=== PATIENT | female | born 1970 | race Caucasian/White ===

== ENCOUNTER 2022-01-12 13:14 | Outpatient (RCR) | payer OTHER, SELFPAY ==
--- NOTE | 2022-01-12 16:21 | ONC.NURNOTE ---
Breast Chief Lifestyle Officer Note Accompanied pt to appt with Hetal Herrera CNP. Pt s/p chemo x ~ 3 weeks; Radiation simulation tomorrow with a proposed start date of 01/16/22 with proposed treatment length of 5 weeks. Pt to begin Letrozole at completion of radiation therapy and f/u with Hetal 1-2 months in to evaluate side effects. 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 F/u sched for 04/21/22. Likely f/u 3 mo after that appt with labs/CT scan/provider.
== END 2022-01-22 23:59 | disposition home or self-care (01) ==
LOC: CCIC 13:14
PROVIDERS: Visit Provider Nurse Practitioner Family
DX: C50.911 Malignant neoplasm of unspecified site of right female breast (principal); Z17.0 Estrogen receptor positive status [ER+]; Z79.811 Long term (current) use of aromatase inhibitors; C77.9 Secondary and unspecified malignant neoplasm of lymph node, unspecified
CPT/HCPCS: 99212; 99214; 99215

== ENCOUNTER 2022-03-16 14:24 | Outpatient (CLI) | payer OTHER, SELFPAY ==
--- OUTSIDE RECORDS SUMMARY | 2022-03-16 14:36 | XMS_ITS | Encounter Summary ---
:1970 Author Organization [facility] Address [address] [place] [address] Care Team Providers Name Role Phone Unavailable Primary Care Provider Unavailable Encounter Details Date Type Department Care Team Description 03/16/2022 Ancillary Procedure Department of Oncology Arrived Social History Tobacco Use Types Packs/Day Years Used Date Smoking Tobacco: Never Smokeless Tobacco: Never Alcohol Habits Answer Date Recorded How often do you have a drink containing alcohol? Monthly or less 01/12/2022 How many drinks containing alcohol do you have on a 1 or 2 01/12/2022 typical day when you are drinking? How often do you have six or more drinks on one Never 01/12/2022 occasion? Comment: Not asked Social Isolation Answer Date Recorded In a typical week, how many times do you More than three ida es a week 01/12/2022 talk on the phone with family, friends, or neighbors? How often do you get together with friends Once a week 01/12/2022 or relatives? How often do you attend moravian or More than 4 times per year 01/12/2022 latter-day services? Do you belong to any clubs or Yes 01/12/2022 organizations such as moravian groups, unions, fraternal or athletic groups, or school groups? How often do you attend meetings of the More than 4 times pe r year 01/12/2022 clubs or organizations you belong to? Are you now , , , 01/12/2022 , never or living with a partner? Physical Activity Answer Date Recorded On average, how many days per week do you engage in moderate to 5 days 01/12/2022 strenuous exercise (like walking fast, running, jogging, dancing, swimming, biking, or other activities that cause a light or heavy sweat)? On average, how many minutes do you engage in exercise at th is 40 min 01/12/2022 level? Stress Answer Date Recorded Do you feel stress - tense, restless, nervous, or To some ex tent 01/12/2022 anxious, or unable to sleep at night because your mind is troubled all the time - these days? Financial Resource Strain Answer Date Recorded How hard is it for you to pay for the very basics like Not h sunita at all 01/12/2022 food, housing, medical care, and heating? Intimate Partner Violence Answer Date Recorded Within the last year, have you been afraid of your partner o r No 01/12/2022 ex-partner? Within the last year, have you been humiliated or emotionall y No 01/12/2022 abused in other ways by your partner or ex-partner? Within the last year, have you been kicked, hit, slapped, or No 01/12/2022 otherwise physically hurt by your partner or ex-partner? Within the last year, have you been raped or forced to have any No 01/12/2022 kind of sexual activity by your partner or ex-partner? Food Insecurity Answer Date Recorded Within the past 12 months, you worried that your food would Never true 01/12/2022 run out before you got money to buy more. Within the past 12 months, the food you bought just didn't N ever true 01/12/2022 last and you didn't have money to get more. Transportation Needs Answer Date Recorded In the past 12 months, has lack of transportation kept you f rom No 01/12/2022 medical appointments or from getting medications? In the past 12 months, has lack of transportation kept you f rom No 01/12/2022 meetings, work, or getting things needed for daily living? Housing Stability Answer Date Recorded In the last 12 months, was there a time when you were not ab le No 01/12/2022 to pay the mortgage or rent on time? In the last 12 months, how many places have you lived? 1 01/12/2022 In the last 12 months, was there a time when you did not hav e a No 01/12/[address] or slept in a correction (including now)? Education Answer Date Recorded What is the highest level of Professional school degree (e.g ., MD, 01/12/2022 school you have completed or the DDS, DVM, ORTIZ) highest degree you have received? Sex Assigned at Date Recorded Female 01/12/2022 4:28 PM CDT documented as of this encounter Plan of Treatment Upcoming Encounters Date Type Specialty Care Team Description 03/24/2022 Appointment Radiation Oncology Jose Allred M.D. [address] [place], [place] [phone] (Wo rk) documented as of this encounter Procedures Procedure Name Priority Date/Time Associated Diagnosis Comme nts ONCOLOGY IMAGE EXAM Routine 03/16/2022 2:00 PM Re sults for this CDT procedure are i n the results section. documented in this encounter Results Breast(s)-Oncology Image Exam (03/16/2022 2:00 PM CDT) Specimen (Source) Anatomical Collection Method Collection Time Re ceived Time Location / / Volume Laterality 03/16/2022 2:00 PM CDT Narrative [facility] - 03/16/2022 2:15 PM CDT This order has been created and auto-finalized to support the import of images acquired without order. The clini mona documentation to support these images can be found on the encounter chris t produced images. Provider Not In System IMG NON RAD IMAGING PROCEDUR ES Performing Organization Address City/State/ZIP Code Phon e Number [facility] NA documented in this encounter Visit Diagnoses Not on filedocumented in this encounter
--- OUTSIDE RECORDS SUMMARY | 2022-03-16 14:36 | XMS_ITS | Encounter Summary ---
:1970 Author Organization [facility] Address [address] [place] [address] Care Team Providers Name Role Phone Unavailable Primary Care Provider Unavailable Reason for Referral Radiation Therapy (Routine) - Authorized Specialty Diagnoses / Procedures Referred By Contact Refer red To Contact Diagnoses Malignant Neoplasm Of Breast Upper Outer Quadrant Female Right (HCC) Charles Allred M.D. [facility] Procedures Management Visit [address] [place], [place] [address] Referral ID Status Reason Start Date Expiration Date Visits V isits Requested Authorized [id number] Authorized 11/14/2021 11/14/2022 10 10 Reason for Visit Radiation Therapy (Routine) - Authorized Specialty Diagnoses / Procedures Referred By Contact Refer red To Contact Diagnoses Malignant Neoplasm Of Breast Upper Outer Quadrant Female Right (HCC) Charles Allred M.D. [facility] Procedures Management Visit [address] [place], [place] [phone] Referral ID Status Reason Start Date Expiration Date Visits V isits Requested Authorized [id number] Authorized 11/14/2021 11/14/2022 10 10 Encounter Details Date Type Department Care Team Description 02/22/2022 Hospital Encounter Department of Charles Allrde Neoplasm Radiation Oncology Rekha Lobato Of Breast Upper in [place], [address] [place], [place] Female Right (HCC) [address] [facility] [address] [place], [place] [phone] (Work) [phone] Social History Tobacco Use Types Packs/Day Years [...] or relatives? How often do you attend yarsanism or More than 4 times per year 01/12/2022 lutheran services? Do you belong to any clubs or Yes 01/12/2022 organizations such as yarsanism groups, unions, fraternal or athletic groups, or [...] place to sleep or slept in a senior living (including now)? Education Answer Date Recorded What is the highest level of Professional school degree (e.g ., , 01/12/2022 school you have completed or the DDS, DVM, ORTIZ) highest degree you have received? Sex Assigned at Date Recorded Female 01/12/2022 4:28 PM CDT documented as of this encounter Last Filed Vital Signs Vital Sign Reading Time Taken Comments Blood Pressure - - Pulse - - Temperature 36.1 ??C (97 ??F) 02/22/2022 2:02 PM CDT Respiratory Rate - - Oxygen Saturation - - Inhaled Oxygen Concentration - - Weight 75.2 kg (165 lb 12.6 oz) 02/22/2022 2:02 PM CDT Height - - Body Mass Index 24.14 04/14/2021 8:57 AM CDT documented in this encounter Medications at Time of Discharge Medication Sig Dispensed Refills Start Date End Date calcium carbonate (CALCIUM Take by mouth. 0 500 ORAL) cetirizine (ZyrTEC) 10 mg Take 10 mg by mouth 0 tablet daily. ergocalciferol, vitamin D2, 2 (two) times a day. 0 10 mcg (400 unit) tablet letrozole (FEMARA) 2.5 mg Take 2.5 mg by mouth 0 01/23/2022 tablet daily. pantoprazole (PROTONIX) 20 TAKE 1 TABLET (20 0 mg EC tablet MG) BY MOUTH DAILY vitamin B complex (B Take by mouth. 0 COMPLEX-VITAMIN B12 ORAL) documented as of this encounter Progress Notes Charles Allred M.D. - 02/22/2022 2:00 PM CDT SUBJECTIVE REASON FOR VISIT Evaluation for side effects while receiving radiation treatment for 1. Malignant Neoplasm Of Breast Upper Outer Quadrant Female Right (HCC) HISTORY OF PRESENT ILLNESS Mrs. Danielle Saini is a 52 y.o. female with stage IIA (pT2, pN1a, cM0, G3, ER+, MO+, HER2-)invasive ductal carcinoma of the right breast followed by chemotherapy. She is now undergoing radiotherapy. Treatment Course: 1xBreast Plan ID Fractions Dose / Fraction (cGy) Dose Treated (cGy) Dose Planned (cGy) First Treatment Last Treatment Elapsed Days [id number] 200 3600 3600 01/23/2022 02/15/2022 23 [id number] 5 / 7 200 1000 1400 02/16/2022 02/22/2022 6 Treatment Site Summary 4600 5000 01/23/2022 02/22/2022 30 Course Summary 01/23/2022 02/22/2022 30 Oncology History Malignant Neoplasm Of Breast Upper Outer Quadrant Female Right (HCC) 03/17/2021 Imaging Bilateral screening mammogram demonstrated clustered microcalcifications within the upper outer quadrant of the right breast with associated asymmetric density, 6 cm from the nipple, 10 o'clock position. No suspicious findings in the left breast. BI-RADS 0. 03/24/2021 Imaging Right breast mammogram with tomosynthesis demonstrated a spiculated mass within the lateral right breast, 5 cm from the nipple, with pleomorphic branching microcalcifications present. Targeted right breast ultrasound at the 9 o'clock position, 5 cm from the nipple was performed. There was an irregularly marginated solid mass with distal acoustic shadowing and punctate microcalcifications measuring 1.3 x 0.9 cm. 03/28/2021 Other Sod Cutter exam with Dr. Patty Bajwa where the patient reported spotting while on combined HRT. Pelvic examination demonstrated an endocervical polyp. Normal vagina, vulva, and cervix without lesions, polyps,or tenderness. Uterus was normal size, shape, consistency with no mass or tenderness. Adnexa was normal in size without mass or tenderness. Recommended proceeding with pelvic ultrasound for postmenopausal bleeding and endometrial biopsy of endometrium is greater than 4 mm. Continue HRT for now. 03/31/2021 Biopsy/Pathology Ultrasound-guided core biopsy of the right breast at the 9 o'clock position, 5 cm from the nipple was performed. Pathology demonstrated invasive ductal carcinoma, Bethel grade 3. Angiolymphatic invasion was absent. Associated DCIS was present, solid and cribriform subtypes (necrosis present (grade 3). Estrogen receptor positive (96%). Progesterone receptor positive (62%). HER2 by IHC negative (0). 04/06/2021 Other Surgery consultation with Dr. Malia Bailey who discussed surgical treatment options including mastectomy alone, mastectomy with reconstruction, and lumpectomy. Indications for chemotherapy and radiation were discussed as well. Referral for genetic screening. Referral to Radiation Oncology prior to det ermining any treatment plans. Recommended proceeding with an MRI of the breasts. Referral for lymphedema education and evaluation prior to surgery. Referral to Plastic surgery to discuss reconstruction. 04/12/2021 Imaging MRI of the bilateral breasts demonstrated clumped branching non-mass enhancement at the 9 o'clock position, middle posterior depth, approximately 6 cm from the nipple of the right breast. This measured 1.3 x 1.4 x 3.8 cm. There was a possible satellite mass approximately 2.1 cm medial and anterior tothe site of biopsy-proven malignancy, measuring 0.4 cm. This was located central to the nipple, middle depth, approximately 3 cm from the nipple. No suspicious areas of enhancement in the left breast. No adenopathy. BI-RADS 6. 04/13/2021 Genetic Testing and Tumor Genotyping Genetic counseling appointment where the patient chose to proceed with testing via [facility]???s Breast Cancer STAT panel (9 genes) with reflex to the complete Common Hereditary Cancers Panel (47 genes). Result was negative; BRCA 1/2 negative. 06/02/2021 Surgery and Procedures Bilateral mastectomies, right axillary sentinel lymph node biopsy, and right axillary lymph node dissection was performed by Dr. Bailey. Left immediate prepectoral tissue kaiawhina kohanga reo breast reconstructionwith AlloDerm and right direct implant prepectoral breast reconstruction with AlloDerm was performedby Dr. Cotto. PATHOLOGY: A) RIGHT BREAST, MASTECTOMY: 1. Invasive ductal carcinoma, Shayna grade III of III a. Size: 2.2 cm b. Core biopsy site is associated with tumor 2. Ductal carcinoma in situ (DCIS), nuclear grade 3, Cribriform and comedo type 3. Margins: a. Invasive carcinoma involves the anterior/superior margin b. DCIS is 0.5 cm from the anterior/superior margin 4. Breast Ancillary Testing: Performed on prior case ([id number]) a. Hormone Receptors: Estrogen receptor: Positive (96%, moderate staining) Progesterone receptor: Positive (62%, moderate staining) b. HER2 by IHC: Negative (0 by manual morphometry) 5. Ki-67 (performed on A2): 18% by image analysis 6. Surrounding breast unremarkable 7. Benign nipple B) RIGHT AXILLARY SENTINEL LYMPH NODE, 1, BIOPSY: 1. Positive for malignancy in 1 of 1 lymph nodes (1/) a. Size of largest metastatic focus: 12 mm b. Extracapsular extension: 2 mm C) LEFT BREAST, MASTECTOMY: 1. Breast and nipple with no pathologic abnormalities 2. Three (3) benign intraparenchymal lymph nodes D) RIGHT AXILLARY LYMPH NODES, REGIONAL DISSECTION: 1. Positive for malignancy in 2 of 6 lymph nodes (2/6) a. Size of largest metastatic focus: 12 mm b. Extracapsular extension: <1 mm SPECIMEN Procedure: Total mastectomy Specimen Laterality: Right TUMOR Tumor Site: Clock position : 9 o'clock Tumor Site: Distance from nipple (Centimeters): 5 cm Histologic Type: Invasive carcinoma of no special type (ductal) Glandular (Acinar) / Tubular Differentiation: Score 3 Nuclear Pleomorphism: Score 3 Mitotic Rate: Score 2 Overall Grade: Grade 3 (scores of 8 or 9) Tumor Size: Greatest dimension of largest invasive focus (Millimeters): 22 mm Ductal Carcinoma In Situ (DCIS): Present : Negative for extensive intraductal component (EIC) Architectural Patterns: Comedo Architectural Patterns: Cribriform Nuclear Grade: Grade III (high) Necrosis: Present, central (expansive comedo necrosis) Tumor Extent: Lymphovascular Invasion: Not identified Dermal Lymphovascular Invasion: Not identified Microcalcifications: Not identified Treatment Effect in the Breast: No known presurgical therapy MARGINS Invasive Carcinoma Margins: Positive for invasive carcinoma Positive Margin(s): Anterior/superior : Unifocal Distance from Other Margins: Other Margin: Anterior/inferior : 1.5 mm DCIS Margins: Uninvolved by DCIS Distance from Closest Margin (Millimeters): 5 mm Closest Margin(s): Anterior/superior LYMPH NODES Regional Lymph Nodes: Involved by tumor cells Number of Lymph Nodes with Macrometastases (> 2 mm): 3 Number of Lymph Nodes with Micrometastases (> 0.2 mm to 2 mm and / or > 200 cells): 0 Size of Largest Metastatic Deposit (Millimeters): 12 mm Extranodal Extension: Present Extent of Extranodal Extension: Less than or equal to 2 mm Total Number of Lymph Nodes Examined: 7 Number of Edmond Nodes Examined: 1 PATHOLOGIC STAGE CLASSIFICATION (pTNM, AJCC 8th Edition) Primary Tumor (pT): pT2 Regional Lymph Nodes (pN): pN1a Test(s) Performed: Ki-67 Percentage of Positive Nuclei: 18 % 07/07/2021 Surgery and Procedures Right breast anterior margin re-excision was performed by Dr. Bailey. PATHOLOGY: A) RIGHT BREAST, ANTERIOR MARGIN, RE-EXCISION: 1. Residual invasive ductal carcinoma, Shayna grade III of III a. Size: up to 1.5 mm b. Mastectomy site is associated with tumor c. Lymphovascular invasion: Present 2. Ductal carcinoma in situ (DCIS), nuclear grade 3, focal, Clinging type 3. Margins: a. Invasive carcinoma is < 0.1 cm from the new medial and lateral margins, and 0.1 cm from the new superior margin of this specimen b. DCIS is < 0.1 cm from the new medial margin of this specimen 4. Breast Ancillary Testing: Performed on prior case ([id number]) a. Hormone Receptors: Estrogen receptor: Positive (96%, moderate staining) Progesterone receptor: Positive (62%, moderate staining) b. HER2 by IHC: Negative (0 by manual morphometry) c. Ki-67 (performed on [id number]): 18% by image analysis 07/14/2021 Imaging PET-CT scan demonstrated postprocedural changes related to recent bilateral mastectomy and right axillary lymph node dissection with no suspicious uptake worrisome for residual or recurrent right breast carcinoma. No convincing evidence of tracer avid distant sites of metastatic disease. Focal mild uptake central right lobe without definitive noncontrast CT abnormality, potentially artifact or related to background noise. 07/28/2021 - 09/08/2021 Chemotherapy Dose dense Adriamycin and Cytoxan chemotherapy x 4 cycles. 09/22/2021 - 12/15/2021 Chemotherapy Weekly paclitaxel x 12 weeks. 01/23/2022 - Radiation Therapy Radiation Therapy Treatment Details (Noted on 11/14/2021) Site: Right Chest wall Technique: IMRT Goal: Curative Planned Treatment Start Date: 01/23/2022 Patient seen and evaluated today with Dr. Allred. The patient reports that she is doing well. She denies any new concerns or symptoms. She is applyinglotion to the right upper chest/neck region. There is some mild pruritus with her dermatitis. She describes intermittent pain that last only a few seconds to the mid chest region that she describes as shooting pain. She denies seroma, changes in range of motion or sore throat or shortness of breath. PATIENT REPORTED SYMPTOM SCREEN FATIGUE (Scale: 0 = no fatigue; 10 = worst fatigue you can imagine): 1 PAIN (Scale: 0 = no pain; 10 = worst pain you can imagine): 0 OVERALL QUALITY OF LIFE (Scale: 0 = as bad as can be; 10 = as good as can be): 8 OBJECTIVE There were no vitals taken for this visit. PHYSICAL EXAM General: Alert and oriented in no apparent distress. Skin: Mild erythema toned skin to the mid breast region. There is also brisk erythema in the right supraclavicular region. Slight dermatitis to the mid chest region. Dryness and mild erythema to the right posterior upper back region. Mepitel intact. No areas of desquamation. ASSESSMENT / PLAN #1 Stage IIA (pT2, pN1a, cM0, G3, ER+, MO+, HER2-) invasive ductal carcinoma of the right breast s/pbilateral mastectomies and right axillary lymph node dissection on June 02, 2021 with left kaiawhina kohanga reo and right implant reconstruction; re-excision of the positive anterior margin on July 07, 2021 #2 Dose dense Adriamycin and Cytoxan chemotherapy x4 cycles completed on September 08, 2021 #3 Weekly paclitaxel chemotherapy initiated on September 22, 2021; completed on December 15, 2021 #4 Radiotherapy to the right chest wall and regional lymph nodes initiated on January 23, 2022; anticipated completion on February 24, 2022 The patient is tolerating radiation treatment well. Benadryl or Hydrocortisone 1% ointment can be applied to areas of pruritus. Patient will leave Mepitel on for 1-2 weeks post last radiation treatment. Aquaphor is to be applied to areas of erythema outside of Mepitel filed now 3-4 times a day. Once Mepitel has come off the whole treatment field area should have Aquaphor application 4 times a day. I have reviewed Moist Skin Reaction pamphlet [id number]. I have provided patient with samples of Xeroform and Pro Net. I have provided patient information on how to order more supplies if needed. Radiationrelated skin changes should start to improve in 2-3 weeks. I have reviewed Monthly Self Breast Examination pamphlet with patient today. Hetal Herrera CNP will see patient in followup at the end of March 2022. We will not order formal follow up in Radiation Oncology. Patient has been encouraged to contact our care team for any questions, concerns or assistance with skin care. She will continue with radiation treatment as planned. Patient stated a full understanding to the plan of care discussed today. Toxicities reviewed with Dr. Allred today. Signed by: Charo Morales RN 02/22/22 1:56 PM CDT I saw and evaluated the patient and participated in the bentley portions of the service. I reviewed the documentation of Charo Morales R.N. and agree with the findings and plan. The patient appears well onexam. She has brisk erythema in her right supraclavicular region. She will begin dressing changes for this. She will contact us if her skin blisters in peels. She will finish treatment as planned on Sunday. She is tolerating treatment well with anticipated side effects including grade 2 radiation dermatitis and grade 1 non-cardiac chest pain. She will follow-up with Hetal Herrera, SURVEYING OR SPATIAL SCIENCE TECHNICIAN will see patientin followup at the end of March 2022. I will not schedule any follow-up with me, but she can contact me at any time with questions or concerns. Signed by: Charles Allred M.D. 02/22/2022 5:07 PM CDT [facility] [address] [place] [address] documented in this encounter Miscellaneous Notes Addendum Note - Jaquelin Abraham, C.N.A. - 02/22/2022 2:00 PM CDT Encounter addended by: Jaquelin Abraham C.N.A. on: 02/23/2022 7:29 AM Actions taken: Letter saved documented in this encounter Plan of Treatment Upcoming Encounters Date Type Specialty Care Team Description 03/24/2022 Appointment Radiation Oncology Jose Allred M.D. [address] [place], [place] [phone] (Wo rk) Scheduled Orders Name Type Priority Associated Diagnoses Order S chedule Management Visit Radiation Oncology Routine Malignant Neoplasm Once for 1 Of Breast Upper Occurrences starting Outer Quadrant 02/22/2022 un til Female Right (HCC) 2 documented as of this encounter Visit Diagnoses Diagnosis Malignant Neoplasm Of Breast Upper Outer Quadrant Female Right (HCC) documented in this encounter
--- OUTSIDE RECORDS SUMMARY | 2022-03-16 14:36 | XMS_ITS | Encounter Summary ---
:[address] [facility] Address [address] [place] [address] Care Team Providers Name Role Phone Unavailable Primary Care Provider Unavailable Reason for Referral Outpatient (Routine) - Authorized Specialty Diagnoses / Procedures Referred By Contact Refer red To Contact Radiation Oncology Charles Allred M .D. 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 [facility] Procedures CT Chest with IV Contrast [address] [place] [phone] Referral ID Status Reason Start Date Expiration Date Visits V isits Requested Authorized [id number] Authorized 03/16/2022 03/16/2023 1 1 Outpatient (Routine) - Closed Specialty Diagnoses / Procedures Referred By Contact Refer red To Contact Radiation Oncology Charles Allred M .D. [facility] Region [address] [place] [phone] Referral ID Status Reason Start Date Expiration Date Visits Requ ested Visits Authorized [id number] Closed 03/15/2022 03/14/2025 1 1 Reason for Visit Outpatient (Routine) - Closed Specialty Diagnoses / Procedures Referred By Contact Refer red To Contact Radiation Oncology Charles Allred M .D. 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 How often do you attend synagogue or More than 4 times per year 01/12/2022 zoroastrianism services? Do you belong to any clubs or Yes 01/12/2022 organizations such as synagogue groups, unions, fraternal or athletic groups, or [...] place to sleep or slept in a prison (including now)? Education Answer Date Recorded What is the highest level of Professional school degree (e.g ., , 01/12/2022 school you have completed or the DDS, DVM, ORTIZ) highest degree you have received? Sex Assigned at Date Recorded Female 01/12/2022 4:28 PM CDT documented as of this encounter Last Filed Vital Signs Vital Sign Reading Time Taken Comments Blood Pressure 106/72 03/16/2022 1:03 PM CDT Pulse 64 03/16/2022 1:03 PM CDT Temperature 36.2 ??C (97.1 ??F) 03/16/2022 1:03 PM CDT Respiratory Rate - - Oxygen Saturation - - Inhaled Oxygen Concentration - - Weight 75.7 kg (166 lb 14.2 oz) 03/16/2022 1:03 PM CDT Height - - Body Mass Index 24.3 04/14/2021 8:57 AM CDT documented in this encounter Plan of Treatment Upcoming Encounters Date Type Specialty Care Team Description 03/24/2022 Appointment Radiation Oncology Jose Allred M.D. 200 [place], [place] [phone] (Wo rk) Scheduled Orders Name Type Priority Associated Diagnoses Order S chedule CT Chest with IV Imaging RAD - Routine (most Malignant Neoplas m Expected: Contrast inpatients and all Of Breast Upper 2021 outpatients) Outer Quadrant (Approximate) , Female Right (HC C) Expires: Pain Chest Wall 06/15/2023 Scheduled Referrals Name Type Priority Associated Order Schedule Diagnoses Radiation Oncology Outpatient Referral Routine On ce for 1 office visit Occurrences sta rting (clinic) 03/16/2022 unti l 03/16/2022 Radiation Oncology Outpatient Referral Routine Ex pected: 03/23/2022 office visit (Approximate), (clinic) Expires: 2022 documented as of this encounter Visit Diagnoses Diagnosis 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
--- OUTSIDE RECORDS SUMMARY | 2022-03-16 14:36 | XMS_ITS | Encounter Summary ---
:[address] 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 [facility] Procedures Prior Auth Rad Tx [place] RADTN [place] DEL >=1 MEV COMPLEX [address] [place] [address] Referral ID Status Reason Start Date Expiration Date Visits Requ ested Visits Authorized [id number] Closed 01/16/2022 11/14/2022 25 25 Encounter Details Date Type Department Care Team Description 02/22/2022 Hospital Encounter Department of Radiation Lei Allred, [place]cology [place] [address] [facility] [address] [place] [phone] Social History Tobacco Use Types Packs/Day Years [...] or relatives? How often do you attend hoahaoism or More than 4 times per year 01/12/2022 voodoo services? Do you belong to any clubs or Yes 01/12/2022 organizations such as hoahaoism groups, unions, fraternal or athletic groups, or [...] place to sleep or slept in a residential (including now)? Education Answer Date Recorded What [...] Radiation Oncology Jose Allred M.D. [address] [place], [place] [phone] (Wo rk) documented as of this encounter Visit Diagnoses Not on filedocumented in this encounter
--- OUTSIDE RECORDS SUMMARY | 2022-03-16 14:36 | XMS_ITS | Encounter Summary ---
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 [facility] Procedures Prior Auth Rad Tx [place] RADTN [place] DEL >=1 MEV COMPLEX [address] [place] [address] Referral ID Status Reason Start Date Expiration Date Visits Requ ested Visits Authorized [id number] Closed 01/16/2022 11/14/2022 25 25 Encounter Details Date Type Department Care Team Description 02/21/2022 Hospital Encounter Department of Radiation Lei Allred, [place]cology [place] [address] [facility] [address] [place] [phone] Social History Tobacco Use Types Packs/Day Years [...] or relatives? How often do you attend lutheran or More than 4 times per year 01/12/2022 caodaism services? Do you belong to any clubs or Yes 01/12/2022 organizations such as lutheran groups, unions, fraternal or athletic groups, or [...] place to sleep or slept in a intermediate (including now)? Education Answer Date Recorded What [...] Radiation Oncology Jose Allred M.D. [address] [place], [place] [phone] (Wo rk) documented as of this encounter Visit Diagnoses Not on filedocumented in this encounter
--- OUTSIDE RECORDS SUMMARY | 2022-03-16 14:36 | XMS_ITS | Encounter Summary ---
:1970 Author Organization [facility] Address [address] [place] [address] Care Team Providers Name Role Phone Unavailable Primary Care Provider Unavailable Encounter Details Date Type Department Care Team Description 02/24/2022 Documentation Department of Radiation Charles Allred, Oncology in [facility] [address] [facility] [address] [place] [phone] (Wo rk) Social History Tobacco Use Types Packs/Day Years [...] or relatives? How often do you attend restorationist or More than 4 times per year 01/12/2022 hoahaoism services? Do you belong to any clubs or Yes 01/12/2022 organizations such as restorationist groups, unions, fraternal or athletic groups, or [...] minutes do you engage in exercise at is 40 min 01/12/2022 level? Stress Answer [...] place to sleep or slept in a [facility] (including now)? Education Answer Date Recorded What is the highest level of Professional school degree (e.g ., , 01/12/2022 school you have completed or the DDS, DVM, ORTIZ) highest degree you have received? Sex Assigned at Date Recorded Female 01/12/2022 4:28 PM CDT documented as of this encounter Miscellaneous Notes Radiation Completion Notes - Frances Randall R.N. 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 ([id number]) Treatment Intent: Curative Concomitant Therapy: To be determined by Hetal Herrera CNP Single Plan Treatment Course: 1xBreast Plan ID Fractions Dose / Fraction (cGy) Dose Treated (cGy) Dose Planned (cGy) First Treatment Last Treatment Elapsed Days [id number] / 200 3600 3600 01/23/2022 02/15/2022 23 [id number] 7 / 7 200 1400 1400 02/16/2022 02/24/2022 8 Treatment Site Summary 5000 5000 01/23/2022 02/24/2022 32 Course Summary 01/23/2022 02/24/2022 32 Radiation Modality: Photons CLINICAL SUMMARY Mrs. Danielle Saini completed radiation treatment as planned without interruptions. The course of treatment was tolerated well and with anticipated side effects. The patient experienced toxicities of grade 2 radiation dermatitis and grade 1 non-cardiac chest pain during radiation treatment. TREATMENT RESPONSE: Response to treatment will be determined by post-treatment imaging and/or laboratory work. RECOMMENDED FOLLOW UP: Hetal Herrera CNP . Signed by: Frances Singh R.N., 03/09/2022 11:37 AM CDT [facility] [address] [place] [address] documented in this encounter Plan of Treatment Upcoming Encounters Date Type Specialty Care Team Description 03/24/2022 Appointment Radiation Oncology Jose Allred M.D. [address] [place] [phone] (Wo rk) documented as of this encounter Visit Diagnoses Not on filedocumented in this encounter
--- OUTSIDE RECORDS SUMMARY | 2022-03-16 14:36 | XMS_ITS | Encounter Summary ---
:1970 Author Organization [facility] Address [address] [place] [address] Care Team Providers Name Role Phone Unavailable Primary Care Provider Unavailable Reason for Referral Outpatient (Routine) - Closed Specialty Diagnoses / Procedures Referred By Contact Refer red To Contact Radiation Oncology Charles Allred M .D. [facility] Region [address] [place] [phone] Referral ID Status Reason Start Date Expiration Date Visits Requ ested Visits Authorized [id number] Closed 03/15/2022 03/14/2025 1 1 Reason for Visit Reason Comments Follow-up Encounter Details Date Type Department Care Team Description 03/15/2022 Clinical Communication Department of Charles Allred Radiation Oncology yoli Lobato M.D. [facility] [address] [place] [address] [place] [phone] Social History Tobacco Use Types Packs/Day Years [...] or relatives? How often do you attend sikhism or More than 4 times per year 01/12/2022 islam services? Do you belong to any clubs or Yes 01/12/2022 organizations such as sikhism groups, unions, fraSprout Route or athletic groups, or school groups? How [...] documented as of this encounter Miscellaneous Notes Telephone Encounter - Greg Thompson - 03/15/2022 2:37 PM CDT Caller: Patient Is there a valid authorization to speak with caller? Yes Primary Radiation Oncologist: Dr. Allred Reason for call: Patient called today in regards to pain management hoping to receive a call back from a nurse to discuss further. Phone number: [phone] Is it okay to leave a voicemail on answering machine with test results? Yes Pharmacy (if medication related): N/A documented in this encounter Plan of Treatment Upcoming Encounters Date Type Specialty Care Team Description 03/24/2022 Appointment Radiation Oncology Jose Allred M.D. [address] [place] [phone] (Wo rk) Scheduled Referrals Name Type Priority Associated Diagnoses Order S alvin Radiation Oncology Outpatient Referral Routine Ex pected: office visit 03/16/2022 (clinic) (Approximate), Expires: 03/15/2023 documented as of this encounter Visit Diagnoses Not on filedocumented in this encounter
--- OUTSIDE RECORDS SUMMARY | 2022-03-16 14:36 | XMS_ITS | Encounter Summary ---
:1970 Author Organization [facility] Address [address] [place] [address] Care Team Providers Name Role Phone Unavailable Primary Care Provider Unavailable Reason for Visit Radiation Therapy (Routine) - Closed Specialty Diagnoses / Procedures Referred By Contact Refer red To Contact Diagnoses Malignant Neoplasm Of Breast Upper Outer Quadrant Female Right (HCC) Charles Allred M.D. [facility] Procedures Prior Auth Rad Tx [place] RADTN [place] DEL >=1 MEV COMPLEX [address] [place] [address] Referral ID Status Reason Start Date Expiration Date Visits Requ ested Visits Authorized [id number] Closed 01/16/2022 11/14/2022 25 25 Encounter Details Date Type Department Care Team Description 02/24/2022 Hospital Encounter Department of Radiation Lei Allred, [place]cology [place] [address] [facility] [address] [place] [phone] Social History Tobacco Use Types Packs/Day Years [...] or relatives? How often do you attend mormonism or More than 4 times per year 01/12/2022 scientology services? Do you belong to any clubs or Yes 01/12/2022 organizations such as mormonism groups, unions, fraternal or athletic groups, or [...] to sleep or slept in a senior care (including now)? Education Answer Date Recorded What [...] Radiation Oncology Jose Allred M.D. [address] [place], [place] [phone] (Wo rk) documented as of this encounter Visit Diagnoses Not on filedocumented in this encounter
--- OUTSIDE RECORDS SUMMARY | 2022-03-16 14:36 | XMS_ITS | Encounter Summary ---
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 [facility] Procedures Prior Auth Rad Tx [place] RADTN [place] DEL >=1 MEV COMPLEX [address] [place] [address] Referral ID Status Reason Start Date Expiration Date Visits Requ ested Visits Authorized [id number] Closed 01/16/2022 11/14/2022 25 25 Encounter Details Date Type Department Care Team Description 02/23/2022 Hospital Encounter Department of Radiation Lei Allred, [place]cology [place] [address] [facility] [address] [place] [phone] Social History Tobacco Use Types Packs/Day Years [...] or relatives? How often do you attend methodist or More than 4 times per year 01/12/2022 hoahaoism services? Do you belong to any clubs or Yes 01/12/2022 organizations such as methodist groups, unions, fraternal or athletic groups, or [...] place to sleep or slept in a fci (including now)? Education Answer Date Recorded What [...] Radiation Oncology Jose Allred M.D. [address] [place], [place] [phone] (Wo rk) documented as of this encounter Visit Diagnoses Not on filedocumented in this encounter
--- OUTSIDE RECORDS SUMMARY | 2022-03-16 14:36 | XMS_ITS | Clinical Summary ---
:1970 Author Organization [facility] Address [address] [place] [address] Care Team Providers Name Role Phone Unavailable Primary Care Provider Unavailable Source Comments Patient records contain information from all sites at [facility]. For routine questions regarding patient records, call [phone] during business hours, M-F 8:00 AM - 5:00 PM Central Time. Record requests for emergency care only can be directed to [phone] at any time.[facility] Allergies Active Allergy Reactions Severity Noted Date Comments Codeine Hives Medium 03/20/2007 Cephalexin Itching, Rash Medium 02/01/2022 Mold Other (see comments) Medium 04/09/2017 dust Scopolamine Other (see comments) High 02/01/2022 insomni a Medications Medication Sig Dispensed Refills Start Date End Date Status ergocalciferol, 2 (two) times a day. 0 Active vitamin D2, 10 mcg (400 unit) tablet cetirizine (ZyrTEC) Take 10 mg by mouth 0 Active 10 mg tablet daily. pantoprazole TAKE 1 TABLET (20 0 10/20/2021 Active (PROTONIX) 20 mg EC MG) BY MOUTH DAILY tablet letrozole (FEMARA) Take 2.5 mg by mouth 0 01/23/2022 Active 2.5 mg tablet daily. vitamin B complex (B Take by mouth. 0 Active COMPLEX-VITAMIN B12 ORAL) calcium carbonate Take by mouth. 0 Active (CALCIUM 500 ORAL) sulfamethoxazole-tri Take 160 mg of 0 03/12/2022 Active methoprim (BACTRIM trimethoprim by DS) 800-160 mg per mouth daily. 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 04/13/2021 Cancer Staging: Clinical stage from 03/31: Stage IIA (cT2, cN0, cM0, G3, ER+, ID+, HER2-) - Unsigned Pathologic stage from 06/02/2021: Stage I IA (pT2, pN1a, cM0, G3, ER+, ID+, HER2-) - Unsigned Encounters Date Type Specialty Care Team Description 03/16/2022 Ancillary Procedure Arrived 03/16/2022 Hospital Encounter Radiation Oncology Charles Allred Malignant Neoplasm Of Breast Upper Outer Quadrant Female Right (HCC) (Primary Dx); Rekha Lobato Pain Chest Wall 03/15/2022 Clinical Communication Radiation Oncology Terry Allred Follow-up Rekha Lobato 03/13/2022 Clinical Communication Radiation Oncology Maribell Valles M.D. 02/24/2022 Hospital Encounter Radiation Oncology Charles Allred M.D. 02/24/2022 Documentation Radiation Oncology Charles Allred M.D. 02/23/2022 Hospital Encounter Radiation Oncology Charles Allred M.D. 02/22/2022 Hospital Encounter Radiation Oncology Charles Allred Malignant Neoplasm Rekha Lobato Of Breast Upper Outer Quadrant Female Right (H CC) 02/22/2022 Hospital Encounter Radiation Charles Maciel M.D. 02/21/2022 Hospital Encounter Radiation Charles Maciel M.D. 02/20/2022 Hospital Encounter Radiation Charles Maciel M.D. 02/17/2022 Hospital Encounter Radiation Charles Maciel M.D. 02/16/2022 Hospital Encounter Radiation Charles Maciel M.D. 02/15/2022 Hospital Encounter Radiation Charles Maciel Malignant Neoplasm Rekha Lobato Of Breast Upper Outer Quadrant Female Right (H CC) 02/15/2022 Hospital Encounter Radiation Charles Maciel M.D. 02/14/2022 Hospital Encounter Radiation Charles Maciel M.D. 02/13/2022 Hospital Encounter Radiation Charles Maciel M.D. 02/10/2022 Hospital Encounter Radiation Oncology Charles Allred M.D. 02/09/2022 Hospital Encounter Radiation Oncology Charles Allred M.D. 02/08/2022 Hospital Encounter Radiation Oncology Charles Allred M.D. 02/08/2022 Hospital Encounter Radiation Oncology Charles Allred M.D. 02/07/2022 Hospital Encounter Radiation Oncology Tricia Valles Malignant Neoplasm Rekha Adam Of Breast Upper Outer Quadrant Female Right (H CC) 02/07/2022 Hospital Encounter Radiation Oncology Charles Allred M.D. 02/06/2022 Hospital Encounter Radiation Oncology Charles Allred M.D. 02/03/2022 Hospital Encounter Radiation Oncology Charles Allred M.D. 02/02/2022 Hospital Encounter Radiation Oncology Charles Allred M.D. 02/01/2022 Hospital Encounter Radiation Oncology Charles Allred Malignant Magdi Lobato M.D. Of Breast Upper [place]eman, Charo Outer Quadrant A, R.N. Female Right (H CC) (Primary Dx) 02/01/2022 Hospital Encounter Radiation Oncology Charles Allred M.D. 01/31/2022 Hospital Encounter Radiation Oncology Reena Tricia Malignant Magdi Adam M.D. Of Breast Upper Outer Quadrant Female Right (H CC) 01/31/2022 Hospital Encounter Radiation Oncology Charles Allred M.D. 01/30/2022 Hospital Encounter Radiation Charles Maciel M.D. 01/27/2022 Hospital Encounter Radiation Oncology Charles Allred M.D. 01/26/2022 Hospital Encounter Radiation Oncology Charles Allred Malignant Magdi Lobato M.D. Of Breast Upper Outer Quadrant Female Right (H CC) 01/26/2022 Hospital Encounter Radiation Charles Maciel M.D. 01/25/2022 Hospital Encounter Radiation Oncology Charles Allred M.D. Of Breast Upper Outer Quadrant Female Right (H CC) 01/25/2022 Hospital Encounter Radiation Charles Maciel M.D. 01/24/2022 Hospital Encounter Radiation Oncology Charles Allred M.D. 01/23/2022 Hospital Encounter Radiation Oncology Charles Allred M.D. 01/13/2022 Hospital Encounter Radiation Oncology Charles Allred Malignant Neoplasm Rekha Lobato Of Breast Upper Outer Quadrant Female Right (H CC) 01/13/2022 Hospital Encounter Radiation Oncology Charles Allred Malignant Neoplasm Rekha Lobato Of Breast Upper Outer Quadrant Female Right (H CC) (Primary Dx) from Last 3 Months Family History Medical History Relation Name Comments Skin cancer Father Skin cancer Mother Relation Name Status Comments Father Mother Social History Tobacco Use Types Packs/Day Years [...] or relatives? How often do you attend episcopal or More than 4 times per year 01/12/2022 hinduism services? Do you belong to any clubs or Yes 01/12/2022 organizations such as episcopal groups, unions, fraternal or athletic groups, or [...] place to sleep or slept in a half-way (including now)? Education Answer Date Recorded What is the highest level of Professional school degree (e.g ., , 01/12/2022 school you have completed or the DDS, DVM, ORTIZ) highest degree you have received? Sex Assigned at Date Recorded Female 01/12/2022 4:28 PM CDT Last Filed Vital Signs Vital Sign Reading Time Taken Comments Blood Pressure 106/72 03/16/2022 1:03 PM CDT Pulse 64 03/16/2022 1:03 PM CDT Temperature 36.2 ??C (97.1 ??F) 03/16/2022 1:03 PM CDT Respiratory Rate - - Oxygen Saturation - - Inhaled Oxygen Concentration - - Weight 75.7 kg (166 lb 14.2 oz) 03/16/2022 1:03 PM CDT Height 176.5 cm (5' 9.49) 04/14/2021 8:57 AM CDT Body Mass Index 24.3 04/14/2021 8:57 AM CDT Plan of Treatment Upcoming Encounters Date Type Specialty Care Team Description 03/24/2022 Appointment Radiation Oncology Jose Allred M.D. [address] [place], [place] [phone] (Wo rk) Health Maintenance Due Date Last Done Comments CT Colonography 1970 Cervical Cancer Screening 1970 Cologuard 1970 Colonoscopy 1970 Colorectal Cancer Screening 1970 FIT 1970 HIV Screening 1970 Hepatitis B Vaccines (1 of 3 - 1970 3-dose series) Hepatitis C Screening 1970 Pneumococcal vaccine (0-64 years) 01/17/1974 (1 - PCV) Depression Screening (Annual 06/25/2021 PHQ-2) COVID-19 Vaccine (4 - Booster for 09/14/2021 07/20/2021, , Pfizer series) 10/12/2020 Influenza Vaccine (#1) 2022 03/28/2021, 03/26/2020, 04/05/2017, Additional history exists Mammogram 03/31/2022 03/31/2021, 03/24/2021, 03/16/2021, Additional history exists Fasting Glucose for Diabetes 02/16/2023 02/17/2020, 020, Screening 01/16/2019 Lipid (Cholesterol) Screening 02/16/2025 02/17/2020, 2018, 01/16/2019 DTaP,Tdap,and Td Vaccines (3 - Td 02/16/2030 02/17/2020, or Tdap) Zoster Vaccines Completed 06/19/2019, 04/25/2019, 02/11/2019 Procedures Procedure Name Priority Date/Time Associated Comments Diagnosis ONCOLOGY IMAGE EXAM Routine 03/16/2022 2:00 PM Re sults for this CDT procedure are i n the results section. CRITICAL ACCESS HOSPITAL COURSE COMPLETE Routine 02/24/2022 1:30 PM R esults for this TREATMENT INFORMATION CDT proced ure are in the results section. ARIA DAILY TREATMENT Routine 02/24/2022 1:30 PM R esults for this INFORMATION CDT procedure are i n the results section. ARIA DAILY TREATMENT Routine 02/23/2022 1:32 PM R esults for this INFORMATION CDT procedure are i n the results section. ARIA DAILY TREATMENT Routine 02/22/2022 1:48 PM R esults for this INFORMATION CDT procedure are i n the results section. ARIA DAILY TREATMENT Routine 02/21/2022 1:46 PM R esults for this INFORMATION CDT procedure are i n the results section. ARIA DAILY TREATMENT Routine 02/20/2022 1:51 PM R esults for this INFORMATION CDT procedure are i n the results section. ARIA DAILY TREATMENT Routine 02/17/2022 1:46 PM R esults for this INFORMATION CDT procedure are i n the results section. ARIA DAILY TREATMENT Routine 02/16/2022 1:34 PM R esults for this INFORMATION CDT procedure are i n the results section. ARIA DAILY TREATMENT Routine 02/15/2022 1:54 PM R esults for this INFORMATION CDT procedure are i n the results section. ARIA DAILY TREATMENT Routine 02/14/2022 1:40 PM R esults for this INFORMATION CDT procedure are i n the results section. ARIA DAILY TREATMENT Routine 02/13/2022 1:43 PM R esults for this INFORMATION CDT procedure are i n the results section. ARIA DAILY TREATMENT Routine 02/10/2022 1:50 PM R esults for this INFORMATION CDT procedure are i n the results section. ARIA DAILY TREATMENT Routine 02/09/2022 1:30 PM R esults for this INFORMATION CDT procedure are i n the results section. ARIA DAILY TREATMENT Routine 02/08/2022 1:36 PM R esults for this INFORMATION CDT procedure are i n the results section. ARIA DAILY TREATMENT Routine 02/07/2022 1:53 PM R esults for this INFORMATION CDT procedure are i n the results section. ARIA DAILY TREATMENT Routine 02/06/2022 1:34 PM R esults for this INFORMATION CDT procedure are i n the results section. ARIA DAILY TREATMENT Routine 02/03/2022 1:42 PM R esults for this INFORMATION CDT procedure are i n the results section. ARIA DAILY TREATMENT Routine 02/02/2022 1:27 PM R esults for this INFORMATION CDT procedure are i n the results section. ARIA DAILY TREATMENT Routine 02/01/2022 1:26 PM R esults for this INFORMATION CDT procedure are i n the results section. ARIA DAILY TREATMENT Routine 01/31/2022 1:29 PM R esults for this INFORMATION CDT procedure are i n the results section. ARIA DAILY TREATMENT Routine 01/30/2022 12:43 Res ults for this INFORMATION PM CDT procedure are i n the results section. ARIA DAILY TREATMENT Routine 01/27/2022 2:48 PM R esults for this INFORMATION CDT procedure are i n the results section. ARIA DAILY TREATMENT Routine 01/26/2022 12:40 Res ults for this INFORMATION PM CDT procedure are i n the results section. ARIA DAILY TREATMENT Routine 01/25/2022 11:40 Res ults for this INFORMATION AM CDT procedure are i n the results section. ARIA DAILY TREATMENT Routine 01/24/2022 11:32 Res ults for this INFORMATION AM CDT procedure are i n the results section. ARIA DAILY TREATMENT Routine 01/23/2022 8:50 AM R esults for this INFORMATION CDT procedure are i n the results section. ARIA COURSE COMPLETE Routine 01/20/2022 1:47 PM R esults for this TREATMENT INFORMATION CDT proced ure are in the results section. ARIA COURSE COMPLETE Routine 01/20/2022 1:47 PM R esults for this TREATMENT INFORMATION CDT proced ure are in the results section. ARIA COURSE COMPLETE Routine 01/20/2022 7:56 AM R esults for this TREATMENT INFORMATION CDT proced ure are in the results section. ARIA COURSE COMPLETE Routine 01/20/2022 7:51 AM R esults for this TREATMENT INFORMATION CDT proced ure are in the results section. INITIAL RAD ONC Routine 01/13/2022 11:19 Malignant Neoplasm Re sults for this TREATMENT PLANNING CT AM CDT Of Breast Upper pro cedure are in SIMULATION Outer Quadrant the results Female Right (HCC) section. from Last 3 Months Results Breast(s)-Oncology Image Exam (03/16/2022 2:00 PM [...] Organization Address City/State/ZIP Code Phon e Number [facility] NA Aria Course Complete Treatment Information (02/24/2022 1:30 PM CDT)Only the most recent of5 resultswithin the time period is included. [facility] gist Method Time Signature Course ID [id number] WEEKS ARIA Course Start Date WEEKS ARIA 2 10:04 CDT Course End Date WEEKS ARIA 2 12:40 CDT First Treatment WEEKS ARIA Date 2 08:47 CDT Last Treatment WEEKS ARIA Date 2 13:30 CDT Treatment Elapsed 32 WEEKS ARIA Days Reference Point [id number] WEEKS ARIA Dosage Given to 5000 WEEKS ARIA Date cGy Plan ID [id number] WEEKS ARIA R Fractions Treated 7 WEEKS ARIA to Date Planned Total 7 WEEKS ARIA Fractions Prescribed Dose 200 WEEKS ARIA Per Fraction Prescription Dose 1400 WEEKS ARIA in cGy Plan Primary [id number] WEEKS ARIA Reference Point Plan ID [id number] WEEKS ARIA Fractions Treated 18 WEEKS ARIA to Date Planned Total 18 WEEKS ARIA Fractions Prescribed Dose 200 WEEKS ARIA Per Fraction Prescription Dose 3600 WEEKS ARIA in cGy Plan Primary [id number] WEEKS ARIA Reference Point Specimen (Source) Anatomical Collection Method Collection Time Re ceived Time Location / / Volume Laterality 02/24/2022 1:30 PM CDT Provider Not In System RADIATION ONCOLOGY ORDERABLE S Performing Organization Address City/State/ZIP Code Phon e Number [facility] Daily Treatment Information (02/24/2022 1:30 PM CDT)Only the most recent of 25 resultswithin the time period is included. [facility] gist Method Time Signature Course ID [id number] WEEKS ARIA Course Start Date WEEKS ARIA 2 10:04 CDT First Treatment WEEKS ARIA Date 2 08:47 CDT Last Treatment WEEKS ARIA Date 2 13:30 CDT Treatment Elapsed 32 WEEKS ARIA Days Reference Point [id number] WEEKS ARIA Dosage Given to 5000 WEEKS ARIA Date cGy Session Dosage 200 WEEKS ARIA Given Plan ID [id number] WEEKS ARIA R Fractions Treated 7 WEEKS ARIA to Date Planned Total 7 WEEKS ARIA Fractions Prescribed Dose 200 WEEKS ARIA Per Fraction Prescription Dose 1400 WEEKS ARIA in cGy Plan Primary [id number] WEEKS ARIA Reference Point Specimen (Source) Anatomical Collection Method Collection Time Re ceived Time Location / / Volume Laterality 02/24/2022 1:30 PM CDT Provider Not In System RADIATION ONCOLOGY ORDERABLE S Performing Organization Address City/State/ZIP Code Phon e Number [facility] Initial Rad Onc Treatment Planning CT Simulation (01/13/2022 11:19 AM CDT) Specimen (Source) Anatomical Location Collection Method / Collectio n Time Received Time / Laterality Volume Narrative [facility] - 01/13/2022 11:19 AM CDT Laureen Cobb, RTT ? 01/13/2022 11:20 AM Initial Rad Onc Treatment Planning CT Si mulation Date/Time: 01/13/2022 11:19 AM Performed by: Charles Allred M.D. Authorized by: Charles Allred M.D. Charles Allred M.D. RADIATION ONCOLOGY ORDERABLE S Performing Organization Address City/State/ZIP Code Phon e Number [facility] from Last 3 Months Insurance Payer Benefit Plan / Subscriber ID Effective Dates Phone Addre ss Type Group CIGNA CIGNA OPEN [id number] 2014-Present [phone] PO [address] X [id number] PPO ACCESS PLUS [place] [phone] (Work) [phone]
--- OUTSIDE RECORDS SUMMARY | 2022-03-16 14:36 | XMS_ITS | Clinical Summary ---
:1970 Author Organization [facility] [place] [address] Care Team Providers Name Role Phone Bobby Tripathi MD Primary Care Provider [phone] Allergies Active Allergy Reactions Severity Noted Date Comments Codeine Hives 03/20/2007 Mold Runny Nose 04/09/2017 dust Medications Medication Sig Dispensed Refills Start Date End Date Status cetirizine (ZYRTEC) 10 Take 10 mg by 0 Active mg tablet mouth once daily. ibuprofen (ADVIL; Take 1-3 tablets 100 tablet 0 04/10/2017 Active MOTRIN) 200 mg by mouth every 6 tabletIndications: hours if needed Endometrial polyp for Pain. estradiol 0.05 mg/24 Apply 1 Patch on 12 Patch 4 03/28/2021 Active hr (Climara) 0.05 dry, clean, mg/24 hr hairless skin patchIndications: once weekly. Vasomotor flushing, Perimenopause progesterone Take 1 Capsule 90 capsule. 4 03/28/2021 Active micronized (200 mg) by (Prometrium) 200 mg mouth at capsuleIndications: bedtime. This Vasomotor flushing product contains peanut oil. Please verify patient allergies. Active Problems Problem Noted Date Endometrial polyp 03/22/2017 Overview: Added automatically from request for cherelle guerrero [id number] GSI (genuine stress incontinence), female 11/30/2011 Routine gynecological examination 11/30/2011 Immunizations Name Administration Dates Next Due COVID-19 vaccine ([employer] 11/09/2020, 10/12/2020 30mcg/0.3mL) PF, MDV Influenza Virus, Unspecified 03/26/2020 Influenza, IIV4 03/28/2021, 04/05/2016, 04/24/2014 Influenza, IIV4 (Age 6-35 Mos) 04/05/2017 Tdap 02/17/2020, 06/30/2009 Tuberculin (PPD) 04/24/2014 Zoster (Shingrix-RZV, recombinant) 06/19/2019, 04/25/2019, 0 02/11/2019 Family History Medical History Relation Name Comments Diabetes Brother 2 Emphysema Father Hyperlipidemia Father Hypertension Father Diabetes Mother Heart Disease Mother Hyperlipidemia Mother Hypertension Mother Osteoporosis Mother Psychiatric illness Mother Thyroid Disease Sister 2 Other Sister 3 Ovarian cysts Cancer-breast No Family History Cancer-ovarian No Family History Relation Name Status Comments Brother 1 Alive x2 Brother 2 Father Alive Maternal Grandfather (Age 50's) heart d isease Maternal Grandmother (Age 50's) ? Mother Alive Paternal Grandfather (Age 60's) heart a ttack Paternal Grandmother (Age 93 yrs) old a ge Sister 1 Alive x2 Sister 2 Sister 3 Son 1 Alive Son 2 Alive Son 3 Alive Social History Tobacco Use Types Packs/Day Years Used Date Former Smoker Cigarettes Quit: 11/23/18 99 Smokeless Tobacco: Never Used Tobacco Cessation: Counseling Given: Yes Alcohol Use Standard Drinks/Week Comments Yes 0 (1 standard drink = 0.6 oz pure alcoho l) on occasion-usually wine. Alcohol Habits Answer Date Recorded How often do you have a drink containing alcohol? Monthly or less 02/17/2020 How many drinks containing alcohol do you have on a 1 or 2 02/17/2020 typical day when you are drinking? How often do you have six or more drinks on one Never 02/17/2020 occasion? Comment: Not asked Sex Assigned at Date Recorded Not on file Obstetrics History Para Term AB IAB SAB Ectopic Multiple Living Live Births 6 3 3 0 3 0 3 0 0 3 3 Date Outcome GA Total Labor/2nd/3rd Weight Sex Delivery Anes PTL Tamanna A 1 A5 Name Clin Labor SAB SAB SAB 12/07 Term 38w 7h 00m/ 3.46 kg M VAGINAL Amrita Eduardo /1997 0d (7 lb KYLEIGH ng on 10 oz) 09/11 Term 40w 3h 00m/ 4.34 kg M VAGINAL Amrita Matth /2000 0d (9 lb 9 KYLEIGH ng ew oz) 02/17 Term 39w 4h 00m/ 3.86 kg M VAGINAL Amrita Luke /2003 0d (8 lb 8 KYLEIGH ng oz) Last Filed Vital Signs Vital Sign Reading Time Taken Comments Blood Pressure 121/76 04/06/2021 9:36 AM CDT Pulse 53 04/06/2021 9:36 AM CDT Temperature 36.3 ??C (97.4 ??F) 05/14/2017 1:21 PM ROTOR PLATE WASHER Respiratory Rate 16 04/10/2017 2:37 PM CDT Oxygen Saturation 100% 04/06/2021 9:36 AM CDT Inhaled Oxygen Concentration - - Weight 72.1 kg (159 lb) 04/06/2021 9:36 AM CDT Height 176.5 cm (5' 9.5) 04/06/2021 9:36 AM CDT Body Mass Index 23.14 04/06/2021 9:36 AM CDT Plan of Treatment Upcoming Encounters Date Type Specialty Care Team Description 03/27/2022 Office Visit Patty Bajwa son, DO [address] [place], [place] [id number] (Wo rk) Health Maintenance Due Date Last Done Comments Hepatitis C screening for age [birth year]01[birth year]17[birth year]1986 18-79 COVID-19 vaccine series (4 - 11/17/2021 07/20/2021, 021, Booster for Pfizer series) 10/12/2020 Influenza for age 50-64 02/23/2022 03/28/2021, 03/26/2020, 04/05/2016, Additional history exists Mammogram for age 45-75 03/31/2022 03/31/2021, 03/31/2021, 03/24/2021, Additional history exists Depression screening for age 12+ 04/01/2022 04/01/2021, 09/2020, 02/17/2020, Additional history exists BMI (ht and wt on same day) for 04/06/2022 04/06/2021, 09/2020, age 18+ 02/17/2020, Additional history exists Lipids for age 45-75 02/16/2025 02/17/2020, 05/19/2019, 01/16/2019, Additional history exists Pap test for age 21-65 03/28/2026 03/28/2021, 03/28/2021, 01/16/2019, Additional history exists Colonoscopy through age 75 03/21/2029 03/21/2019 Tetanus booster 02/16/2030 02/17/2020, 06/30/2009 Zoster (shingles) series for age Completed 06/19/2019, 06/2018, 50+ 02/11/2019 Tdap Completed 02/17/2020, 06/30/2009 Results Not on filefrom Last 3 Months Insurance Payer Benefit Plan / Subscriber ID Effective Dates Phone Addre ss Type Group [employer] C[employer]NA [id number] 2016-Present [address] [place] [id number] (Work) [phone] Care Teams Gamma Operator Relationship Specialty Start Date End Date Bobyb Tripathi MD PCP - General Family Practice 07/18/21 [facility] [place] [address]
--- OUTSIDE RECORDS SUMMARY | 2022-03-16 14:36 | XMS_ITS | Encounter Summary ---
:1970 Author Organization [facility] Address [address] [place] [address] Care Team Providers Name Role Phone Unavailable Primary Care Provider Unavailable Encounter Details Date Type Department Care Team Description 03/13/2022 Clinical Communication Department of Tricia Valles Radiation Oncology in [facility] [address] [facility] [address] [place] [phone] Social History Tobacco Use Types Packs/Day Years [...] or relatives? How often do you attend gnosticism or More than 4 times per year 01/12/2022 congregation services? Do you belong to any clubs or Yes 01/12/2022 organizations such as gnosticism groups, unions, fraternal or athletic groups, or [...] place to sleep or slept in a alf (including now)? Education Answer Date Recorded What is the highest level of Professional school degree (e.g ., MD, 01/12/2022 school you have completed or the DDS, DVM, ORTIZ) highest degree you have received? Sex Assigned at Date Recorded Female 01/12/2022 4:28 PM CDT documented as of this encounter Miscellaneous Notes Telephone Encounter - Tricia Valles M.D. - 03/13/2022 7:33 AM CDT I received an on-call phone call from Mrs. Saini. She completed radiation therapy to her right chest wall (implant) and lymph nodes about two weeks ago. She has developed pain around her right implant. She describes it as pleuritic. She has no cough, fever, chills. She thinks it musculoskeletal, but isn't sure. She was planning on going to Urgent Care. I told her I thought this would be the safest idea to make sure she doesn't have an infection. I suggest that she then call her plastic surgeon and/orDrSheree Allred on Sunday. She knows to call me back if I could help. documented in this encounter Plan of Treatment Upcoming Encounters Date Type Specialty Care Team Description 03/24/2022 Appointment Radiation Oncology Jose Allred M.D. [address] [place] [phone] (Wo rk) documented as of this encounter Visit Diagnoses Not on filedocumented in this encounter
--- OUTSIDE RECORDS SUMMARY | 2022-03-16 14:36 | XMS_ITS ---
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 Past Plans No past plan information found. Radiation Treatments Plan Last Treated Elapsed Days Fractions Prescribed Prescribed Total On Treated Fraction Dose Dose [id number] 02/24/2022 32 7 of 7 200 cGy 1,400 cGy [id number] 02/15/2022 23 18 of 18 200 cGy 3,600 cGy Reference Point Last Treated On Elapsed Days Session Dose Total Dos e [id number] 02/24/2022 32 200 cGy 5,000 cGy ICRU 02/15/2022 23 205 cGy 3,681 cGy
--- OUTSIDE RECORDS SUMMARY | 2022-03-16 14:37 | XMS_ITS | Encounter Summary ---
:1970 Author Organization [facility] Address [address] [place] [address] Care Team Providers Name Role Phone Unavailable Primary Care Provider Unavailable Reason for Referral Specialty Diagnoses / Procedures Referred By Contact Refer red To Contact Zhanna Carlisle P.A.-C ., M.S. [facility] Region [address] [place] [phone] Referral ID Status Reason Start Date Expiration Date Visits Requ ested Visits Authorized Encounter Details Date Type Department Care Team Description 01/26/2022 Hospital Encounter Department of Charles Allred Neoplasm Radiation Oncology Rekha Lobato Of Breast Upper in [address] Female Right (HCC) [address] [facility] [address] [place], [place] [phone] (Work) [phone] Social History Tobacco Use Types Packs/Day Years [...] or relatives? How often do you attend episcopalian or More than 4 times per year 01/12/2022 hoahaoism services? Do you belong to any clubs or Yes 01/12/2022 organizations such as episcopalian groups, unions, fraternal or athletic groups, or [...] place to sleep or slept in a penitentiary (including now)? Education Answer Date Recorded What is the highest level of Professional school degree (e.g ., , 01/12/2022 school you have completed or the DDS, DVM, ORTIZ) highest degree you have received? Sex Assigned at Date Recorded Female 01/12/2022 4:28 PM CDT documented as of this encounter Medications at Time of Discharge Medication Sig Dispensed Refills Start Date End Date cetirizine (ZyrTEC) 10 mg Take 10 mg by mouth 0 tablet daily. ergocalciferol, vitamin 2 (two) times a day. 0 D2, 10 mcg (400 unit) tablet letrozole (FEMARA) 2.5 mg Take 2.5 mg by mouth 0 01/23/2022 tablet daily. pantoprazole (PROTONIX) TAKE 1 TABLET (20 0 10/20 20 mg EC tablet MG) BY MOUTH DAILY multivitamin capsule Take 1 capsule by 0 02/01/2022 mouth daily. documented as of this encounter Plan of Treatment Upcoming Encounters Date Type Specialty Care Team Description 03/24/2022 Appointment Radiation Oncology Jose Allred M.D. [address] [place], [place] [phone] (Wo rk) Scheduled Referrals Name Type Priority Associated Order Schedule Diagnoses Radiation Oncology Outpatient Referral Routine Malignant Neopl asm Once for 1 - Nurse education Of Breast Upper Occurre nces starting visit (clinic) Outer Quadrant 01/26/2022 until Female Right (HCC) 2 documented as of this encounter Visit Diagnoses Diagnosis Malignant Neoplasm Of Breast Upper Outer Quadrant Female Right (HCC) documented in this encounter
--- OUTSIDE RECORDS SUMMARY | 2022-03-16 14:37 | XMS_ITS | Encounter Summary ---
:1970 Author Organization [facility] Address [address] [place] [address] Care Team Providers Name Role Phone Unavailable Primary Care Provider Unavailable Reason for Visit Radiation Therapy (Routine) - Closed Specialty Diagnoses / Procedures Referred By Contact Refer red To Contact Diagnoses Malignant Neoplasm Of Breast Upper Outer Quadrant Female Right (HCC) Charles Allred M.D. [facility] Procedures Prior Auth Rad Tx [place] RADTN [place] DEL >=1 MEV COMPLEX [address] [place] [address] Referral ID Status Reason Start Date Expiration Date Visits Requ ested Visits Authorized [id number] Closed 01/16/2022 11/14/2022 25 25 Encounter Details Date Type Department Care Team Description 02/07/2022 Hospital Encounter Department of Radiation Lei Allred, Oncology in [place] [address] [facility] [address] [place] [phone] Social History Tobacco Use Types Packs/Day Years [...] or relatives? How often do you attend zoroastrianism or More than 4 times per year 01/12/2022 pentecostalism services? Do you belong to any clubs or Yes 01/12/2022 organizations such as zoroastrianism groups, unions, fraternal or athletic groups, or [...] place to sleep or slept in a long-term (including now)? Education Answer Date Recorded What [...] B12 ORAL) documented as of this encounter Plan of Treatment Upcoming Encounters Date Type Specialty Care Team Description 03/24/2022 Appointment Radiation Oncology Jose Allred M.D. [address] [place] [phone] (Wo rk) documented as of this encounter Visit Diagnoses Not on filedocumented in this encounter
--- OUTSIDE RECORDS SUMMARY | 2022-03-16 14:37 | XMS_ITS | Encounter Summary ---
:1970 Author Organization [facility] Address [address] [place] [address] Care Team Providers Name Role Phone Unavailable Primary Care Provider Unavailable Reason for Visit Radiation Therapy (Routine) - Closed Specialty Diagnoses / Procedures Referred By Contact Refer red To Contact Diagnoses Malignant Neoplasm Of Breast Upper Outer Quadrant Female Right (HCC) Charles Allred M.D. [facility] Procedures Prior Auth Rad Tx [place] RADTN [place] DEL >=1 MEV COMPLEX [address] [place] [address] Referral ID Status Reason Start Date Expiration Date Visits Requ ested Visits Authorized [id number] Closed 01/16/2022 11/14/2022 25 25 Encounter Details Date Type Department Care Team Description 02/02/2022 Hospital Encounter Department of Radiation Lei Allred, Oncology in [place] [address] [facility] [address] [place] [phone] Social History Tobacco Use Types Packs/Day Years [...] or relatives? How often do you attend evangelical or More than 4 times per year 01/12/2022 christianity services? Do you belong to any clubs or Yes 01/12/2022 organizations such as evangelical groups, unions, fraternal or athletic groups, or [...] Radiation Oncology Jose Allred M.D. [address] [place] [phone] (Wo rk) documented as of this encounter Visit Diagnoses Not on filedocumented in this encounter
--- OUTSIDE RECORDS SUMMARY | 2022-03-16 14:37 | XMS_ITS | Encounter Summary ---
:1970 Author Organization [facility] Address [address] [place] [address] Care Team Providers Name Role Phone Unavailable Primary Care Provider Unavailable Reason for Referral Outpatient (Routine) - Authorized Specialty Diagnoses / Procedures Referred By Contact Refer red To Contact Radiation Oncology Charles Allred M .D. [facility] [address] [place] [phone] Referral ID Status Reason Start Date Expiration Date Visits V isits Requested Authorized [id number] Authorized 11/14/2021 11/14/2022 10 10 Scheduling Instructions MEPITEL Reason for Visit Outpatient (Routine) - Authorized Specialty Diagnoses / Procedures Referred By Contact Refer red To Contact Radiation Oncology Charles Allred M .D. [facility] Region [address] [place] [phone] Referral ID Status Reason Start Date Expiration Date Visits V isits Requested Authorized [id number] Authorized 11/14/2021 11/14/2022 10 10 Encounter Details Date Type Department Care Team Description 02/08/2022 Hospital Encounter Department of Radiation Lei Allred, [place] [address] [place] [phone] Social History Tobacco Use Types Packs/Day Years [...] or relatives? How often do you attend baptist or More than 4 times per year 01/12/2022 yarsani services? Do you belong to any clubs or Yes 01/12/2022 organizations such as baptist groups, unions, fraternal or athletic groups, or [...] place to sleep or slept in a skilled nursing (including now)? Education Answer Date Recorded What [...] Radiation Oncology Jose Allred M.D. [address] [place], [place] [phone] (Wo rk) Scheduled Referrals Name Type Priority Associated Order Schedule Diagnoses Radiation Oncology Outpatient Referral Routine On ce for 1 nurse visit Occurrences sta rting (clinic) 02/08/2022 unti l 02/08/2022 documented as of this encounter Visit Diagnoses Not on filedocumented in this encounter
--- OUTSIDE RECORDS SUMMARY | 2022-03-16 14:37 | XMS_ITS | Encounter Summary ---
:1970 Author Organization [facility] Address [address] [place] [address] Care Team Providers Name Role Phone Unavailable Primary Care Provider Unavailable Reason for Referral Radiation Therapy (Routine) - Authorized Specialty Diagnoses / Procedures Referred By Contact Refer red To Contact Diagnoses Malignant Neoplasm Of Breast Upper Outer Quadrant Female Right (HCC) Charles Allred M.D. [facility] Procedures Management Visit [address] [place] [phone] Referral ID Status Reason Start Date Expiration Date Visits V isits Requested Authorized [id number] Authorized 11/14/2021 11/14/2022 10 10 Reason for Visit Radiation Therapy (Routine) - Authorized Specialty Diagnoses / Procedures Referred By Contact Refer red To Contact Diagnoses Malignant Neoplasm Of Breast Upper Outer Quadrant Female Right (HCC) Charles Allred M.D. [facility] Procedures Management Visit [address] [place], [place] [address] Referral ID Status Reason Start Date Expiration Date Visits V isits Requested Authorized [id number] Authorized 11/14/2021 11/14/2022 10 10 Encounter Details Date Type Department Care Team Description 02/07/2022 Hospital Encounter Department of Tricia Valles Neoplasm Radiation Oncology Rekha Adam Of Breast [facility] in [place], [address] [place], [place] Female Right (HCC) [address] [facility] [address] [place], [place] [phone] (Work) [phone] Social History Tobacco Use Types Packs/Day Years [...] or relatives? How often do you attend pentecostal or More than 4 times per year 01/12/2022 temple services? Do you belong to any clubs or Yes 01/12/2022 organizations such as pentecostal groups, unions, fraternal or athletic groups, or [...] place to sleep or slept in a chcf (including now)? Education Answer Date Recorded What [...] documented as of this encounter Progress Notes Tricia Valles M.D. - 02/07/2022 2:00 PM CDT ATTESTATION FOR MANAGEMENT VISIT I saw and evaluated the patient and participated in the bentley portions of the service as noted below. I reviewed the documentation of Ms. Charo Morales RN and agree with the findings and plan. The patient appears well on exam. We will continue with radiation as planned and monitor weekly. Tricia Valles M.D., 02/07/2022 SUBJECTIVE REASON FOR VISIT Evaluation for side effects while receiving radiation treatment for 1. Malignant Neoplasm Of Breast Upper Outer Quadrant Female Right (HCC) SUPERVISED BY: Dr. Valles HISTORY OF PRESENT ILLNESS Mrs. Danielle Saini is a 52 y.o. 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 She is now undergoing radiotherapy. Treatment Course: 1xBreast Plan ID Fractions Dose / Fraction (cGy) Dose Treated (cGy) Dose Planned (cGy) First Treatment Last Treatment Elapsed Days [id number] 200 [id number] 01/23/2022 02/07/2022 15 Course Summary 01/23/2022 02/07/2022 15 The patient was seen and examined today with Dr. Valles. The patient reports that she is doing well. She denies any new concerns or symptoms. She is applyinglotion to the right upper chest/neck region. PATIENT REPORTED SYMPTOM SCREEN FATIGUE (Scale: 0 = no fatigue; 10 = worst fatigue you can imagine): 1 PAIN (Scale: 0 = no pain; 10 = worst pain you can imagine): 0 OVERALL QUALITY OF LIFE (Scale: 0 = as bad as can be; 10 = as good as can be): OBJECTIVE There were no vitals taken for this visit. PHYSICAL EXAM General: Alert and oriented in no apparent distress. Skin: Clifford toned skin to the mid breast region. Mepitel intact. No areas of dryness of desquamation. ASSESSMENT / PLAN #1 Stage IIA (pT2, pN1a, cM0, G3, ER+, AK+, HER2-) invasive ductal carcinoma of the right breast s/pbilateral mastectomies and right axillary lymph node dissection on June 02, 2021 with left post doctoral researcher and right implant reconstruction; re-excision of the positive anterior margin on July 07, 2021 #2 Dose dense Adriamycin and Cytoxan chemotherapy x4 cycles completed on September 08, 2021 #3 Weekly paclitaxel chemotherapy initiated on September 22, 2021; completed on December 15, 2021 #4 Radiotherapy to the right chest wall and regional lymph nodes initiated on January 23, 2022; anticipated completion on February 24 The patient is tolerating radiation treatment well overall. Patient will have her Mepitel checked and reapplied as needed. She will contact us with any questions or concerns. We will continue with radiation treatment as planned. Signed by: Charo Morales R.N. 02/07/2022 2:14 PM CDT documented in this encounter Plan of Treatment Upcoming Encounters Date Type Specialty Care Team Description 03/24/2022 Appointment Radiation Oncology Jose Allred M.D. [address] [place], [place] [phone] (Wo rk) Scheduled Orders Name Type Priority Associated Diagnoses Order S chedule Management Visit Radiation Oncology Routine Malignant Neoplasm Once for 1 Of Breast Upper Occurrences starting Outer Quadrant 02/07/2022 un til Female Right (HCC) 2 documented as of this encounter Visit Diagnoses Diagnosis Malignant Neoplasm Of Breast Upper Outer Quadrant Female Right (HCC) documented in this encounter
--- OUTSIDE RECORDS SUMMARY | 2022-03-16 14:37 | XMS_ITS | Encounter Summary ---
:1970 Author Organization [facility] Address [address] [place] [address] Care Team Providers Name Role Phone Unavailable Primary Care Provider Unavailable Reason for Visit Radiation Therapy (Routine) - Closed Specialty Diagnoses / Procedures Referred By Contact Refer red To Contact Diagnoses Malignant Neoplasm Of Breast Upper Outer Quadrant Female Right (HCC) Charles Allred M.D. [facility] Procedures Prior Auth Rad Tx [place] RADTN [place] DEL >=1 MEV COMPLEX [address] [place] [address] Referral ID Status Reason Start Date Expiration Date Visits Requ ested Visits Authorized [id number] Closed 01/16/2022 11/14/2022 25 25 Encounter Details Date Type Department Care Team Description 02/08/2022 Hospital Encounter Department of Radiation Lei Allred, Oncology in [place] [address] [facility] [address] [place] [phone] Social History Tobacco Use Types Packs/Day Years [...] or relatives? How often do you attend anabaptism or More than 4 times per year 01/12/2022 evangelical services? Do you belong to any clubs or Yes 01/12/2022 organizations such as anabaptism groups, unions, fraternal or athletic groups, or [...] Radiation Oncology Jose Allred M.D. [address] [place] [phone] (Wo rk) documented as of this encounter Visit Diagnoses Not on filedocumented in this encounter
--- OUTSIDE RECORDS SUMMARY | 2022-03-16 14:37 | XMS_ITS | Encounter Summary ---
:1970 Author Organization [facility] Address [address] [place] [address] Care Team Providers Name Role Phone Unavailable Primary Care Provider Unavailable Reason for Visit Radiation Therapy (Routine) - Closed Specialty Diagnoses / Procedures Referred By Contact Refer red To Contact Diagnoses Malignant Neoplasm Of Breast Upper Outer Quadrant Female Right (HCC) Charles Allred M.D. [facility] Procedures Prior Auth Rad Tx [place] RADTN [place] DEL >=1 MEV COMPLEX [address] [place] [address] Referral ID Status Reason Start Date Expiration Date Visits Requ ested Visits Authorized [id number] Closed 01/16/2022 11/14/2022 25 25 Encounter Details Date Type Department Care Team Description 02/10/2022 Hospital Encounter Department of Radiation Lei Allred, [place]cology [place] [address] [facility] [address] [place] [phone] Social History Tobacco Use Types Packs/Day Years [...] or relatives? How often do you attend zoroastrian or More than 4 times per year 01/12/2022 church services? Do you belong to any clubs or Yes 01/12/2022 organizations such as zoroastrian groups, unions, fraternal or athletic groups, or [...] you have completed or the DDS, DVM, OTRIZ) highest degree you have received? Sex Assigned [...] Radiation Oncology Jose Allred M.D. [address] [place] [phone] (Wo rk) documented as of this encounter Visit Diagnoses Not on filedocumented in this encounter
--- OUTSIDE RECORDS SUMMARY | 2022-03-16 14:37 | XMS_ITS | Encounter Summary ---
:1970 Author Organization [facility] Address [address] [place] [address] Care Team Providers Name Role Phone Unavailable Primary Care Provider Unavailable Reason for Visit Radiation Therapy (Routine) - Closed Specialty Diagnoses / Procedures Referred By Contact Refer red To Contact Diagnoses Malignant Neoplasm Of Breast Upper Outer Quadrant Female Right (HCC) Charles Allred M.D. [facility] Procedures Prior Auth Rad Tx [place] RADTN TX DEL >=1 MEV COMPLEX [address] [place], [place] [address] Referral ID Status Reason Start Date Expiration Date Visits Requ ested Visits Authorized [id number] Closed 01/16/2022 11/14/2022 25 25 Encounter Details Date Type Department Care Team Description 02/15/2022 Hospital Encounter Department of Radiation Lei Allred, Oncology [place] [address] [facility] 18[address] [place] [phone] Social History Tobacco Use Types Packs/Day Years [...] or relatives? How often do you attend yazidi or More than 4 times per year 01/12/2022 scientologist services? Do you belong to any clubs or Yes 01/12/2022 organizations such as yazidi groups, unions, fraternal or athletic groups, or [...] place to sleep or slept in a nursing home (including now)? Education Answer Date Recorded What [...] Radiation Oncology Jose Allred M.D. [address] [place], [place] [phone] (Wo rk) documented as of this encounter Visit Diagnoses Not on filedocumented in this encounter
--- OUTSIDE RECORDS SUMMARY | 2022-03-16 14:37 | XMS_ITS | Encounter Summary ---
:1970 Author Organization [facility] Address [address] [place] [address] Care Team Providers Name Role Phone Unavailable Primary Care Provider Unavailable Reason for Visit Radiation Therapy (Routine) - Closed Specialty Diagnoses / Procedures Referred By Contact Refer red To Contact Diagnoses Malignant Neoplasm Of Breast Upper Outer Quadrant Female Right (HCC) Charles Allred M.D. [facility] Procedures Prior Auth Rad Tx [place] RADTN [place] DEL >=1 MEV COMPLEX [address] [place] [address] Referral ID Status Reason Start Date Expiration Date Visits Requ ested Visits Authorized [id number] Closed 01/16/2022 11/14/2022 25 25 Encounter Details Date Type Department Care Team Description 01/30/2022 Hospital Encounter Department of Radiation Lei Allred, Oncology in [place] [address] [facility] [address] [place] [phone] Social History Tobacco Use Types Packs/Day Years [...] or relatives? How often do you attend baptism or More than 4 times per year 01/12/2022 confucianism services? Do you belong to any clubs or Yes 01/12/2022 organizations such as baptism groups, unions, fraternal or athletic groups, or [...] Radiation Oncology Jose Allred M.D. [address] [place], [place] [phone] (Wo rk) documented as of this encounter Visit Diagnoses Not on filedocumented in this encounter
--- OUTSIDE RECORDS SUMMARY | 2022-03-16 14:37 | XMS_ITS | Encounter Summary ---
:1970 Author Organization [facility] Address [address] [place] [address] Care Team Providers Name Role Phone Unavailable Primary Care Provider Unavailable Reason for Visit Radiation Therapy (Routine) - Closed Specialty Diagnoses / Procedures Referred By Contact Refer red To Contact Diagnoses Malignant Neoplasm Of Breast Upper Outer Quadrant Female Right (HCC) Charles Allred M.D. [facility] Procedures Prior Auth Rad Tx [place] RADTN [place] DEL >=1 MEV COMPLEX [address] [place], [place] [address] Referral ID Status Reason Start Date Expiration Date Visits Requ ested Visits Authorized [id number] Closed 01/16/2022 11/14/2022 25 Encounter Details Date Type Department Care Team Description 02/16/2022 Hospital Encounter Department of Radiation Lei Allred, Oncology in [place] [address] [facility] [address] [place] [phone] Social History Tobacco Use Types Packs/Day Years [...] or relatives? How often do you attend yarsani or More than 4 times per year 01/12/2022 spiritism services? Do you belong to any clubs or Yes 01/12/2022 organizations such as yarsani groups, unions, fraternal or athletic groups, or [...] Radiation Oncology Jose Allred M.D. [address] [place], [place] [phone] (Wo rk) documented as of this encounter Visit Diagnoses Not on filedocumented in this encounter
--- OUTSIDE RECORDS SUMMARY | 2022-03-16 14:37 | XMS_ITS | Encounter Summary ---
:1970 Author Organization [facility] Address [address] [place] [address] Care Team Providers Name Role Phone Unavailable Primary Care Provider Unavailable Reason for Visit Radiation Therapy (Routine) - Closed Specialty Diagnoses / Procedures Referred By Contact Refer red To Contact Diagnoses Malignant Neoplasm Of Breast Upper Outer Quadrant Female Right (HCC) Charles Allred M.D. [facility] Procedures Prior Auth Rad Tx [place] RADTN [place] DEL >=1 MEV COMPLEX [address] [place] [address] Referral ID Status Reason Start Date Expiration Date Visits Requ ested Visits Authorized [id number] Closed 01/16/2022 11/14/2022 25 25 Encounter Details Date Type Department Care Team Description 02/13/2022 Hospital Encounter Department of Radiation Lei Allred, Oncology in [place] [address] [facility] [address] [place] [phone] Social History Tobacco Use Types Packs/Day Years [...] or relatives? How often do you attend congregational or More than 4 times per year 01/12/2022 congregational services? Do you belong to any clubs or Yes 01/12/2022 organizations such as congregational groups, unions, fraternal or athletic groups, or [...] place to sleep or slept in a assisted (including now)? Education Answer Date Recorded What [...] Radiation Oncology Jose Allred M.D. [address] [place] [phone] (Wo rk) documented as of this encounter Visit Diagnoses Not on filedocumented in this encounter
--- OUTSIDE RECORDS SUMMARY | 2022-03-16 14:37 | XMS_ITS | Encounter Summary ---
:1970 Author Organization [facility] Address [address] [place] [address] Care Team Providers Name Role Phone Unavailable Primary Care Provider Unavailable Reason for Visit Radiation Therapy (Routine) - Closed Specialty Diagnoses / Procedures Referred By Contact Refer red To Contact Diagnoses Malignant Neoplasm Of Breast Upper Outer Quadrant Female Right (HCC) Charles Allred M.D. [facility] Procedures Prior Auth Rad Tx [place] RADTN [place] DEL >=1 MEV COMPLEX [address] [place] [address] Referral ID Status Reason Start Date Expiration Date Visits Requ ested Visits Authorized [id number] Closed 01/16/2022 11/14/2022 25 25 Encounter Details Date Type Department Care Team Description 02/03/2022 Hospital Encounter Department of Radiation Lei Allred, Oncology [place] [address] [facility] [address] [place] [phone] Social History Tobacco Use Types Packs/Day Years [...] More than 4 times per year 01/12/2022 cheondoism services? Do you belong to any clubs [...] Radiation Oncology Jose Allred M.D. [address] [place] [phone] (Wo rk) documented as of this encounter Visit Diagnoses Not on filedocumented in this encounter
--- OUTSIDE RECORDS SUMMARY | 2022-03-16 14:37 | XMS_ITS | Encounter Summary ---
:1970 Author Organization [facility] Address [address] [place] [address] Care Team Providers Name Role Phone Unavailable Primary Care Provider Unavailable Encounter Details Date Type Department Care Team Description 02/01/2022 Hospital Encounter Department of Jose Allred M.D. [address] [place] [phone] Malignant Neoplasm Radiation Oncology Charo Morales R.N. [address] [place] [phone] Of Breast Upper in [facility] Female Right (HCC) [address] (Primary Dx) [place] [address] Social History Tobacco Use Types Packs/Day Years [...] or relatives? How often do you attend anabaptist or More than 4 times per year 01/12/2022 islam services? Do you belong to any clubs or Yes 01/12/2022 organizations such as anabaptist groups, unions, fraternal or athletic groups, or [...] place to sleep or slept in a jail (including now)? Education Answer Date Recorded What [...] Pressure - - Pulse - - Temperature - - Respiratory Rate - - Oxygen Saturation - - Inhaled Oxygen Concentration - - Weight 77.4 kg (170 lb 10.2 oz) 02/01/2022 1:00 PM CDT Height - - Body Mass Index 24.85 04/14/2021 8:57 AM CDT documented in this encounter Medications at Time of Discharge Medication Sig Dispensed Refills Start Date End Date calcium carbonate (CALCIUM Take by mouth. 0 500 ORAL) cetirizine (ZyrTEC) 10 mg Take 10 mg by mouth 0 tablet daily. ergocalciferol, vitamin D2, 2 (two) times a day. 0 10 mcg (400 unit) tablet pantoprazole (PROTONIX) 20 TAKE 1 TABLET (20 0 mg EC tablet MG) BY MOUTH DAILY vitamin B complex (B Take by mouth. 0 COMPLEX-VITAMIN B12 ORAL) letrozole (FEMARA) 2.5 mg Take 2.5 mg by mouth 0 01/23/2022 tablet daily. documented as of this encounter Plan of Treatment Upcoming Encounters Date Type Specialty Care Team Description 03/24/2022 Appointment Radiation Oncology Jose Allred M.D. [address] [place] [address] [phone] (Wo rk) documented as of this encounter Visit Diagnoses Diagnosis Malignant Neoplasm Of Breast Upper Outer Quadrant Female Right (HCC) - Primary documented in this encounter
--- OUTSIDE RECORDS SUMMARY | 2022-03-16 14:37 | XMS_ITS | Encounter Summary ---
:1970 Author Organization [facility] Address [address] [place] [address] Care Team Providers Name Role Phone Unavailable Primary Care Provider Unavailable Reason for Visit Radiation Therapy (Routine) - Closed Specialty Diagnoses / Procedures Referred By Contact Refer red To Contact Diagnoses Malignant Neoplasm Of Breast Upper Outer Quadrant Female Right (HCC) Charles Allred M.D. [facility] Procedures Prior Auth Rad Tx HI RADTN TX DEL >=1 MEV COMPLEX [address] [place], [place] [phone] Referral ID Status Reason Start Date Expiration Date Visits Requ ested Visits Authorized [id number] Closed 01/16/2022 11/14/2022 25 25 Encounter Details Date Type Department Care Team Description 02/17/2022 Hospital Encounter Department of Radiation Lei Allred, [place] [address] [facility] [address] [place] [phone] Social History Tobacco Use Types Packs/Day Years [...] or relatives? How often do you attend taoism or More than 4 times per year 01/12/2022 catholic services? Do you belong to any clubs or Yes 01/12/2022 organizations such as taoism groups, unions, fraternal or athletic groups, or [...] Radiation Oncology Jose Allred M.D. [address] [place], [place] [phone] (Wo rk) documented as of this encounter Visit Diagnoses Not on filedocumented in this encounter
--- OUTSIDE RECORDS SUMMARY | 2022-03-16 14:37 | XMS_ITS | Encounter Summary ---
:1970 Author Organization [facility] Address [address] [place] [address] Care Team Providers Name Role Phone Unavailable Primary Care Provider Unavailable Reason for Visit Radiation Therapy (Routine) - Closed Specialty Diagnoses / Procedures Referred By Contact Refer red To Contact Diagnoses Malignant Neoplasm Of Breast Upper Outer Quadrant Female Right (HCC) Charles Allred M.D. [facility] Procedures Prior Auth Rad Tx [place] RADTN TX DEL >=1 MEV COMPLEX [address] [place] [address] Referral ID Status Reason Start Date Expiration Date Visits Requ ested Visits Authorized [id number] Closed 01/16/2022 11/14/2022 25 25 Encounter Details Date Type Department Care Team Description 02/20/2022 Hospital Encounter Department of Radiation Lei Allred, [place]cology [place] [address] [facility] [address] [place] [phone] Social History Tobacco Use Types Packs/Day Years [...] or relatives? How often do you attend hindu or More than 4 times per year 01/12/2022 mosque services? Do you belong to any clubs or Yes 01/12/2022 organizations such as hindu groups, unions, fraternal or athletic groups, or [...] place to sleep or slept in a group home (including now)? Education Answer Date Recorded [...] Radiation Oncology Jose Allred M.D. [address] [place], [place] [phone] (Wo rk) documented as of this encounter Visit Diagnoses Not on filedocumented in this encounter
--- OUTSIDE RECORDS SUMMARY | 2022-03-16 14:37 | XMS_ITS | Encounter Summary ---
:1970 Author Organization [facility] Address [address] [place] [address] Care Team Providers Name Role Phone Unavailable Primary Care Provider Unavailable Reason for Visit Radiation Therapy (Routine) - Closed Specialty Diagnoses / Procedures Referred By Contact Refer red To Contact Diagnoses Malignant Neoplasm Of Breast Upper Outer Quadrant Female Right (HCC) Charles Allred M.D. [facility] Procedures Prior Auth Rad Tx [place] RADTN TX DEL >=1 MEV COMPLEX [address] [place] [address] Referral ID Status Reason Start Date Expiration Date Visits Requ ested Visits Authorized [id number] Closed 01/16/2022 11/14/2022 25 25 Encounter Details Date Type Department Care Team Description 02/01/2022 Hospital Encounter Department of Radiation Lei Allred, [place] [address] [facility] [address] [place] [phone] Social History Tobacco Use Types Packs/Day Years [...] or relatives? How often do you attend temple or More than 4 times per year 01/12/2022 christianity services? Do you belong to any clubs or Yes 01/12/2022 organizations such as temple groups, unions, fraternal or athletic groups, or [...] mg EC tablet MG) BY MOUTH DAILY documented as of this encounter Plan of Treatment Upcoming Encounters Date Type Specialty Care Team Description 03/24/2022 Appointment Radiation Oncology Jose Allred M.D. [address] [place], [place] [phone] (Wo rk) documented as of this encounter Visit Diagnoses Not on filedocumented in this encounter
--- OUTSIDE RECORDS SUMMARY | 2022-03-16 14:37 | XMS_ITS | Encounter Summary ---
:1970 Author Organization [facility] Address [address] [place] [address] Care Team Providers Name Role Phone Unavailable Primary Care Provider Unavailable Reason for Visit Radiation Therapy (Routine) - Closed Specialty Diagnoses / Procedures Referred By Contact Refer red To Contact Diagnoses Malignant Neoplasm Of Breast Upper Outer Quadrant Female Right (HCC) Charles Allred M.D. [facility] Procedures Prior Auth Rad Tx ID RADTN TX DEL >=1 MEV COMPLEX [address] [place] [address] Referral ID Status Reason Start Date Expiration Date Visits Requ ested Visits Authorized [id number] Closed 01/16/2022 11/14/2022 25 25 Encounter Details Date Type Department Care Team Description 02/09/2022 Hospital Encounter Department of Radiation Lei Allred, [place] [address] [facility] [address] [place] [address] [phone] Social History Tobacco Use Types Packs/Day Years [...] More than 4 times per year 01/12/2022 mandaen services? Do you belong to any clubs [...] Radiation Oncology Jose Allred M.D. [address] [place] [address] [phone] (Wo rk) documented as of this encounter Visit Diagnoses Not on filedocumented in this encounter
--- OUTSIDE RECORDS SUMMARY | 2022-03-16 14:37 | XMS_ITS | Encounter Summary ---
:1970 Author Organization [facility] Address [address] [place] [address] Care Team Providers Name Role Phone Unavailable Primary Care Provider Unavailable Reason for Visit Radiation Therapy (Routine) - Closed Specialty Diagnoses / Procedures Referred By Contact Refer red To Contact Diagnoses Malignant Neoplasm Of Breast Upper Outer Quadrant Female Right (HCC) Charles Allred M.D. [facility] Procedures Prior Auth Rad Tx [place] RADTN TX DEL >=1 MEV COMPLEX [address] [place] [address] Referral ID Status Reason Start Date Expiration Date Visits Requ ested Visits Authorized [id number] Closed 01/16/2022 11/14/2022 25 25 Encounter Details Date Type Department Care Team Description 01/27/2022 Hospital Encounter Department of Radiation Lei Allred, [place]cology [place] [address] [facility] [address] [place] [phone] Social History Tobacco Use Types Packs/Day Years [...] or relatives? How often do you attend gnosticist or More than 4 times per year 01/12/2022 adventist services? Do you belong to any clubs or Yes 01/12/2022 organizations such as gnosticist groups, unions, fraternal or athletic groups, or [...] for the very basics like Not h usnita at all 01/12/2022 food, housing, medical care, [...] place to sleep or slept in a custodial (including now)? Education Answer Date Recorded What [...] Radiation Oncology Jose Allred M.D. [address] [place], [place] [phone] (Wo rk) documented as of this encounter Visit Diagnoses Not on filedocumented in this encounter
--- OUTSIDE RECORDS SUMMARY | 2022-03-16 14:37 | XMS_ITS | Encounter Summary ---
:1970 Author Organization [facility] Address [address] [place] [address] Care Team Providers Name Role Phone Unavailable Primary Care Provider Unavailable Reason for Referral Radiation Therapy (Routine) - Authorized Specialty Diagnoses / Procedures Referred By Contact Refer red To Contact Diagnoses Malignant Neoplasm Of Breast Upper Outer Quadrant Female Right (HCC) Charles Allred M.D. [facility] Procedures Management Visit [address] [place], [place] [address] Referral ID Status Reason Start Date Expiration Date Visits V isits Requested Authorized [id number] Authorized 11/14/2021 11/14/2022 10 10 Reason for Visit Radiation Therapy (Routine) - Authorized Specialty Diagnoses / Procedures Referred By Contact Refer red To Contact Diagnoses Malignant Neoplasm Of Breast Upper Outer Quadrant Female Right (HCC) Charles [facility].D. [facility] Procedures Management Visit [address] [place], [place] [address] Referral ID Status Reason Start Date Expiration Date Visits V isits Requested Authorized [id number] Authorized 11/14/2021 11/14/2022 10 10 Encounter Details Date Type Department Care Team Description 01/31/2022 Hospital Encounter Department of Tricia Valles Neoplasm Radiation Oncology [place] Of Breast [facility] in [place], [address] [place], [place] Female Right (HCC) [address] [facility] [address] [place], [place] [phone] (Work) [phone] Social History Tobacco Use Types Packs/Day Years [...] or relatives? How often do you attend druze or More than 4 times per year 01/12/2022 temple services? Do you belong to any clubs or Yes 01/12/2022 organizations such as druze groups, unions, fraternal or athletic groups, or [...] Sign Reading Time Taken Comments Blood Pressure 109/66 01/31/2022 1:45 PM CDT Pulse 63 01/31/2022 1:45 PM CDT Temperature 36.3 ??C (97.4 ??F) 01/31/2022 1:45 PM CDT Respiratory Rate - - Oxygen Saturation - - Inhaled Oxygen Concentration - - Weight 77.4 kg (170 lb 10.2 oz) 01/31/2022 1:45 PM CDT Height - - Body Mass Index 24.85 04/14/2021 8:57 AM CDT documented in this encounter Medications at Time of Discharge Medication Sig Dispensed Refills Start Date End Date cetirizine (ZyrTEC) 10 mg Take 10 mg by mouth 0 tablet daily. ergocalciferol, vitamin 2 (two) times a day. 0 D2, 10 mcg (400 unit) tablet pantoprazole (PROTONIX) TAKE 1 TABLET (20 0 10/20 20 mg EC tablet MG) BY MOUTH DAILY letrozole (FEMARA) 2.5 mg Take 2.5 mg by mouth 0 01/23/2022 tablet daily. multivitamin capsule Take 1 capsule by 0 02/01/2022 mouth daily. documented as of this encounter Progress Notes Tricia Valles M.D. - 01/31/2022 2:00 PM CDT ATTESTATION FOR MANAGEMENT VISIT I saw and evaluated the patient and participated in the bentley portions of the service as noted below. I reviewed the documentation of Ms. Charo Morales RN and agree with the findings and plan. The patient appears well on exam. We will continue with radiation as planned and monitor weekly. Tricia Valles M.D., 01/31/2022 SUBJECTIVE REASON FOR VISIT Evaluation for side effects while receiving radiation treatment for 1. Malignant Neoplasm Of Breast Upper Outer Quadrant Female Right (HCC) SUPERVISED BY: Dr. Valles HISTORY OF PRESENT ILLNESS Mrs. Danielle Saini is a 52 y.o. 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 She is now undergoing radiotherapy. Treatment Course: 1xBreast Plan ID Fractions Dose / Fraction (cGy) Dose Treated (cGy) Dose Planned (cGy) First Treatment Last Treatment Elapsed Days [id number] 200 1400 3600 01/23/2022 01/31/2022 8 Course Summary 01/23/2022 01/31/2022 8 The patient was seen and examined today [...] as good as can be): 8 OBJECTIVE BP 109/66 (BP Location: Left arm, Patient Position: Sitting, Cuff Size: Small) Pulse 63 Temp 36.3 ??C (Temporal) Wt 77.4 kg BMI 24.85 kg/m?? PHYSICAL EXAM General: Alert and oriented in no apparent distress. Skin: Minimal pink toned skin to the mid breast region. Mepitel intact. ASSESSMENT / PLAN #1 Stage IIA (pT2, pN1a, cM0, G3, ER+, MI+, HER2-) invasive ductal carcinoma of the right breast s/pbilateral mastectomies and right axillary lymph node dissection on June 02, 2021 with left monologist and right implant reconstruction; re-excision of the [...] have her Mepitel checked and reapplied as needed this week. She will contact us with any questions or concerns. We will continuewith radiation treatment as planned. Signed by: Charo Morales R.N. 01/31/2022 2:11 PM CDT I saw and evaluated the patient and participated in the bentley portions of the service. I reviewed the documentation of Charo Morales R.N. and agree with the findings and plan. The patient appears well onexam. She is tolerating treatment well. She will begin applying moisturizer to her right neck and supraclavicular region twice daily. She will continue with treatment as planned. Signed by: Charo Morales R.N. 01/31/2022 2:11 PM CDT [facility] [address] [place] [address] documented in this encounter Plan of Treatment Upcoming Encounters Date Type Specialty Care Team Description 03/24/2022 Appointment Radiation Oncology Jose Allred M.D. [address] [place] [phone] (Wo rk) Scheduled Orders Name Type Priority Associated Diagnoses Order S chedule Management Visit Radiation Oncology Routine Malignant Neoplasm Once for 1 Of Breast Upper Occurrences starting Outer Quadrant 01/31/2022 un til Female Right (HCC) 2 documented as of this encounter Visit Diagnoses Diagnosis Malignant Neoplasm Of Breast Upper Outer Quadrant Female Right (HCC) documented in this encounter
--- OUTSIDE RECORDS SUMMARY | 2022-03-16 14:37 | XMS_ITS | Encounter Summary ---
:1970 Author Organization [facility] Address [address] [place] [address] Care Team Providers Name Role Phone Unavailable Primary Care Provider Unavailable Reason for Visit Radiation Therapy (Routine) - Closed Specialty Diagnoses / Procedures Referred By Contact Refer red To Contact Diagnoses Malignant Neoplasm Of Breast Upper Outer Quadrant Female Right (HCC) Charles Allred M.D. [facility] Procedures Prior Auth Rad Tx [place] RADTN [place] DEL >=1 MEV COMPLEX [address] [place] [address] Referral ID Status Reason Start Date Expiration Date Visits Requ ested Visits Authorized [id number] Closed 01/16/2022 11/14/2022 25 25 Encounter Details Date Type Department Care Team Description 01/31/2022 Hospital Encounter Department of Radiation Lei Allred, [place]cology [place] [address] [facility] [address] [place] [phone] Social History Tobacco Use Types Packs/Day Years [...] or relatives? How often do you attend jewish or More than 4 times per year 01/12/2022 sabianist services? Do you belong to any clubs or Yes 01/12/2022 organizations such as jewish groups, unions, fraternal or athletic groups, or [...] Radiation Oncology Jose Allred M.D. [address] [place], [place] [phone] (Wo rk) documented as of this encounter Visit Diagnoses Not on filedocumented in this encounter
--- OUTSIDE RECORDS SUMMARY | 2022-03-16 14:37 | XMS_ITS | Encounter Summary ---
:1970 Author Organization [facility] Address [address] [place] [address] Care Team Providers Name Role Phone Unavailable Primary Care Provider Unavailable Reason for Visit Radiation Therapy (Routine) - Closed Specialty Diagnoses / Procedures Referred By Contact Refer red To Contact Diagnoses Malignant Neoplasm Of Breast Upper Outer Quadrant Female Right (HCC) Charles Allred M.D. [facility] Procedures Prior Auth Rad Tx [place] RADTN TX DEL >=1 MEV COMPLEX [address] [place], [place] [address] Referral ID Status Reason Start Date Expiration Date Visits Requ ested Visits Authorized [id number] Closed 01/16/2022 11/14/2022 25 25 Encounter Details Date Type Department Care Team Description 02/14/2022 Hospital Encounter Department of Radiation Lei Allred, [place] [address] [facility] [address] [place] [phone] Social History Tobacco Use Types Packs/Day Years [...] or relatives? How often do you attend yazdanism or More than 4 times per year 01/12/2022 methodist services? Do you belong to any clubs or Yes 01/12/2022 organizations such as yazdanism groups, unions, fraternal or athletic groups, or [...] place to sleep or slept in a detention (including now)? Education Answer Date Recorded What [...] Radiation Oncology Jose Allred M.D. [address] [place], [place] [phone] (Wo rk) documented as of this encounter Visit Diagnoses Not on filedocumented in this encounter
--- OUTSIDE RECORDS SUMMARY | 2022-03-16 14:37 | XMS_ITS | Encounter Summary ---
:1970 Author Organization [facility] Address [address] [place] [address] Care Team Providers Name Role Phone Unavailable Primary Care Provider Unavailable Reason for Referral Radiation Therapy (Routine) - Authorized Specialty Diagnoses / Procedures Referred By Contact Refer red To Contact Diagnoses Malignant Neoplasm Of Breast Upper Outer Quadrant Female Right (HCC) Charles Allred M.D. [facility] Procedures Management Visit [address] [place], [place] [address] Referral ID Status Reason Start Date Expiration Date Visits V isits Requested Authorized [id number] Authorized 11/14/2021 11/14/2022 10 10 Reason for Visit Radiation Therapy (Routine) - Authorized Specialty Diagnoses / Procedures Referred By Contact Refer red To Contact Diagnoses Malignant Neoplasm Of Breast Upper Outer Quadrant Female Right (HCC) Charles Allred M.D. [facility] Procedures Management Visit [address] [place], [place] [address] Referral ID Status Reason Start Date Expiration Date Visits V isits Requested Authorized [id number] Authorized 11/14/2021 11/14/2022 10 10 Encounter Details Date Type Department Care Team Description 02/15/2022 Hospital Encounter Department of Charles Allred Neoplasm Radiation Oncology [place] Of Breast Upper in [place], [address] [place], [place] Female Right (HCC) [address] [facility] [address] [place], [place] [phone] (Work) [phone] Social History Tobacco Use Types Packs/Day Years [...] - - Temperature 36.1 ??C (97 ??F) 02/15/2022 2:16 PM CDT Respiratory Rate - - Oxygen Saturation - - Inhaled Oxygen Concentration - - Weight 76 kg (167 lb 8.8 oz) 02/15/2022 2:16 PM CDT Height - - Body Mass Index 24.4 04/14/2021 8:57 AM CDT documented in this [...] encounter Progress Notes Charles Allred M.D. - 02/15/2022 2:00 PM CDT SUBJECTIVE REASON FOR VISIT Evaluation for side effects while receiving radiation treatment for 1. Malignant Neoplasm Of Breast Upper Outer Quadrant Female Right (HCC) HISTORY OF PRESENT ILLNESS Mrs. Danielle Saini is a 52 y.o. female with stage IIA (pT2, pN1a, cM0, G3, ER+, HI+, HER2-)invasive ductal carcinoma of the right breast followed by chemotherapy. She is now undergoing radiotherapy. Treatment Course: 1xBreast Plan ID Fractions Dose / Fraction (cGy) Dose Treated (cGy) Dose Planned (cGy) First Treatment Last Treatment Elapsed Days [id number] 200 3400 3600 01/23/2022 02/14/2022 22 Course Summary 01/23/2022 02/14/2022 22 The patient reports that she is doing well. She denies any new concerns or symptoms. She is applyinglotion to the right upper chest/neck region. There is some mild pruritus with her dermatitis. PATIENT REPORTED SYMPTOM SCREEN FATIGUE (Scale: 0 = no fatigue; 10 = worst fatigue you can imagine): 1 PAIN (Scale: 0 = no pain; 10 = worst pain you can imagine): 0 OVERALL QUALITY OF LIFE (Scale: 0 = as bad as can be; 10 = as good as can be): OBJECTIVE Temp 36.1 ??C (Temporal) Wt 76 kg BMI 24.40 kg/m?? PHYSICAL EXAM General: Alert and oriented in no apparent distress. Skin: [place] toned skin to the mid breast region. There is also increasing erythema in the right supraclavicular region. Mepitel intact. No areas of dryness or desquamation. ASSESSMENT / PLAN #1 Stage IIA (pT2, pN1a, cM0, G3, ER+, HI+, HER2-) invasive ductal carcinoma of the right breast s/pbilateral mastectomies and right axillary lymph node dissection on June 02, 2021 with left examiner of currency and right implant reconstruction; re-excision of the [...] The patient is tolerating radiation treatment well. Patient will have her Mepitel checked and reapplied as needed. She will begin applying Aquaphor to the area in the supraclavicular region. This area is also mildly pruritic. She can apply topical Benadryl cream and/or hydrocortisone cream to the areaas well. She will continue with radiation treatment as planned. Signed by: Charles Allred M.D. 02/15/22 2:34 PM CDT [facility] [address] [place] [address] documented in this encounter Plan of Treatment Upcoming Encounters Date Type Specialty Care Team Description 03/24/2022 Appointment Radiation Oncology Jose Allred M.D. [address] [place] [phone] (Wo rk) Scheduled Orders Name Type Priority Associated Diagnoses Order S chedule Management Visit Radiation Oncology Routine Malignant Neoplasm Once for 1 Of Breast Upper Occurrences starting Outer Quadrant 02/15/2022 un til Female Right (HCC) 2 documented as of this encounter Visit Diagnoses Diagnosis Malignant Neoplasm Of Breast Upper Outer Quadrant Female Right (HCC) documented in this encounter
--- OUTSIDE RECORDS SUMMARY | 2022-03-16 14:37 | XMS_ITS | Encounter Summary ---
:1970 Author Organization [facility] Address [address] [place] [address] Care Team Providers Name Role Phone Unavailable Primary Care Provider Unavailable Reason for Visit Radiation Therapy (Routine) - Closed Specialty Diagnoses / Procedures Referred By Contact Refer red To Contact Diagnoses Malignant Neoplasm Of Breast Upper Outer Quadrant Female Right (HCC) Charles Allred M.D. [facility] Procedures Prior Auth Rad Tx [place] RADTN [place] DEL >=1 MEV COMPLEX [address] [place] [address] Referral ID Status Reason Start Date Expiration Date Visits Requ ested Visits Authorized [id number] Closed 01/16/2022 11/14/2022 25 25 Encounter Details Date Type Department Care Team Description 02/06/2022 Hospital Encounter Department of Radiation Lei Allred, [place] [address] [facility] [address] [place] [phone] Social History Tobacco Use Types Packs/Day Years [...] Radiation Oncology Jose Allred M.D. [address] [place] [phone] (Wo rk) documented as of this encounter Visit Diagnoses Not on filedocumented in this encounter
--- OUTSIDE RECORDS SUMMARY | 2022-03-16 14:38 | XMS_ITS | Encounter Summary ---
:1970 Author Organization [facility] Address [address] [place], [place] [phone] Phone [email or web address] Care Team Providers Name Role Phone Unavailable Primary Care Provider Unavailable Encounter Details Date Type Department Care Team Description 03/22/2016 Legacy Encounter [facility] Family Medicine Provider, Historical, [address] [place] [address] [place] [address] [place], [place] [address] Social History Tobacco Use Types Packs/Day Years Used Date Never Assessed Sex Assigned at Date Recorded Not on file documented as of this encounter Last Filed Vital Signs Vital Sign Reading Time Taken Comments Blood Pressure 114/68 03/22/2016 8:29 AM CDT Pulse - - Temperature - - Respiratory Rate - - Oxygen Saturation - - Inhaled Oxygen Concentration - - Weight 72.1 kg (159 lb) 03/22/2016 8:29 AM CDT Height 176.5 cm (5' 9.5) 03/22/2016 8:29 AM CDT Body Mass Index 23.14 03/22/2016 8:29 AM CDT documented in this encounter Plan of Treatment Not on filedocumented as of this encounter Procedures Procedure Name Priority Date/Time Associated Diagnosis Comme nts HEMOGLOBIN A1C Routine 03/22/2016 6:37 AM Results for this CDT procedure are i n the results section . LIPID PANEL Routine 03/22/2016 6:37 AM Results f or this CDT procedure are i n the results section . documented in this encounter Results Lipid panel (98170) (03/22/2016 6:37 AM CDT) P athologist Signature Triglycerides, 81 <150 mg/dL Fluid Cholesterol 182 125 - 200 mg/dL HDL 63 > OR = 46 mg/dL LDL Calculated 103 <130 mg/dL (calc) Chol/HDL Ratio 2.9 < OR = 5.0 (calc) Non HDL Chol. 119 mg/dL (LDL+VLDL) (calc) Specimen (Source) Anatomical Collection Method Collection Time Re ceived Time Location / / Volume Laterality 03/22/2016 6:37 AM CDT Sejal Corbett MARKETING AND PUBLIC RELATIONS MANAGER LAB BLOOD ORDERABLES Hgb A1C Hemoglobin Glycosylated (50484) (03/22/2016 6:37 AM CDT) P athologist Signature Hemoglobin A1C 5.3 <5.7 % of total Hgb Specimen (Source) Anatomical Collection Method Collection Time Re ceived Time Location / / Volume Laterality 03/22/2016 6:37 AM CDT Sejal Corbett NP LAB BLOOD ORDERABLES documented in this encounter Visit Diagnoses Not on filedocumented in this encounter
--- OUTSIDE RECORDS SUMMARY | 2022-03-16 14:38 | XMS_ITS | Encounter Summary ---
:1970 Author Organization [facility] Address [address] [place], [place] [address] Phone [email or web address] Care Team Providers Name Role Phone Unavailable Primary Care Provider Unavailable Encounter Details Date Type Department Care Team Description 03/26/2020 Immunization [facility] Sindy Arroyo [place], [place] immunization [address] [place] [address] [place] [address] Social History Tobacco Use Types Packs/Day Years Used Date Never Smoker Sex Assigned at Date Recorded Not on file documented as of this encounter Plan of Treatment Not on filedocumented as of this encounter Visit Diagnoses Diagnosis Encounter for immunization documented in this encounter
--- OUTSIDE RECORDS SUMMARY | 2022-03-16 14:38 | XMS_ITS | Encounter Summary ---
:1970 Author Organization [facility] Address [address] [place], [place] [address] Phone [email or web address] Care Team Providers Name Role Phone Unavailable Primary Care Provider Unavailable Reason for Visit Reason Onset Date Comments Incentive - Biometric Screening 06/04/2018 Encounter Details Date Type Department Care Team Description 06/04/2018 Biometric [facility] Terra Conway, Encounter for screening (Primary Dx); [facility] Screening for diabetes mellitus; [address] Encounter for screening for cardiovascul ar disorders; [address], [address] [place] [address] Encounter for screening for lipid disord er; [place] [address] Encounter for screening for other disord er [phone] Social History Tobacco Use Types Packs/Day Years Used Date Never Smoker Sex Assigned at Date Recorded Not on file documented as of this encounter Last Filed Vital Signs Vital Sign Reading Time Taken Comments Blood Pressure 110/70 06/04/2018 8:32 AM ASSISTANT GOLF COACH Pulse - - Temperature - - Respiratory Rate - - Oxygen Saturation - - Inhaled Oxygen Concentration - - Weight 76 kg (167 lb 9.6 oz) 06/04/2018 8:32 AM ASSISTANT GOLF COACH Height 175.9 cm (5' 9.25) 06/04/2018 8:32 AM ASSISTANT GOLF COACH Body Mass Index 24.57 06/04/2018 8:32 AM ASSISTANT GOLF COACH documented in this encounter Progress Notes Terra Conway MA - 06/04/2018 8:30 AM CST Danielle Saini is a 48 y.o. female presents 06/04/2018 for Biometrics Screening. Visit Vitals BP 110/70 Ht 5' 9.25 Wt 167 lb 9.6 oz BMI 24.57 kg/m?? Smoking Status Never Smoker BSA 1.93 m?? Waist Cir[address] 39 in. Diagnoses and all orders for this visit: Encounter for screening - Lipid panel - Hgb A1C Hemoglobin Glycosylated Screening for diabetes mellitus - Hgb A1C Hemoglobin Glycosylated Encounter for screening for cardiovascular disorders Encounter for screening for lipid disorder - Lipid panel Encounter for screening for other disorder STANT GOLF COACH documented in this encounter Plan of Treatment Not on filedocumented as of this encounter Procedures Procedure Name Priority Date/Time Associated Diagnosis Comme nts HEMOGLOBIN A1C Routine 06/04/2018 8:40 AM Encounter for Result s for this ASSISTANT GOLF COACH screening procedure are in the Screening for results sectio n. diabetes mellitus LIPID PANEL Routine 06/04/2018 8:40 AM Encounter for Results for this ASSISTANT GOLF COACH screening procedure are in the Encounter for results sectio n. screening for lipid disorder documented in this encounter Results Hgb A1C Hemoglobin Glycosylated (06/04/2018 8:40 AM ASSISTANT GOLF COACH) P athologist Signature Hemoglobin A1C 5.3 <5.7 % of [facility] total Hgb LEONARDO VAZQUEZ Comment: For the purpose of screening for the pre sence of diabetes: <5.7% ? Consistent with the absen ce of diabetes 5.7-6.4% ?Consistent with increased risk for diabetes ?(prediabetes) > or =6.5% ??Consistent with diabetes This assay result is consistent with a d ecreased risk of diabetes. Currently, no consensus exists regarding use of hemoglobin A1c for diagnosis of diabetes in children. According to [place] Diabetes Associati on (ADA) guidelines, hemoglobin A1c <7.0% represe nts optimal control in non- diabetic patient s. Different metrics may apply to specific patient po pulations. Standards of Medical Care in Diabetes(AD A). Specimen Anatomical Collection Method Collection Time Receive d Time (Source) Location / / Volume Laterality Blood (Blood, 06/04/2018 8:40 AM 06/05/20 18 2:14 Venous) ASSISTANT GOLF COACH AM ASSISTANT GOLF COACH Resulting Agency Comment Performing Organization Information: ?Site ID: [id number] ?Name: [facility] ?Address: [address] [place] [address] [place] [address] ?Director: Ruibn Singh M.D. Sejal Guillen Chelle USER EXPERIENCE TEAM LEAD LAB BLOOD ORDERABLES Performing Organization Address City/State/ZIP Code Phon e Number MERRILL PATTERSON MD (ABNORMAL) Lipid panel (06/04/2018 8:40 AM ASSISTANT GOLF COACH) [facility] Method Time Signature Cholesterol 225 (H) <200 MERRILL JONES mg/dL LEONARDO VAZQUEZ Total HDL-C 67 >50 mg/dL MERRILL JONES Direct LEONARDO VAZQUEZ Triglycerides, 87 <150 MERRILL JONES Fluid mg/dL LEONARDO VAZQUEZ LDL Calculated 139 (H) mg/dL MERRILL JONES (calc) LEONARDO VAZQUEZ Comment: Reference range: <100 Desirable range <100 mg/dL for primary p revention; ?? <70 mg/dL for patients with CHD or diabe tic patients with > or = 2 CHD risk factors. LDL-C is now calculated using the David -Murphy calculation, which is a validated novel method providing better accuracy than the Friedewald equa tion in the estimation of LDL-C. David SS et al. MARTINA. 2013;310(19): 206 1-2068 (http://education.dotloop.Kiyon/f aq/CTI882) Chol/HDL Ratio 3.4 <5.0 (calc) MERRILL PATTERSON MD Non HDL Chol. (LDL+VLDL) 158 (H) <130 mg/dL (calc) MERRILL PATTERSON MD Comment: For patients with diabetes plus 1 major ASCVD risk factor, treating to a non-HDL-C goal of <100 mg/dL (LDL-C of <70 mg/dL) is considered a the rapeutic option. Specimen Anatomical Collection Method Collection Time Receive d Time (Source) Location / / Volume Laterality Blood (Blood, 06/04/2018 8:40 AM 06/05/20 18 2:14 Venous) ASSISTANT GOLF COACH AM ASSISTANT GOLF COACH Resulting Agency Comment Performing Organization Information: ?Site ID: [id number] ?Name: [facility] ?Address: [address] [place] [address] [place] [address] ?Director: Rubin Singh M.D. Sejal Corbett NP LAB BLOOD ORDERABLES Performing Organization Address City/State/ZIP Code Phon e Number MERRILL MOMIN - KAREN PATTERSON MD documented in this encounter Visit Diagnoses Diagnosis Encounter for screening - Primary Screening for diabetes mellitus Encounter for screening for cardiovascul ar disorders Encounter for screening for lipid disord er Encounter for screening for other disord er documented in this encounter
--- OUTSIDE RECORDS SUMMARY | 2022-03-16 14:38 | XMS_ITS | Encounter Summary ---
:1970 Author Organization [facility] Address [address] [place] [address] Care Team Providers Name Role Phone Unavailable Primary Care Provider Unavailable Reason for Referral Radiation Therapy (Routine) - Authorized Specialty Diagnoses / Procedures Referred By Contact Refer red To Contact Diagnoses Malignant Neoplasm Of Breast Upper Outer Quadrant Female Right (HCC) Charles Allred M.D. [facility] Procedures Management Visit [address] [place] [address] Referral ID Status Reason Start Date Expiration Date Visits V isits Requested Authorized [id number] Authorized 11/14/2021 11/14/2022 10 10 Reason for Visit Radiation Therapy (Routine) - Authorized Specialty Diagnoses / Procedures Referred By Contact Refer red To Contact Diagnoses Malignant Neoplasm Of Breast Upper Outer Quadrant Female Right (HCC) Charles Allred M.D. [facility] Procedures Management Visit [address] [place], [place] [address] Referral ID Status Reason Start Date Expiration Date Visits V isits Requested Authorized [id number] Authorized 11/14/2021 11/14/2022 10 10 Encounter Details Date Type Department Care Team Description 01/25/2022 Hospital Encounter Department of Charles Allred Neoplasm Radiation Oncology [place] Of Breast Upper in [place], [address] [place], [place] Female Right (HCC) [address] [facility] [address] [place], [place] [phone] [address] (Work) [phone] Social History Tobacco Use Types Packs/Day Years [...] or relatives? How often do you attend nondenominational or More than 4 times per year 01/12/2022 adventism services? Do you belong to any clubs or Yes 01/12/2022 organizations such as nondenominational groups, unions, fraternal or athletic groups, or [...] place to sleep or slept in a snf (including now)? Education Answer Date Recorded What is the highest level of Professional school degree (e.g ., , 01/12/2022 school you have completed or the DDS, DVM, ORTIZ) highest degree you have received? Sex Assigned at Date Recorded Female 01/12/2022 4:28 PM CDT documented as of this encounter Last Filed Vital Signs Vital Sign Reading Time Taken Comments Blood Pressure 105/60 01/25/2022 11:52 AM CDT Pulse 60 01/25/2022 11:52 AM CDT Temperature 36.2 ??C (97.1 ??F) 01/25/2022 11:52 AM CDT Respiratory Rate - - Oxygen Saturation - - Inhaled Oxygen Concentration - - Weight 76.6 kg (168 lb 14 oz) 01/25/2022 11:52 AM CDT Height - - Body Mass Index 24.59 04/14/2021 8:57 AM CDT documented in this [...] encounter Progress Notes Charles Allred M.D. - 01/25/2022 11:45 AM CDT SUBJECTIVE REASON FOR VISIT Evaluation for side effects while receiving radiation treatment for 1. Malignant Neoplasm Of Breast Upper Outer Quadrant Female Right (HCC) SUPERVISED BY: Charles Allred M.D. ([id number]) HISTORY OF PRESENT ILLNESS Mrs. Danielle Saini is a 52 y.o. 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 She is now undergoing radiotherapy. Treatment Course: 1xBreast Plan ID Fractions Dose / Fraction (cGy) Dose Treated (cGy) Dose Planned (cGy) First Treatment Last Treatment Elapsed Days [id number] 01/23/2022 01/25/2022 2 Course Summary 01/23/2022 01/25/2022 2 The patient was seen and examined today with Dr. Allred. The patient reports that she is doing well. She denies any new concerns or symptoms. PATIENT REPORTED SYMPTOM SCREEN FATIGUE (Scale: 0 = no fatigue; 10 = worst fatigue you can imagine): PAIN (Scale: 0 = no pain; 10 = worst pain you can imagine): 0 OVERALL QUALITY OF LIFE (Scale: 0 = as bad as can be; 10 = as good as can be): OBJECTIVE BP 105/60 (BP Location: Right arm, Patient Position: Sitting, Cuff Size: Small) Pulse 60 Temp 36.2 ??C (Temporal) Wt 76.6 kg BMI 24.59 kg/m?? PHYSICAL EXAM General: Alert and oriented in no apparent distress. Skin: Minimal pink toned skin to the mid breast region. Mepitel intact. ASSESSMENT / PLAN #1 Stage IIA (pT2, pN1a, cM0, G3, ER+, AL+, HER2-) invasive ductal carcinoma of the right breast s/pbilateral mastectomies and right axillary lymph node dissection on June 02, 2021 with left network support manager and right implant reconstruction; re-excision of the [...] tolerating radiation treatment well overall. Patient will apply lotion to upper rightchest to neck and right upper back region. She will contact us with any questions or concerns. We will continue with radiation treatment as planned. Signed by: Charo Morales R.N. 01/25/2022 2:05 PM CDT I saw and evaluated the [...] continue with treatment as planned. Signed by: Charles Allred M.D. 01/25/2022 6:20 PM CDT [facility] [address] [place] [phone] documented in this encounter Plan of Treatment Upcoming Encounters Date Type Specialty Care Team Description 03/24/2022 Appointment Radiation Oncology Jose Allred M.D. [address] [place], [place] [phone] (Wo rk) Scheduled Orders Name Type Priority Associated Diagnoses Order S chedule Management Visit Radiation Oncology Routine Malignant Neoplasm Once for 1 Of Breast Upper Occurrences starting Outer Quadrant 01/25/2022 un til Female Right (HCC) 2 documented as of this encounter Visit Diagnoses Diagnosis Malignant Neoplasm Of Breast Upper Outer Quadrant Female Right (HCC) documented in this encounter
--- OUTSIDE RECORDS SUMMARY | 2022-03-16 14:38 | XMS_ITS | Encounter Summary ---
:1970 Author Organization [facility] Address [address] [place] [address] Care Team Providers Name Role Phone Unavailable Primary Care Provider Unavailable Reason for Visit Radiation Therapy (Routine) - Closed Specialty Diagnoses / Procedures Referred By Contact Refer red To Contact Diagnoses Malignant Neoplasm Of Breast Upper Outer Quadrant Female Right (HCC) Charles Allred M.D. [facility] Procedures Prior Auth Rad Tx [place] RADTN [place] DEL >=1 MEV COMPLEX [address] [place] [address] Referral ID Status Reason Start Date Expiration Date Visits Requ ested Visits Authorized [id number] Closed 01/16/2022 11/14/2022 25 25 Encounter Details Date Type Department Care Team Description 01/24/2022 Hospital Encounter Department of Radiation Lei Allred, [place]cology [place] [address] [facility] [address] [place] [phone] Social History Tobacco Use Types Packs/Day Years [...] or relatives? How often do you attend scientologist or More than 4 times per year 01/12/2022 rastafari services? Do you belong to any clubs or Yes 01/12/2022 organizations such as scientologist groups, unions, fraternal or athletic groups, or [...] Radiation Oncology Jose Allred M.D. [address] [place], [place] [phone] (Wo rk) documented as of this encounter Visit Diagnoses Not on filedocumented in this encounter
--- OUTSIDE RECORDS SUMMARY | 2022-03-16 14:38 | XMS_ITS | Encounter Summary ---
:1970 Author Organization [facility] Address [address] [place], [place] [address] Phone [email or web address] Care Team Providers Name Role Phone Unavailable Primary Care Provider Unavailable Reason for Visit Reason Onset Date Comments Incentive - Biometric Screening 03/16/2021 Encounter Details Date Type Department Care Team Description 03/16/2021 Biometric [facility] Zeina Shen MA Screening for diabetes mellitus; Center [address] Encounter for screening for cardiovascul ar disorders; [address] [place] [address] Encounter for screening for lipid disord er; D4, [address] Encounter for screening for other disord er [place] [address] [phone] Social History Tobacco Use Types Packs/Day Years Used Date Never Smoker Sex Assigned at Date Recorded Not on file documented as of this encounter Last Filed Vital Signs Vital Sign Reading Time Taken Comments Blood Pressure 110/66 03/16/2021 9:12 AM CDT Pulse - - Temperature - - Respiratory Rate - - Oxygen Saturation - - Inhaled Oxygen Concentration - - Weight 72.6 kg (160 lb) 03/16/2021 9:12 AM CDT Height 177.8 cm (5' 10) 03/16/2021 9:12 AM CDT Body Mass Index 22.96 03/16/2021 9:12 AM CDT documented in this encounter Progress Notes Madeleine Shen MA - 03/16/2021 9:00 AM CDT Danielle Saini is a 51 y.o. female presents 03/16/2021 for Biometrics Screening. Height: 5' 10 Weight: 160 lb BMI (Calculated): 23 BP: 110/66 Waist Circumference: 34 in. Hip Circumference: 38.5 in. Labs drawn via right antecubital on the first attempt without difficulty. . Manual pressure applied to site upon completion of venipuncture. no active bleeding noted Patient tolerated lab procedure well: Yes There are no diagnoses linked to this encounter. documented in this encounter Plan of Treatment Not on filedocumented as of this encounter Procedures Procedure Name Priority Date/Time Associated Diagnosis Comme nts HEMOGLOBIN A1C Routine 03/16/2021 9:10 AM Screening for Result s for this CDT diabetes mellitus procedure are in the results section . LIPID PANEL Routine 03/16/2021 9:10 AM Encounter for Results for this CDT screening for lipid procedur e are in the disorder results section . documented in this encounter Results Hgb A1C Hemoglobin Glycosylated (03/16/2021 9:10 AM CDT) athologist Signature Hemoglobin A1C 5.4 <5.7 % of [facility] total Hgb [facility] Comment: For the purpose of screening for [...] diagnosis of diabetes in children. According to [place] Diabetes Associati on (ADA) guidelines, hemoglobin A1c <7.0% represe nts optimal control in non- diabetic patient s. Different metrics may apply to specific patient po pulations. Standards of Medical Care in Diabetes(AD A). Specimen Anatomical Collection Method Collection Time Receive d Time (Source) Location / / Volume Laterality Blood (Blood, 03/16/2021 9:10 AM 03/17/20 21 8:13 Venous) CDT AM CDT Sejal Corbett NP LAB BLOOD ORDERABLES Performing Organization Address City/State/ZIP Code Phon e Number [facility]-[place] [facility] [address] [place], [place] [phone] (ABNORMAL) Lipid panel (03/16/2021 9:10 AM CDT) [facility] Method Time Signature Cholesterol 198 <200 [facility] mg/dL [facility] [facility] Total HDL-C Direct 64 > OR = 50 [facility] mg/dL [facility] Triglycerides 89 <150 [facility] mg/dL [facility] LDL Calculated 115 (H) mg/dL [facility] (calc) [facility] Smith Comment: Reference range: <100 Desirable range <100 mg/dL for primary p revention; ?? <70 mg/dL for patients with CHD or diabe tic patients with > or = 2 CHD risk factors. LDL-C is now calculated using the David Rader calculation, which is a validated novel method providing better accuracy than the Friedewald equa tion in the estimation of LDL-C. David SS et al. MARTINA. 2013;310(19): 206 1-2068 (http://education.Bar & Club Stats.User Replay/f aq/QHN170) Chol/HDL Ratio 3.1 <5.0 (calc) [facility] Non HDL Chol. (LDL+VLDL) 134 (H) <130 mg/dL (calc) [facility] Comment: For patients with diabetes plus 1 major ASCVD risk factor, treating to a non-HDL-C goal of <100 mg/dL (LDL-C of <70 mg/dL) is considered a the rapeutic option. Specimen Anatomical Collection Method Collection Time Receive d Time (Source) Location / / Volume Laterality Blood (Blood, 03/16/2021 9:10 AM 03/17/20 21 8:13 Venous) CDT AM CDT Sejal Corbett NP LAB BLOOD ORDERABLES Performing Organization Address City/State/ZIP Code Phon e Number BRYCE Smith [address] [place], [place] [phone] documented in this encounter Visit Diagnoses Diagnosis Screening for diabetes mellitus Encounter for screening for cardiovascul ar disorders Encounter for screening for lipid disord er Encounter for screening for other disord er documented in this encounter
--- OUTSIDE RECORDS SUMMARY | 2022-03-16 14:38 | XMS_ITS | Encounter Summary ---
:1970 Author Organization [facility] Address [address] [place] [address] Care Team Providers Name Role Phone Unavailable Primary Care Provider Unavailable Reason for Visit Radiation Therapy (Routine) - Closed Specialty Diagnoses / Procedures Referred By Contact Refer red To Contact Diagnoses Malignant Neoplasm Of Breast Upper Outer Quadrant Female Right (HCC) Charles Allred M.D. [facility] Procedures Prior Auth Rad Tx [place] RADTN TX DEL >=1 MEV COMPLEX [address] [place] [address] Referral ID Status Reason Start Date Expiration Date Visits Requ ested Visits Authorized [id number] Closed 01/16/2022 11/14/2022 25 25 Encounter Details Date Type Department Care Team Description 01/26/2022 Hospital Encounter Department of Radiation Lei Allred, Oncology [place] [address] [facility] [address] [place] [phone] Social History Tobacco Use Types Packs/Day Years [...] or relatives? How often do you attend latter day or More than 4 times per year 01/12/2022 temple services? Do you belong to any clubs or Yes 01/12/2022 organizations such as latter day groups, unions, fraternal or athletic groups, or [...] place to sleep or slept in a long term (including now)? Education Answer Date Recorded What [...] Radiation Oncology Jose Allred M.D. [address] [place], [place] [phone] (Wo rk) documented as of this encounter Visit Diagnoses Not on filedocumented in this encounter
--- OUTSIDE RECORDS SUMMARY | 2022-03-16 14:38 | XMS_ITS | Encounter Summary ---
:1970 Author Organization [facility] Address [address] [place] [address] Care Team Providers Name Role Phone Unavailable Primary Care Provider Unavailable Encounter Details Date Type Department Care Team Description 06/03/2018 Ancillary Procedure Department of Dermatology Social History Tobacco Use Types Packs/Day Years [...] More than 4 times per year 01/12/2022 hindu services? Do you belong to any clubs [...] or slept in a alf (including now)? Sex Assigned at Date Recorded Female 01/12/2022 4:28 PM CDT documented as of this encounter Plan of Treatment Upcoming Encounters Date Type Specialty Care Team Description 03/24/2022 Appointment Radiation Oncology Jose Allred M.D. [address] [place], [place] [phone] (Wo rk) documented as of this encounter Procedures Procedure Name Priority Date/Time Associated Comments Diagnosis DERMATOLOGY IMAGE Routine 06/03/2018 9:49 AM Resu lts for this EXAM PROFESSOR OF THEATRE procedure are i n the results section. documented in this encounter Results DERMATOLOGY IMAGE EXAM (06/03/2018 9:49 AM PROFESSOR OF THEATRE) Specimen (Source) Anatomical Collection Method Collection Time Re ceived Time Location / / Volume Laterality 06/03/2018 9:47 AM PROFESSOR OF THEATRE Narrative [facility] - 06/03/2018 9:49 AM PROFESSOR OF THEATRE This order has been created and auto-finalized [...]
--- OUTSIDE RECORDS SUMMARY | 2022-03-16 14:38 | XMS_ITS | Encounter Summary ---
:1970 Author Organization [facility] Address [address] [place] [address] Care Team Providers Name Role Phone Unavailable Primary Care Provider Unavailable Reason for Referral Outpatient (Routine) - Closed Specialty Diagnoses / Procedures Referred By Contact Refer red To Contact Radiation Oncology Charles Allred M .D. [facility] [address] [phone] Referral ID Status Reason Start Date Expiration Date Visits Requ ested Visits Authorized [id number] Closed 11/14/2021 11/14/2022 1 1 Scheduling Instructions with [facility]; week January 09 Reason for Visit Outpatient (Routine) - Closed Specialty Diagnoses / Procedures Referred By Contact Refer red To Contact Radiation Oncology Charles Allred M .D. [facility] Region [address] [place] [phone] Referral ID Status Reason Start Date Expiration Date Visits Requ ested Visits Authorized [id number] Closed 11/14/2021 11/14/2022 1 1 Encounter Details Date Type Department Care Team Description 01/13/2022 Hospital Encounter Department of Charles Allred Neoplasm Radiation Oncology Rekha Lobato Of Breast Upper in [address] Female Right (HCC) [address] [address] (Primary Dx) [place], [place] [phone] (Work) [phone] Social History Tobacco Use Types Packs/Day Years [...] or relatives? How often do you attend confucianism or More than 4 times per year 01/12/2022 sabianism services? Do you belong to any clubs or Yes 01/12/2022 organizations such as confucianism groups, unions, fraternal or athletic groups, or [...] Sign Reading Time Taken Comments Blood Pressure 112/68 01/13/2022 9:28 AM CDT Pulse - - Temperature - - Respiratory Rate - - Oxygen Saturation - - Inhaled Oxygen Concentration - - Weight 73.8 kg (162 lb 11.2 oz) 01/13/2022 9:28 AM CDT Height - - Body Mass Index 23.69 04/14/2021 8:57 AM CDT documented in this [...] encounter Progress Notes Charles Allred M.D. - 01/13/2022 9:30 AM CDT SUBJECTIVE DIAGNOSIS 1. Malignant Neoplasm Of Breast Upper Outer Quadrant Female Right (HCC) HISTORY OF PRESENT ILLNESS Mrs. Danielle Saini is a 51-year-old female with stage IIA (pT2, pN1a, cM0, G3, ER+, KS+, HER2-) invasive ductal carcinoma of the right breast followed by chemotherapy. She returns today for a CT simulation. Her oncologic history is as follows: Oncology History Malignant Neoplasm Of Breast Upper [...] measuring 1.3 x 0.9 cm. 03/28/2021 Other Heel Lift Gouger exam with Dr. Patty Bajwa where the [...] was performed. Pathology demonstrated invasive ductal carcinoma, Rosewood grade 3. Angiolymphatic invasion was absent. Associated [...] by Dr. Bailey. Left immediate prepectoral tissue cloth layer breast reconstructionwith AlloDerm and right direct implant prepectoral breast reconstruction with AlloDerm was performedby Dr. Cotto. PATHOLOGY: A) RIGHT BREAST, MASTECTOMY: 1. Invasive ductal carcinoma, Rosewood grade III of III a. Size: 2.2 cm b. Core biopsy site is associated with tumor 2. Ductal carcinoma in situ (DCIS), nuclear grade 3, Cribriform and comedo type 3. Margins: a. Invasive carcinoma involves the anterior/superior margin b. DCIS is 0.5 cm from the anterior/superior margin 4. Breast Ancillary Testing: Performed on prior case ([id number]) a. Hormone Receptors: Estrogen receptor: Positive (96%, [...] of Lymph Nodes Examined: 7 Number of [place] Nodes Examined: 1 PATHOLOGIC STAGE CLASSIFICATION (pTNM, AJCC 8th Edition) Primary Tumor (pT): pT2 Regional Lymph Nodes (pN): pN1a Test(s) Performed: Ki-67 Percentage of Positive Nuclei: 18 % 07/07/2021 Surgery and Procedures Right breast anterior margin re-excision was performed by Dr. Bailey. PATHOLOGY: A) RIGHT BREAST, ANTERIOR MARGIN, RE-EXCISION: 1. Residual invasive ductal carcinoma, Rosewood grade III of III a. Size: up [...] Breast Ancillary Testing: Performed on prior case ([id number]) a. Hormone Receptors: Estrogen receptor: Positive (96%, moderate staining) Progesterone receptor: Positive (62%, moderate staining) b. HER2 by IHC: Negative (0 by manual morphometry) c. Ki-67 (performed on [id number]): 18% by image analysis 07/14/2021 Imaging PET-CT [...] 12/15/2021 Chemotherapy Weekly paclitaxel x 12 weeks. 01/16/2022 - Radiation Therapy Radiation Therapy Treatment Details (Noted on 11/14/2021) Site: Right Chest wall Technique: No technique specified Goal: Curative Planned Treatment Start Date: 01/16/2022 INTERVAL HISTORY Completed by Charo Morales RN The patient was seen and examined today with Dr. Allred. The patient reports doing well overall. She rates her fatigue as 0/10 in severity. She denies lymphedema and has already had baseline measurements. She denies persistent pain, seroma, changes in range of motion, fevers, chills or cough. She is otherwise tolerating chemotherapy well overall. She notes that her insurance company has not received prior authorization yet for radiation treatments. Left cloth layer was deflated yesterday. Patient trialed Mepitel application on her skin; no reaction or concern noted with Mepitel. Patient has already placed her order for Mepitel dressings. REVIEW OF SYSTEMS Review of systems was negative except as documented above. PATIENT REPORTED SYMPTOM SCREEN FATIGUE (Scale: 0 = no fatigue; 10 = worst fatigue you can imagine): 0 PAIN (Scale: 0 = no pain; 10 = worst pain you can imagine): 0 OVERALL QUALITY OF LIFE (Scale: 0 = as bad as can be; 10 = as good as can be): 9 OBJECTIVE BP 112/68 Wt 73.8 kg BMI 23.69 kg/m?? PHYSICAL EXAM General: Patient is awake, alert, and oriented to person, place, and time. No apparent distress. ENT: Pupils equal, round, and reactive to light. Sclerae anicteric. TMs normal bilaterally. Oral cavity inspection reveals moist mucous membranes and no visible lesions. Neck: Supple. Lymph: No palpable cervical, supraclavicular, infraclavicular, or axillary adenopathy. Spine: No tenderness to palpation or fist percussion. Lungs: Clear to auscultation bilaterally. Heart: Regular rate and rhythm. Normal S1 and S2. No murmurs. Abdomen: Soft, nontender, nondistended. Normal active bowel sounds are present. Extremities: No clubbing, cyanosis, or edema. Neurologic: CN II-XII tested and intact. Strength is normal and symmetric in both upper and lower extremities. Deep tendon reflexes are normal and symmetric bilaterally. Sensation is intact to light touch. Gait is normal. Breasts: Examined in the supine position at the CT simulation with the deicer repairer pneumatic of the therapists, JENSEN Pryor. The breasts are surgically absent bilaterally. The left cloth layer has been deflated. The right chest wall has no palpable lumps or nodularity. I did not palpate the left chest wall. ASSESSMENT / PLAN #1 Stage IIA (pT2, pN1a, cM0, G3, ER+, KS+, HER2-) invasive ductal carcinoma of the right breast s/pbilateral mastectomies and right axillary lymph node dissection on June 02, 2021 with left cloth layer and right implant reconstruction; re-excision of the positive anterior margin on July 07, 2021 #2 Dose dense Adriamycin and Cytoxan chemotherapy x4 cycles completed on September 08, 2021 #3 Weekly paclitaxel chemotherapy initiated on September 22, 2021; completed on December 15, 2021 Signed by: Charo Morales R.N. 01/13/2022 9:39 AM CDT I saw and evaluated the patient and participated in the bentley portions of the service. I reviewed the documentation of Charo Morales R.N. and agree with the findings and plan. The patient is recovering well from her chemotherapy. She had extracapsular extension in at least 2 of the 3 lymph nodes that were positive out of 7 total resected. Given that and her close margin on re-excision, I do recommend adjuvant right chest wall and regional lymph node radiotherapy to a dose of 50 Gy in 25 fractions. We discussed our breath hold technique in the small possibility of a benefitto proton therapy in [place]. We would start with photon planning here in [place] and only refer her to [place] if we thought that proton treatment was of likely benefit compared to photons. We discussed the use of Mepitel film to minimize severity of radiation dermatitis. She does have an adhesive allergy. She had a trial of Mepitel without difficulty. We reviewed the acute and chronic side effects of treatment as well as the logistics. For a completelisting of these, please see our previous notes. After this discussion, the patient stated that she would like to proceed with treatment, and she signed the consent form. She will undergo CT simulation today. We will endeavor to begin treatment on January 23, 2022. Our nurse, Charo will connect with our clinical customer support assistant in regards to prior authorization being sent to patient's insurance company. EDUCATION Ready to learn, no apparent learning barriers were identified; learning preferences include listening. Explained diagnosis and treatment plan; patient expressed understanding of the content. I personally spent 20 minutes in care of the patient today. Time includes both non face to face and face to face patient care. Signed by: Charles Allred M.D. 01/13/2022 1:03 PM CDT [facility] [address] [place], [place] [phone] documented in this encounter Miscellaneous Notes Addendum Note - Jaquelin Abraham, C.N.A. - 01/13/2022 9:30 AM CDT Encounter addended by: Jaquelin Abraham C.N.A. on: 01/13/2022 1:20 PM Actions taken: Letter saved documented in this encounter Plan of Treatment Upcoming Encounters Date Type Specialty Care Team Description 03/24/2022 Appointment Radiation Oncology Jose Allred M.D. [address] [place], [place] [phone] (Wo rk) Scheduled Referrals Name Type Priority Associated Order Schedule Diagnoses Radiation Oncology Outpatient Referral Routine On ce for 1 office visit Occurrences sta rting (clinic) 01/13/2022 unti l 01/13/2022 documented as of this encounter Visit Diagnoses Diagnosis Malignant Neoplasm Of Breast Upper Outer Quadrant Female Right (HCC) - Primary documented in this encounter
--- OUTSIDE RECORDS SUMMARY | 2022-03-16 14:38 | XMS_ITS | Encounter Summary ---
:1970 Author Organization [facility] Address [address] [place], [place] [phone] Phone [email or web address] Care Team Providers Name Role Phone Unavailable Primary Care Provider Unavailable Encounter Details Date Type Department Care Team Description 03/19/2015 Legacy Encounter Your [facility] Sejal Corbett NP [address] [place] [address] [place] [address] [phone] Social History Tobacco Use Types Packs/Day Years Used Date Never Assessed Sex Assigned at Date Recorded Not on file documented as of this encounter Plan of Treatment Not on filedocumented as of this encounter Procedures Procedure Name Priority Date/Time Associated Diagnosis Comme nts HEMOGLOBIN A1C Routine 03/19/2015 6:10 AM Results for this CDT procedure are i n the results section . LIPID PANEL Routine 03/19/2015 6:10 AM Results f or this CDT procedure are i n the results section . documented in this encounter Results (ABNORMAL) Lipid panel (05329) (03/19/2015 6:10 AM CDT) Analysis Performed At Patho logist Time Signature Triglycerides, 127 <150 mg/dL Fluid Cholesterol 209 (H) 125 - 200 mg/dL HDL 73 > OR = 46 mg/dL LDL Calculated 111 <130 mg/dL (calc) Chol/HDL Ratio 2.9 < OR = 5.0 (calc) Non HDL Chol. 136 mg/dL (LDL+VLDL) (calc) Specimen (Source) Anatomical Collection Method Collection Time Re ceived Time Location / / Volume Laterality 03/19/2015 6:10 AM CDT Sejal Mindy [facility] BLOOD ORDERABLES (ABNORMAL) Hgb A1C Hemoglobin Glycosylated (68547) (03/19/2015 6:10 AM CDT) P athologist Signature Hemoglobin A1C 5.9 (H) <5.7 % of total Hgb Specimen (Source) Anatomical Collection Method Collection Time Re ceived Time Location / / Volume Laterality 03/19/2015 6:10 AM CDT Sejal Corbett NP LAB BLOOD ORDERABLES documented in this encounter Visit Diagnoses Not on filedocumented in this encounter
--- OUTSIDE RECORDS SUMMARY | 2022-03-16 14:38 | XMS_ITS | Encounter Summary ---
:1970 Author Organization [facility] Address [address] [place] [address] Care Team Providers Name Role Phone Unavailable Primary Care Provider Unavailable Reason for Visit Radiation Therapy (Routine) - Closed Specialty Diagnoses / Procedures Referred By Contact Refer red To Contact Diagnoses Malignant Neoplasm Of Breast Upper Outer Quadrant Female Right (HCC) Charles Allred M.D. [facility] Procedures Prior Auth Rad Tx GA RADTN TX DEL >=1 MEV COMPLEX [address] [place] [address] Referral ID Status Reason Start Date Expiration Date Visits Requ ested Visits Authorized [id number] Closed 01/16/2022 11/14/2022 25 25 Encounter Details Date Type Department Care Team Description 01/25/2022 Hospital Encounter Department of Radiation [place]i Allred, [place] [address] [facility] [address] [place] [phone] Social History Tobacco Use Types Packs/Day Years [...] or relatives? How often do you attend sabianist or More than 4 times per year 01/12/2022 episcopalian services? Do you belong to any clubs or Yes 01/12/2022 organizations such as sabianist groups, unions, fraternal or athletic groups, or [...] Radiation Oncology Jose Allred M.D. [address] [place], [place] [phone] (Wo rk) documented as of this encounter Visit Diagnoses Not on filedocumented in this encounter
--- OUTSIDE RECORDS SUMMARY | 2022-03-16 14:38 | XMS_ITS | Encounter Summary ---
:1970 Author Organization [facility] Address [address] [place] [address] Phone [email or web address] Care Team Providers Name Role Phone Unavailable Primary Care Provider Unavailable Encounter Details Date Type Department Care Team Description 11/03/2016 Legacy Encounter [facility] Family Medicine Provider, Historical, [address] [place] [address] [place] [address] [place] [address] Social History Tobacco Use Types Packs/Day Years Used Date Never Assessed Sex Assigned at Date Recorded Not on file documented as of this encounter Last Filed Vital Signs Vital Sign Reading Time Taken Comments Blood Pressure 124/80 11/03/2016 10:02 AM CDT Pulse 54 11/03/2016 10:02 AM CDT Temperature - - Respiratory Rate - - Oxygen Saturation - - Inhaled Oxygen Concentration - - Weight 76.3 kg (168 lb 3.2 oz) 11/03/2016 10:02 AM CDT Height 176.5 cm (5' 9.5) 11/03/2016 10:02 AM CDT Body Mass Index 24.48 11/03/2016 10:02 AM CDT documented in this encounter Plan of Treatment Not on filedocumented as of this encounter Visit Diagnoses Not on filedocumented in this encounter
--- OUTSIDE RECORDS SUMMARY | 2022-03-16 14:38 | XMS_ITS | Clinical Summary ---
:1970 Author Organization [facility] Address [address] [place], [place] [phone] Phone [email or web address] Care Team Providers Name Role Phone Unavailable Primary Care Provider Unavailable Immunizations Name Administration Dates Next Due Covid-19 (Pfizer 12 yrs+ Purple - Primary) mRNA, 11/09/2020, 10/12/2020 LNP-S, PF, 30 mcg/0.3 mL IM (CVX-208) Influenza (IM) Preservative Free (CVX - 140) 04/05/2016 Influenza, Inj, Quadrivalent, PF, 6-35 mo (CVX-161) 04/05/20 17 Influenza, inj, Quadrivalent PF, 3 yrs or older 03/26/2020 (CVX-150) Social History Tobacco Use Types Packs/Day Years Used Date Never Smoker Sex Assigned at Date Recorded Not on file Last Filed Vital Signs Vital Sign Reading Time Taken Comments Blood Pressure 110/66 03/16/2021 9:12 AM CDT Pulse 54 11/16/2016 10:04 AM CDT Temperature - - Respiratory Rate - - Oxygen Saturation - - Inhaled Oxygen Concentration - - Weight 72.6 kg (160 lb) 03/16/2021 9:12 AM CDT Height 177.8 cm (5' 10) 03/16/2021 9:12 AM CDT Body Mass Index 22.96 03/16/2021 9:12 AM CDT Plan of Treatment Health Maintenance Due Date Last Done Comments Dental Cleaning/Exam 1970 Hepatitis C Screening 1970 Cervical Cancer Screening 1984 Annual Preventive Exam 01/17/1986 Colorectal Cancer Screening 01/17/1998 Zoster Immunization (1 of 2) 01/17/2018 Covid-19 Immunization (3 - 04/11/2021 11/09/2020, Booster for Pfizer series) 10/12/2020 Influenza Immunization (#1) 2022 03/26/2020, 04/05/2017 Breast Cancer Screening 02/24/2022 02/25/2020, 03/25/2018 Tetanus (Tdap or Td) 02/16/2030 02/17/2020, Immunization 06/30/2009 HIB Immunization Aged Out No longer eligi ble based on patient's age to complete this to pic HPV Immunization Aged Out No longer eligi ble based on patient's age to complete this to [facility] Hepatitis A Immunization Aged Out No long er eligible based on patient's age to complete this to pic Hepatitis B Immunization Aged Out No long er eligible based on patient's age to complete this to pic Pneumococcal: Ped (0 to 5 Aged Out No connor sergio eligible based Yrs) and At-Risk Member (6 to on patient's age to 64 Yrs) complete this to pic Polio Immunization Aged Out No longer kwadwo gible based on patient's age to complete this to pic
--- OUTSIDE RECORDS SUMMARY | 2022-03-16 14:38 | XMS_ITS | Encounter Summary ---
:1970 Author Organization [facility] Address [address] [place] [address] Care Team Providers Name Role Phone Unavailable Primary Care Provider Unavailable Reason for Visit Reason Comments Skin Check Appointment Request (Routine) - Closed Specialty Diagnoses / Procedures Referred By Contact Refer red To Contact Dermatology Referral ID Status Reason Start Date Expiration Date Visits Requ ested Visits Authorized [id number] Closed 03/11/2018 03/11/2019 1 Encounter Details Date Type Department Care Team Description 06/03/2018 Office Visit Department of Carlyn Strong, Tumor Skin Uncertain Behavior (Primary Dx); Dermatology in [place]; [place], [place] [address] [facility] Keratosis Seborrheic [address] [place] [id number] [phone] Social History Tobacco Use Types Packs/Day Years [...] More than 4 times per year 01/12/2022 hol[employer] services? Do you belong to any clubs [...] or slept in a ch[facility] (including now)? Sex Assigned at Date Recorded Female 01/12/2022 4:28 PM CDT documented as of this encounter Progress Notes Carlyn Strong M.D. - 06/03/2018 9:45 AM CST CHIEF COMPLAINT/REASON FOR VISIT Skin cancer screening exam HISTORY OF PRESENT ILLNESS Ms. Danielle Saini is a 48 y.o. female who presents today for a full skin cancer screening examination. During my last visit with the patient at the [facility] on 01/22/17, we biopsied a nonspecific lesion involving her mid central back to rule out recurrent nevus versus post-inflammatory hyperpigmentation. Dermatopathology returned as dermatofibroma. The patient denies a history of skincancer or family history for melanoma. She uses sunscreen SPF 15. The patient denies any lesions of concern today. Allergies not on file PAST MEDICAL HISTORY No history of skin cancer FAMILY HISTORY No family history for melanoma PHYSICAL EXAM General: Awake, alert, in no acute distress, and with appropriate affect. Eyes: No scleral injection or icterus. No eyelid abnormalities. Lymph: No lower extremity edema. Skin: I have examined the scalp, face, neck, chest, abdomen, back, bilateral upper extremities, and bilateral lower extremities. Examination of the extremities reveals multiple benign nevi and a few seborrheic keratoses. Examination of the right mid paraspinal back reveals a 2 mm x 2 mm brown nevus with asymmetry. Examination of her ft reveal few small corns and I have asked her to use rdex-cho-sxkdunb corn removal products as directed. IMPRESSION/REPORT/PLAN #1 Right mid paraspinal back: Rule out atypical nevus We recommend a 5-mm punch biopsy of the right mid paraspinal back. Photograph taken today with patient's verbal consent. We will correspond as to the results and if any further treatment is needed. I advised the patient to avoid any stretching, bending, twisting or heavy lifting for the next two weeksand the patient understands. PROCEDURAL PAUSE Procedural pause conducted to verify: correct patient identity, procedure to be performed, and as applicable, correct side and site, correct patient position, and availability of implants, special equipment, or special requirements. PROCEDURE DETAILS Punch biopsy. We explained the potential diagnosis and recommended that we obtain a biopsy. The risks and benefitsof the procedure were discussed, and the patient consented to these procedures. The patient denies any allergies to local anesthetics. Using 1% lidocaine with epinephrine for local anesthesia, a 5-mm punch biopsy was obtained from the right mid paraspinal back. Biopsy submitted to Dermatopathology. Biopsy site closed with a top layer of two 4-0 nylon skin sutures. The skin sutures need to be removed in 10-14 days. Dressing was applied, and wound care instructions were explained. Biopsy results and any further recommendations will be communicated to the patient by letter. Patient given pamphlet [id number]. Discussed the risks, benefits, alternatives, and the necessity of other members of the healthcare team participating in the procedure. All questions answered and consent given. #2 Multiple nevi and lentigenes The ABCDE criteria for melanoma was reviewed with the patient. None of the patient's nevi reach the clinical threshold for biopsy. I recommend continued sun protection, self-skin examinations, and observation. Should any of the patient's nevi change in size, color, texture, or shape or develop symptoms such as itching or bleeding, I recommend an immediate return visit for reassessment. #3 Extremities: Seborrheic Keratosis The benign nature of the skin lesion(s) was discussed with the patient. No treatment is required. I recommend continued observation. Should symptoms or changes develop related to this condition, I would recommend a return visit for reassessment. PATIENT EDUCATION Ready to learn. No apparent learning barriers were identified. Learning preferences include listening. Explained diagnosis and treatment plan; patient/guardian of patient expressed understanding of thecontent. By signing my name below, I, Alethea Hayward, attest that this documentation has been prepared under the direction and in the presence of Carlyn Strong M.D.. Electronically Signed: leticia Gould. 06/03/2018. 9:43 AM . I, Carlyn Strong M.D., personally performed the services described in this documentation. All medical record entries made by the scribe were at my direction and in my presence. I have reviewed the chart and discharge instructions (if applicable) and agree that the record reflects my personal performance and is accurate and complete. Carlyn Strong M.D. . 06/03/2018. 9:46 AM. NESS OPERATIONS MANAGER Carlyn Strong M.D. - 06/03/2018 9:45 AM CST b9 letter. [place] pt. NESS OPERATIONS MANAGER documented in this encounter Plan of Treatment Upcoming Encounters Date Type Specialty Care Team Description 03/24/2022 Appointment Radiation Oncology Jose Allred M.D. [address] [place] [address] [phone] (Wo rk) documented as of this encounter Procedures Procedure Name Priority Date/Time Associated Comments Diagnosis DERMATOPATHOLOGY CONSULT Routine 06/03/2018 9:50 Tumor Skin Results for this BUSINESS OPERATIONS MANAGER Uncertain Behavior procedure are in the results section. documented in this encounter Results Dermatopathology Consult (06/03/2018 9:50 AM BUSINESS OPERATIONS MANAGER) Component Value Ref Test Analysis Performed At [facility] Range Method Time Signature Gross Received in formalin labeled with the patient's name, 06/06/2018 [facility] Description: medical record number, and right mid paraspinal back is a 5:11 PM BUSINESS OPERATIONS MANAGER LABORATORIES - 0.5 cm in average diameter pale tovar skin punch biopsy [facility]DA [facility] excised to a depth of 0.3 cm. ??Centrally located on the CAMPUS skin surface is a 0.2 x 0.2 cm brown pigmented lesion. ??The specimen is bisected and submitted entirely in cassette A1. Grossed by MALINI. Report Livia I. 06/06/2018 [facility] electronically Rekha Amaya 5:11 PM BUSINESS OPERATIONS MANAGER LABORATOR IES - signed by [facility] 06/06/2018 [facility] 5:11 PM BUSINESS OPERATIONS MANAGER LABORATORIES - [facility] Interpetation FINAL DIAGNOSIS 06/06/2018 [facility]. ??DermPath Consult Wet Tissue; Right mid paraspinal donvoan k, 5:11 PM BUSINESS OPERATIONS MANAGER LABORATORIES - Skin punch biopsy: ??Lentiginous compound nevus [facility] Specimen Anatomical Collection Method Collection Time Receive d Time (Source) Location / / Volume Laterality Tissue 06/03/2018 9:50 AM 8 7:59 BUSINESS OPERATIONS MANAGER AM BUSINESS OPERATIONS MANAGER Narrative This result has an attachment that is no t available. Carlyn Srtong M.D. LAB PATH DERM ORDERABLES Performing Organization Address City/State/ZIP Code Phon e Number [facility] - [address] [place] [id number] [facility] documented in this encounter Visit Diagnoses Diagnosis Tumor Skin Uncertain Behavior - Primary Nevi Multiple Keratosis Seborrheic documented in this encounter Administered Medications Inactive Administered Medications - up to 3 most recent administrations Medication Order MAR Action Action Date Dose Rate Site lidocaine-EPINEPHrine 1 %-1:100,000 Given 06/03/2018 10:00 AM CS T 1 mL injection 1 mL (XYLOCAINE W/EPI) 1 mL, infiltration, Once, On 06/03/18 at 1000, For 1 dose documented in this encounter
--- OUTSIDE RECORDS SUMMARY | 2022-03-16 14:38 | XMS_ITS | Encounter Summary ---
:1970 Author Organization [facility] Address [address] [place] [id number] Care Team Providers Name Role Phone Unavailable Primary Care Provider Unavailable Reason for Referral Outpatient (Routine) - Authorized Specialty Diagnoses / Procedures Referred By Contact Refer red To Contact Radiation Oncology Charles Allred M .D. [facility] Region [address] [place] [phone] Referral ID Status Reason Start Date Expiration Date Visits V isits Requested Authorized [id number] Authorized 11/14/2021 11/14/2022 10 10 Scheduling Instructions MEPITEL Radiation Therapy (Routine) - Closed Specialty Diagnoses / Procedures Referred By Contact Refer red To Contact Diagnoses Malignant Neoplasm Of Breast Upper Outer Quadrant Female Right (HCC) Charles Allred M.D. [facility] Procedures Prior Auth Rad Tx OR RADTN TX DEL >=1 MEV COMPLEX [address] [place] [phone] Referral ID Status Reason Start Date Expiration Date Visits Requ ested Visits Authorized [id number] Closed 01/16/2022 11/14/2022 25 25 Outpatient (Routine) - Authorized Specialty Diagnoses / Procedures Referred By Contact Refer red To Contact Radiation Oncology Charles Allred M .D. [facility] Region [address] [place] [phone] Referral ID Status Reason Start Date Expiration Date Visits V isits Requested Authorized [id number] Authorized 11/14/2021 11/14/2022 10 10 Radiation Therapy (Routine) - Authorized Specialty Diagnoses / Procedures Referred By Contact Refer red To Contact Diagnoses Malignant Neoplasm Of Breast Upper Outer Quadrant Female Right (HCC) Charles Allred M.D. [facility] Region Procedures Management Visit [address] [place], [place] [phone] Referral ID Status Reason Start Date Expiration Date Visits V isits Requested Authorized [id number] Authorized 11/14/2021 11/14/2022 10 10 Specialty Diagnoses / Procedures Referred By Contact Refer red To Contact Zhanna Carlisle P.A.-C ., M.S. [facility] Region [address] [place], [place] [phone] Referral ID Status Reason Start Date Expiration Date Visits Requ ested Visits Authorized Radiation Therapy (Routine) - Closed Specialty Diagnoses / Procedures Referred By Contact Refer red To Contact Diagnoses Malignant Neoplasm Of Breast Upper Outer Quadrant Female Right (HCC) Charles Allred M.D. [facility] Procedures Initial Rad Onc Treatment Planning CT Simulation [address] [place], [place] [phone] Referral ID Status Reason Start Date Expiration Date Visits Requ ested Visits Authorized [id number] Closed 11/14/2021 11/14/2022 1 1 Outpatient (Routine) - Closed Specialty Diagnoses / Procedures Referred By Contact Refer red To Contact Radiation Oncology Charles Allred M .D. [facility] Region [address] [place] [phone] Referral ID Status Reason Start Date Expiration Date Visits Requ ested Visits Authorized [id number] Closed 11/14/2021 11/14/2022 1 1 Scheduling Instructions with sim; week of January 09 Reason for Visit Appointment Request (Routine) - Closed Specialty Diagnoses / Procedures Referred By Contact Refer red To Contact Radiation Oncology Diagnoses Malignant Neoplasm Of Breast Female Right (HCC) [place]Jerilyn Renae, МАРИНА, M.S.N., R.N. [address] [place] [address] Referral ID Status Reason Start Date Expiration Date Visits Requ ested Visits Authorized [id number] Closed 11/03/2021 11/03/2022 1 1 Encounter Details Date Type Department Care Team Description 11/14/2021 Hospital Encounter Department of Cameron Valles M.D. [address] [place] [phone] Malignant Neoplasm Radiation Oncology Charles Allred M.D. [address] [place] [phone] Of Breast Upper in [facility] Female Right (HCC) [address] [facility] (Primary Dx) [place] [phone] Social History Tobacco Use Types Packs/Day Years [...] or relatives? How often do you attend mandaen or More than 4 times per year 01/12/2022 sikh services? Do you belong to any clubs or Yes 01/12/2022 organizations such as mandaen groups, unions, fraternal or athletic groups, or [...] place to sleep or slept in a usp (including now)? Sex Assigned at Date Recorded Female 01/12/2022 4:28 PM CDT documented as of this encounter Last Filed Vital Signs Vital Sign Reading Time Taken Comments Blood Pressure 126/67 11/14/2021 8:46 AM CDT Pulse 81 11/14/2021 8:46 AM CDT Temperature 36.7 ??C (98.1 ??F) 11/14/2021 8:46 AM CDT Respiratory Rate - - Oxygen Saturation - - Inhaled Oxygen Concentration - - Weight 76.8 kg (169 lb 5 oz) 11/14/2021 8:46 AM CDT Height - - Body Mass Index 24.65 04/14/2021 8:57 AM CDT documented in this [...] documented as of this encounter Progress Notes Zhanna Carlisle P.A.-C., M.S. - 11/14/2021 9:00 AM CDT SUBJECTIVE DIAGNOSIS 1. Malignant Neoplasm Of Breast Upper Outer Quadrant Female Right (HCC) SUPERVISED BY: Charles Allred M.D. ([id number]) HISTORY OF PRESENT ILLNESS Mrs. Danielle Saini is a 51-year-old female with stage IIA (pT2, pN1a, cM0, G3, ER+, OR+, HER2-) invasive ductal carcinoma of the right breast, currently receiving weekly paclitaxel chemotherapy. Her oncologic history is as follows: Oncology [...] measuring 1.3 x 0.9 cm. 03/28/2021 [employer] exam with Dr. Patty Bajwa where the [...] was performed. Pathology demonstrated invasive ductal carcinoma, Lima grade 3. Angiolymphatic invasion was absent. Associated [...] by Dr. Bailey. Left immediate prepectoral tissue celery cutter breast reconstructionwith AlloDerm and right direct implant [...] Breast Ancillary Testing: Performed on prior case ([id number]) a. Hormone Receptors: Estrogen receptor: Positive (96%, moderate staining) Progesterone receptor: Positive (62%, moderate staining) b. HER2 by IHC: Negative (0 by manual morphometry) 5. Ki-67 (performed on A2): 18% by image analysis 6. Surrounding breast unremarkable 7. Benign nipple B) RIGHT AXILLARY SENTINEL LYMPH NODE, 1, BIOPSY: 1. Positive for malignancy in 1 of 1 lymph nodes (1/1) a. Size of largest metastatic focus: 12 [...] of Lymph Nodes Examined: 7 Number of [place] Nodes Examined: 1 PATHOLOGIC STAGE CLASSIFICATION (pTNM, AJCC 8th Edition) Primary Tumor (pT): pT2 Regional Lymph Nodes (pN): pN1a Test(s) Performed: Ki-67 Percentage of Positive Nuclei: 18 % 07/07/2021 Surgery and Procedures Right breast anterior margin re-excision was performed by Dr. Bailey. PATHOLOGY: A) RIGHT BREAST, ANTERIOR MARGIN, RE-EXCISION: 1. Residual invasive ductal carcinoma, Lima grade III of III a. Size: up [...] Breast Ancillary Testing: Performed on prior case ([id number]) a. Hormone Receptors: Estrogen receptor: Positive (96%, moderate staining) Progesterone receptor: Positive (62%, moderate staining) b. HER2 by IHC: Negative (0 by manual morphometry) c. Ki-67 (performed on [id number]): 18% by image analysis 07/14/2021 Imaging PET-CT [...] Cytoxan chemotherapy x 4 cycles. 09/22/2021 - Chemotherapy Weekly paclitaxel x 12 weeks. INTERVAL HISTORY The patient was seen and examined today with Dr. Allred. The patient reports doing well overall. She rates her fatigue as 7/10 in severity. She reports healing well overall following her recent surgeries. She attended physical therapy and reports overall good arm range of motion. She denies lymphedema and has already had baseline measurements. She denies per sistent pain, but will experience occasional zingers. She reports overall joint pain related to chemotherapy. She reports that she has 5 weeks of paclitaxel remaining, as 1 week was postponed. She is otherwise tolerating chemotherapy well overall. REVIEW OF SYSTEMS Review of systems was negative except as documented above. PATIENT REPORTED SYMPTOM SCREEN FATIGUE (Scale: 0 = no fatigue; 10 = worst fatigue you can imagine): 7 PAIN (Scale: 0 = no pain; 10 = worst pain you can imagine): 0 OVERALL QUALITY OF LIFE (Scale: 0 = as bad as can be; 10 = as good as can be): 8 OBJECTIVE BP 126/67 (BP Location: Left arm, Patient Position: Sitting, Cuff Size: Regular) Pulse 81 Temp 36.7 ??C (Temporal) Wt 76.8 kg BMI 24.65 kg/m?? PHYSICAL EXAM GENERAL: Alert and oriented in no apparent distress. ASSESSMENT / PLAN #1 Stage IIA (pT2, pN1a, cM0, G3, ER+, OR+, HER2-) invasive ductal carcinoma of the right breast s/pbilateral mastectomies and right axillary lymph node dissection on June 02, 2021 with left celery cutter and right implant reconstruction; re-excision of the positive anterior margin on July 07, 2021 #2 Dose dense Adriamycin and Cytoxan chemotherapy x4 cycles completed on September 08, 2021 #3 Weekly paclitaxel chemotherapy initiated on September 22, 2021; anticipated completion on December 15, 2021 The patient is doing well overall following her recent surgical procedures as well as chemotherapy. We reviewed her oncologic history since her initial consultation here. She underwent bilateral mastectomies and right axillary lymph node dissection with left celery cutter and right implant reconstruction followed by re-excision of the positive anterior margin. She then proceeded to chemotherapy with dose dense Adriamycin and Cytoxan x4 cycles and is currently receiving weekly paclitaxel. We had a detailed discussion regarding the risks, benefits, and alternatives of radiotherapy in thissetting. I discussed the logistics as well as the acute and chronic side effects of radiotherapy. Following chemotherapy, we discussed the recommendation for radiation therapy to the right chest wall and regional lymph nodes in 25 fractions. We also discussed a possible boost to the mastectomy scar inan additional 5 fractions. The acute side effects are common and include fatigue, radiation dermatitis, chest wall erythema, swelling, and discomfort, and possible sore throat.?? Long- term side effects include skin changes and texture changes of the chest wall, pulmonary scarring (typically of no clinical significance), radiation pneumonitis, increased risk of rib fracture with significant trauma, lymphedema, very small risk of nerve injury to the brachial plexus, hypothyroidism, and a very small risk of secondary malignancy.The patient was provided with a written summary of recommendations. Her questions were answered to her verbalized satisfaction. ?? We again discussed the use of Mepitel during radiation therapy to the chest wall following mastectomy. The patient has previously reported sensitivity to medical/surgical adhesive, so we may need to have her test it on her skin prior to treatment, which can be done at the time of her CT simulation. The patient is anticipated to complete weekly paclitaxel chemotherapy on December 15, 2021. We will planto see her back approximately 3-4 weeks following chemotherapy with planned CT simulation at that time in preparation of proceeding with radiation therapy. She will need to have the left celery cutter deflated prior to CT simulation, which will be done through Dr. Cotto's office. She reports that this iscurrently scheduled, but might be re-scheduled based on the timing of CT simulation, with deflation occurring a couple of days prior. She was asked to contact us sooner with questions or concerns. She v erbally expressed her understanding of the plan. EDUCATION Ready to learn, no apparent learning barriers were identified; learning preferences include listening. Explained diagnosis and treatment plan; patient expressed understanding of the content. I personally spent 45 minutes in care of the patient today. Time includes both non face to face and face to face patient care. Signed by: Zhanna Carlisle P.A.-C., M.S. 11/14/2021 9:54 AM CDT [facility] [address] [place] [address] Associated attestation - Charles Allred M.D. - 11/14/2021 3:21 PM CDT I saw and evaluated the patient and participated in the bentley portions of the service. I reviewed the documentation of Zhanna Carlisle P.A.-C. and agree with the findings and plan. The patient appears well onexam. She is here today with her . We saw her preoperatively. She has now undergone bilateralmastectomies with right axillary lymph node dissection, left celery cutter placement, and right implant reconstruction on June 02, 2021 followed by re-excision of a positive anterior margin on July 07, 2021. She is currently receiving chemotherapy which is scheduled to be finished on December 15, 2021. I reviewed her pathology report which revealed that she had extracapsular extension in at least 2 ofthe 3 lymph nodes that were positive out of 7 total resected. Given that and her close margin on re-excision, I do recommend adjuvant right chest wall and regional lymph node radiotherapy to a dose of 50 Gy in 25 fractions. We discussed our breath hold technique in the small possibility of a benefit to proton therapy in [place]. We would start with photon planning here in [place] and only refer her to [place] if we thought that proton treatment was of likely benefit compared to photons. We discussed the use of Mepitel film to minimize severity of radiation dermatitis. She does have an adhesive allergy. I provided her with a small sample of Mepitel to test on her abdominal skin to see if she develops reaction. She will remove the films soon as the reaction is apparent and if she has a reaction, we will treat her without Mepitel She will return the week of January 09, [address] simulation and a follow-up visit. We would request that her left celery cutter be completely deflated prior to that date to allow for maximum freedom with beam angles. We again provided her with a written summary of our recommendations. Her questions and those of her spouse were answered to their verbalized satisfaction. She again stated that she would like to proceed with treatment. I spent a total of 10 minutes with the patient and her spouse all of which was spent in counseling and coordinating care. Signed by: Charles Allred M.D. 11/14/21 3:21 PM CDT [facility] [place] documented in this encounter Miscellaneous Notes Addendum Note - Jaquelin Abraham C.NShereeASheree - 11/14/2021 9:00 AM CDT Encounter addended by: Jaquelin Abrhaam C.N.ASheree on: 11/15/2021 7:12 AM Actions taken: Letter saved documented in this encounter Plan of Treatment Upcoming Encounters Date Type Specialty Care Team Description 03/24/2022 Appointment Radiation Oncology Jose Allred M.D. [address] [place], [place] [phone] (Wo rk) Scheduled Orders Name Type Priority Associated Order Schedule Diagnoses Management Visit Radiation Oncology Routine Malignant Neoplasm 10 Occurrences Of Breast Upper starting Outer Quadrant until 023 Female Right (HCC) Prior Auth Rad Tx Radiation Oncology Routine Malignant Neoplas m Ordered: 11/14/2021 Of Breast Upper Outer Quadrant Female Right (HCC) Scheduled Referrals Name Type Priority Associated Order Schedule Diagnoses Radiation Oncology Outpatient Referral Routine Ex pected: 01/09/2022 office visit (Approximate), (clinic) Expires: 2022 Radiation Oncology Outpatient Referral Routine Malignant Neopl asm Expected: 11/14/2021 - Nurse education Of Breast Upper (Approx imate), visit (clinic) Outer Quadrant Expires: Female Right (HCC) Radiation Oncology Outpatient Referral Routine 10 Occurrences nurse visit starting 2021 (clinic) until 3 Radiation Oncology Outpatient Referral Routine 10 Occurrences nurse visit starting 2021 (clinic) until 3 documented as of this encounter Results Initial Rad Onc Treatment Planning CT Simulation [...] Organization Address City/State/ZIP Code Phon e Number [facility] na documented in this encounter Visit Diagnoses Diagnosis Malignant Neoplasm Of Breast Upper Outer Quadrant Female Right (HCC) - Primary Malignant Neoplasm Of Breast Upper Outer Quadrant Female Right (HCC) documented in this encounter
--- OUTSIDE RECORDS SUMMARY | 2022-03-16 14:38 | XMS_ITS | Encounter Summary ---
:1970 Author Organization [facility] Address [address] [place] [address] Phone [email or web address] Care Team Providers Name Role Phone Unavailable Primary Care Provider Unavailable Encounter Details Date Type Department Care Team Description 11/16/2016 [place] [facility] [place], Historical, [address] [place] [phone] [place] [address] [place], [place] [address] Social History Tobacco Use Types Packs/Day Years Used Date Never Assessed Sex Assigned at Date Recorded Not on file documented as of this encounter Last Filed Vital Signs Vital Sign Reading Time Taken Comments Blood Pressure 116/76 11/16/2016 10:04 AM CDT Pulse 54 11/16/2016 10:04 AM CDT Temperature - - Respiratory Rate - - Oxygen Saturation - - Inhaled Oxygen Concentration - - Weight 77.9 kg (171 lb 12.8 oz) 11/16/2016 10:04 AM CDT Height 176.5 cm (5' 9.5) 11/16/2016 10:04 AM CDT Body Mass Index 25.01 11/16/2016 10:04 AM CDT documented in this encounter Plan of Treatment Not on filedocumented as of this encounter Visit Diagnoses Not on filedocumented in this encounter
--- OUTSIDE RECORDS SUMMARY | 2022-03-16 14:38 | XMS_ITS | Encounter Summary ---
:1970 Author Organization [facility] Address [address] [place] [address] Care Team Providers Name Role Phone Unavailable Primary Care Provider Unavailable Reason for Visit Appointment Request (Routine) - Closed Specialty Diagnoses / Procedures Referred By Contact Refer red To Contact Radiation Oncology Diagnoses Malignant Neoplasm Of Breast Female Right (HCC) Malia Bailey M.D. [address] [place] [address] Referral ID Status Reason Start Date Expiration Date Visits Requ ested Visits Authorized [id number] Closed 04/07/2021 04/07/2022 1 1 Encounter Details Date Type Department Care Team Description 04/14/2021 Hospital Encounter Department of Charles Allred Neoplasm Radiation Oncology Rekha Lobato Of Breast Upper in [place], [facility] [address] [place], [place] Female Right (HCC) [address] [facility] [id number] (Primary Dx) [place], [place] [phone] (Work) [phone] Social History Tobacco Use Types Packs/Day Years [...] More than 4 times per year 01/12/2022 anabaptism services? Do you belong to any clubs [...] slept in a skilled nursing (including now)? Sex Assigned at Date Recorded Female 01/12/2022 4:28 PM CDT documented as of this encounter Last Filed Vital Signs Vital Sign Reading Time Taken Comments Blood Pressure 125/66 04/14/2021 8:57 AM CDT Pulse 51 04/14/2021 8:57 AM CDT Temperature 36.2 ??C (97.2 ??F) 04/14/2021 8:57 AM CDT Respiratory Rate - - Oxygen Saturation - - Inhaled Oxygen Concentration - - Weight 75 kg (165 lb 5.5 oz) 04/14/2021 8:57 AM CDT Height 176.5 cm (5' 9.49) 04/14/2021 8:57 AM CDT Body Mass Index 24.08 04/14/2021 8:57 AM CDT documented in this encounter Medications at Time of Discharge Medication Sig Dispensed Refills Start Date End Date cetirizine (ZyrTEC) 10 mg Take 10 mg by mouth 0 tablet daily. ergocalciferol, vitamin 2 (two) times a day. 0 D2, 10 mcg (400 unit) tablet multivitamin capsule Take 1 capsule by 0 02/01/2022 mouth daily. documented as of this encounter Consult Notes Zhanna Carlisle P.A.-C., M.S. - 04/14/2021 9:00 AM CDT SUBJECTIVE REQUESTING PROVIDER Malia Bailey M.D. REASON FOR CONSULT 1. Malignant Neoplasm Of Breast Upper Outer Quadrant Female Right (HCC) SUPERVISED BY: Charles Allred M.D. [phone]) HISTORY OF PRESENT ILLNESS Mrs. Danielle Saini is a 51-year-old female with stage IIA (cT2, cN0, cM0, G3, ER+, KS+, HER2-) invasive ductal carcinoma of the right breast, who presents today for an opinion regarding the role of radiation therapy in the management of the patient's disease. Her oncologic history is as follows: 1. March 17, 2021: Bilateral screening mammogram demonstrated clustered microcalcifications within the upper outer quadrant of the right breast with associated asymmetric density, 6 cm from the nipple, 10 o'clock position. No suspicious findings in the left breast. BI-RADS 0. 2. March 24, 2021: Right breast mammogram with tomosynthesis demonstrated a spiculated mass within the lateral right breast, 5 cm from the nipple, with pleomorphic branching microcalcifications present. Targeted right breast ultrasound at the 9 o'clock position, 5 cm from the nipple was performed.There was an irregularly marginated solid mass with distal acoustic shadowing and punctate microcalcifications measuring 1.3 x 0.9 cm. 3. March 28, 2021: Clamp Truck Driver exam with Dr. Patty Bajwa where the patient reported spotting while on combined HRT. Pelvic examination demonstrated an endocervical polyp. Normal vagina, vulva, and cervix without lesions, polyps, or tenderness. Uterus was normal size, shape, consistency with no mass or tenderness. Adnexa was normal in size without mass or tenderness. Recommended proceeding with pelvic ultrasound for postmenopausal bleeding and endometrial biopsy of endometrium is greater than 4 mm. Continue HRT for now. 4. March 31, 2021: Ultrasound-guided core biopsy of the right breast at the 9 o'clock position, 5 cm from the nipple was performed. Pathology demonstrated invasive ductal carcinoma, Shayna grade 3. Angiolymphatic invasion was absent. Associated DCIS was present, solid and cribriform subtypes (necrosis present (grade 3). Estrogen receptor positive (96%). Progesterone receptor positive (62%). HER2by IHC negative (0). 5. April 06, 2021: Surgery consultation with Dr. Malia Bailey who discussed surgical treatment options including mastectomy alone, mastectomy with reconstruction, and lumpectomy. Indications for chemotherapy and radiation were discussed as well. Referral for genetic screening. Referral to Radiation O ncology prior to determining any treatment plans. Recommended proceeding with an MRI of the breasts.Referral for lymphedema education and evaluation prior to surgery. Referral to Plastic surgery to discuss reconstruction. 6. April 12, 2021: MRI of the bilateral breasts demonstrated clumped branching non-mass enhancement at the 9 o'clock position, middle posterior depth, approximately 6 cm from the nipple of the right breast. This measured 1.3 x 1.4 x 3.8 cm. There was a possible satellite mass approximately 2.1 cm medial and anterior to the site of biopsy-proven malignancy, measuring 0.4 cm. This was located centralto the nipple, middle depth, approximately 3 cm from the nipple. No suspicious areas of enhancement in the left breast. No adenopathy. BI-RADS 6. 7. April 13, 2021: Genetic counseling appointment where the patient chose to proceed with testing via [facility]???s Breast Cancer STAT panel (9 genes) with reflex to the complete Common Hereditary Cancers Panel (47 genes). INTERVAL HISTORY The patient was seen and examined today with Dr. Allred. The patient reports doing well overall. She denies fatigue. She reports bruising following her rightbreast biopsy. She also reports having skin sensitivity to medical/surgical tape. She otherwise denies any issues with the biopsy. She was not able to feel a lump or mass prior to her screening mammogram. She denies shortness of breath or cough. She has good range of motion of her right arm, despite having a history of a right frozen shoulder. She reports that her vaginal spotting has stopped since she discontinued the estrogen and progesterone that she was taking for menopause symptoms. The patientdenies a history of prior radiation therapy, connective tissue disorders, or inflammatory bowel disease. Her ECOG performance status is 0. REVIEW OF SYSTEMS Review of systems was [...] = as good as can be): 9 PAST MEDICAL HISTORY 1. Gastroesophageal reflux 2. Endometrial polyp 3. Frozen shoulder, right 4. Stress urinary incontinence 5. Plantar fasciitis 6. Prediabetes, previously treated with Metformin, but not currently 7. Vitamin-D deficiency 8. Invasive ductal carcinoma of the right breast 9. Post-menopausal bleeding PAST SURGICAL HISTORY 1. Dilation and curettage, 1998 2. Hysteroscopy dilation and curettage with truclear morcellation, 2016 3. Pharr teeth extraction, 1991 FAMILY HISTORY Maternal aunt had breast cancer in her 70s. Maternal grandmother had uterine cancer. Maternal aunt had lung cancer, she was a smoker. Two siblings have had melanoma. SOCIAL HISTORY She lives in [place], [place]. She is to her , Ancelmo. She has 3 children. She is a former smoker, off and on, quit completely in 1998. She drinks wine on occasion. OBJECTIVE BP 125/66 (BP Location: Right arm, Patient Position: Sitting, Cuff Size: Regular) Pulse (!) 51 Temp 36.2 ??C (Temporal) Ht 176.5 cm Wt 75 kg BMI 24.08 kg/m?? PHYSICAL EXAM GENERAL: Alert and oriented in no apparent distress. ASSESSMENT / PLAN #1 Stage IIA (cT2, cN0, cM0, G3, ER+, KS+, HER2-) invasive ductal carcinoma of the right breast I had a discussion with the patient and her regarding her breast cancer diagnosis including information regarding her staging, grade, and hormone receptors. We reviewed her recent MRI results, as detailed above. On MRI, the right breast mass measured 3.8 cm and there was a possible 0.4 cm satellite lesion. We discussed possible treatment options for the patient including lumpectomy with radiotherapy, mastectomy with radiotherapy, and mastectomy without radiotherapy. We reviewed that mastectomy could be done with or without reconstruction. We discussed the timing of radiation therapy following surgery. We also discussed situations in which chemotherapy may be recommended either before or after surgery. We discussed that if chemotherapy is recommended post- surgery that it is typically given prior to radiation therapy. We discussed that radiation treatment following lumpectomy is typically 16 treatmentsto the whole right breast with a possible 4 treatment boost to the lumpectomy cavity. We discussed that radiation treatment following mastectomy is typically 25 treatments to the right chest wall +/- regional lymph nodes with a possible 5 treatment boost to the surgical incision. We also had a detailed discussion regarding the risks, benefits, and alternatives of radiotherapy inthis setting. I discussed the logistics as well as the acute and chronic side effects of radiotherapy. In discussing radiation therapy, we discussed both radiation treatment to an intact right breast as well as to the right chest wall and regional lymph nodes, depending on her surgical choice. The acute side effects are common and include fatigue, radiation dermatitis, breast erythema, swelling, and discomfort, and possible sore throat (if neck is irradiated). Long-term side effects include skin changes and texture changes of the breast, possible breast asymmetry, pulmonary scarring (typically of no clinical significance), radiation pneumonitis, increased risk of rib fracture with significant trauma, lymphedema, small increased risk of coronary artery disease (if left breast/chest wall is irradiated), very small risk of nerve injury to the brachial plexus (if neck is irradiated), hypothyroidism (if neck is irradiated), and a very small risk of secondary malignancy. The patient was provided witha written summary of recommendations. Her questions were answered to her verbalized satisfaction. We discussed the use of Mepitel if radiation therapy is delivered to the chest wall following mastectomy. The patient does report sensitivity to medical/surgical adhesive, so if Mepitel is recommended in the future, we may need to have her test it on her skin prior to treatment. With regards to the possible satellite lesion noted on MRI, the Radiologist recommended MRI guided biopsy if it would alter clinical management. We will defer the decision to proceed with biopsy or notto Dr. Bailey. The patient reports that she is scheduled to meet with a plastic surgeon soon and she is also scheduled for a pelvic ultrasound on April 25, 2021. She is not currently scheduled for an appointment with Medical Oncology. Dr. Allred then met with the patient for further discussion today, please see his attestation for details. At this time, we will leave management of next steps regarding the patient's work up and treatment to Dr. Bailey. We will not schedule a return visit here now, but we can see the patient back ifindicated for consideration of radiation therapy following surgery +/- chemotherapy. The patient was provided with our contact information. She was asked to contact us with questions orconcerns. She verbally expressed her understanding of the plan. EDUCATION Ready to learn, no apparent learning barriers were identified; learning preferences include listening. Explained diagnosis and treatment plan; patient expressed understanding of the content. CONSENT Discussed the risks, benefits, alternatives, and the necessity of other members of the healthcare team participating in the procedure. All questions answered and consent given. I personally spent 70 minutes in care of the patient today. Time includes both non face to face and face to face patient care. Signed by: Zhanna Carilsle P.A.-C., M.S. 04/14/2021 4:15 PM CDT [facility] [address] [place] [address] Associated attestation - Charlse Allred M.D. - 04/14/2021 6:18 PM CDT I saw and evaluated the patient and participated in the bentley portions of the service. I reviewed the documentation of Zhanna Carlisle P.A.-C. and agree with the findings and plan. Mrs. Danielle Saini is a 51-year-old female with stage IIA (cT2, cN0, cM0, G3, ER+, KS+, HER2-) invasive ductal carcinoma of the right breast. Her oncologic history is well detailed in Ms. Carlisle's note. We are asked by Dr. Bailey to evaluate the patient preoperatively for radiotherapy. In brief, the patient had a mammographically detected lesion in the upper outer quadrant of her right breast on March 17, 2021 the persisted on diagnostic mammography from March 24, 2021. Ultrasound-guided biopsy on March 31, 2021 confirmed invasive ductal carcinoma, grade 3, with associated DCIS, Estrogen receptor positive (96%). Progesterone receptor positive (62%). HER2 by IHC negative (0). MRI of the breasts on April 12, 2021 showed an area of enhancement in the right breast at the 9 o'clock position measuring 3.8 x 1.3 x 1.4 cm with a possible satellite mass measuring 0.4 cm that was 2.1 cm medial and anterior to the site of the biopsy-proven malignancy. Left breast was negative. There was no adenopathy. Genetic testing is pending. The patient feels well. She has no breast symptoms. ECOG performance status is 0. OBJECTIVE PHYSICAL EXAM General: Patient is awake, alert, and oriented to person, place, and time. No apparent distress. Sheis here today with her , Ancelmo. Her exam was chaperoned by TRAM Obrien. ENT: Pupils equal, round, and reactive to light. Sclerae anicteric. Oral cavity inspection reveals moist mucous membranes and no visible lesions. Neck: Supple. Lymph: No palpable cervical, supraclavicular, infraclavicular, or axillary adenopathy. Spine: No tenderness to palpation or fist percussion. Lungs: Clear to auscultation bilaterally. Heart: Regular rate and rhythm. Normal S1 and S2. No murmurs. Abdomen: Soft, nontender, nondistended. Normal active bowel sounds are present. Extremities: No edema. Neurologic: Gait is normal. Breasts: Examined in the sitting and supine positions. The right breast has an everted nipple with no palpable masses, no overlying skin changes, and no expressible nipple discharge. There is ecchymosis present from the recent biopsy at the 9 o'clock position of the right breast. The left breast has an everted nipple with no palpable masses, no overlying skin changes, and no expressible nipple discharge. DIAGNOSTICS I reviewed the patient's pathology report and imaging. I specifically went over the MRI scans with her and her . ASSESSMENT / PLAN #1 Stage IIA (cT2, cN0, cM0, G3, ER+, KS+, HER2-) invasive ductal carcinoma of the right breast I had a detailed discussion with the patient and her spouse regarding the risks, benefits, and alternatives of radiotherapy in this setting. I reviewed the NCCN guidelines in formulating my recommendations. I went over these with the patient. We discussed standard hypofractionated adjuvant whole breast radiotherapy to a dose of 4005 cGy in 15 fractions with a boost of 1000 cGy in 4 fractions to the lumpectomy cavity if the patient proceeds with lumpectomy. We also discussed the fact that radiotherapy may not be necessary if she proceeds with a mastectomy. She may also require radiotherapy followingmastectomy if her tumor is larger than 5 cm or if she has positive lymph nodes. This would likely fermin a dose of 50 Gy in 25 fractions encompassing the right chest wall and regional lymph nodes the possible boost to the mastectomy scar if she does not undergo immediate reconstruction. Given the size and high-grade nature of her tumor, neoadjuvant chemotherapy may be considered for down staging and to make lumpectomy with negative margins and smaller volume or feasible. I recommend that she meet with Medical Oncology prior to surgery in this regard. If she does proceed with neoadjuvant chemotherapy, the satellite lesion seen on MRI will likely need to be biopsied and clipped. I discussed this withDr. Bailey, and she is placing a referral for preoperative consultation. I discussed the logistics as well as the acute and chronic side effects of treatment in detail. For a complete listing of these, please see Ms. Nuñezf's note. After this discussion, I provided the patient with a written summary of my recommendations. Her questions were answered to her verbalized satisfaction. The patient is contemplating her options. I will certainly be happy to see her in follow-up after surgery. She verbalized satisfaction with this plan. My thanks to Drs. Bailey and Garett for the opportunity to participate in this patient's care. I spent a total of 40 minutes with the patient, 35 minutes of which was spent in counseling and coordinating care. Signed by: Charles Allred M.D. 04/14/2021 6:18 PM CDT [facility] [place] documented in this encounter Miscellaneous Notes Addendum Note - Sindy Ladnry - 04/14/2021 9:00 AM CDT Encounter addended by: Sindy Landry on: 04/19/2021 8:23 AM Actions taken: Letter saved documented in this encounter Plan of Treatment Upcoming Encounters Date Type Specialty Care Team Description 03/24/2022 Appointment Radiation Oncology Jose Allred M.D. [address] [place] [address] [phone] (Wo rk) documented as of this encounter Visit Diagnoses Diagnosis Malignant Neoplasm Of Breast Upper Outer Quadrant Female Right (HCC) - Primary documented in this encounter
--- OUTSIDE RECORDS SUMMARY | 2022-03-16 14:38 | XMS_ITS | Encounter Summary ---
:1970 Author Organization [facility] Address [address] [place] [address] Phone [email or web address] Care Team Providers Name Role Phone Unavailable Primary Care Provider Unavailable Encounter Details Date Type Department Care Team Description 01/11/2015 [place] [facility] [place], [place], [address] [place] [address] [place] [address] [place], [place] [address] Social History Tobacco Use Types Packs/Day Years Used Date Never Assessed Sex Assigned at Date Recorded Not on file documented as of this encounter Last Filed Vital Signs Vital Sign Reading Time Taken Comments Blood Pressure 120/72 01/11/2015 10:35 AM CDT Pulse 52 01/11/2015 10:35 AM CDT Temperature - - Respiratory Rate - - Oxygen Saturation - - Inhaled Oxygen Concentration - - Weight 73 kg (161 lb) 01/11/2015 10:35 AM CDT Height 175.9 cm (5' 9.25) 01/11/2015 10:35 AM CDT Body Mass Index 23.6 01/11/2015 10:35 AM CDT documented in this encounter Plan of Treatment Not on filedocumented as of this encounter Visit Diagnoses Not on filedocumented in this encounter
--- OUTSIDE RECORDS SUMMARY | 2022-03-16 14:38 | XMS_ITS | Encounter Summary ---
:1970 Author Organization [facility] Address [address] [place] [address] Care Team Providers Name Role Phone Unavailable Primary Care Provider Unavailable Reason for Visit Radiation Therapy (Routine) - Closed Specialty Diagnoses / Procedures Referred By Contact Refer red To Contact Diagnoses Malignant Neoplasm Of Breast Upper Outer Quadrant Female Right (HCC) Charles Allred M.D. [facility] Procedures Prior Auth Rad Tx MS RADTN TX DEL >=1 MEV COMPLEX [address] [place], [place] [phone] Referral ID Status Reason Start Date Expiration Date Visits Requ ested Visits Authorized [id number] Closed 01/16/2022 11/14/2022 25 25 Encounter Details Date Type Department Care Team Description 01/23/2022 Hospital Encounter Department of Radiation Lei Allred, [place] [address] [facility] [address] [place] [id number] [phone] Social History Tobacco Use Types Packs/Day Years [...] or relatives? How often do you attend quaker or More than 4 times per year 01/12/2022 lutheran services? Do you belong to any clubs or Yes 01/12/2022 organizations such as quaker groups, unions, fraternal or athletic groups, or [...] Radiation Oncology Jose Allred M.D. [address] [place], [place] [phone] (Wo rk) documented as of this encounter Visit Diagnoses Not on filedocumented in this encounter
--- OUTSIDE RECORDS SUMMARY | 2022-03-16 14:38 | XMS_ITS | Encounter Summary ---
:1970 Author Organization [facility] Address [address] [place] [address] Care Team Providers Name Role Phone Unavailable Primary Care Provider Unavailable Reason for Referral Radiation Therapy (Routine) - Closed Specialty Diagnoses / Procedures Referred By Contact Refer red To Contact Diagnoses Malignant Neoplasm Of Breast Upper Outer Quadrant Female Right (HCC) Charles Allred M.D. [facility] [place] Region Procedures Initial Rad Onc Treatment Planning CT Simulation [address] [place] [address] Referral ID Status Reason Start Date Expiration Date Visits Requ ested Visits Authorized [id number] Closed 11/14/2021 11/14/2022 1 1 Reason for Visit Radiation Therapy (Routine) - Closed Specialty Diagnoses / Procedures Referred By Contact Refer red To Contact Diagnoses Malignant Neoplasm Of Breast Upper Outer Quadrant Female Right (HCC) Charles Allred M.D. [facility] Region Procedures Initial Rad Onc Treatment Planning CT Simulation [address] [place], [place] [address] Referral ID Status Reason Start Date Expiration Date Visits Requ ested Visits Authorized [id number] Closed 11/14/2021 11/14/2022 1 1 Encounter Details Date Type Department Care Team Description 01/13/2022 Hospital Encounter Department of Charles Allred Neoplasm Radiation Oncology Rekha Lobato [facility] in [place], [address] [place], [place] Female Right (HCC) [address] [facility] [address] [place], [place] [phone] [address] (Work) [phone] Social History Tobacco Use Types Packs/Day Years [...] More than 4 times per year 01/12/2022 orthodoxy services? Do you belong to any clubs [...] place to sleep or slept in a care home (including now)? Education Answer Date Recorded [...] mouth daily. documented as of this encounter Procedure Notes Laureen Cobb Luis Alfredo, RTT - 01/13/2022 10:00 AM CDTAssociated Order(s): Initial Rad Onc Treatment Planning CT Simulation Pre-Procedure Diagnose(s): Malignant Neoplasm Of Breast Upper Outer Quadrant Female Right (HCC) Post-Procedure Diagnose(s): Malignant Neoplasm Of Breast Upper Outer Quadrant Female Right (HCC) Initial Rad Onc Treatment Planning CT Simulation Date/Time: 01/13/2022 11:19 AM Performed by: Charles Allred M.D. Authorized by: Charles Allred M.D. Simulation was performed under physician supervision based on physician order in preparation for radiation therapy. Physician was immediately available to provide assistance and direction throughout the procedure. Written consent for treatment was completed or confirmed. The patient was appropriately identified and placed in the treatment position using the necessary immobilization to ensure a reproducible treatment position. Reference roper were placed to facilitate marking of isocenter. Area scanned:Chest Contrast used for the simulation procedure: None Patient position:head first supine and arms up Custom immobilization: Vac-herbie Motion management: Breath hold scan Bolus: Yes CT guidance: Following positioning of the patient, a series of slices was obtained to be utilized intreatment planning. CT images were transferred to the Eclipse treatment planning system, after a reference isocenter was determined and marked. Segmentation and treatment planning will take place priorto treatment delivery. Patient set up and imaging was appropriate and completed without incident. Groover Runner use:No documented in this encounter Plan of Treatment Upcoming Encounters Date Type Specialty Care Team Description 03/24/2022 Appointment Radiation Oncology Jose Allred M.D. [address] [place], [place] [phone] (Wo rk) documented as of this encounter Procedures Procedure Name Priority Date/Time Associated Comments Diagnosis INITIAL RAD ONC Routine 01/13/2022 11:19 AM Malignant Neoplasm Results for this TREATMENT PLANNING CDT Of Breast Upper proced ure are in CT SIMULATION Outer Quadrant the results Female Right (HCC) section. documented in this encounter Results Initial Rad Onc Treatment Planning CT Simulation (01/13/2022 11:19 AM CDT) Specimen (Source) Anatomical Location Collection Method / Collectio n Time Received Time / Laterality Volume Narrative [facility] - 01/13/2022 11:19 AM CDT Laureen Cobb, RTT ? 01/13/2022 11:20 AM Initial Rad Onc Treatment Planning CT Si mulation Date/Time: 01/13/2022 11:19 AM Performed by: Charles Allred M.D. Authorized by: Charles Allred M.D. Charles Allred M.D. RADIATION ONCOLOGY ORDERABLE S Performing Organization Address City/State/ZIP Code Phon e Number [facility] na documented in this encounter Visit Diagnoses Diagnosis Malignant Neoplasm Of Breast Upper Outer Quadrant Female Right (HCC) documented in this encounter
--- OUTSIDE RECORDS SUMMARY | 2022-03-16 14:38 | XMS_ITS | Encounter Summary ---
:1970 Author Organization [facility] Address [address] [place], [place] [id number] Phone [email or web address] Care Team Providers Name Role Phone Unavailable Primary Care Provider Unavailable Encounter Details Date Type Department Care Team Description 04/24/2017 Legacy Encounter [facility] Family Medicine Provider, Historical, [address] [place] [address] [place] [address] [place], [place] [address] Social History Tobacco Use Types Packs/Day Years Used Date Never Assessed Sex Assigned at Date Recorded Not on file documented as of this encounter Last Filed Vital Signs Vital Sign Reading Time Taken Comments Blood Pressure 118/70 04/24/2017 9:08 AM CDT Pulse - - Temperature - - Respiratory Rate - - Oxygen Saturation - - Inhaled Oxygen Concentration - - Weight 76.8 kg (169 lb 6.4 oz) 04/24/2017 9:08 AM CDT Height 175.9 cm (5' 9.25) 04/24/2017 9:08 AM CDT Body Mass Index 24.84 04/24/2017 9:08 AM CDT documented in this encounter Plan of Treatment Not on filedocumented as of this encounter Procedures Procedure Name Priority Date/Time Associated Diagnosis Comme nts HEMOGLOBIN A1C Routine 04/24/2017 7:15 AM Results for this CDT procedure are i n the results section . LIPID PANEL Routine 04/24/2017 7:15 AM Results f or this CDT procedure are i n the results section . documented in this encounter Results (ABNORMAL) Lipid panel (45750) (04/24/2017 7:15 AM CDT) Analysis Performed At Patho logist Time Signature Triglycerides, 100 <150 mg/dL Fluid Cholesterol 221 (H) <200 mg/dL HDL 71 >50 mg/dL LDL Calculated 129 (H) mg/dL (calc) Chol/HDL Ratio 3.1 <5.0 (calc) Non HDL Chol. 150 (H) <130 mg/dL (LDL+VLDL) (calc) Specimen (Source) Anatomical Collection Method Collection Time Re ceived Time Location / / Volume Laterality 04/24/2017 7:15 AM CDT Sejal Corbett TECHNICAL STENOGRAPHER LAB BLOOD ORDERABLES Hgb A1C Hemoglobin Glycosylated (30524) (04/24/2017 7:15 AM CDT) P athologist Signature Hemoglobin A1C 5.2 <5.7 % of total Hgb Specimen (Source) Anatomical Collection Method Collection Time Re ceived Time Location / / Volume Laterality 04/24/2017 7:15 AM CDT Sejal Corbett NP LAB BLOOD ORDERABLES documented in this encounter Visit Diagnoses Not on filedocumented in this encounter
--- OUTSIDE RECORDS SUMMARY | 2022-03-16 14:38 | XMS_ITS | Encounter Summary ---
:1970 Author Organization [facility] Address [address] [place], [place] [id number] Phone [email or web address] Care Team Providers Name Role Phone Unavailable Primary Care Provider Unavailable Reason for Visit Reason Onset Date Comments Incentive - Biometric Screening 05/08/2019 Encounter Details Date Type Department Care Team Description 05/08/2019 Biometric [facility] Qing Ch, Screening for diabetes mellitus; [facility] Encounter for screening for cardiovascul ar disorders; [address] Encounter for screening for lipid disord er; D4, N1000 [place] [address] Encounter for screening for other disord er [place] [address] [phone] Social History Tobacco Use Types Packs/Day Years Used Date Never Smoker Sex Assigned at Date Recorded Not on file documented as of this encounter Last Filed Vital Signs Vital Sign Reading Time Taken Comments Blood Pressure 124/68 05/08/2019 8:41 AM DIRECTOR DIGITAL COMMUNICATIONS Pulse - - Temperature - - Respiratory Rate - - Oxygen Saturation - - Inhaled Oxygen Concentration - - Weight 79.4 kg (175 lb) 05/08/2019 8:41 AM DIRECTOR DIGITAL COMMUNICATIONS Height 176.5 cm (5' 9.5) 05/08/2019 8:41 AM DIRECTOR DIGITAL COMMUNICATIONS Body Mass Index 25.47 05/08/2019 8:41 AM DIRECTOR DIGITAL COMMUNICATIONS documented in this encounter Nursing Notes Qing Ch MA - 05/08/2019 8:30 AM CST Campaign Mass Entry Documentation Event Performed by: Qing Ch. [facility] Monitor Worker Completed by: Qing Ch MA Danielle Saini is a 49 y.o. female who participated in a Incentive-Biometric Screening held on 05/08/2019. Height: 5' 9.5 Weight: 175 lb BP: 124/68 Waist Circumference: 36 in. Hip Circumference: 44 in. CTOR DIGITAL COMMUNICATIONS documented in this encounter Plan of Treatment Not on filedocumented as of this encounter Procedures Procedure Name Priority Date/Time Associated Diagnosis Comme nts HEMOGLOBIN A1C Routine 05/08/2019 8:35 AM Screening for Result s for this DIRECTOR DIGITAL COMMUNICATIONS diabetes mellitus procedure are in the results section . LIPID PANEL Routine 05/08/2019 8:35 AM Encounter for Results for this DIRECTOR DIGITAL COMMUNICATIONS screening for lipid procedur e are in the disorder results section . documented in this encounter Results Hgb A1C Hemoglobin Glycosylated (05/08/2019 8:35 AM DIRECTOR DIGITAL COMMUNICATIONS) athologist Signature Hemoglobin A1C 5.3 <5.7 % of [facility] total Hgb Comment: For the purpose of screening for [...] diagnosis of diabetes in children. According to [place] Diabetes Associ[employer] on (ADA) guidelines, hemoglobin A1c <7.0% represe nts optimal control in non- diabetic patient s. Different metrics may apply to specific patient po pulations. Standards of Medical Care in Diabetes(AD A). Specimen Anatomical Collection Method Collection Time Receive d Time (Source) Location / / Volume Laterality Blood (Blood, 05/08/2019 8:35 AM 05/09/20 19 Venous) DIRECTOR DIGITAL COMMUNICATIONS 12:41 AM DIRECTOR DIGITAL COMMUNICATIONS Resulting Agency Comment Performing Organization Information: ?Site ID: [id number] ?Name: [facility] ?Address: [address] [place] [address] [place] [address] ?Director: Rubin Singh M.D. Sejal Corbett HEARING AID DISPENSER LAB BLOOD ORDERABLES Performing Organization Address City/State/ZIP Code Phon e Number [facility] (ABNORMAL) Lipid panel (05/08/2019 8:35 AM DIRECTOR DIGITAL COMMUNICATIONS) [facility] Method Time Signature Cholesterol 223 (H) <200 [facility] mg/dL Total HDL-C Direct 65 >50 mg/dL [facility] Triglycerides 102 <150 [facility] mg/dL LDL Calculated 138 (H) mg/dL [facility] (calc) Comment: Reference range: <100 Desirable range <100 [...] SS et al. MARTINA. 2013;310(19): 206 1-2068 (http://education.[employer].SwipeToSpin/f [email or web address]/DZN727) Chol/HDL Ratio 3.4 <5.0 (calc) [facility] Non HDL Chol. (LDL+VLDL) 158 (H) <130 mg/dL (calc) [facility] Comment: For patients with diabetes plus 1 major ASCVD risk factor, treating to a non-HDL-C goal of <100 mg/dL (LDL-C of <70 mg/dL) is considered a the rapeutic option. Specimen Anatomical Collection Method Collection Time Receive d Time (Source) Location / / Volume Laterality Blood (Blood, 05/08/2019 8:35 AM 05/09/20 19 Venous) DIRECTOR DIGITAL COMMUNICATIONS 12:41 AM DIRECTOR DIGITAL COMMUNICATIONS Resulting Agency Comment Performing Organization Information: ?Site ID: [id number] ?Name: [facility] ?Address: [address] [place] [address] [place] [address] ?Director: Rubin Singh M.D. Sejal Corbett HEARING AID DISPENSER LAB BLOOD ORDERABLES Performing Organization Address City/State/ZIP Code Phon e Number [facility] documented in this encounter Visit Diagnoses Diagnosis Screening for diabetes mellitus Encounter for screening for cardiovascul ar disorders Encounter for screening for lipid disord er Encounter for screening for other disord er documented in this encounter
--- NOTE | 2022-03-16 15:00 | CRLHL7_ITS ---
For Patients: As a result of the Century Cures Act, medical imaging exams and procedure reports are released immediately into your electronic medical record. You may view this report before your referring provider. If you have questions, please contact your health care provider. Indication: MALIGNANT NEOPLASM OF BREAST UPPER OUTER QUADRANT. RIGHT UPPER PAIN Technique: Post contrast CT chest. 75 cc Isovue 370 intravenous contrast. Please note that all CT scans at this facility use dose modulation, iterative reconstruction, and/or weight-based dosing when appropriate to reduce radiation dose to as low as reasonably achievable. Comparison: CT PET 07/14/2021 Findings: Postoperative changes bilateral mastectomy with implant reconstruction noted along with right axillary lymph node dissection, as before. No enlarged lymph nodes within the thorax. No pleural effusion. Lungs clear. No edema or infiltrate. No pulmonary nodule. Thyroid normal. No destructive osseous lesion. Chronic wedging of T6. Upper abdomen normal. Impression: No evidence of metastatic disease. Please note that all CT scans at this facility use dose modulation, iterative reconstruction, and/or weight-based dosing when appropriate to reduce radiation dose to as low as reasonably achievable. Dictated by Saurav Marcano MD @ 03/17/2022 9:16:24 AM (Electronically Signed)
== END 2022-03-16 14:25 | disposition home or self-care (01) ==
PROVIDERS: Visit Provider Internal Medicine
DX: C50.411 Malignant neoplasm of upper-outer quadrant of right female breast (principal); R07.89 Other chest pain
CPT/HCPCS: 71260; Q9967

== ENCOUNTER 2022-07-13 16:30 | Outpatient (RCR) | payer OTHER, SELFPAY ==
--- NOTE | 2022-02-09 10:43 | ONC.NURNOTE ---
Breast Rodent Control Worker Note Received Pantoprazole refill request from pt's pharmacy. Call pt to review ongoing need as s/p chemo. Pt reviews that she has had heartburn on and off over the years; she is still taking Pantoprazole but plans not to refill it at the end of this month(request was from an automatic refill protocol). Reviewed with pt possibility of rebound reflux when going off PPI suddenly; recommended Pepcid and Tums as needed to bridge this transition and recommended pt see PCP to workup ongoing heartburn issues, as she does note she is having breakthrough heartburn occasionally. Pt notes that her former PCP left the clinic and she is intending to establish care with a new PCP.
== END 2022-07-21 14:59 | disposition home or self-care (01) ==
PROVIDERS: Visit Provider Surgery
DX: I89.0 Lymphedema, not elsewhere classified (principal); Z51.89 Encounter for other specified aftercare
CPT/HCPCS: 97110; 97140; 97162; 97530; 97535; X5282

== ENCOUNTER 2022-07-24 08:47 | Outpatient (CLI) | payer OTHER, SELFPAY ==
[2022-07-24 14:11] LABS: Cholesterol* 231 mg/dL (90-199); Triglycerides* 151 mg/dL (40-149)
[2022-07-24 14:12] LABS: HDL Cholesterol* 63 mg/dL (>=50); LDL Cholesterol Calculated 138 mg/dL (<100)
[2022-07-24 14:57] LABS: Vitamin D 25 Hydroxy* 73 ng/mL (30-80)
[2022-07-24 15:28] LABS: Hepatitis C Virus Antibody* Negative (Negative)
== END 2022-07-24 08:48 | disposition home or self-care (01) ==
PROVIDERS: Visit Provider Family Medicine
DX: E55.9 Vitamin D deficiency, unspecified (principal); Z11.59 Encounter for screening for other viral diseases; Z13.6 Encounter for screening for cardiovascular disorders; Z01.818 Encounter for other preprocedural examination; Z83.3 Family history of diabetes mellitus
CPT/HCPCS: 80061; 82306; 86803; 87086

== ENCOUNTER 2022-07-27 11:00 | Outpatient (RCR) | payer OTHER, SELFPAY ==
--- NOTE | 2022-06-27 09:07 | ONC.NURNOTE ---
Patient called to report that she tested positive for COVID on the . She was scheduled to see Hetal Perquimans on the and was wondering if she needed to reschedule. Christina informed that we recommend 10 days from the onset of symptoms and at least 24 hours fever free. Appointment rescheduled to 07/27. Patient verbalizes understanding.
[2022-07-24 15:04] LABS: Basophils Percent Auto 1.3 % (0.0-3.0); Eosinophils Percent Auto 2.1 % (0.0-7.0); Hematocrit 39.6 % (33.0-51.0); Hemoglobin* 13.4 gm/dL (12.0-16.0); Lymphocytes Percent Auto 22.5 % (20-44); Mean Corpuscular HGB Conc 34 gm/dL (32-36); Mean Corpuscular Hemoglobin 30 pg (26-34); Mean Corpuscular Volume 90 fL (80-100); Monocytes Percent Auto 6.6 % (0.0-11.0); Neutrophils Percent Auto 67.5 % (42.0-72.0); Platelet Count* 235 K/uL (140-440); RDW Coefficient of Variation % 12.7 % (11.5-15.5); Red Blood Count 4.42 m/uL (4.00-5.20); White Blood Count* 3.77 K/uL (4.50-11.00)
[2022-07-24 15:06] LABS: Slide Review Reflex No
[2022-07-24 15:08] LABS: Albumin* 4.4 g/dL (3.3-5.0); Chloride* 105 mmol/L (96-114); Potassium* 4.4 mmol/L (3.6-5.1); Sodium* 141 mmol/L (135-149)
[2022-07-24 15:11] LABS: Alanine Aminotransferase* 26 U/L (4-35); Alkaline Phosphatase* 75 U/L (40-150); Aspartate Amino Transferase* 28 U/L (12-35); Bilirubin Total* 0.4 mg/dL (0.1-1.5); Blood Urea Nitrogen* 16 mg/dL (7-30); Calcium* 10.2 mg/dL (8.4-10.6); Carbon Dioxide* 32 mmol/L (20-32); Creatinine* 0.7 mg/dL (0.5-1.5); Estimated Glomerular Filt Rate 103 ml/min; Glucose* 94 mg/dL (60-115)
== END 2022-10-18 23:59 | disposition home or self-care (01) ==
LOC: CCIC 11:00
PROVIDERS: Nurse Practitioner Family; Visit Provider Physician Assistant
DX: C50.911 Malignant neoplasm of unspecified site of right female breast (principal); Z17.0 Estrogen receptor positive status [ER+]; C77.9 Secondary and unspecified malignant neoplasm of lymph node, unspecified; Z79.811 Long term (current) use of aromatase inhibitors; R07.89 Other chest pain; Z90.13 Acquired absence of bilateral breasts and nipples
CPT/HCPCS: 36415; 80053; 85025; 99212; 99213; 99214

== ENCOUNTER 2022-08-08 09:01 | Outpatient (CLI) | payer OTHER, SELFPAY ==
--- NOTE | 2022-08-08 09:15 | CRLHL7_ITS ---
For Patients: As a result of the Cures Act, medical imaging exams and procedure reports are released immediately into your electronic medical record. You may view this report before your referring provider. If you have questions, please contact your health care provider. RIGHT BREAST ULTRASOUND CLINICAL HISTORY: BILATERAL mastectomy with reconstruction. Pain RIGHT lateral chest wall. COMPARISON: CT chest 03/16/2022. TECHNIQUE: Real-time ultrasound imaging of RIGHT chest wall with imaging documentation. FINDINGS: Intact implant reconstruction noted. No adenopathy or fluid collection. No solid mass. IMPRESSION: No suspicious findings. RECOMMENDATIONS: Clinical follow-up. BI-RADS Category 2: Benign A lay language report of this examination will be provided to the patient. Dictated by Saurav Marcano MD @ 08/08/2022 9:53:31 AM /Dictated by: Saurav Marcano MD @ 08/08/2022 9:53:00 AM (Electronically Signed)
== END 2022-08-08 09:02 | disposition home or self-care (01) ==
PROVIDERS: PCP Family Medicine; Visit Provider Nurse Practitioner Family
DX: R07.89 Other chest pain (principal); Z85.3 Personal history of malignant neoplasm of breast
CPT/HCPCS: 76642

== ENCOUNTER 2022-08-15 14:13 | Outpatient (REF) | payer OTHER, SELFPAY ==
[2022-08-15 16:04] LABS: C.Difficile Negative (Negative); CDIFFEPI 027 PRESUMPTIVE NEGATIVE (Negative)
== END 2022-08-15 14:14 | disposition home or self-care (01) ==
LOC: NPINS 14:13
PROVIDERS: PCP Family Medicine; Visit Provider Physician Assistant
DX: R19.7 Diarrhea, unspecified (principal)
CPT/HCPCS: 87493

== ENCOUNTER 2022-12-28 11:00 | Outpatient (RCR) | payer OTHER, SELFPAY | END 2023-02-07 11:01 | disposition home or self-care (01) | PROVIDERS: PCP Family Medicine; Visit Provider Family Medicine | DX: F52.0 Hypoactive sexual desire disorder (principal); Z79.811 Long term (current) use of aromatase inhibitors; R32 Unspecified urinary incontinence; M75.00 Adhesive capsulitis of unspecified shoulder; Z51.89 Encounter for other specified aftercare | CPT/HCPCS: 97110; 97140; 97162; 97535 ==

== ENCOUNTER 2023-04-26 14:50 | Outpatient (RCR) | payer OTHER, SELFPAY | END 2023-05-01 23:59 | disposition home or self-care (01) | LOC: CCIC 14:50 | PROVIDERS: PCP Family Medicine; Visit Provider Physician Assistant | DX: C50.911 Malignant neoplasm of unspecified site of right female breast (principal); Z17.0 Estrogen receptor positive status [ER+]; Z79.811 Long term (current) use of aromatase inhibitors; Z90.13 Acquired absence of bilateral breasts and nipples; R21 Rash and other nonspecific skin eruption; R23.2 Flushing; R07.89 Other chest pain; K21.9 Gastro-esophageal reflux disease without esophagitis; R53.83 Other fatigue; M79.89 Other specified soft tissue disorders; Z87.891 Personal history of nicotine dependence | CPT/HCPCS: 99212; 99213; 99214; 99215 ==

== ENCOUNTER 2023-05-04 10:02 | Outpatient (CLI) | payer OTHER, SELFPAY ==
--- NOTE | 2023-05-04 10:15 | CRLHL7_ITS ---
For Patients: As a result of the Cures Act, medical imaging exams and procedure reports are released immediately into your electronic medical record. You may view this report before your referring provider. If you have questions, please contact your health care provider. RIGHT BREAST ULTRASOUND CLINICAL HISTORY: RIGHT breast pain. COMPARISON: 08/08/2022. TECHNIQUE: Real-time ultrasound imaging of RIGHT breast with imaging documentation. FINDINGS: Targeted ultrasound performed in the area of clinical concern lateral RIGHT breast. Implant intact. No fluid collection or mass. No adenopathy. IMPRESSION: No suspicious findings. RECOMMENDATIONS: Clinical follow-up. Results and recommendations were discussed with the patient at the time of the exam. BI-RADS Category 2: Benign A lay language report of this examination will be provided to the patient. Dictated by Saurav Marcano MD @ 05/04/2023 12:40:43 PM/ramos DOYLE/Dictated by: Saurav Marcano MD @ 05/04/2023 12:40:00 PM (Electronically Signed)
== END 2023-05-04 10:03 | disposition home or self-care (01) ==
LOC: US 10:03
PROVIDERS: PCP Family Medicine; Visit Provider Physician Assistant
DX: N64.4 Mastodynia (principal)
CPT/HCPCS: 76642

== ENCOUNTER 2023-05-18 08:28 | Outpatient (CLI) | payer OTHER, SELFPAY ==
--- NOTE | 2023-05-18 09:00 | CRLHL7_ITS ---
For Patients: As a result of the Century Cures Act, medical imaging exams and procedure reports are released immediately into your electronic medical record. You may view this report before your referring provider. If you have questions, please contact your health care provider. Indication: RT SIDED CHEST WALL TENDERNESS, HX BREAST CANCER Technique: CT Chest W ISOVUE 370 Please note that all CT scans at this facility use dose modulation, iterative reconstruction, and/or weight-based dosing when appropriate to reduce radiation dose to as low as reasonably achievable. Comparison: 03/16/2022 CT, 05/04/2023 ultrasound Findings: Chronic wedging of 1 of the mid thoracic vertebral bodies, unchanged. No acute fracture or suspicious osseous lesion. The visualized liver appears normal. No adrenal nodule. No mediastinal, hilar or axillary adenopathy. Visualized thyroid is normal. Incidental retroesophageal course of the right subclavian artery. Postop changes of right axillary lymph node dissection. No enlarged lymph nodes. Postoperative changes of bilateral mastectomy with implant reconstruction. The ribcage appears intact. There is no fluid about the right-sided implant. No suspicious soft tissue mass. Subtle reticular densities in the anterior right upper lobe. Impression: Status post bilateral mastectomy and right axillary lymph node dissection. No evidence of adenopathy or implant pathology. Mild XRT changes to the anterior right lung. Please note that all CT scans at this facility use dose modulation, iterative reconstruction, and/or weight-based dosing when appropriate to reduce radiation dose to as low as reasonably achievable. Dictated by Saurav Marcano MD @ 05/18/2023 2:47:42 PM (Electronically Signed)
== END 2023-05-18 08:29 | disposition home or self-care (01) ==
LOC: CT 08:29
PROVIDERS: PCP Family Medicine; Visit Provider Physician Assistant
DX: R07.89 Other chest pain (principal); M79.89 Other specified soft tissue disorders; Z17.0 Estrogen receptor positive status [ER+]; Z85.3 Personal history of malignant neoplasm of breast
CPT/HCPCS: 71260; Q9967

== ENCOUNTER 2023-05-21 08:16 | Outpatient (CLI) | payer OTHER, SELFPAY | END 2023-05-21 08:17 | disposition home or self-care (01) | PROVIDERS: PCP Family Medicine; Visit Provider Family Medicine | DX: Z00.00 Encounter for general adult medical examination without abnormal findings (principal); E55.9 Vitamin D deficiency, unspecified; R25.2 Cramp and spasm; Z13.6 Encounter for screening for cardiovascular disorders; Z13.1 Encounter for screening for diabetes mellitus; H04.123 Dry eye syndrome of bilateral lacrimal glands; Z82.69 Family history of other diseases of the musculoskeletal system and connective tissue | CPT/HCPCS: 80053; 80061; 82306; 83735; 84439; 84443; 86039; 86235 ==

== ENCOUNTER 2023-06-29 13:00 | Outpatient (CLI) | payer OTHER, SELFPAY ==
--- OUTSIDE RECORDS SUMMARY | 2023-07-05 09:54 | XMS_ITS | Encounter Summary ---
Author Name Unknown Organization [facility] Address [address] [place] [address]. [place] [address] Care Team Providers Care Lead Radiologic Technologist Name Role Phone [facility] Primary Care Provider Encounter Details Date Type Department Care Team (Latest Contact Info) Description 08/10/2022 Travel Social History Tobacco Use Types Packs/Day Years Used Date Smoking Tobacco: Former Cigarettes Smokeless Tobacco: Never Alcohol Use Standard Drinks/Week Comments Yes 0 (1 standard drink = 0.6 oz pur e alcohol) rare Sex and Gender Information Value Date Recorded Sex Assigned at Not on file Gender Identity Not on file Sexual Orientation Not on file COVID-19 Exposure Response Date Recorded In the last 10 days, have yo u been in contact with someone who was confirmed or suspected to have Coronavirus/COVID-19? No / Unsure 08/10/2022 5:25 AM BUSINESS MANAGEMENT MANAGER documented as of this encounter Plan of Treatment Not on file documented as of this encounter Visit Diagnoses Not on filedocumented in this encounter Care Teams Lead Radiologic Technologist Relationship Specialty Start Date End Date [address] [address] PCP - General 07/21/22 documented as of this encounter
--- OUTSIDE RECORDS SUMMARY | 2023-07-05 09:54 | XMS_ITS | Clinical Summary ---
Author Name Unknown Organization [facility] Address [address] [place] [address]. [place] [address] Care Team Providers Care Mononitrotoluene Operator Name Role Phone Clinic, [facility] Primary Care Provider Allergies Active Allergy Reactions Criticality Noted Date Comments Adhesive Tape Rash Low 08/10/2022 Cephalexin Rash Low 07/19/2022 Codeine Nausea,Hives 07/19/2022 Mold 07/19/2022 Scopolamine 08/10/2022 insomnia Medications Medication Sig Dispensed Refills Start Date End Date Status B Complex-C (VITAMIN B COMPLEX W/VITAMIN C) TABS tablet Take 1 tablet by mouth daily 0 Active Calcium Carbonate-Vitamin D 600-5 MG-MCG CAPS Take 1 tablet by mouth daily 0 Active cetirizine (ZYRTEC) 10 MG tablet Take 10 mg by mouth daily 0 Active gabapentin (NEURONTIN) 300 MG capsule Take 300 mg by mouth 3 times daily 0 Active letrozole (FEMARA) 2.5 MG tablet Take 2.5 mg by mouth daily 0 Active senna-docusate (SENOKOT-S/PERICOLACE) 8.6-50 MG tabletIndications:Statu s post breast reconstruction Take 1-2 tablets by mouth 2 times daily 20 tablet 0 08/10/2022 Active Active Problems Problem Noted Date Diagnosed Date Cervicalgia 03/23/2009 Lumbago 03/23/2009 Nonallopathic lesion of cervical region 03/23/20 09 Overview: Problem list name updated by automated process. Provider to review Social History Tobacco Use Types Packs/Day Years Used Date Smoking Tobacco: Former Cigarettes Smokeless Tobacco: Never Tobacco Cessation:Counseling Given: Not Answered Alcohol Use Standard Drinks/Week Comments Yes 0 (1 standard drink = 0.6 oz pur e alcohol) rare Adolescent Education Answer Date Record ed Getting School Help Needed Not on file 04/11 Sex and Gender Information Value Date Recorded Sex Assigned at Not on file Gender Identity Not on file Sexual Orientation Not on file Last Filed Vital Signs Vital Sign Reading Time Taken Comments Blood Pressure 115/83 08/10/2022 1:42 PM MINING MACHINERY ASSEMBLER Pulse 44 08/10/2022 11:45 AM MINING MACHINERY ASSEMBLER Temperature 35.8 ??C (96.5 ??F) 08/10/2022 1:42 PM CS T Respiratory Rate 14 08/10/2022 1:42 PM MINING MACHINERY ASSEMBLER Oxygen Saturation 99% 08/10/2022 1:42 PM MINING MACHINERY ASSEMBLER Inhaled Oxygen Concentration - - Weight 72.2 kg (159 lb 3.2 oz) 08/10/2022 5:48 A M MINING MACHINERY ASSEMBLER Height 175.3 cm (5' 9) 08/10/2022 5:48 AM MINING MACHINERY ASSEMBLER Body Mass Index 23.51 08/10/2022 5:48 AM MINING MACHINERY ASSEMBLER Plan of Treatment Health Maintenance Due Date Last Done Comments ADVANCE CARE PLANNING 1970 ANNUAL REVIEW OF HM ORDERS 1968 CT COLONOGRAPHY 1970 FIT 1970 FLEX SIG 1970 HEPATITIS B IMMUNIZATION (1 of 3 - 3-dose series) 1970 sDNA (Cologuard) 1970 Pneumococcal Vaccine: Pediatrics (0 to 5 Years) and At-Risk Patients (6 to 64 Years) (1 of 2 - PCV) 01/17/1974 COLONOSCOPY 01/17/1978 COLORECTAL CANCER SCREENING 01/17/1978 HIV SCREENING 01/17/1983 HEPATITIS C SCREENING 01/17/1986 PAP 01/17/1989 LIPID 01/17/2013 LUNG CANCER SCREENING 01/17/2018 YEARLY PREVENTIVE VISIT 03/28/2022 03/28/2021, 02/16 PHQ-2 (once per calendar year) 2022 COVID-19 Vaccine ( season) 2023 05/16/2022, 07/20/2021, 11/09/2020, Additional history exists INFLUENZA VACCINE (#1) 2023 2, 03/28/2021, 03/26/2020, Additional history exists DTAP/TDAP/TD IMMUNIZATION (3 - Td or Tdap) 02/16/2030 02/17/2020, 06/30/2009 ZOSTER IMMUNIZATION Completed 06/19/2019, 04/25/2019, 02/11/2019 HPV IMMUNIZATION Aged Out No longer e ligible based on patient's age to complete this topic IPV IMMUNIZATION Aged Out No longer e ligible based on patient's age to complete this topic MENINGITIS IMMUNIZATION Aged Out No l onger eligible based on patient's age to complete this topic RSV MONOCLONAL ANTIBODY Aged Out No l onger eligible based on patient's age to complete this topic Medical Devices Implanted Type Area Swahili Teacher Device Identifier Shelf Expiration Date Model / Serial / Lot Natrelle Inspira Cohesive Breast Implant Smooth Round Full Profile Implanted:Qty : 1 on 08/10/2022 by Nai Cotto MD at [facility] Breast Implant/Tiss ue Roller Painter Left: Breast 06/27/2025 [id number] / [id number] / Explanted Type Area Swahili Teacher Device Identifier Shelf Expiration Date Model / Serial / Lot Breast Tissue Roller Painter Explanted:Qty: 1 on 08/10/2022 by Nai Cotto MD at [facility] Left: Breast Care Teams Mononitrotoluene Operator Relationship Specialty Start Date End Date Clinic, [address] [address] [facility] - General 07/21/22
--- OUTSIDE RECORDS SUMMARY | 2023-07-05 09:54 | XMS_ITS | Encounter Summary ---
Author Name Unknown Organization [facility] Address [address] [place] [id number] Care Team Providers Care Clinical Biochemist Name Role Phone Clinic, [facility] Primary Care Provider Reason for Visit * Auth/Cert (Routine) Specialty Diagnoses / Procedures Referred By Contac t Referred To Contact Surgery Diagnoses Personal history of irradiation, presenting hazards to health Other specified aftercare following surgery Encounter for change or removal of drains Status post bilateral mastectomy Status post bilateral breast implants Encounter for breast reconstruction following mastectomy Personal history of irradiation, presenting hazards to health [Z92.3] Other specified aftercare following surgery [Z48.89] Encounter for change or removal of drains [Z48.03] Status post bilateral mastectomy [Z90.13] Status post bilateral breast implants [Z98.82] Encounter for breast reconstruction following mastectomy [Z42.1] Procedures [place] REMOVE TISSUE AUTOMOTIVE INTERNET SALES MANAGER(S) [place] ENLARGE BREAST WITH IMPLANT [place] REM[place]AL OF BREAST IMPLANT [place] REMOVAL OF IMPL[place] MATERIAL [place] DELAY BREAST PROS AFTER BREAST SURG [place] GRAFTING OF AUTOLOGOUS SOFT TISS BY DIRECT EXC [place] GRAFTING OF AUTOLOGOUS FAT BY LIPO 50 CC OR LESS [place] GRAFTING OF AUTOLOGOUS FAT BY LIPO EA ADDL 50 CC LEFT REMOVAL OF TISSUE AUTOMOTIVE INTERNET SALES MANAGER AND EXCHANGE FOR SILICONE BREAST IMPLANT BILATERAL BREAST FAT GRAFTING DONOR SITE ABDOMEN Sh [facility] [address] [place] [address] Referral ID Status Reason Start Date Expiration Date Visits Re quested Visits Authorized [id number] 1 1 Encounter Details Date Type Department Care Team (Late st Contact Info) Description 08/10/2022 7:30 AM MILLING PLANER OPERATOR - 08/10/2022 9:40 AM MILLING PLANER OPERATOR Surgery [facility] [address] [place] [address] Nai Cotto MD [facility] [address] [facility] [address] [id number] LEFT REMOVAL OF TISSUE AUTOMOTIVE INTERNET SALES MANAGER Surgery Details Date/Time Status Location OR Service Patient Class Case Class Case Type Trauma Case? 08/10/22 7:30 AM Posted OR OR M 20 Plastics & Reconstruction Same Day Surgery Panel 1 Procedure LRB Anes Op Region Wound Class Comments LEFT REMOVAL OF TISSUE AUTOMOTIVE INTERNET SALES MANAGER Left General Breast I-Clean AND EXCHANGE FOR SILICONE BR EAST IMPLANT Left General Breast I-Clean BILATERAL BREAST FAT GRAFTIN G DONOR SITE ABDOMEN Bilateral General Update I-Clean Surgeon Surgeon Role Service Panel Nai Cotto MD Primary Plastics & Reconstru ction 1 Milena Junior PA-C Assisting 1 Special Needs RIGHT IMPLANT SCF 605 ORDER A FEW DIFFERENT SIZES FDA CHECKLISTLEFT AUTOMOTIVE INTERNET SALES MANAGER FV 14 425CC documented in this encounter Social History Tobacco Use Types Packs/Day Years [...] Coronavirus/COVID-19? No / Unsure 08/10/2022 5:25 AM MILLING PLANER OPERATOR documented as of this encounter Last Filed Vital Signs Vital Sign Reading Time Taken Comments Blood Pressure 130/83 08/10/2022 5:48 AM MILLING PLANER OPERATOR Pulse - - Temperature 35.6 ??C (96 ??F) 08/10/2022 5:48 AM MILLING PLANER OPERATOR Respiratory Rate 16 08/10/2022 5:48 AM MILLING PLANER OPERATOR Oxygen Saturation 98% 08/10/2022 5:48 AM MILLING PLANER OPERATOR Inhaled Oxygen Concentration - - Weight 72.2 kg (159 lb 3.2 oz) 08/10/2022 5:48 A M MILLING PLANER OPERATOR Height 175.3 cm (5' 9) 08/10/2022 5:48 AM MILLING PLANER OPERATOR Body Mass Index 23.51 08/10/2022 5:48 AM MILLING PLANER OPERATOR documented in this encounter Discharge Instructions * Discharge Instructions* Jaziel Pond RN - 08/10/2022 6:36 AM MILLING PLANER OPERATOR Today you were given 1000 mg of Tylenol at 630 am. The recommended daily maximum dose is 4000 mg. Today you received Toradol, an antiinflammatory medication similar to Ibuprofen. You should not take other antiinflammatory medication, such as Ibuprofen, Motrin, Advil, Aleve, Naprosyn, etc until 4:00 PM. Same Day Surgery Discharge Instructions for Sedation and General Anesthesia It's not unusual to feel dizzy, light-headed or faint for up to 24 hours after surgery or while taking pain medication. If you have these symptoms: sit for a few minutes before standing and have someone assist you when you get up to walk or use the bathroom. You should rest and relax for the next 24 hours. We recommend you make arrangements to have an adult stay with you for at least 24 hours after your discharge. Avoid hazardous and strenuous activity. DO NOT DRIVE any vehicle or operate mechanical equipment for 24 hours following the end of your surgery. Even though you may feel normal, your reactions may be affected by the medication you have received. Do not drink alcoholic beverages for 24 hours following surgery. Slowly progress to your regular diet as you feel able. It's not unusual to feel nauseated and/or vomit after receiving anesthesia. If you develop these symptoms, drink clear liquids (apple juice, param pretty, broth, 7-up, etc. ) until you feel better. If your nausea and vomiting persists for 24 hours, please notify your surgeon. All narcotic pain medications, along with inactivity and anesthesia, can cause constipation. Drinking plenty of liquids and increasing fiber intake will help. For any questions of a medical nature, call your surgeon. Do not make important decisions for 24 hours. If you had general anesthesia, you may have a sore throat for a couple of days related to the breathing tube used during surgery. You may use Cepacol lozenges to help with this discomfort. If it worsens or if you develop a fever, contact your surgeon. If you feel your pain is not well managed with the pain medications prescribed by your surgeon, please contact your surgeon's office to let them know so they can address your concerns. Because you had anesthesia today and your history of sleep apnea, it is extremely important that you use your CPAP machine for the next 24 hours while napping or sleeping. Reasons to contact your surgeon: Signs of possible infection: Check your incision daily for redness, swelling, warmth, red streaks or foul drainage. Elevated temperature. Pain not controlled with pain medication and/or rest. Uncontrolled nausea or vomiting. Any questions or concerns. If you have questions or concerns about your procedure, call Dr. Cotto at [phone]. ING PLANER OPERATOR documented in this encounter Medications at Time of Discharge Medication Sig Dispensed Refills Start Date End Date B Complex-C (VITAMIN B COMPLEX W/VITAMIN C) TABS tablet Take 1 tablet by mouth daily 0 Calcium Carbonate-Vitamin D 600-5 MG-MCG CAPS Take 1 tablet by mouth daily 0 cetirizine (ZYRTEC) 10 MG tablet Take 10 mg by mouth daily 0 gabapentin (NEURONTIN) 300 MG capsule Take 300 mg by mouth 3 times daily 0 letrozole (FEMARA) 2.5 MG tablet Take 2.5 mg by mouth daily 0 senna-docusate (SENOKOT-S/PERICOLACE) 8.6-50 MG tabletIndications:Status post breast reconstruction Take 1-2 tablets by mouth 2 times daily 20 tablet 0 08/10/2022 sulfamethoxazole-trimetho prim (BACTRIM DS) 800-160 MG tabletIndications:Status post breast reconstruction Take 1 tablet by mouth 2 times daily for 7 days 14 tablet 0 08/10/2022 08/17/2022 traMADol (ULTRAM) 50 MG tabletIndications:Status post breast reconstruction Take 1 tablet (50 mg) by mouth every 6 hours as needed for severe pain (7-10) 10 tablet 0 08/10/2022 08/13/2022 documented as of this encounter H&P Notes * Jaziel Schumacher MD - 08/10/2022 7:04 AM CST I have reviewed the surgical (or preoperative) H&P that is linked to this encounter, and examined the patient. There are no significant changes ING PLANER OPERATOR Source Note - Outside, Provider - 08/07/2022 10:33 AM MILLING PLANER OPERATOR documented in this encounter Nursing Notes * Jaziel Pond RN - 08/10/2022 11:59 AM CST Nausea resolved- OK to transport to phase [address]umacher ING PLANER OPERATOR * Jaziel Pond RN - 08/10/2022 11:37 AM CST After getting to recliner- nausea returned- compazine 5 mg IV X1 per Dr Schumacher- pt to be returned to phase 1 for monitoring for approx 20 minutes- ING PLANER OPERATOR * Jaziel Pond RN - 08/10/2022 11:15 AM CST zofran for nausea- effective- Pt dressed, up in recliner and transported to Phase 2. ING PLANER OPERATOR * Raya Shafer RN - 08/10/2022 9:29 AM CST Fat grafting 50ml in Right breast and 40ml in Left breast ING PLANER OPERATOR documented in this encounter Miscellaneous Notes * Op Note - Nai Cotto MD - 08/10/2022 9:34 AM CST PREOPERATIVE DIAGNOSIS: 1. Personal history of right breast cancer [Z85.3] 2. Status post bilateral mastectomies and prepectoral tissue gravure press set up operator breast reconstruction with AlloDerm [Z90.13] 3. Breast implant status [Z98.82] 4. Personal history of irradiation [Z92.3] POSTOPERATIVE DIAGNOSIS: 1. Personal history of right breast cancer [Z85.3] 2. Status post bilateral mastectomies and prepectoral tissue gravure press set up operator breast reconstruction with AlloDerm [Z90.13] 3. Breast implant status [Z98.82] 4. Personal history of irradiation [Z92.3] PROCEDURE: 1. Removal of left tissue gravure press set up operator and exchange for silicone breast implant 2. Bilateral breast fat grafting, donor site abdomen (total harvested 90 ml, total grafted right breast 50 ml, left breast 40 ml) DRAINAGE TYPE: None CHILDCARE TEACHER: ANGELICA Melendrez PA-C, was present and scrubbed for the entire procedure, and this is to include dissection, retraction and closure. There were no other qualified trainees or other assistants available and the presence of Melissa Junior PA-C, was necessary due to inability to retract and dissect without an anatomic pathology assistant. INDICATIONS FOR PROCEDURE: The patient is a 52 year old female with a personal history of right breast cancer. She underwent bilateral mastectomies, [id number] breast reconstruction on the right side, and left immediate prepectoral tissue gravure press set up operator breast reconstruction with AlloDerm. She then completed right breast irradiation. She is coming today for the second stage of her reconstruction. A written witnessed informed consent was obtained preoperatively. DESCRIPTION OF PROCEDURE: The patient was identified and marked in the preoperative holding area. She was taken to the operating room and placed supine on the operating table. Sequential compression devices were applied to the lower extremities. After successful general anesthesia and endotracheal i ntubation, the patient was prepared and draped in the usual sterile fashion. An intentional pause was then performed, confirming the patient's identity, the procedure to be performed, the laterality,the patient's allergies, and the administration of the necessary antibiotics by Anesthesia. I initially turned my attention to the abdomen where to stab incisions were made with an 11 blade at 12:00 and 6:00. Tumescent solution was then infiltrated subcutaneously in preparation for fat harvesting. I then turned my attention to the left breast where the mastectomy scar was incised through the dermis with a 10 blade. The subcutaneous tissue were dissected with the electrocautery until theAlloDerm was exposed. The AlloDerm was incised with the electrocautery and the tissue gravure press set up operator was removed. It was found to be intact with all tabs present. This was a Natrelle FV-14 smooth tissue gravure press set up operator filled to 425 ml. The AlloDerm was well incorporated. I performed a superior and medial capsulotomy with the electrocautery. On the right radiated side, the implant is a Natrelle SCF-605. Following this I selected a Natrelle silicone gel sizer full profile, 605 ml, for the left side. The skinwas temporarily closed with darrion. The patient was sat up. This appeared to wide and too projected, due to thinning and contraction of the right breast post radiation. The patient was returned to the supine position and the sizer was removed. We then tried a few different sizers, including moderate profile devices, but eventually settled on a full profile 560 mL device to achieve the best symmetry. With the left breast sizer in place, some excess skin was tailor tacked along the inframammary fold, converting her vertical scar into an inverted T. This significantly improved overall symmetry. I then turned my attention to the abdomen. I used a Renetta tip, 4 mm liposuction cannula to harvest fat. The fat was processed using the [employer] system. A total of 90 ml was harvested after processing. The fat was transferred into 10 ml syringes and using the Andree cannula, the fat was grafted. Most of the fat grafts were placed on the upper pole of the right breast, and medial right breast, for a total of 50 ml. On the left side, I grafted 40 ml of fat on the upper pole and on the medial aspect of the breast. The access incisions were closed with 4-0 Monocryl. The umbilical incisions wereclosed with 4-0 Monocryl as well. Following this, the left breast sizer was removed. The prepectoral pocket was irrigated with half strength Betadine, which was soaked for 3 minutes. Hemostasis was confirmed. The skin was prepared with Betadine and protected with blue towels. I then changed my gloves and inserted on the left side aNatrelle Inspira Cohesive silicone breast implant SCF-560 with a serial number of [id number]. The AlloDerm was closed onto itself with a running 2-0 Vicryl and we then proceeded to skin closure on bothsides with deep dermal 3-0 Monocryl followed subcuticular 4-0 Monocryl. All breast incisions were covered with Exofin fusion, ABD pads. The abdomen was covered with an island dressing over the umbilicus, Topifoam and an abdominal binder. The patient was placed in a surgical bra. At the end of the procedure, all sponge, needle and instrument counts were correct. The patient was awakened and sent to the recovery room in satisfactory condition. I was present for the entire case. 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 Complications: None. Implants: Implant Name Type Inv. Item Serial No. Lead Carpenter Lot No. LRB No. Used Action BREAST TISSUE AUTOMOTIVE INTERNET SALES MANAGER Left 1 Explanted NATCLAYE INSPIRA COHESIVE BREAST IMPLANT SMOOTH ROUND FULL PROFILE Breast Implant/Tissue Machinist 2Nd Shift [id number] Left 1 Implanted ING PLANER OPERATOR documented in this encounter Plan of Treatment Not on file documented as of this encounter Procedures Procedure Name Priority Date/Time Associated Diagnosis Comments FAT GRAFT, BREAST 08/10/2022 7:3 4 AM MILLING PLANER OPERATOR Personal history of irradiation, presenting hazards to health Other specified aftercare following surgery Encounter for change or removal of drains Status post bilateral mastectomy Status post bilateral breast implants Encounter for breast reconstruction following mastectomy Special Needs RIGHT IMPLANT SCF 605 ORDER A FEW DIFFERENT SIZES FDA CHECKLISTLEFT AUTOMOTIVE INTERNET SALES MANAGER FV 14 425CC REPLACEMENT, IMPLANT, BREAST 08/10/2022 7:34 AM MILLING PLANER OPERATOR Personal history of irradiation, presenting hazards to health Other specified aftercare following surgery Encounter for change or removal of drains Status post bilateral mastectomy Status post bilateral breast implants Encounter for breast reconstruction following mastectomy Special Needs RIGHT IMPLANT SCF 605 ORDER A FEW DIFFERENT SIZES [facility] CHECKLISTLEFT AUTOMOTIVE INTERNET SALES MANAGER FV 14 425CC REMOVAL, TISSUE AUTOMOTIVE INTERNET SALES MANAGER, BREAST 08/10/2022 7:34 AM MILLING PLANER OPERATOR Personal history of irradiation, presenting hazards to health Other specified aftercare following surgery Encounter for change or removal of drains Status post bilateral mastectomy Status post bilateral breast implants Encounter for breast reconstruction following mastectomy Special Needs RIGHT IMPLANT SCF 605 ORDER A FEW DIFFERENT SIZES [facility] CHECKLISTLEFT AUTOMOTIVE INTERNET SALES MANAGER FV 14 425CC LAB RESULT - HIM SCAN 07/24/2022 12:00 AM MILLING PLANER OPERATOR documented in this encounter Results * LAB RESULT - HIM SCAN (07/24/2022 12:00 AM MILLING PLANER OPERATOR) 07/24/2022 Provider Outside NON-BEAKER LAB TE STING documented in this encounter Visit Diagnoses Diagnosis Status post breast reconstruction- Primary Breast replaced by other means Personal history of irradiation, presenting hazards to health Other specified aftercare following surgery Encounter for change or removal of drains Other specified aftercare following surgery Status post bilateral mastectomy Acquired absence of breast and nipple Status post bilateral breast implants Breast replaced by other means Encounter for breast reconstruction following mastectomy documented in this encounter Administered Medications Inactive Administered Medications - up to 3 most recent administrations Medication Order MAR Action Action Date Dose Rate Site acetaminophen (TYLENOL) tablet 1,000 mg 1,000 mg, Oral, ONCE, On Ktaelyn 08/10/22 at 0600, For 1 dose, Maximum acetaminophen dose from all sources = 75 mg/kg/day not to exceed 4 gram, Pre-procedure $Given 08/10/2022 6:10 AM MILLING PLANER OPERATOR 1,000 mg acetaminophen (TYLENOL) tablet 650 mg 650 mg, Oral, ONCE PRN, mild pain, to moderate pain, Starting on Katelyn 08/10/22 at 1259, One time prior to discharge. Maximum acetaminophen dose from all sources = 75 mg/kg/day not to exceed 4 grams/day. clindamycin (CLEOCIN) infusion 900 mg Routine, 900 mg, Intravenous, PRE-OP/PRE-PROCEDURE, Starting on Katelyn 08/10/22 at 0541, For 1 dose, Give first dose within 1 hour PRIOR to incision., Indications: Perioperative Pharmacoprophylaxis, Pre-procedure $New Bag 08/10/2022 6:24 AM MILLING PLANER OPERATOR 900 mg 100 mL/hr EPINEPHrine 1:1000 1 ml (1 mg) + NaCl 0.9% 1000 ml PRN, Starting on Katelyn 08/10/22 at 0930, Intra-procedure $Given 08/10/2022 9:30 AM MILLING PLANER OPERATOR 610 mLs Operative Site/Surgical Site gabapentin (NEURONTIN) tablet 600 mg 600 mg, Oral, ONCE, On Katelyn 08/10/22 at 0600, For 1 dose, Pre-procedure $Given 08/10/2022 6:10 AM MILLING PLANER OPERATOR 600 mg lactated ringers (bag) irrigation SOLN PRN, Starting on Katelyn 08/10/22 at 0905, Intra-procedure $Given 08/10/2022 9:05 AM MILLING PLANER OPERATOR 1,000 mLs Operative Site/Surgical Site lactated ringers infusion at 10 mL/hr, Intravenous, CONTINUOUS, IF patient NOT on dialysis., Pre-procedure, Starting on Katelyn 08/10/22 at 0600, Until Katelyn 08/10/22 at 0955 $New Bag 08/10/2022 8:57 AM MILLING PLANER OPERATOR $New Bag 08/10/2022 6:23 AM MILLING PLANER OPERATOR 10 mL/hr ondansetron (ZOFRAN ODT) ODT tab 4 mg 4 mg, Oral, ONCE PRN, nausea, vomiting, post-operative, Starting on Katelyn 08/10/22 at 1259, For 1 dose, One time prior to discharge. With dry hands, peel back foil backing and gently remove tablet. Do not push oral disintegrating tablet through foil backing. Administer immediately on tongue and oral disintegrating tablet dissolves in seconds, then swallow with saliva. Liquid not required. ondansetron (ZOFRAN) injection 4 mg 4 mg, Intravenous, EVERY 30 MIN PRN, nausea, Administer over 2-5 Minutes, Starting on Katelyn 08/10/22 at 1002, For 2 doses, MAX total dose = 8 mg, including OR dosing. If not resolved in 15 minutes, then go to step 2 [prochlorperazine (COMPAZINE), if ordered]. Irritant., PACU $Given 08/10/2022 10:43 AM MILLING PLANER OPERATOR 4 mg povidone-iodine (BETADINE) 10 % topical solution PRN, Starting on Katelyn 08/10/22 at 0839, Intra-procedure $Given 08/10/2022 8:39 AM MILLING PLANER OPERATOR 250 mLs Other (see comments) prochlorperazine (COMPAZINE) injection 5 mg 5 mg, Intravenous, ONCE, Administer over 1-2 Minutes, On Katelyn 08/10/22 at 1130, For 1 dose, PACU $Given 08/10/2022 11:28 AM MILLING PLANER OPERATOR 5 mg sodium chloride 0.9% (bottle) irrigation PRN, Starting on Katelyn 08/10/22 at 0800, Intra-procedure $Given 08/10/2022 8:00 AM MILLING PLANER OPERATOR 1,000 mLs Operative Site/Surgical Site traMADol (ULTRAM) tablet 50 mg 50 mg, Oral, EVERY 6 HOURS PRN, moderate pain, Starting on Katelyn 08/10/22 at 0955 traMADol (ULTRAM) tablet 50 mg 50 mg, Oral, ONCE, On Katelyn 08/10/22 at 1030, For 1 dose, PACU $Given 08/10/2022 10:28 AM MILLING PLANER OPERATOR 50 mg documented in this encounter Active and Recently Administered Medications Times are shown in MILLING PLANER OPERATOR. Scheduled Medication Order 08/08/2022 08/09/2022 08/10/2022 acetaminophen (TYLENOL) tablet 1,000 mg (COMPLETED) 1,000 mg, Oral, ONCE, On Katelyn 08/10/22 at 0600, For 1 dose, Maximum acetaminophen dose from all sources = 75 mg/kg/day not to exceed 4 gram, Pre-procedure 0610 ($Given - Provi joseph: Keren Andrade RN) clindamycin (CLEOCIN) infusion 900 mg (COMPLETED) Routine, 900 mg, Intravenous, PRE-OP/PRE-PROCEDURE, Starting on Katelyn 08/10/22 at 0541, For 1 dose, Give first dose within 1 hour PRIOR to incision., Indications: Perioperative Pharmacoprophylaxis, Pre-procedure 0624 ($New Bag - Pro vider: Keern Andrade RN) gabapentin (NEURONTIN) tablet 600 mg (COMPLETED) 600 mg, Oral, ONCE, On Katelyn 08/10/22 at 0600, For 1 dose, Pre-procedure 0610 ($Given - Provi joseph: Keren Andrade RN) prochlorperazine (COMPAZINE) injection 5 mg (COMPLETED)(Linked Group 1) 5 mg, Intravenous, ONCE, Administer over 1-2 Minutes, On Katelyn 08/10/22 at 1130, For 1 dose, PACU 1128 ($Given - Provi joseph: Jaziel Pond, MICHELLE) traMADol (ULTRAM) tablet 50 mg (COMPLETED) 50 mg, Oral, ONCE, On Katelyn 08/10/22 at 1030, For 1 dose, PACU 1028 ($Given - Provi joseph: Jaziel Pond, MICHELLE) Continuous Medication Order 08/08/2022 08/09/2022 08/10/2022 lactated ringers infusion (CANCELED) at 10 mL/hr, Intravenous, CONTINUOUS, IF patient NOT on dialysis., Pre-procedure, Starting on Katelyn 08/10/22 at 0600, Until Katelyn 08/10/22 at 0955 0623 ($New Bag - Pro vider: Keren Andrade RN)0856 (Paused - Provider: Nahomy Gomez APRN HAND BUTTON SPLITTER - Comment: Switch to gravity)0857 ($New Bag - Provider: Nahomy Gomez APRN HAND BUTTON SPLITTER)0956 (Anesthesia Volume Adjustment - Provider: Nahomy Gomez APRN CRNA) PRN Medication Order 08/08/2022 08/09/2022 08/10/2022 acetaminophen (TYLENOL) tablet 650 mg 650 mg, Oral, ONCE PRN, mild pain, to moderate pain, Starting on Katelyn 08/10/22 at 1259, One time prior to discharge. Maximum acetaminophen dose from all sources = 75 mg/kg/day not to exceed 4 grams/day. EPINEPHrine 1:1000 1 ml (1 mg) + NaCl 0.9% 1000 ml (CANCELED) PRN, Starting on Katelyn 08/10/22 at 0930, Intra-procedure 0930 ($Given - Provi joseph: Nai Cotto MD) lactated ringers (bag) irrigation SOLN (CANCELED) PRN, Starting on Katelyn 08/10/22 at 0905, Intra-procedure 0905 ($Given - Provi joseph: Nai Cotto MD) ondansetron (ZOFRAN ODT) ODT tab 4 mg 4 mg, Oral, ONCE PRN, nausea, vomiting, post-operative, Starting on Katelyn 08/10/22 at 1259, For 1 dose, One time prior to discharge. With dry hands, peel back foil backing and gently remove tablet. Do not push oral disintegrating tablet through foil backing. Administer immediately on tongue and oral disintegrating tablet dissolves in seconds, then swallow with saliva. Liquid not required. ondansetron (ZOFRAN) injection 4 mg (CANCELED)(Linked Group 2) 4 mg, Intravenous, EVERY 30 MIN PRN, nausea, Administer over 2-5 Minutes, Starting on Katelyn 08/10/22 at 1002, For 2 doses, MAX total dose = 8 mg, including OR dosing. If not resolved in 15 minutes, then go to step 2 [prochlorperazine (COMPAZINE), if ordered]. Irritant., PACU 1043 ($Given - Provi joseph: Jaziel Pond RN) povidone-iodine (BETADINE) 10 % topical solution (CANCELED) PRN, Starting on Katelyn 08/10/22 at 0839, Intra-procedure 0839 ($Given - Provi joseph: Nai Cotto MD - Comment: TO SOAK IMPLANT) sodium chloride 0.9% (bottle) irrigation (CANCELED) PRN, Starting on Katelyn 08/10/22 at 0800, Intra-procedure 0800 ($Given - Provi joseph: Nai Cotto MD) traMADol (ULTRAM) tablet 50 mg 50 mg, Oral, EVERY 6 HOURS PRN, moderate pain (4-6), Starting on Katelyn 08/10/22 at 0955 Linked Groups Order Group 1: prochlorperazine (COMPAZINE) injection 5 mg (COMPLETED)Jump to med 5 mg, Intravenous, ONCE, Administer over 1-2 Minutes, On Katelyn 08/10/22 at 1130, For 1 dose, PACU Or prochlorperazine (COMPAZINE) tablet 5 mg (COMPLETED) 5 mg, Oral, ONCE, On Katelyn 08/10/22 at 1130, For 1 dose, PACU Or prochlorperazine (COMPAZINE) suppository 25 mg (COMPLETED) 25 mg, Rectal, ONCE, On Katelyn 08/10/22 at 1130, For 1 dose, PACU Group 2: ondansetron (ZOFRAN ODT) ODT tab 4 mg (CANCELED) 4 mg, Oral, EVERY 30 MIN PRN, nausea, Starting on Katelyn 08/10/22 at 1002, For 2 doses, MAX total dose = 8 mg, including OR dosing. If not resolved in 15 minutes, then go to step 2 [prochlorperazine (COMPAZINE), if ordered]. With dry hands, peel back foil backing and gently remove tablet. Do not push oral disintegrating tablet through foil backing. Administer immediately on tongue and oral disintegrating tablet dissolves in seconds, then swallow with saliva. Liquid not required., PACU Or ondansetron (ZOFRAN) injection 4 mg (CANCELED)Jump to med 4 mg, Intravenous, EVERY 30 MIN PRN, nausea, Administer over 2-5 Minutes, Starting on Katelyn 08/10/22 at 1002, For 2 doses, MAX total dose = 8 mg, including OR dosing. If not resolved in 15 minutes, then go to step 2 [prochlorperazine (COMPAZINE), if ordered]. Irritant., PACU documented in this encounter Care Teams Clinical Biochemist Relationship Specialty Start Date End Date [facility], [place] [id number] PCP - General 07/21/22 documented as of this encounter
--- OUTSIDE RECORDS SUMMARY | 2023-07-05 09:54 | XMS_ITS | Referral Summary ---
Author Name Unknown Organization [facility] Address [address] [place] [address]. [place] [address] Care Team Providers Care Professor Of Engineering Name Role Phone Clinic, [facility] Primary Care Provider Allergies Active Allergy Reactions [...] Comments Blood Pressure 115/83 08/10/2022 1:42 PM NATIONAL SALES DIRECTOR Pulse 44 08/10/2022 11:45 AM NATIONAL SALES DIRECTOR Temperature 35.8 ??C (96.5 ??F) 08/10/2022 1:42 PM CS T Respiratory Rate 14 08/10/2022 1:42 PM NATIONAL SALES DIRECTOR Oxygen Saturation 99% 08/10/2022 1:42 PM NATIONAL SALES DIRECTOR Inhaled Oxygen Concentration - - Weight 72.2 kg (159 lb 3.2 oz) 08/10/2022 5:48 A M NATIONAL SALES DIRECTOR Height 175.3 cm (5' 9) 08/10/2022 5:48 AM NATIONAL SALES DIRECTOR Body Mass Index 23.51 08/10/2022 5:48 AM NATIONAL SALES DIRECTOR Plan of Treatment Not on file Medical Devices Implanted Type Area Oyster Washer Device Identifier Shelf Expiration Date Model / Serial / Lot Natrelle Inspira Cohesive Breast Implant Smooth Round Full Profile Implanted:Qty : 1 on 08/10/2022 by Nai Cotto MD at [facility] Breast Implant/Tiss ue Database Analyst Left: Breast 06/27/2025 SCF-560 / [id number] / Explanted Type Area Oyster Washer Device Identifier Shelf Expiration Date Model / Serial / Lot Breast Tissue Database Analyst Explanted:Qty: 1 on 08/10/2022 by Nai Cotto MD at [facility] Left: Breast Care Teams Professor Of Engineering Relationship Specialty Start Date End Date Clinic, [address] [address] PCP - General 07/21/22
--- OUTSIDE RECORDS SUMMARY | 2023-07-05 09:54 | XMS_ITS | Continuity of Care Document ---
Author Name Unknown Organization [facility] Address [address] [place] [address] Insurance Providers Payer Plan Claims Address Claims Phone Policy Number Group Number Relation Employer Guarantor Name Guarantor Guarantor Address Guarantor Phone Cigna [id number] Danielle Saini 1970 [place] [address] [facility] [address] [address], [place] [address] tel:[phone] Self Danielle Saini [id number] [place] [id number] [employer] [address], [place] [address] tel:[phone] [id number] Self Danielle Saini 1970 [place] [address] Problems Unknown Problems Results No Results Allergies, adverse reactions, alerts No known allergies and adverse reactions Medications No administered medications reported Vital Signs Date Vital Result Comment 01/16/2023 Body Height 1.8220994817018 m Body Weight 71.4314982648 kg Body Mass Index 22.67 kg/m2 Social History No smoking Hx information available
--- OUTSIDE RECORDS SUMMARY | 2023-07-05 09:55 | XMS_ITS | Clinical Summary ---
Author Name Unknown Organization [facility] Address [address] [place] [id number] Phone [email or web address] Care Team Providers Care Soap Press Feeder Name Role Phone Unavailable Primary Care Provider Unavailabl e Immunizations Name Administration Dates Next Due COVID-19 (Pfizer Thayer 12 yrs+) (CVX-208) 021,10/12/2020 Influenza PF Tri (CVX - 140) 04/05/2016 Influenza, (Afluria Fluarix Flulaval Fluzone) quad, PF (CVX-150) 03/26/2020 Influenza, (Afluria Fluzone) quad, PF, 6-35 mo (CVX-161) 04/05/2017 Social History Tobacco Use Types Packs/Day Years Used Date Smoking Tobacco: Never Intimate Partner Violence Answer Date R ecorded Insults You Not on file 10/05/2020 Threatens You Not on file 10/05/2020 Screams at You Not on file 10/05/2020 Physically Hurt Not on file 10/05/2020 Intimate Partner Violence Score Not on file 10/05/2020 Stress Answer Date Recorded Stress in your Life 0 08/05/2020 Dealing with Stress Not on file 08/05/2020 Sex and Gender Information Value Date Recorded Sex Assigned at Not on file Gender Identity Female 03/08/2021 9:15 AM CDT Sexual Orientation Not on file Last Filed [...] Last Done Comments Dental Cleaning/Exam 1970 Hepatitis B Immunization (1 of 3 - 3-dose series) 1970 Cervical Cancer Screening 1984 Colorectal Cancer Screening 01/17/1998 Zoster Immunization (1 of 2) 01/17/2018 Breast Cancer Screening 02/24/2022 02/25/20, 03/25/2018 Covid-19 Immunization ( season) 2023 11/09/2020, 10/12/2020 Influenza Immunization (#1) 02/23/202307/2019, 04/05/2017, 04/05/2016 Tetanus (Tdap or Td) Immunization 02/16/2030 02/17/2020, 06/30/2009 HIB Immunization Aged Out No longer e ligible based on patient's age to complete this topic HPV Immunization Aged Out No longer e ligible based on patient's age to complete this topic Hepatitis A Immunization Aged Out No longer eligible based on patient's age to complete this topic Pneumococcal: Ped (0 to 5 Yrs) and At-Risk Member (6 to 64 Yrs) Aged Out No longer eligible b ased on patient's age to complete this topic Polio Immunization Aged Out No longer eligible based on patient's age to complete this topic
--- OUTSIDE RECORDS SUMMARY | 2023-07-05 09:55 | XMS_ITS | Clinical Summary ---
Author Name Unknown Organization [facility] Address [place], [place] [address] Care Team Providers Care Metal Bonding Worker Name Role Phone Pcp, No Primary Care Provider Unavailabl e Allergies Active Allergy Reactions Criticality Noted Date Comments Cephalexin Itching,Rash Medium 02/01/2022 Codeine Hives 03/20/2007 Mold Runny Nose 04/09/2017 dust Scopolamine Other - Describe In Comment Field High 0 02/01/2022 insomnia Medications Medication Sig Dispensed Refills Start Date End Date Status cetirizine (ZYRTEC) 10 mg tablet Take 10 mg by mouth once daily. 0 Active letrozole (FEMARA) 2.5 mg tablet Take 2.5 mg by mouth once daily. 0 01/23/2022 Active medication order composer Member's Mario Calcium (600 mg) with Vitamin D (20mcg) twice a day, morning and evening Member's Mario Biotin (10,000 mcg) with Keratin (100 mg), Vitamin C (60 mg) and Zinc (9mg) once daily morning Member's Mario B-Complex once a day morning spring D3 (125 mcg) once a day morning spring Vitamin E (180 mg) once a day morning Best Naturals Acetyl L-Carnitine Alpha Lipoic Acid (750 mg) once a day morning 0 03/29/2022 Active CPAPIndications:SHAQ (obstructive sleep apnea) CPAP machine for home use at pressure 4-15cmw, full face mask x1/3month with a full face cushion x1/mo 1 Each 11 04/24/2022 Active hydroquinone 4 % creamIndications:Le ntigo Apply topically to affected area(s) two times daily. 28 g 1 05/17/2022 Active gabapentin (NEURONTIN) 300 mg capsuleIndications: Restless legs syndrome (RLS) Take 1-2 Capsules (300-600 mg) by mouth at bedtime. 180 Capsule 3 07/10/2022 Active Active Problems Problem Noted Date Diagnosed Date Malignant neoplasm of upper-outer quadrant of fe male breast 04/13/2021 Endometrial polyp 03/22/2017 Overview: Added automatically from request for surgery [id number] GSI (genuine stress incontinence), female 2011 Routine gynecological examination 11/30/2011 Immunizations Name Administration Dates Next Due AMB INFLUENZA, IIV4 (AGE=>6M OS) MDV (Flu Clinic Only) 03/26/2020 COVID-19 vaccine ([email or web address] 30mcg/0.3mL) PF, MDV 11/09/2020,10/12/2020 Influenza Virus, Unspecified 03/26/2020 Influenza, IIV4 03/28/2021,04/05/2016,04/24/2014 Influenza, IIV4 (Age 6-35 Mos) 04/05/2017 Tdap 02/17/2020,06/30/2009 Tuberculin (PPD) 04/24/2014 Zoster (Shingrix-RZV, recombinant) 06/19/2019,,02/11/2019 Family History Medical History Relation Name Comments Alcoholism Brother 2 Ankit Diabetes Brother 2 Ankit Drug Abuse Brother 2 Ankit Emphysema Father Nikos Hyperlipidemia Father Nikos Hypertension Father Nikos Cancer-breast Maternal Aunt Becca Rheum arthritis Maternal Uncle Shakir Diabetes Mother Karlee Heart Disease Mother Karlee Hyperlipidemia Mother Karlee Hypertension Mother Karlee Osteoporosis Mother Karlee Psychiatric illness Mother Karlee Stroke Mother Karlee Thyroid Disease Sister 2 Vannessa Other Sister 3 Ovarian cysts Alcoholism Son 4 Julio Anxiety disorder Son 5 Luke Cancer-ovarian No Family History Relation Name Status Comments Brother 1 Alive x2 Brother 2 Ankit Father Nikos Alive Maternal Aunt Becca Maternal Grandfather (Age 50's) heart disease Maternal Grandmother (Age 50's) ? Maternal Uncle Shakir Mother Karlee Alive Paternal Grandfather (Age 60's) heart attack Paternal Grandmother (Age 93 yrs ) old age Sister 1 Alive x2 Sister 2 Vannessa Sister 3 Son 1 Alive Son 2 Alive Son 3 Alive Son 4 Julio Son 5 Shannankarine Social History Tobacco Use Types Packs/Day Years Used Date Smoking Tobacco: Former Cigarettes Q uit: 11/23/1998 Smokeless Tobacco: Never Tobacco Cessation:Counseling Given: Yes Alcohol Use Standard Drinks/Week Comments Not Currently 0 (1 standard drink = 0.6 oz pur e alcohol) on occasion-usually wine. PHQ-2 Answer Date Recorded PHQ-2 TOTAL SCORE 0 03/27/2022 Social Connections Answer Date Recorded Frequency of Communication with Friends and Fami ly Not on file 06/16/2021 Financial Resource Strain Answer Date R ecorded Difficulty of Paying Living Expenses Not on file 06/16/2021 Difficulty of Paying Living Expenses Not on file 06/16/2021 Sex and Gender Information Value Date Recorded Sex Assigned at Not on file Gender Identity Not on file Sexual Orientation Not on file Obstetrics History Para Term AB IAB SAB Ectopic Multiple Livin g Live Births 6 3 3 0 3 0 3 0 0 3 3 Date Outcome GA Total Labor Labor/2nd/3rd Weight Sex Delivery Anes PTL Tamanna A1 A5 Name Cl in SAB SAB SAB 12/07 Term 38w 0d 7h 00m/ 3.46 kg (7 lb 10 oz) M VAGINAL KYLEIGH Amrita natividad Julioadina on 09/11 Term 40w 0d 3h 00m/ 4.34 kg (9 lb 9 oz) M VAGINAL KYLEIGH Amrita ng Shania ew 02/17 Term 39w 0d 4h 00m/ 3.86 kg (8 lb 8 oz) M VAGINAL KYLEIGH Amrita natividad Gomez Last Filed Vital Signs Vital Sign Reading Time Taken Comments Blood Pressure 105/61 07/10/2022 9:02 AM AIR EXPORT LOGISTICS MANAGER Pulse 67 07/10/2022 9:02 AM AIR EXPORT LOGISTICS MANAGER Temperature 36.3 ??C (97.4 ??F) 05/14/2017 1:21 PM CS T Respiratory Rate 16 04/10/2017 2:37 PM CDT Oxygen Saturation 98% 07/10/2022 9:02 AM AIR EXPORT LOGISTICS MANAGER Inhaled Oxygen Concentration - - Weight 74.9 kg (165 lb 3.2 oz) 07/10/2022 9:02 A M AIR EXPORT LOGISTICS MANAGER Height 176.8 cm (5' 9.59) 04/24/2022 10:28 AM C DT Body Mass Index 23.99 04/24/2022 10:28 AM CDT Plan of Treatment Health Maintenance Due Date Last Done Comments HIV for age 15-65 01/17/1983 Hepatitis C screening for age 18-79 01/17/1986 Mammogram for age 45-75 03/31/2022 03/31/20, 03/31/2021, 03/24/2021, Additional history exists COVID-19 vaccine series (2022- season) 2023 05/16/2022, 07/20/2021, 11/09/2020, Additional history exists Influenza for age 50-64 02/23/2023 03/28/20, 03/26/2020, 03/26/2020, Additional history exists Depression screening for age 12+ 04/03/2023 04/03/2022, 03/27/2022, 04/01/2021, Additional history exists BMI (ht and wt on same day) for age 18+ 04/24/2023 04/24/2022, 03/27/2022, 04/06/2021, Additional history exists Lipids for age 45-75 02/16/2025 02/17/2020, 05/19/2019, 01/16/2019, Additional history exists Pap test for age 21-65 03/28/2026 , 03/28/2021, 01/16/2019, Additional history exists Colonoscopy through age 75 03/21/2029 03/21/2019 Tetanus booster 02/16/2030 02/17/2020, 06/30/2009 Zoster (shingles) series for age 50+ Completed 06/19/2019, 04/25/2019, 02/11/2019 Tdap Completed 02/17/2020, 06/30/2009 Pneumococcal series for age 6-64 Aged Out No longer eligible based on patient's age to complete this topic Care Teams Metal Bonding Worker Relationship Specialty Start Date End Date Pcp, No . PCP - General 04/26/22
--- OUTSIDE RECORDS SUMMARY | 2023-07-05 09:55 | XMS_ITS | Encounter Summary ---
Author Name Unknown Organization [facility] Address [address] [place] [id number] Care Team Providers Care Third Helper Name Role Phone Clinic, [facility] Primary Care Provider Reason for Visit * [...] for breast reconstruction following mastectomy [Z42.1] Procedures TX REMOVE TISSUE MACHINE SHOP SUPERVISOR(S) TX ENLARGE BREAST WITH IMPLANT TX REMOVAL OF BREAST IMPLANT TX REMOVAL OF IMPLANT MATERIAL TX DELAY BREAST PROS AFTER BREAST SURG TX GRAFTING OF AUTOLOGOUS SOFT TISS BY DIRECT EXC TX GRAFTING OF AUTOLOGOUS FAT BY LIPO 50 CC OR LESS TX GRAFTING OF AUTOLOGOUS FAT BY LIPO EA ADDL 50 CC LEFT REMOVAL OF TISSUE MACHINE SHOP SUPERVISOR AND EXCHANGE FOR SILICONE BREAST IMPLANT BILATERAL BREAST FAT GRAFTING DONOR SITE ABDOMEN [facility] [address] [place] [address] Referral ID Status Reason Start Date Expiration Date Visits Re quested Visits Authorized [id number] 1 1 Encounter Details Date Type Department Care Team (Late st Contact Info) Description 08/10/2022 5:27 AM BENCH PRESS OPERATOR - 08/10/2022 1:45 PM BENCH PRESS OPERATOR Hospital Encounter [facility] PreOP/Phase II [id number] [place] [id number] Nai Cotto MD [facility] [address] [facility] [address] [place] [address] Status post breast reconstruction (Primary Dx) Discharge Disposition: Home or Self Care Social History Tobacco Use Types Packs/Day Years [...] Coronavirus/COVID-19? No / Unsure 08/10/2022 5:25 AM BENCH PRESS OPERATOR documented as of this encounter Last Filed Vital Signs Vital Sign Reading Time Taken Comments Blood Pressure 115/83 08/10/2022 1:42 PM BENCH PRESS OPERATOR Pulse 44 08/10/2022 11:45 AM BENCH PRESS OPERATOR Temperature 35.8 ??C (96.5 ??F) 08/10/2022 1:42 PM CS T Respiratory Rate 14 08/10/2022 1:42 PM BENCH PRESS OPERATOR Oxygen Saturation 99% 08/10/2022 1:42 PM BENCH PRESS OPERATOR Inhaled Oxygen Concentration - - Weight 72.2 kg (159 lb 3.2 oz) 08/10/2022 5:48 A M BENCH PRESS OPERATOR Height 175.3 cm (5' 9) 08/10/2022 5:48 AM BENCH PRESS OPERATOR Body Mass Index 23.51 08/10/2022 5:48 AM BENCH PRESS OPERATOR documented in this encounter Discharge Instructions * Discharge Instructions* Jaziel Pond RN - 08/10/2022 6:36 AM BENCH PRESS OPERATOR Today you were given 1000 mg [...] about your procedure, call Dr. Cotto at [phone]. H PRESS OPERATOR documented in this encounter Medications at [...] the patient. There are no significant changes H PRESS OPERATOR Source Note - Outside, Provider - 08/07/2022 10:33 AM BENCH PRESS OPERATOR documented in this encounter Nursing Notes * Jaziel Pond RN - 08/10/2022 11:59 AM CST Nausea resolved- OK to transport to phase [address] Schumacher H PRESS OPERATOR * Jaziel Pond RN - 08/10/2022 11:37 AM CST After getting to recliner- nausea returned- compazine 5 mg IV X1 per Dr Schumacher- pt to be returned to phase 1 for monitoring for approx 20 minutes- H PRESS OPERATOR * Jaziel Pond RN - 08/10/2022 11:15 AM CST zofran for nausea- effective- Pt dressed, up in recliner and transported to Phase 2. H PRESS OPERATOR * Raya Shafer RN - 08/10/2022 9:29 AM CST Fat grafting 50ml in Right breast and 40ml in Left breast H PRESS OPERATOR documented in this encounter Miscellaneous Notes * Op Note - Nai Cotto MD - 08/10/2022 9:34 AM CST PREOPERATIVE DIAGNOSIS: 1. Personal history of right breast cancer [Z85.3] 2. Status post bilateral mastectomies and prepectoral tissue sounding device operator breast reconstruction with AlloDerm [Z90.13] 3. Breast implant status [Z98.82] 4. Personal history of irradiation [Z92.3] POSTOPERATIVE DIAGNOSIS: 1. Personal history of right breast cancer [Z85.3] 2. Status post bilateral mastectomies and prepectoral tissue sounding device operator breast reconstruction with AlloDerm [Z90.13] 3. Breast implant status [Z98.82] 4. Personal history of irradiation [Z92.3] PROCEDURE: 1. Removal of left tissue sounding device operator and exchange for silicone breast implant 2. Bilateral breast fat grafting, donor site abdomen (total harvested 90 ml, total grafted right breast 50 ml, left breast 40 ml) DRAINAGE TYPE: None COOK STATION: ANGELICA Melendrez PA-C, was present and scrubbed for the entire procedure, and this is to include dissection, retraction and closure. There were no other qualified trainees or other assistants available and the presence of Melissa Junior PA-C, was necessary due to inability to retract and dissect without an executive administrative assistant. INDICATIONS FOR PROCEDURE: The patient is a 52 year old female with a personal history of right breast cancer. She underwent bilateral mastectomies, [id number] breast reconstruction on the right side, and left immediate prepectoral tissue sounding device operator breast reconstruction with AlloDerm. She then [...] incised with the electrocautery and the tissue sounding device operator was removed. It was found to be intact with all tabs present. This was a Natrelle FV-14 smooth tissue sounding device operator filled to 425 ml. The AlloDerm [...] fat. The fat was processed using the Bvents system. A total of 90 ml was [...] implant [id number] with a serial number of [id number]. The AlloDerm was closed onto itself with [...] for the entire case. 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 Complications: None. Implants: Implant Name Type Inv. Item Serial No. Segregator Lot No. LRB No. Used Action BREAST TISSUE MACHINE SHOP SUPERVISOR Left 1 Explanted NATRELLE INSPIRA COHESIVE BREAST IMPLANT SMOOTH ROUND FULL PROFILE Breast Implant/Tissue Steamer [employer] [id number] Left 1 Implanted H PRESS OPERATOR documented in this encounter Plan of Treatment Not on file documented as of this encounter Procedures Procedure Name Priority Date/Time Associated Diagnosis Comments FAT GRAFT, BREAST 08/10/2022 7:3 4 AM BENCH PRESS OPERATOR Personal history of irradiation, presenting hazards to health Other specified aftercare following surgery Encounter for change or removal of drains Status post bilateral mastectomy Status post bilateral breast implants Encounter for breast reconstruction following mastectomy Special Needs RIGHT IMPLANT SCF 605 ORDER A FEW DIFFERENT SIZES [facility] CHECKLISTLEFT MACHINE SHOP SUPERVISOR FV 14 425CC REPLACEMENT, IMPLANT, BREAST 08/10/2022 7:34 AM BENCH PRESS OPERATOR Personal history of irradiation, presenting hazards to health Other specified aftercare following surgery Encounter for change or removal of drains Status post bilateral mastectomy Status post bilateral breast implants Encounter for breast reconstruction following mastectomy Special Needs RIGHT IMPLANT SCF 605 ORDER A FEW DIFFERENT SIZES FDA CHECKLISTLEFT MACHINE SHOP SUPERVISOR FV 14 425CC REMOVAL, TISSUE MACHINE SHOP SUPERVISOR, BREAST 08/10/2022 7:34 AM BENCH PRESS OPERATOR Personal history of irradiation, presenting hazards to health Other specified aftercare following surgery Encounter for change or removal of drains Status post bilateral mastectomy Status post bilateral breast implants Encounter for breast reconstruction following mastectomy Special Needs RIGHT IMPLANT SCF 605 ORDER A FEW DIFFERENT SIZES [facility] CHECKLISTLEFT MACHINE SHOP SUPERVISOR FV 14 425CC LAB RESULT - HIM SCAN 07/24/2022 12:00 AM BENCH PRESS OPERATOR documented in this encounter Results * LAB RESULT - HIM SCAN (07/24/2022 12:00 AM BENCH PRESS OPERATOR) 07/24/2022 Provider Outside NON-BEAKER LAB TE STING documented in this encounter Visit Diagnoses Diagnosis Status post breast reconstruction- Primary Breast replaced by other means documented in this encounter Administered Medications Inactive Administered Medications - up to 3 most recent administrations Medication Order MAR Action Action Date Dose Rate Site acetaminophen (TYLENOL) tablet 1,000 mg 1,000 mg, Oral, ONCE, On Katelyn 08/10/22 at 0600, For 1 dose, Maximum acetaminophen dose from all sources = 75 mg/kg/day not to exceed 4 gram, Pre-procedure $Given 08/10/2022 6:10 AM BENCH PRESS OPERATOR 1,000 mg acetaminophen (TYLENOL) tablet 650 [...] Pharmacoprophylaxis, Pre-procedure $New Bag 08/10/2022 6:24 AM BENCH PRESS OPERATOR 900 mg 100 mL/hr gabapentin (NEURONTIN) tablet 600 mg 600 mg, Oral, ONCE, On Katelyn 08/10/22 at 0600, For 1 dose, Pre-procedure $Given 08/10/2022 6:10 AM BENCH PRESS OPERATOR 600 mg lactated ringers infusion at 10 mL/hr, Intravenous, CONTINUOUS, IF patient NOT on dialysis., Pre-procedure, Starting on Katelyn 08/10/22 at 0600, Until Katelyn 08/10/22 at 0955 $New Bag 08/10/2022 8:57 AM BENCH PRESS OPERATOR $New Bag 08/10/2022 6:23 AM BENCH PRESS OPERATOR 10 mL/hr ondansetron (ZOFRAN ODT) ODT [...] ordered]. Irritant., PACU $Given 08/10/2022 10:43 AM BENCH PRESS OPERATOR 4 mg prochlorperazine (COMPAZINE) injection 5 mg 5 mg, Intravenous, ONCE, Administer over 1-2 Minutes, On Katelyn 08/10/22 at 1130, For 1 dose, PACU $Given 08/10/2022 11:28 AM BENCH PRESS OPERATOR 5 mg traMADol (ULTRAM) tablet 50 mg 50 mg, Oral, EVERY 6 HOURS PRN, moderate pain, Starting on Katelyn 08/10/22 at 0955 traMADol (ULTRAM) tablet 50 mg 50 mg, Oral, ONCE, On Katelyn 08/10/22 at 1030, For 1 dose, PACU $Given 08/10/2022 10:28 AM BENCH PRESS OPERATOR 50 mg documented in this encounter Active and Recently Administered Medications Times are shown in BENCH PRESS OPERATOR. Scheduled Medication Order 08/08/2022 08/09/2022 08/10/2022 [...] Pre-procedure 0624 ($New Bag - Pro vider: Keren Andrade RN) gabapentin (NEURONTIN) tablet 600 mg (COMPLETED) 600 mg, Oral, ONCE, On Katelyn 08/10/22 at 0600, For 1 dose, Pre-procedure 0610 ($Given - Provi joseph: Keren Andrade RN) prochlorperazine (COMPAZINE) injection 5 mg (COMPLETED)(Linked Group 1) 5 mg, Intravenous, ONCE, Administer over 1-2 Minutes, On Katelyn 08/10/22 at 1130, For 1 dose, PACU 1128 ($Given - Provi joseph: Jaziel Pond RN) traMADol (ULTRAM) tablet 50 mg (COMPLETED) 50 mg, Oral, ONCE, On Katelyn 08/10/22 at 1030, For 1 dose, PACU 1028 ($Given - Provi joseph: Jaziel Pond RN) Continuous Medication Order 08/08/2022 08/09/2022 08/10/2022 lactated ringers infusion (CANCELED) at 10 mL/hr, Intravenous, CONTINUOUS, IF patient NOT on dialysis., Pre-procedure, Starting on Katelyn 08/10/22 at 0600, Until Katelyn 08/10/22 at 0955 0623 ($New Bag - Pro vider: Keren Andrade RN)0856 (Paused - Provider: Nahomy Gomez APRN CRNA - Comment: Switch to gravity)0857 ($New Bag - Provider: Nahomy Gomez APRN MODEL MAKER APPRENTICE)0956 (Anesthesia Volume Adjustment - Provider: Nahomy Gomez [...] PACU documented in this encounter Care Teams Third Helper Relationship Specialty Start Date End Date [facility], [address] [address] PCP - General 07/21/22 documented as of this encounter
--- OUTSIDE RECORDS SUMMARY | 2023-07-05 09:55 | XMS_ITS ---
Author Name Unknown Organization [facility] Address [address] [place] [address] Care Team Providers Care Customer Care Manager Name Role Phone Unavailable Primary Care Provider Unavailabl e Active Problems Problem Noted Date Diagnosed Date Other Chest Pain 03/17/2022 Malignant Neoplasm Of Breast Upper Outer Quadrant Female Right 04/13/2021 Cancer Staging:Clinical stage from 03/31/2021:Stage IIA(cT2, cN0, cM0, G3, ER+, IA+, HER2-) - Unsigned Pathologic stage from 06/02/2021:Stage IIA(pT2, pN1a, cM0, G3, ER+, IA+, HER2-) - Unsigned Current Oncology Plans No current plan information found. Past Plans No past plan information found. Radiation Treatments * Plan Last Treated On Elapsed Days Fractions Treated Prescribed Fraction Dose Prescribed Total Dose [id number] 02/24/2022 32 7 of 7 200 cGy 1,400 cGy [id number] 02/15/2022 23 18 of 18 200 cGy 3,600 cGy Reference Point Last Treated On Elapsed Days Session Dose Total Dose [id number] 02/24/2022 32 200 cGy 5,000 cGy ICRU 02/15/2022 23 205 cGy 3,681 cGy
--- OUTSIDE RECORDS SUMMARY | 2023-07-05 09:55 | XMS_ITS | Encounter Summary ---
Author Name Unknown Organization [facility] Address [address] [place] [id number] Care Team Providers Care Senior Controls Engineer Name Role Phone Clinic, [facility] Primary Care Provider Reason for [...] for breast reconstruction following mastectomy [Z42.1] Procedures MD REMOVE TISSUE LEGAL ADMINISTRATIVE ASSISTANT(S) MD ENLARGE BREAST WITH IMPLANT MD REMOVAL OF BREAST IMPLANT MD REMOVAL OF IMPLANT MATERIAL MD DELAY BREAST PROS AFTER BREAST SURG MD GRAFTING OF AUTOLOGOUS SOFT TISS BY DIRECT EXC MD GRAFTING OF AUTOLOGOUS FAT BY LIPO 50 CC OR LESS MD GRAFTING OF AUTOLOGOUS FAT BY LIPO EA ADDL 50 CC LEFT REMOVAL OF TISSUE LEGAL ADMINISTRATIVE ASSISTANT AND EXCHANGE FOR SILICONE BREAST IMPLANT BILATERAL BREAST FAT GRAFTING DONOR SITE ABDOMEN [facility] [address], [address] [place] [address] Referral ID Status Reason Start Date Expiration Date Visits Re quested Visits Authorized [id number] 1 1 Encounter Details Date Type Department Care Team (Late st Contact Info) Description 08/10/2022 7:34 AM INSTRUMENT REPAIRER Anesthesia Event [facility] [address] [place] [phone] Jaziel Schumacher MD [facility] [id number] [place] [id number] Anesthesia Record Procedure Summary Procedure Name Responsible Anesthesiologist Anesthesia Start Time Anesthesia Stop Time LEFT REMOVAL OF TISSUE LEGAL ADMINISTRATIVE ASSISTANT (Left: Breast) Jaziel Schumacher MD 08/10/22 0734 08/10/22 0957 Events Date Time Event Comment 08/10/2022 0734 An Start 0738 An Start Data 0738 AN REASSESS I attest that I have identified and re-evaluated the patient immediately before the induction of anesthesia and I am satisfied that the anesthetic plan is suitable for the patient's condition and procedure. The first vital signs recorded are pre- induction. Nahomy Gomez APRN INSURANCE ADVISER 0740 An Induction 0744 An Intubation 0745 MD Present 0800 AN INCISION 0835 MD Present 0947 AN Extubation All extubation criteria met prior to removal. 0948 MD Present 0954 an stop data 0957 An Stop Electronically signed by Nahomy Gomez APRN INSURANCE ADVISER on August 10, 2022 9:57 AM Meds Name Total dexamethasone 4mg/mL 4 mg fentaNYL (SUBLIMAZE) injection 100 mcg glycopyrrolate 0.2mg/mL 0.8 mg ketorolac 30mg/mL 15 mg lidocaine 2% 100 mg midazolam 1mg/mL 2 mg neostigmine 1mg/mL 3.5 mg ondansetron 2mg/mL 4 mg phenylephrine (NEVILLE-SYNEPHRINE) injection 1,200 mcg propofol (DIPRIVAN) injection 10 mg/mL v ial 200 mg propofol infusion (mcg/kg/min) 184.83 mg rocuronium 10mg/mL 30 mg lactated ringers infusion 1,400 mL * Agents Name NO HELIOX O2 N2O Air Exp Sevoflurane Exp Isoflurane Exp Desflurane Exp N2O O2 Delivery Device Ins Sevoflurane Ins Isoflurane Ins Desflurane O2 Auxiliary * Blood No blood administrations on file. Lines, Drains, and Airways Type Details Placement Removal Incision/Surgical Site 08/10/22; 821; Abdomen; 2 STAB INCISIONS UMBILICUS 08/10/22 0822 by Raya Shafer RN Incision/Surgical Site 08/10/22; 0822; R ight; Breast; 4 STAB INCISIONS FROM FAT GRAFTING 08/10/22 08 by Raya Shafer RN Incision/Surgical Site 08/10/22; 0933; L eft; Breast; LEFT BREAST SILICONE IMPLANT WITH FAT GRAFTING 08/10/22 0933 by Raya Shafer RN RETIRE: Peripheral IV 08/10/22; 0623; 22 G; Anterior, Left; Hand; Alcohol 08/10/22 0623 by Keren Andrade RN 08/10/22 1341 by Rich Perdomo RN ETT Placement Date: 08/10/22; Placement Time: 743 (created via procedure documentation); Mask Ventilation: 1; Induction Type: Intravenous; Ease of Intubation: Easy; Technique: Video laryngoscopy; ETT Type: Single; Tube Size: 7 mm; VL Blade Size: [place] scope 3; Grade View: 1; Adjucts: Stylet; Placement Person: INSURANCE ADVISER Student; Attempts: 1; Depth: 21 cm 08/10/22 0744 by Nahomy Gomez APRN INSURANCE ADVISER 08/10/22 0947 by Katy Javier documented in this encounter Social History Tobacco [...] Coronavirus/COVID-19? No / Unsure 08/10/2022 5:25 AM INSTRUMENT REPAIRER documented as of this encounter OR Notes * Anesthesia Postprocedure Evaluation - Jaziel Schumacher MD - 08/10/2022 10:45 AM CST Patient: Danielle Saini Procedure: Procedure(s): LEFT REMOVAL OF TISSUE LEGAL ADMINISTRATIVE ASSISTANT AND EXCHANGE FOR SILICONE BREAST IMPLANT BILATERAL BREAST FAT GRAFTING DONOR SITE ABDOMEN Anesthesia Type: General Note: Disposition: Outpatient Postop Pain Control: Uneventful Sign Out: Well controlled pain PONV: Yes Symptoms: Nausea only Sign Out: PONV/POV resolved with treatment Neuro/Psych: Uneventful Sign Out: Acceptable/Baseline neuro status Airway/Respiratory: Uneventful Sign Out: Acceptable/Baseline resp. status CV/Hemodynamics: Uneventful Sign Out: Acceptable CV status; No obvious hypovolemia; No obvious fluid overload Other NRE: NONE DID A NON-ROUTINE EVENT OCCUR? No Event details/Postop Comments: Patient agrees to wear CPAP for all sleep today/tonight. Last vitals: Vitals Value Taken Time BP 139/79 08/10/22 1037 Temp 36.1 ??C (96.9 ??F) 08/10/22 1015 Pulse 46 08/10/22 1040 Resp 12 08/10/22 1040 SpO2 100 % 08/10/22 1044 Vitals shown include unvalidated device data. Electronically Signed By: Jaziel Schumacher MD August 10, 2022 10:45 AM RUMENT REPAIRER * Anesthesia Procedure Notes - Nahomy Gomez APRN CRNA - 08/10/2022 7:57 AM CSTAssociated Order(s): Airway Airway Patient location during procedure: OR Procedure Start/Stop Times: 08/10/2022 7:44 AM Staff - Anesthesiologist: Jaziel Schumacher MD INSURANCE ADVISER: Nahomy Gomez APRN CRNA Other Anesthesia Staff: Katy Javier Performed By: YARELIS and with CRNAs Procedure performed by resident/fellow/INSURANCE ADVISER in presence of a teaching physician. Consent for Airway Urgency: elective Indications and Patient Condition Indications for airway management: tiny-procedural Induction type:intravenous Mask difficulty assessment: 1 - vent by mask Final Airway Details Final airway type: endotracheal airway Successful airway: ETT - single Endotracheal Airway Details ETT size (mm): 7.0 Cuffed: yes Cuff volume (mL): 6 Successful intubation technique: video laryngoscopy VL Blade Size: Glidescope 3 Grade View of Cords: 1 Adjucts: stylet Position: Right Measured from: gums/teeth Secured at (cm): 21 Bite block used: None Post intubation assessment Placement verified by: capnometry, equal breath sounds and chest rise Number of attempts at approach: 1 Number of other approaches attempted: 0 Secured with: pink tape Ease of procedure: easy Dentition: Intact and Unchanged Medication(s) Administered Medication Administration Time: 08/10/2022 7:44 AM RUMENT REPAIRER * Anesthesia Preprocedure Evaluation - Jaziel Schumacher MD - 08/09/2022 2:35 PM CST Anesthesia Pre-Procedure Evaluation Patient: Danielle Saini : 1970 Procedure : Procedure(s): LEFT REMOVAL OF TISSUE LEGAL ADMINISTRATIVE ASSISTANT AND EXCHANGE FOR SILICONE BREAST IMPLANT BILATERAL BREAST FAT GRAFTING DONOR SITE ABDOMEN Past Medical History: Diagnosis Date ??? Acute insomnia ??? Aromatase inhibitor use ??? Carcinoma of female breast (H) ??? Estrogen receptor positive ??? Frozen shoulder ??? Gastroesophageal reflux disease ??? Plantar fasciitis ??? Sleep apnea ??? Stress incontinence ??? Vitamin D deficiency Past Surgical History: Procedure Laterality Date ??? BREAST SURGERY Bilateral masectomy ??? LEAD HOUSEKEEPER SURGERY Dilation & Curettage ??? Lymph node dissection Right Axilla ??? TOOTH EXTRACTION Allergies Allergen Reactions ??? Cephalexin ??? Codeine ??? Mold Social History Tobacco Use ??? Smoking status: Not on file ??? Smokeless tobacco: Not on file Substance Use Topics ??? Alcohol use: Not on file Wt Readings from Last 1 Encounters: No data found for Wt Anesthesia Evaluation Pt has had prior anesthetic. History of anesthetic complications - PONV. ROS/MED HX ENT/Pulmonary: (+) sleep apnea, uses CPAP, Neurologic: Comment: Insomnia Cardiovascular: Comment: 10/14 echo Final Impressions: ??1. Normal LV size, normal wall thickness, normal global systolic function with an estimated EF of70 - 75%. ??2. Right ventricular cavity size is normal, global systolic RV function is normal. ??3. No significant valve disease detected. Comparison Compared to prior exam report of 07/18/2021, there has been no significant change. Chamber Sizes and Function Normal left ventricular size, normal wall thickness, normal global systolic function with an estimated EF of 70 - 75%. Left atrial size is normal. Right ventricular cavity size is normal, global systolic RV function is normal. The right atrium is normal. Right atrial volume index is 10 ml/m?. Right atrial area is 10 cm?. The pulmonary artery is of normal size and origin. The sinus of Valsalva is normal sized. The ascending aorta is normal sized. Valves, RV Pressures and Diastolic Function The aortic valve is not well visualized , no stenosis and no regurgitation. The mitral valve is normal in structure, trace mitral regurgitation. Normal diastolic function for age. The tricuspid valveis normal in structure. Tricuspid regurgitation is mild regurgitation. The tricuspid regurgitant velocity is 2.6 m/s, the estimated right ventricular systolic pressure is 26 mmHg plus right atrial pressure. The pulmonic valve is normal. No pulmonary regurgitation. Masses, Effusion, Shunts There is no pericardial effusion. The inferior vena cava is normal sized, respiratory size variation greater than 50%. No left to right shunting was detected by limited color flow Doppler interrogation of the interatrial septum. METS/Exercise Tolerance: Hematologic: - neg hematologic ROS Musculoskeletal: Comment: H/o frozen shoulder GI/Hepatic: (+) GERD, Symptomatic, Renal/Genitourinary: - neg Renal ROS Endo: Comment: Vit D deficiency Psychiatric/Substance Use: - neg psychiatric ROS Infectious Disease: - neg infectious disease ROS Malignancy: (+) Malignancy, History of Breast. Other: Physical Exam Airway airway exam normal Mallampati: II TM distance: > 3 FB Neck ROM: full Mouth opening: > 3 cm Respiratory Devices and Support Dental (+) Minor Abnormalities - some fillings, tiny chips Cardiovascular Rhythm and rate: regular and normal Pulmonary breath sounds clear to auscultation OUTSIDE LABS: CBC: No results found for: WBC, HGB, HCT, PLT BMP: No results found for: NA, POTASSIUM, CHLORIDE, CO2, BUN, CR, GLC COAGS: No results found for: PTT, INR, FIBR POC: No results found for: BGM, HCG, HCGS HEPATIC: No results found for: ALBUMIN, PROTTOTAL, ALT, AST, GGT, ALKPHOS, BILITOTAL, BILIDIRECT, PHILIPPE OTHER: No results found for: PH, LACT, A1C, VICKY, PHOS, MAG, LIPASE, AMYLASE, TSH, T4, T3, CRP, SED Anesthesia Plan ASA Status: 2 Anesthesia Type: General. - Airway: ETT Induction: Intravenous. Maintenance: Balanced. Techniques and Equipment: - Airway: Video-Laryngoscope Consents Anesthesia Plan(s) and associated risks, benefits, and realistic alternatives discussed. Questions answered and patient/medical representative(s) expressed understanding. - Discussed: - Discussed with: Patient Postoperative Care PONV prophylaxis: Ondansetron (or other 5HT-3), Dexamethasone or Solumedrol, Background Propofol Infusion Comments: Jaziel Schumacher MD RUMENT REPAIRER documented in this encounter Miscellaneous Notes * Anesthesia Care Transfer Note - Nahomy Gomez APRN CRNA - 08/10/2022 9:57 AM CST Patient: Danielle Saini Procedure: Procedure(s): LEFT REMOVAL OF TISSUE LEGAL ADMINISTRATIVE ASSISTANT AND EXCHANGE FOR SILICONE BREAST IMPLANT BILATERAL BREAST FAT GRAFTING DONOR SITE ABDOMEN Diagnosis: Personal history of irradiation, presenting hazards to health [Z92.3] Other specified aftercare following surgery [Z48.89] Encounter for change or removal of drains [Z48.03] Status post bilateral mastectomy [Z90.13] Status post bilateral breast implants [Z98.82] Encounter for breast reconstruction following mastectomy [Z42.1] Diagnosis Additional Information: No value filed. Anesthesia Type: General Note: Oropharynx: oropharynx clear of all foreign objects and spontaneously breathing Level of Consciousness: drowsy Oxygen Supplementation: face mask Level of Supplemental Oxygen (L/min / FiO2): 6 Independent Airway: airway patency satisfactory and stable Dentition: dentition unchanged Vital Signs Stable: post-procedure vital signs reviewed and stable Report to RN Given: handoff report given Patient transferred to: PACU Handoff Report: Identifed the Patient, Identified the Reponsible Provider, Reviewed the pertinent medical history, Discussed the surgical course, Reviewed Intra-OP anesthesia mangement and issues during anesthesia, Set expectations for post-procedure period and Allowed opportunity for questions andacknowledgement of understanding Vitals: Vitals Value Taken Time BP 119/71 Temp Pulse 56 Resp 10 SpO2 99 Electronically Signed By: Nahomy Gomez APRN CRNA August 10, 2022 9:57 AM RUMENT REPAIRER documented in this encounter Plan of Treatment Not on file documented as of this encounter Procedures Procedure Name Priority Date/Time Associated Diagnosis Comments ANE AIRWAY ETT PERFORMABLE Routine 08/10/2022 7:44 AM INSTRUMENT REPAIRER documented in this encounter Results * ANE AIRWAY ETT PERFORMABLE (08/10/2022 7:44 AM INSTRUMENT REPAIRER) Narrative Nahomy Gomez APRN INSURANCE ADVISER - 08/10/2022 7:44 AM INSTRUMENT REPAIRER Nahomy Gomez APRN INSURANCE ADVISER ? 08/10/2022 ??8:00 AM Airway ? Patient location during procedure: OR ? Procedure Start/Stop Times: 08/10/2022 7:44 AM Staff - ? Anesthesiologist: ??Jaziel Schumacher MD ? INSURANCE ADVISER: Nahomy Gomez APRN CRNA ? Other Anesthesia Staff: Katy Javeir ? Performed By: SRNA and with CRNAs ? Procedure performed by resident/fellow/INSURANCE ADVISER in presence of a teaching physician. Consent for Airway ? Urgency: elective Indications and Patient Condition ? Indications for airway management: tiny-procedural ? Induction type:intravenous ? Mask difficulty assessment: 1 - vent by mask Final Airway Details ? Final airway type: endotracheal airway ? Successful airway: ETT - single Endotracheal Airway Details ? ETT size (mm): 7.0 ? Cuffed: yes ? Cuff volume (mL): 6 ? Successful intubation technique: video laryngoscopy ? VL Blade Size: Glidescope 3 ? Grade View of Cords: 1 ? Adjucts: stylet ? Position: Right ? Measured from: gums/teeth ? Secured at (cm): 21 ? Bite block used: None Post intubation assessment ? Placement verified by: capnometry, equal breath sounds and chest rise ? Number of attempts at approach: 1 ? Number of other approaches attempted: 0 ? Secured with: pink tape ? Ease of procedure: easy ? Dentition: Intact and Unchanged Medication(s) Administered Medication Administration Time: 08/10/2022 7:44 AM Jaziel Schumacher MD MD ANESTHESIA documented in this encounter Visit Diagnoses Not on filedocumented in this encounter Administered Medications Inactive Administered Medications - up to 3 most recent administrations Medication Order MAR Action Action Date Dose Rate Site dexamethasone (DECADRON) injection Intravenous, PRN, Administer over 1 Minutes, Starting on Katelyn 08/10/22 at 0753, Anesthesia Intra-op $Given 08/10/2022 7:53 AM INSTRUMENT REPAIRER 4 mg fentaNYL (PF) (SUBLIMAZE) injection Intravenous, PRN, Administer over 3-5 Minutes, Starting on Katelyn 08/10/22 at 0740, Anesthesia Intra-op $Given 08/10/2022 8:00 AM INSTRUMENT REPAIRER 50 mcg $Given 08/10/2022 7:40 AM INSTRUMENT REPAIRER 50 mcg glycopyrrolate (ROBINUL) injection Intravenous, PRN, Administer over 1-2 Minutes, Starting on Katelyn 08/10/22 at 0740, Anesthesia Intra-op $Given 08/10/2022 9:29 AM INSTRUMENT REPAIRER 0.4 mg $Given 08/10/2022 8:45 AM INSTRUMENT REPAIRER 0.1 mg $Given 08/10/2022 8:37 AM INSTRUMENT REPAIRER 0.1 mg ketorolac (TORADOL) injection Intravenous, PRN, Administer over 2 Minutes, Starting on Katelyn 08/10/22 at 0949, Anesthesia Intra-op $Given 08/10/2022 9:49 AM INSTRUMENT REPAIRER 15 mg lactated ringers infusion at 10 mL/hr, Intravenous, CONTINUOUS, IF patient NOT on dialysis., Pre-procedure, Starting on Katelyn 08/10/22 at 0600, Until Katelyn 08/10/22 at 0955 $New Bag 08/10/2022 8:57 AM INSTRUMENT REPAIRER $New Bag 08/10/2022 6:23 AM INSTRUMENT REPAIRER 10 mL/hr lidocaine 2% injection (V) Other, PRN, Starting on Katelyn 08/10/22 at 0740, Anesthesia Intra-op $Given 08/10/2022 7:40 AM INSTRUMENT REPAIRER 100 mg midazolam (VERSED) injection Intravenous, Administer over 2 Minutes, PRN, Starting on Katelyn 08/10/22 at 0740, Anesthesia Intra-op $Given 08/10/2022 7:53 AM INSTRUMENT REPAIRER 1 mg $Given 08/10/2022 7:40 AM INSTRUMENT REPAIRER 1 mg neostigmine (PROSTIGMINE) injection Intravenous, PRN, Starting on Katelyn 08/10/22 at 0930, Anesthesia Intra-op $Given 08/10/2022 9:30 AM INSTRUMENT REPAIRER 3.5 mg ondansetron (ZOFRAN) injection Intravenous, PRN, Administer over 2-5 Minutes, Starting on Katelyn 08/10/22 at 0932, Anesthesia Intra-op $Given 08/10/2022 9:32 AM INSTRUMENT REPAIRER 4 mg phenylephrine (NEVILLE-SYNEPHRINE) injection Intravenous, CONTINUOUS PRN, Starting on Katelyn 08/10/22 at 0812, Anesthesia Intra-op $Bolus 08/10/2022 9:36 AM INSTRUMENT REPAIRER 100 mcg $Bolus 08/10/2022 9:28 AM INSTRUMENT REPAIRER 100 mcg $Bolus 08/10/2022 9:11 AM INSTRUMENT REPAIRER 100 mcg propofol (DIPRIVAN) injection 10 mg/mL vial Intravenous, PRN, Starting on Aktelyn 08/10/22 at 0740, Anesthesia Intra-op $Given 08/10/2022 7:40 AM INSTRUMENT REPAIRER 200 mg propofol (DIPRIVAN) injection 10 mg/mL vial Intravenous, CONTINUOUS PRN, Starting on Katelyn 08/10/22 at 0746, Anesthesia Intra-op Rate/Dose Change 08/10/2022 8:54 AM INSTRUMENT REPAIRER 20 mcg/kg/min 8.664 mL/hr $New Bag 08/10/2022 7:46 AM INSTRUMENT REPAIRER 30 mcg/kg/min 12.996 mL/ hr rocuronium injection Intravenous, PRN, Starting on Katelyn 08/10/22 at 0740, Anesthesia Intra-op $Given 08/10/2022 7:40 AM INSTRUMENT REPAIRER 30 mg documented in this encounter Care Teams Senior Controls Engineer Relationship Specialty Start Date End Date [facility], [place] [address] PCP - General 07/21/22 documented as of this encounter
--- OUTSIDE RECORDS SUMMARY | 2023-07-05 09:55 | XMS_ITS | Referral Summary ---
Author Name Unknown Organization [facility] Address [address] [place] [address] Care Team Providers Care Traffic Control Supervisor Name Role Phone Unavailable Primary Care Provider Unavailabl e Source Comments Patient records contain information from all sites at [facility]. For routine questions regarding patient records, call [phone] during business hours, M-F 8:00 AM - 5:00 PM Central Time. Record requests for emergency care only can be directed to [phone] at any time.[facility] Encounters Date Type Department Care Team Description 04/25/2023 10:40 AM CDT Comprehensive Visit Department of Dermatology in [address] [address] Naomi Shipman M.D. Dermatoheliosis (Primary Dx); Keratosis Seborrheic Discharge Disposition: Home or Self Care from Last 3 Months Allergies Active Allergy Reactions Criticality Noted Date Comments Codeine Hives (Reselect Reaction) Medium 03/20/2007 Cephalexin Itching,Rash Medium 02/01/2022 Mold Other (see comments) Medium 04/09/2017 dust Scopolamine Other (see comments) High 02/01/2022 insomnia Medications Medication Sig Dispensed Refills Start Date End Date Status ergocalciferol, vitamin D2, 10 mcg (400 unit) tablet 2 (two) times a day. 0 Active cetirizine (ZyrTEC) 10 mg tablet Take 10 mg by mouth daily. 0 Active pantoprazole (PROTONIX) 20 mg EC tablet TAKE 1 TABLET (20 MG) BY MOUTH DAILY 0 10/20/2021 Active letrozole (FEMARA) 2.5 mg tablet Take 2.5 mg by mouth daily. 0 01/23/2022 Active vitamin B complex (B COMPLEX-VITAMIN B12 ORAL) Take by mouth. 0 Active calcium carbonate (CALCIUM 500 ORAL) Take by mouth. 0 Ac tive sulfamethoxazole-tr imethoprim (BACTRIM DS) 800-160 mg per tablet Take 160 mg of trimethoprim by mouth daily. 0 03/12/2022 Active Active Problems Problem Noted Date Diagnosed Date Other Chest Pain 03/17/2022 Malignant Neoplasm Of Breast Upper Outer Quadrant Female Right 04/13/2021 Cancer Staging:Clinical stage from 03/31/2021:Stage IIA(cT2, cN0, cM0, G3, ER+, ND+, HER2-) - Unsigned Pathologic stage from 06/02/2021:Stage IIA(pT2, pN1a, cM0, G3, ER+, ND+, HER2-) - Unsigned Social History Tobacco Use Types Packs/Day Years Used Date Smoking Tobacco: Never Smokeless Tobacco: Never Humiliation, Afraid, Rape, and Kick questionnair e Answer Date Recorded Within the last year, have y ou been afraid of your partner or ex-partner? No 01/12/2022 Within the last year, have y ou been humiliated or emotionally abused in other ways by your partner or ex-partner? No Within the last year, have y ou been kicked, hit, slapped, or otherwise physically hurt by your partner or ex-partner? No 01/12/2022 Within the last year, have y ou been raped or forced to have any kind of sexual activity by your partner or ex-partner? No 01/12/2022 Social Connection and Isolat ion Panel [NHANES] Answer Date Recorded In a typical week, how many times do you talk on the phone with family, friends, or neighbors? More than three times a week 01/12/2022 How often do you get togethe r with friends or relatives? Once a week 01/12/2022 How often do you attend [facility] or islam services? More than 4 times per year 01/12/2022 Do you belong to any clubs o r organizations such as synagogue groups, unions, fraternal or athletic groups, or school groups? Yes 01/12/2022 How often do you attend meet ings of the clubs or organizations you belong to? More than 4 times per year 01/12/2022 Are you , , di vorced, , never , or living with a partner? 01/12/2022 AUDIT-C Answer Date Recorded Q1: How often do you have a drink containing alc ohol? Monthly or less 01/12/2022 Q2: How many drinks containi ng alcohol do you have on a typical day when you are drinking? 1 or 2 01/12/2022 Q3: How often do you have si x or more drinks on one occasion? Never 01/12/2022 Overall Financial Resource Strain (CARDIA) Answe r Date Recorded How hard is it for you to pa y for the very basics like food, housing, medical care, and heating? Not hard at all 01/12/2022 [facility] of Occupat ional Health - Occupational Stress Questionnaire Answer Date Recorded Do you feel stress - tense, restless, nervous, or anxious, or unable to sleep at night because your mind is troubled all the time - these days? To some extent 01/12/2022 Exercise Vital Sign Answer Date Recorde d On average, how many days pe r week do you engage in moderate to strenuous exercise (like a brisk walk)? 5 days 01/12/2022 On average, how many minutes do you engage in exercise at this level? 40 min 01/12/2022 Hunger Vital Sign Answer Date Recorded Within the past 12 months, y ou worried that your food would run out before you got the money to buy more. Never true 01/13/20 22 Within the past 12 months, t he food you bought just didn't last and you didn't have money to get more. Never true 01/12/2022 PRAPARE - Transportation Answer Date Re corded In the past 12 months, has l ack of transportation kept you from medical appointments or from getting medications? No 12/24 In the past 12 months, has l ack of transportation kept you from meetings, work, or from getting things needed for daily living? No 01/12/2022 Housing Stability Vital Sign Answer Shane e Recorded In the last 12 months, was t here a time when you were not able to pay the mortgage or rent on time? No 01/12/2022 In the last 12 months, how many places have you lived? 1 01/12/2022 In the last 12 months, was t here a time when you did not have a steady place to sleep or slept in a retirement (including now)? No 01/12/2022 Nutrition Answer Date Recorded Nutrition: EVOO Fat Source No 01/12 On average, how many serving s of fruits and vegetables do you eat per day (serving size is equal to 1 cup or approximately the size of a tennis ball)? 8 or more 01/12/2022 Dental Answer Date Recorded Dental: Regular Dentist Yes 01/13/20 Employment Answer Date Recorded Employment status Employed and actively working without restrictions 01/12/2022 Education Answer Date Recorded What is the highest level of school you have completed or the highest degree you have received? Professional school degree (e.g., MD, DDS, DVM, ORTIZ) 01/12/2022 Sex and Gender Information Value Date Recorded Sex Assigned at Female 01/12/2022 4:28 PM CDT Gender Identity Female 01/12/2022 4:28 PM CDT Sexual Orientation Straight 01/12/2022 4: 28 PM CDT Last Filed Vital Signs Vital Sign Reading Time Taken Comments Blood Pressure 114/57 03/24/2022 11:23 AM CDT Pulse 59 03/24/2022 11:23 AM CDT Temperature 36.2 ??C (97.2 ??F) 03/24/2022 1 1:23 AM CDT Respiratory Rate - - Oxygen Saturation - - Inhaled Oxygen Concentration - - Weight 76.1 kg (167 lb 12.3 oz) 022 11:23 AM CDT Height 176.5 cm (5' 9.49) 04/14/2021 8:57 AM CD T Body Mass Index 24.43 04/14/2021 8:57 AM CDT Plan of Treatment Upcoming Encounters Date Type Department Care Team (Latest Contact Info) Description 08/01/2023 9:30 AM CROZE CUTTER Clinical Communication Virtual Review in [place], [place] [address] [place] [address] 08/02/2023 9:00 AM CROZE CUTTER Comprehensive Visit Division of Plastic Surgery in [place], [place] [address] [place] [address] Malik Posadas M.D. [address] [place] [address] Procedures Procedure Name Priority Date/Time Associated Diagnosis Comments OUTSIDE US BREAST Routine 05/04/2023 10: 20 AM CROZE CUTTER from Last 3 Months Results * US breast RT limited-Outside US Breast (05/04/2023 10:20 AM CROZE CUTTER) 05/04/2023 10:1 8 AM CROZE CUTTER Narrative IIMS - 05/04/2023 11:19 AM CROZE CUTTER This order has been created and auto-finalized to support the import of outside images. If available, original interpretation can be found on the Media Tab in Chart Review, in Document Viewer, or as an image in QREADS. If a re-interpretation or overread is required please follow defined workflow. ?? Provider Not In System IMG BI PROCEDURES IIMS NA from Last 3 Months
--- OUTSIDE RECORDS SUMMARY | 2023-07-05 09:55 | XMS_ITS | Encounter Summary ---
Author Name Unknown Organization [facility] Address [address] [place] [address] Care Team Providers Care Window Covering Sales Consultant Name Role Phone Unavailable Primary Care Provider Unavailabl e Reason for Visit * Appointment Request (Routine) - Closed Specialty Diagnoses / Procedures Referred By Contac t Referred To Contact Dermatology Diagnoses Screening Examination Skin Cancer Referral ID Status Reason Start Date Expiration Date Visits Re quested Visits Authorized [id number] Closed 04/24/2023 04/23/2024 1 1 Encounter Details Date Type Department Care Team (Latest Contact Info) Description 04/25/2023 10:40 AM CDT Comprehensive Visit Department of Dermatology in [place], [place] [address] [place] [phone] Naomi Shipman M.D. [address] [place] [phone] Dermatoheliosis (Primary Dx); Keratosis Seborrheic Discharge Disposition: Home or Self Care Social [...] week 01/12/2022 How often do you attend chur or episcopalian services? More than 4 times per year 01/12/2022 Do you belong to any clubs o r organizations such as evangelical groups, unions, fraternal [...] Not hard at all 01/12/2022 [facility]at ional Health - Occupational Stress [...] money to buy more. Never true 01/13/20 Within the past 12 months, t he [...] place to sleep or slept in a fdc (including now)? No 01/12/2022 Nutrition Answer Date [...] Orientation Straight 01/12/2022 4: 28 PM CDT documented as of this encounter Consult Notes * Naomi Shipman M.D. - 04/25/2023 10:40 AM CDT Correspondence to: me Supervision: Dr. Mckeon supervised the visit. REFERRAL No referring provider defined for this encounter. CHIEF COMPLAINT / REASON FOR VISIT Skin cancer screening exam HISTORY OF PRESENT ILLNESS Ms. Danielle Saini is a 53 y.o. female who presents today for the above. No prior history of skin cancer. Family history of melanoma in 2 siblings. No family history of pancreatic or ovarian cancer. She has a history of right breast invasive ductal carcinoma, status post bilateral mastectomies and right axillary lymph node dissection. She also had radiation to the right chest wall from January 23, 2022 to February 24, 2022. She has implants in the bilateral breasts as well. Tries to use sun protection. PHYSICAL EXAMINATION Skin: Examination of the scalp, face, neck, chest, abdomen, back, bilateral upper extremities, bilateral lower extremities and buttocks, sparing the genitalia, performed and revealed: - Patel type 2 - Dermatoheliosis. - Over the trunk and extremities, there are scattered waxy stuck brown-chavez papules and plaques consistent with seborrheic keratoses. - Primarily over the trunk and also on the extremities, there are scattered small brown round macules and papules consistent with benign-appearing nevi - Over the bilateral breasts, surgical scars and implants present. Over the right breast, there is firmness, but no atrophic changes rashes on the right breast concerning for morphea at this time ASSESSMENT / PLAN #1 Skin cancer screening examination, family history of melanoma #2 Dermatoheliosis Sun protection and sun avoidance were reviewed with the patient. Sunscreen with SPF>30 was recommended. #3 Benign-appearing nevi I recommend continued sun protection, self-skin examinations, and observation. Should any of the patient's nevi change in size, color, texture, or shape or develop symptoms such as itching or bleeding, I recommend an immediate return visit for reassessment. #4 Seborrheic keratoses The benign nature of the skin lesion(s) was discussed with the patient. #5 Right invasive ductal carcinoma, status post implants after mastectomy (bilaterally) and right chest wall radiation She asked about increased risk of skin cancer from radiation, which we discussed is in a long-term risk and will continue to monitor these in skin checks. The other consideration is if she has rash, progressive scarring, or other skin changes over her breast, we would want to evaluate further. Differentials would include radiation induced morphea but this is no a concern on exam today. Based on her family history, I recommend an annual full body skin examination in dermatology, but sooner for any concerning changes. Naomi Shipman MD PGY4 Dermatology OVERWRAP MACHINE TENDER Associated attestation - Margarita Mckeon M.D. - 05/08/2023 3:35 PM PLUG OVERWRAP MACHINE TENDER I saw and evaluated the patient, participating in the bentley portions of the service. I reviewed the resident's note, and I agree with the findings and plan. documented in this encounter Plan of Treatment Upcoming Encounters Date Type Department Care Team (Latest Contact Info) Description 08/01/2023 9:30 AM PLUG OVERWRAP MACHINE TENDER Clinical Communication Virtual Review in [place], [place] [address] [place] [address] 08/02/2023 9:00 AM PLUG OVERWRAP MACHINE TENDER Comprehensive Visit Division of Plastic Surgery in [place], [place] [address] [place] [phone] Malik Posadas M.D. [address] [place] [phone] documented as of this encounter Visit Diagnoses Diagnosis Dermatoheliosis- Primary Keratosis Seborrheic documented in this encounter
--- OUTSIDE RECORDS SUMMARY | 2023-07-05 09:55 | XMS_ITS | Clinical Summary ---
Author Name Unknown Organization [facility] Address [address] [place] [address] Care Team Providers Care Civil Division Deputy Sheriff Name Role Phone Unavailable Primary Care Provider Unavailabl e Source Comments Patient records contain information from all sites at [facility]. For routine questions regarding patient records, call [phone] during business hours, M-F 8:00 AM - 5:00 PM Central Time. Record requests for emergency care only can be directed to [phone] at any time.[facility] Allergies Active Allergy Reactions Criticality Noted Date [...] from 03/31/2021:Stage IIA(cT2, cN0, cM0, G3, ER+, KS+, HER2-) - Unsigned Pathologic stage from 06/02/2021:Stage IIA(pT2, pN1a, cM0, G3, ER+, KS+, HER2-) - Unsigned Encounters Date Type Department Care Team Description 04/25/2023 10:40 AM CDT Comprehensive Visit Department of Dermatology in [place], [place] [address] [place] [address] Naomi Shipman M.D. Dermatoheliosis (Primary Dx); Keratosis Seborrheic Discharge Disposition: Home or Self Care from Last 3 Months Family History Medical [...] week 01/12/2022 How often do you attend [facility] or quaker services? More than 4 times per year 01/12/2022 Do you belong to any clubs o r organizations such as congregational groups, unions, fraternal [...] and heating? Not hard at all 01/12/2022 [facility] of Occupat ional Health - Occupational [...] slept in a senior living (including now)? No 01/12/2022 Nutrition Answer Date [...] (Latest Contact Info) Description 08/01/2023 9:30 AM RETAIL SALES CONSULTANT Clinical Communication Virtual Review in [place] [address] [place] [address] 08/02/2023 9:00 AM RETAIL SALES CONSULTANT Comprehensive Visit Division of Plastic Surgery in [place], [place] [address] [place] [address] Malik Posadas M.D. [address] [place] [address] Health Maintenance Due Date Last Done Comments CT Colonography 1968 Cervical Cancer Screening 1968 Cologuard 1968 Colonoscopy 1968 Colorectal Cancer Screening 1968 FIT 1968 HIV Screening 1968 Hepatitis B Vaccines (1 of 3 - 3-dose series) 1968 Hepatitis C Screening 1968 Pneumococcal vaccine (0-64 years) (1 of 2 - PCV) 01/17/1974 Mammogram 03/31/2022 03/31/2021, 02/25, 03/16/2021, Additional history exists Depression Screening (Annual PHQ-2) 06/25/2022 Lipid (Cholesterol) Screening 02/16/2025 02/17/2020, 05/19/2019, 01/16/2019 Fasting Glucose for Diabetes Screening 07/24/2025 07/24/2022, 02/17/2020, 02/17/2020, Additional history exists DTaP,Tdap,and Td Vaccines (3 - Td or Tdap) 02/16/2030 02/17/2020, 06/30/2009 Zoster Vaccines Completed 06/19/2019, 1106/2018, 02/11/2019 COVID-19 Vaccine Completed 05/21/2023, , 07/20/2021, Additional history exists Influenza Vaccine Completed 05/21/2023, , 03/28/2021, Additional history exists HPV Vaccines Aged Out No longer eligi ble based on patient's age to complete this topic Procedures Procedure Name Priority Date/Time Associated Diagnosis Comments OUTSIDE US BREAST Routine 05/04/2023 10: 20 AM RETAIL SALES CONSULTANT from Last 3 Months Results * US breast RT limited-Outside US Breast (05/04/2023 10:20 AM RETAIL SALES CONSULTANT) 05/04/2023 10:1 8 AM RETAIL SALES CONSULTANT Narrative IIMS - 05/04/2023 11:19 AM RETAIL SALES CONSULTANT This order has been created and auto-finalized [...]
--- OUTSIDE RECORDS SUMMARY | 2023-07-05 09:55 | XMS_ITS ---
Author Name Unknown Organization [facility] Address [address] [place] [address] Care Team Providers Care Spinning Lathe Operator Hydraulic Name Role Phone Unavailable Unavailable Unavailable Surgery Details Not on file Complications Check Surgery Details section. Procedure Estimated Blood Loss Check Surgery Details section. Procedure Findings Check Surgery Details section. Procedure Specimens Taken Check Surgery Details section.
== END 2023-06-29 13:01 | disposition home or self-care (01) ==
LOC: NFLDREF 07-05 09:52
PROVIDERS: PCP Family Medicine; Referring Provider Family Medicine; Visit Provider Family Medicine
DX: B35.1 Tinea unguium (principal)
CPT/HCPCS: 80053

== ENCOUNTER 2023-07-20 13:29 | Outpatient (CLI) | payer OTHER, SELFPAY ==
--- OUTSIDE RECORDS SUMMARY | 2023-07-20 13:33 | XMS_ITS | Encounter Summary ---
Author Name Unknown Organization [facility] Address [address] [place] [address]. [place] [address] Care Team Providers Care Pad Machine Offbearer Name Role Phone [facility] Primary Care Provider Encounter Details Date Type [...] Coronavirus/COVID-19? No / Unsure 08/10/2022 5:25 AM INVENTORY ASSOCIATE documented as of this encounter Plan of Treatment Not on file documented as of this encounter Visit Diagnoses Not on filedocumented in this encounter Care Teams Pad Machine Offbearer Relationship Specialty Start Date End Date [address] [address] PCP - General 07/21/22 documented as of this encounter
--- OUTSIDE RECORDS SUMMARY | 2023-07-20 13:33 | XMS_ITS | Encounter Summary ---
Author Name Unknown Organization [facility] Address [address] [place] [address] Care Team Providers Care Pound Attendant Name Role Phone [facility] Primary Care Provider Reason for Visit * [...] for breast reconstruction following mastectomy [Z42.1] Procedures OH REMOVE TISSUE ADMINISTRATIVE SUPPORT MANAGER(S) OH ENLARGE BREAST WITH IMPLANT OH REMOVAL OF BREAST IMPLANT OH REMOVAL OF IMPLANT MATERIAL OH DELAY BREAST PROS AFTER BREAST SURG OH GRAFTING OF AUTOLOGOUS SOFT TISS BY DIRECT EXC OH GRAFTING OF AUTOLOGOUS FAT BY LIPO 50 CC OR LESS OH GRAFTING OF AUTOLOGOUS FAT BY LIPO EA ADDL 50 CC LEFT REMOVAL OF TISSUE ADMINISTRATIVE SUPPORT MANAGER AND EXCHANGE FOR SILICONE BREAST IMPLANT BILATERAL BREAST FAT GRAFTING DONOR SITE ABDOMEN Sh Periop Services [facility] [address], [address] [place] [address] Referral ID Status Reason Start Date Expiration Date Visits Re quested Visits Authorized [id number] 1 1 Encounter Details Date Type Department Care Team (Late st Contact Info) Description 08/10/2022 7:30 AM CARDIOLOGY ASSOCIATE - 08/10/2022 9:40 AM CARDIOLOGY ASSOCIATE Surgery [facility] Per[facility] Services [address] [place] [address] Nai Cotto MD [facility] [address] [facility] [address] [address] LEFT REMOVAL OF TISSUE ADMINISTRATIVE SUPPORT MANAGER Surgery Details Date/Time Status Location OR Service Patient Class Case Class Case Type Trauma Case? 08/10/22 7:30 AM Posted OR OR M 20 Plastics & Reconstruction Same Day Surgery Panel 1 Procedure LRB Anes Op Region Wound Class Comments LEFT REMOVAL OF TISSUE ADMINISTRATIVE SUPPORT MANAGER Left General Breast I-Clean AND EXCHANGE FOR SILICONE BR EAST IMPLANT Left General Breast I-Clean BILATERAL BREAST FAT GRAFTIN G DONOR SITE ABDOMEN Bilateral General Update I-Clean Surgeon Surgeon Role Service Panel Nai Cotto MD Primary Plastics & Reconstru ction 1 Milena Junior PA-C Assisting 1 Special Needs RIGHT IMPLANT SCF 605 ORDER A FEW DIFFERENT SIZES FDA CHECKLISTLEFT ADMINISTRATIVE SUPPORT MANAGER FV 14 425CC documented in this [...] Coronavirus/COVID-19? No / Unsure 08/10/2022 5:25 AM CARDIOLOGY ASSOCIATE documented as of this encounter Last Filed Vital Signs Vital Sign Reading Time Taken Comments Blood Pressure 130/83 08/10/2022 5:48 AM CARDIOLOGY ASSOCIATE Pulse - - Temperature 35.6 ??C (96 ??F) 08/10/2022 5:48 AM CARDIOLOGY ASSOCIATE Respiratory Rate 16 08/10/2022 5:48 AM CARDIOLOGY ASSOCIATE Oxygen Saturation 98% 08/10/2022 5:48 AM CARDIOLOGY ASSOCIATE Inhaled Oxygen Concentration - - Weight 72.2 kg (159 lb 3.2 oz) 08/10/2022 5:48 A M CARDIOLOGY ASSOCIATE Height 175.3 cm (5' 9) 08/10/2022 5:48 AM CARDIOLOGY ASSOCIATE Body Mass Index 23.51 08/10/2022 5:48 AM CARDIOLOGY ASSOCIATE documented in this encounter Discharge Instructions * Discharge Instructions* Jaziel Pond RN - 08/10/2022 6:36 AM CARDIOLOGY ASSOCIATE Today you were given 1000 mg of [...] about your procedure, call Dr. Cotto at [phone]. IOLOGY ASSOCIATE documented in this encounter Medications at Time [...] the patient. There are no significant changes IOLOGY ASSOCIATE Source Note - Outside, Provider - 08/07/2022 10:33 AM CARDIOLOGY ASSOCIATE documented in this encounter Nursing Notes * Jaziel Pond RN - 08/10/2022 11:59 AM CST Nausea resolved- OK to transport to phase [address] Schumacher IOLOGY ASSOCIATE * Jaziel Pond RN - 08/10/2022 11:37 AM CST After getting to recliner- nausea returned- compazine 5 mg IV X1 per Dr Schumacher- pt to be returned to phase 1 for monitoring for approx 20 minutes- IOLOGY ASSOCIATE * Jaziel Pond RN - 08/10/2022 11:15 AM CST zofran for nausea- effective- Pt dressed, up in recliner and transported to Phase 2. IOLOGY ASSOCIATE * Raya Shafer RN - 08/10/2022 9:29 AM CST Fat grafting 50ml in Right breast and 40ml in Left breast IOLOGY ASSOCIATE documented in this encounter Miscellaneous Notes * Op Note - Nai Cotto MD - 08/10/2022 9:34 AM CST PREOPERATIVE DIAGNOSIS: 1. Personal history of right breast cancer [Z85.3] 2. Status post bilateral mastectomies and prepectoral tissue supervisor coil winding breast reconstruction with AlloDerm [Z90.13] 3. Breast implant status [Z98.82] 4. Personal history of irradiation [Z92.3] POSTOPERATIVE DIAGNOSIS: 1. Personal history of right breast cancer [Z85.3] 2. Status post bilateral mastectomies and prepectoral tissue supervisor coil winding breast reconstruction with AlloDerm [Z90.13] 3. Breast implant status [Z98.82] 4. Personal history of irradiation [Z92.3] PROCEDURE: 1. Removal of left tissue supervisor coil winding and exchange for silicone breast implant 2. Bilateral breast fat grafting, donor site abdomen (total harvested 90 ml, total grafted right breast 50 ml, left breast 40 ml) DRAINAGE TYPE: None CRISIS MANAGER: ANGELICA Meelndrez PA-C, was present and scrubbed for the entire procedure, and this is to include dissection, retraction and closure. There were no other qualified trainees or other assistants available and the presence of Melissa Junior PA-C, was necessary due to inability to retract and dissect without an assistant executive housekeeper. INDICATIONS FOR PROCEDURE: The patient is a 52 year old female with a personal history of right breast cancer. She underwent bilateral mastectomies, [id number] breast reconstruction on the right side, and left immediate prepectoral tissue supervisor coil winding breast reconstruction with AlloDerm. She then completed [...] incised with the electrocautery and the tissue supervisor coil winding was removed. It was found to be intact with all tabs present. This was a Natrelle FV-14 smooth tissue supervisor coil winding filled to 425 ml. The AlloDerm was [...] fat. The fat was processed using the iCentera system. A total of 90 ml was [...] implant SCF-560 with a serial number of [id number]. The AlloDerm was closed onto itself with [...] for the entire case. Nai Cotto MD IOLOGY ASSOCIATE * Brief Op Note - Nai Cotto MD - 08/10/2022 9:[address] 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 Complications: None. Implants: Implant Name Type Inv. Item Serial No. Car Seat Upholsterer Lot No. LRB No. Used Action BREAST TISSUE ADMINISTRATIVE SUPPORT MANAGER Left 1 Explanted NATCLAYE INSPIRA COHESIVE BREAST IMPLANT SMOOTH ROUND FULL PROFILE Breast Implant/Tissue Clerical Dentist Assistant [id number] Left 1 Implanted IOLOGY ASSOCIATE documented in this encounter Plan of Treatment Not on file documented as of this encounter Procedures Procedure Name Priority Date/Time Associated Diagnosis Comments FAT GRAFT, BREAST 08/10/2022 7:3 4 AM CARDIOLOGY ASSOCIATE Personal history of irradiation, presenting hazards to health Other specified aftercare following surgery Encounter for change or removal of drains Status post bilateral mastectomy Status post bilateral breast implants Encounter for breast reconstruction following mastectomy Special Needs RIGHT IMPLANT SCF 605 ORDER A FEW DIFFERENT SIZES FDA CHECKLISTLEFT ADMINISTRATIVE SUPPORT MANAGER FV 14 425CC REPLACEMENT, IMPLANT, BREAST 08/10/2022 7:34 AM CARDIOLOGY ASSOCIATE Personal history of irradiation, presenting hazards to health Other specified aftercare following surgery Encounter for change or removal of drains Status post bilateral mastectomy Status post bilateral breast implants Encounter for breast reconstruction following mastectomy Special Needs RIGHT IMPLANT SCF 605 ORDER A FEW DIFFERENT SIZES [facility] CHECKLISTLEFT ADMINISTRATIVE SUPPORT MANAGER FV 14 425CC REMOVAL, TISSUE ADMINISTRATIVE SUPPORT MANAGER, BREAST 08/10/2022 7:34 AM CARDIOLOGY ASSOCIATE Personal history of irradiation, presenting hazards to health Other specified aftercare following surgery Encounter for change or removal of drains Status post bilateral mastectomy Status post bilateral breast implants Encounter for breast reconstruction following mastectomy Special Needs RIGHT IMPLANT SCF 605 ORDER A FEW DIFFERENT SIZES [facility] CHECKLISTLEFT ADMINISTRATIVE SUPPORT MANAGER FV 14 425CC LAB RESULT - HIM SCAN 07/24/2022 12:00 AM CARDIOLOGY ASSOCIATE documented in this encounter Results * LAB RESULT - HIM SCAN (07/24/2022 12:00 AM CARDIOLOGY ASSOCIATE) 07/24/2022 Provider Outside NON-BEAKER LAB TE STING [...] 4 gram, Pre-procedure $Given 08/10/2022 6:10 AM CARDIOLOGY ASSOCIATE 1,000 mg acetaminophen (TYLENOL) tablet 650 mg [...] Pharmacoprophylaxis, Pre-procedure $New Bag 08/10/2022 6:24 AM CARDIOLOGY ASSOCIATE 900 mg 100 mL/hr EPINEPHrine 1:1000 1 ml (1 mg) + NaCl 0.9% 1000 ml PRN, Starting on Katelyn 08/10/22 at 0930, Intra-procedure $Given 08/10/2022 9:30 AM CARDIOLOGY ASSOCIATE 610 mLs Operative Site/Surgical Site gabapentin (NEURONTIN) tablet 600 mg 600 mg, Oral, ONCE, On Katelyn 08/10/22 at 0600, For 1 dose, Pre-procedure $Given 08/10/2022 6:10 AM CARDIOLOGY ASSOCIATE 600 mg lactated ringers (bag) irrigation SOLN PRN, Starting on Katelyn 08/10/22 at 0905, Intra-procedure $Given 08/10/2022 9:05 AM CARDIOLOGY ASSOCIATE 1,000 mLs Operative Site/Surgical Site lactated ringers infusion at 10 mL/hr, Intravenous, CONTINUOUS, IF patient NOT on dialysis., Pre-procedure, Starting on Katelyn 08/10/22 at 0600, Until Katelyn 08/10/22 at 0955 $New Bag 08/10/2022 8:57 AM CARDIOLOGY ASSOCIATE $New Bag 08/10/2022 6:23 AM CARDIOLOGY ASSOCIATE 10 mL/hr ondansetron (ZOFRAN ODT) ODT tab [...] ordered]. Irritant., PACU $Given 08/10/2022 10:43 AM CARDIOLOGY ASSOCIATE 4 mg povidone-iodine (BETADINE) 10 % topical solution PRN, Starting on Katelyn 08/10/22 at 0839, Intra-procedure $Given 08/10/2022 8:39 AM CARDIOLOGY ASSOCIATE 250 mLs Other (see comments) prochlorperazine (COMPAZINE) injection 5 mg 5 mg, Intravenous, ONCE, Administer over 1-2 Minutes, On Katelyn 08/10/22 at 1130, For 1 dose, PACU $Given 08/10/2022 11:28 AM CARDIOLOGY ASSOCIATE 5 mg sodium chloride 0.9% (bottle) irrigation PRN, Starting on Katelyn 08/10/22 at 0800, Intra-procedure $Given 08/10/2022 8:00 AM CARDIOLOGY ASSOCIATE 1,000 mLs Operative Site/Surgical Site traMADol (ULTRAM) tablet 50 mg 50 mg, Oral, EVERY 6 HOURS PRN, moderate pain, Starting on Katelyn 08/10/22 at 0955 traMADol (ULTRAM) tablet 50 mg 50 mg, Oral, ONCE, On Katelyn 08/10/22 at 1030, For 1 dose, PACU $Given 08/10/2022 10:28 AM CARDIOLOGY ASSOCIATE 50 mg documented in this encounter Active and Recently Administered Medications Times are shown in CARDIOLOGY ASSOCIATE. Scheduled Medication Order 08/08/2022 08/09/2022 08/10/2022 acetaminophen [...] RN)[id number] (Paused - Provider: Nahomy Gomez APRN AGRICULTURAL RESEARCH TECHNICIAN - Comment: Switch to gravity)0857 ($New Bag - Provider: Nahomy Gomez APRN AGRICULTURAL RESEARCH TECHNICIAN)0956 (Anesthesia Volume Adjustment - Provider: Nahomy Gomez [...] PACU documented in this encounter Care Teams Pound Attendant Relationship Specialty Start Date End Date [facility], [place] [id number] PCP - General 07/21/22 documented as of this encounter
--- OUTSIDE RECORDS SUMMARY | 2023-07-20 13:33 | XMS_ITS | Referral Summary ---
Author Name Unknown Organization [facility] Address [address] [place] [address]. [place] [address] Care Team Providers Care Courtroom Clerk Name Role Phone Clinic, [facility] Primary Care Provider Allergies Active Allergy Reactions [...] Comments Blood Pressure 115/83 08/10/2022 1:42 PM CLEARANCE CENTER MANAGER Pulse 44 08/10/2022 11:45 AM CLEARANCE CENTER MANAGER Temperature 35.8 ??C (96.5 ??F) 08/10/2022 1:42 PM CS T Respiratory Rate 14 08/10/2022 1:42 PM CLEARANCE CENTER MANAGER Oxygen Saturation 99% 08/10/2022 1:42 PM CLEARANCE CENTER MANAGER Inhaled Oxygen Concentration - - Weight 72.2 kg (159 lb 3.2 oz) 08/10/2022 5:48 A M CLEARANCE CENTER MANAGER Height 175.3 cm (5' 9) 08/10/2022 5:48 AM CLEARANCE CENTER MANAGER Body Mass Index 23.51 08/10/2022 5:48 AM CLEARANCE CENTER MANAGER Plan of Treatment Not on file Medical Devices Implanted Type Area Vp Clinical Device Identifier Shelf Expiration Date Model / Serial / Lot Natrelle Inspira Cohesive Breast Implant Smooth Round Full Profile Implanted:Qty : 1 on 08/10/2022 by Nai Cotto MD at [facility] Breast Implant/Tiss ue [employer] Vehicle [employer] Interpreter Left: Breast 06/27/2025 SCF-560 / [id number] / Explanted Type Area Vp Clinical Device Identifier Shelf Expiration Date Model / Serial / Lot Breast Tissue Motor Vehicle Parts Interpreter Explanted:Qty: 1 on 08/10/2022 by Nai Cotto MD at [facility] Left: Breast Care Teams Courtroom Clerk Relationship Specialty Start Date End Date Clinic, [address] [address] PCP - General 07/21/22
--- OUTSIDE RECORDS SUMMARY | 2023-07-20 13:33 | XMS_ITS | Clinical Summary ---
Author Name Unknown Organization [facility] Address [address] [place] [address] Care Team Providers Care Internal Controls Specialist Name Role Phone Unavailable Primary Care Provider Unavailabl e Source Comments Patient records contain information from all sites at [facility]. For routine questions regarding patient records, call [phone] during business hours, M-F 8:00 AM - 5:00 PM Central Time. Record requests for emergency care only can be directed to [phone] at any time.[facility] Allergies Active Allergy Reactions Criticality Noted [...] from 03/31/2021:Stage IIA(cT2, cN0, cM0, G3, ER+, RI+, HER2-) - Unsigned Pathologic stage from 06/02/2021:Stage IIA(pT2, pN1a, cM0, G3, ER+, RI+, HER2-) - Unsigned Encounters Date Type Department Care Team Description 04/25/2023 10:40 AM CDT Comprehensive Visit Department of Dermatology in [place], [place] [address] [place] [address] Naomi Shipman M.D. Dermatoheliosis (Primary Dx); Keratosis [...] week 01/12/2022 How often do you attend [facility] or buddhism services? More than 4 times per year 01/12/2022 Do you belong to any clubs o r organizations such as buddhism groups, unions, fraternal or athletic groups, or [...] and heating? Not hard at all 01/12/2022 [facility] - Occupational Stress [...] (Latest Contact Info) Description 08/01/2023 9:30 AM ELECTRO PLATER Clinical Communication Virtual Review in [place] [address] [place] [address] 08/02/2023 9:00 AM ELECTRO PLATER Comprehensive Visit Division of Plastic Surgery in [place], [place] [address] [place] [address] Malik Posadas M.D. [address] [place] [address] Health Maintenance Due Date Last Done Comments CT Colonography 1968 Cervical Cancer Screening 1968 Cologuard 1968 Colonoscopy 1968 Colorectal Cancer Screening 1968 FIT 1968 HIV Screening 1968 Hepatitis B Vaccines (1 of 3 - 3-dose series) 1968 Hepatitis C Screening 1968 Pneumococcal vaccine (0-64 years) (1 of 2 - PCV) 01/17/1974 Mammogram 03/31/2022 03/31/2021, 02/25, 03/16/2021, Additional history exists Depression Screening (Annual PHQ-2) 06/25/2023 Lipid (Cholesterol) Screening 02/16/2025 02/17/2020, 05/19/2019, 01/16/2019 [...] US BREAST Routine 05/04/2023 10: 20 AM ELECTRO PLATER from Last 3 Months Results * US breast RT limited-Outside US Breast (05/04/2023 10:20 AM ELECTRO PLATER) 05/04/2023 10:1 8 AM ELECTRO PLATER Narrative IIMS - 05/04/2023 11:19 AM ELECTRO PLATER This order has been created and auto-finalized [...]
--- OUTSIDE RECORDS SUMMARY | 2023-07-20 13:33 | XMS_ITS ---
Author Name Unknown Organization [facility] Address [address] [place] [address] Care Team Providers Care Casey Saw Operator Name Role Phone Unavailable Unavailable Unavailable Surgery Details Not on file Complications Check Surgery Details section. Procedure Estimated Blood Loss Check Surgery Details section. Procedure Findings Check Surgery Details section. Procedure Specimens Taken Check Surgery Details section.
--- OUTSIDE RECORDS SUMMARY | 2023-07-20 13:33 | XMS_ITS | Clinical Summary ---
Author Name Unknown Organization [facility] Address [place], [place] [address] Care Team Providers Care Swat Team Member Name Role Phone Pcp, No Primary Care [...] Overview: Added automatically from request for surgery [id number] GSI (genuine stress incontinence), female 2011 Routine gynecological examination 11/30/2011 Immunizations Name Administration Dates Next Due AMB INFLUENZA, IIV4 (AGE=>6M OS) MDV (Flu Clinic Only) 03/26/2020 COVID-19 vaccine (Enflick 30mcg/0.3mL) PF, MDV 11/09/2020,10/12/2020 Influenza Virus, Unspecified 03/26/2020 Influenza, IIV4 03/28/2021,04/05/2016,04/24/2014 Influenza, IIV4 (Age 6-35 Mos) 04/05/2017 Tdap 02/17/2020,06/30/2009 Tuberculin (PPD) 04/24/2014 Zoster (Shingrix-RZV, recombinant) 06/19/2019,,02/11/2019 Family History Medical History Relation Name Comments Alcoholism Brother 2 Ankit Diabetes Brother 2 Ankit Drug Abuse Brother 2 Ankit Emphysema Father Nikos Hyperlipidemia Father Nikos Hypertension Father Nkios Cancer-breast Maternal Aunt Becca Rheum arthritis Maternal [...] Comments Blood Pressure 105/61 07/10/2022 9:02 AM HIDE HOUSE SUPERVISOR Pulse 67 07/10/2022 9:02 AM HIDE HOUSE SUPERVISOR Temperature 36.3 ??C (97.4 ??F) 05/14/2017 1:21 PM CS T Respiratory Rate 16 04/10/2017 2:37 PM CDT Oxygen Saturation 98% 07/10/2022 9:02 AM HIDE HOUSE SUPERVISOR Inhaled Oxygen Concentration - - Weight 74.9 kg (165 lb 3.2 oz) 07/10/2022 9:02 A M HIDE HOUSE SUPERVISOR Height 176.8 cm (5' 9.59) 04/24/2022 10:28 [...] age to complete this topic Care Teams Swat Team Member Relationship Specialty Start Date End Date Pcp, No . PCP - General 04/26/22
--- OUTSIDE RECORDS SUMMARY | 2023-07-20 13:33 | XMS_ITS | Clinical Summary ---
Author Name Unknown Organization [facility] Address [address] [place] [address]. [place] [address] Care Team Providers Care Coppersmith Helper Name Role Phone Clinic, [facility] Primary Care Provider Allergies Active Allergy Reactions [...] Comments Blood Pressure 115/83 08/10/2022 1:42 PM SUPERVISOR SHED WORKERS Pulse 44 08/10/2022 11:45 AM SUPERVISOR SHED WORKERS Temperature 35.8 ??C (96.5 ??F) 08/10/2022 1:42 PM CS T Respiratory Rate 14 08/10/2022 1:42 PM SUPERVISOR SHED WORKERS Oxygen Saturation 99% 08/10/2022 1:42 PM SUPERVISOR SHED WORKERS Inhaled Oxygen Concentration - - Weight 72.2 kg (159 lb 3.2 oz) 08/10/2022 5:48 A M SUPERVISOR SHED WORKERS Height 175.3 cm (5' 9) 08/10/2022 5:48 AM SUPERVISOR SHED WORKERS Body Mass Index 23.51 08/10/2022 5:48 AM SUPERVISOR SHED WORKERS Plan of Treatment Health Maintenance Due Date [...] 01/17/2018 YEARLY PREVENTIVE VISIT 03/28/2022 03/28/2021, 02/16 COVID-19 Vaccine ( season) 2023 05/16/2022, 07/20/2021, 11/09/2020, Additional history exists INFLUENZA VACCINE (#1) 2023 2, 03/28/2021, 03/26/2020, Additional history exists PHQ-2 (once per calendar year) 2023 DTAP/TDAP/TD IMMUNIZATION (3 - Td or Tdap) [...] this topic Medical Devices Implanted Type Area Health Data Administrator Device Identifier Shelf Expiration Date Model / Serial / Lot Natrelle Inspira Cohesive Breast Implant Smooth Round Full Profile Implanted:Qty : 1 on 08/10/2022 by Nai Cotto MD at [facility] Breast Implant/Tiss ue Service Cashier Left: Breast 06/27/2025 [id number] / [id number] / Explanted Type Area Health Data Administrator Device Identifier Shelf Expiration Date Model / Serial / Lot Breast Tissue Service Cashier Explanted:Qty: 1 on 08/10/2022 by Nai Cotto MD at [facility] Left: Breast Care Teams Coppersmith Helper Relationship Specialty Start Date End Date Clinic, [address] [address] [facility] - General 07/21/22
--- OUTSIDE RECORDS SUMMARY | 2023-07-20 13:33 | XMS_ITS | Encounter Summary ---
Author Name Unknown Organization [place] Address [address] [place] [address] Care Team Providers Care Flame Gouger Name Role Phone Clinic, [facility] Primary Care Provider Reason for Visit * [...] for breast reconstruction following mastectomy [Z42.1] Procedures ND REMOVE TISSUE DRAPERY AND UPHOLSTERY ESTIMATOR(S) ND ENLARGE BREAST WITH IMPLANT ND REMOVAL OF BREAST IMPLANT ND REMOVAL OF IMPLANT MATERIAL ND DELAY BREAST PROS AFTER BREAST SURG ND GRAFTING OF AUTOLOGOUS SOFT TISS BY DIRECT EXC ND GRAFTING OF AUTOLOGOUS FAT BY LIPO 50 CC OR LESS ND GRAFTING OF AUTOLOGOUS FAT BY LIPO EA ADDL 50 CC LEFT REMOVAL OF TISSUE DRAPERY AND UPHOLSTERY ESTIMATOR AND EXCHANGE FOR SILICONE BREAST IMPLANT BILATERAL BREAST FAT GRAFTING DONOR SITE ABDOMEN Sh Periop Services [facility] [address] [place] [address] Referral ID Status Reason Start Date Expiration Date Visits Re quested Visits Authorized [id number] 1 1 Encounter Details Date Type Department Care Team (Late st Contact Info) Description 08/10/2022 5:27 AM ENERGY PROJECTS LEAD - 08/10/2022 1:45 PM ENERGY PROJECTS LEAD Hospital Encounter [facility] PreOP/Phase II [address] [place] [address] Nai Cotto MD [facility] [address] [facility] [address] [place] [address] Status post breast reconstruction (Primary Dx) Discharge [...] Coronavirus/COVID-19? No / Unsure 08/10/2022 5:25 AM ENERGY PROJECTS LEAD documented as of this encounter Last Filed Vital Signs Vital Sign Reading Time Taken Comments Blood Pressure 115/83 08/10/2022 1:42 PM ENERGY PROJECTS LEAD Pulse 44 08/10/2022 11:45 AM ENERGY PROJECTS LEAD Temperature 35.8 ??C (96.5 ??F) 08/10/2022 1:42 PM CS T Respiratory Rate 14 08/10/2022 1:42 PM ENERGY PROJECTS LEAD Oxygen Saturation 99% 08/10/2022 1:42 PM ENERGY PROJECTS LEAD Inhaled Oxygen Concentration - - Weight 72.2 kg (159 lb 3.2 oz) 08/10/2022 5:48 A M ENERGY PROJECTS LEAD Height 175.3 cm (5' 9) 08/10/2022 5:48 AM ENERGY PROJECTS LEAD Body Mass Index 23.51 08/10/2022 5:48 AM ENERGY PROJECTS LEAD documented in this encounter Discharge Instructions * Discharge Instructions* Jaziel Pond RN - 08/10/2022 6:36 AM ENERGY PROJECTS LEAD Today you were given 1000 mg of [...] about your procedure, call Dr. Cotto at [phone]. GY PROJECTS LEAD documented in this encounter Medications at Time [...] the patient. There are no significant changes GY PROJECTS LEAD Source Note - Outside, Provider - 08/07/2022 10:33 AM ENERGY PROJECTS LEAD documented in this encounter Nursing Notes * Jaziel Pond RN - 08/10/2022 11:59 AM CST Nausea resolved- OK to transport to phase [address]Shumacher GY PROJECTS LEAD * Jaziel Pond RN - 08/10/2022 11:37 AM CST After getting to recliner- nausea returned- compazine 5 mg IV X1 per Dr Schumacher- pt to be returned to phase 1 for monitoring for approx 20 minutes- GY PROJECTS LEAD * Jaziel Pond RN - 08/10/2022 11:15 AM CST zofran for nausea- effective- Pt dressed, up in recliner and transported to Phase 2. GY PROJECTS LEAD * Raya Shafer RN - 08/10/2022 9:29 AM CST Fat grafting 50ml in Right breast and 40ml in Left breast GY PROJECTS LEAD documented in this encounter Miscellaneous Notes * Op Note - Nai Cotto MD - 08/10/2022 9:34 AM CST PREOPERATIVE DIAGNOSIS: 1. Personal history of right breast cancer [Z85.3] 2. Status post bilateral mastectomies and prepectoral tissue shoe reconditioner breast reconstruction with AlloDerm [Z90.13] 3. Breast implant status [Z98.82] 4. Personal history of irradiation [Z92.3] POSTOPERATIVE DIAGNOSIS: 1. Personal history of right breast cancer [Z85.3] 2. Status post bilateral mastectomies and prepectoral tissue shoe reconditioner breast reconstruction with AlloDerm [Z90.13] 3. Breast implant status [Z98.82] 4. Personal history of irradiation [Z92.3] PROCEDURE: 1. Removal of left tissue shoe reconditioner and exchange for silicone breast implant 2. Bilateral breast fat grafting, donor site abdomen (total harvested 90 ml, total grafted right breast 50 ml, left breast 40 ml) DRAINAGE TYPE: None BEE ROBBER: ANGELICA Melendrez PA-C, was present and scrubbed for the entire procedure, and this is to include dissection, retraction and closure. There were no other qualified trainees or other assistants available and the presence of Melissa Junior PA-C, was necessary due to inability to retract and dissect without an psych assistant. INDICATIONS FOR PROCEDURE: The patient is a 52 year old female with a personal history of right breast cancer. She underwent bilateral mastectomies, [id number] breast reconstruction on the right side, and left immediate prepectoral tissue shoe reconditioner breast reconstruction with AlloDerm. She then completed [...] incised with the electrocautery and the tissue shoe reconditioner was removed. It was found to be intact with all tabs present. This was a Natrelle FV-14 smooth tissue shoe reconditioner filled to 425 ml. The AlloDerm was [...] fat. The fat was processed using the [employer] system. A total of 90 ml was [...] implant SCF-[id number] with a serial number of [id number]. The AlloDerm was closed onto itself with [...] for the entire case. 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 Complications: None. Implants: Implant Name Type Inv. Item Serial No. Catering Manager Lot No. LRB No. Used Action BREAST TISSUE DRAPERY AND UPHOLSTERY ESTIMATOR Left 1 Explanted NATRELLE INSPIRA COHESIVE BREAST IMPLANT SMOOTH ROUND FULL PROFILE Breast Implant/Tissue Home Care Rn [id number] Left 1 Implanted GY PROJECTS LEAD documented in this encounter Plan of Treatment Not on file documented as of this encounter Procedures Procedure Name Priority Date/Time Associated Diagnosis Comments FAT GRAFT, BREAST 08/10/2022 7:3 4 AM ENERGY PROJECTS LEAD Personal history of irradiation, presenting hazards to health Other specified aftercare following surgery Encounter for change or removal of drains Status post bilateral mastectomy Status post bilateral breast implants Encounter for breast reconstruction following mastectomy Special Needs RIGHT IMPLANT SCF 605 ORDER A FEW DIFFERENT SIZES [facility] CHECKLISTLEFT DRAPERY AND UPHOLSTERY ESTIMATOR FV 14 425CC REPLACEMENT, IMPLANT, BREAST 08/10/2022 7:34 AM ENERGY PROJECTS LEAD Personal history of irradiation, presenting hazards to health Other specified aftercare following surgery Encounter for change or removal of drains Status post bilateral mastectomy Status post bilateral breast implants Encounter for breast reconstruction following mastectomy Special Needs RIGHT IMPLANT SCF 605 ORDER A FEW DIFFERENT SIZES FDA CHECKLISTLEFT DRAPERY AND UPHOLSTERY ESTIMATOR FV 14 425CC REMOVAL, TISSUE DRAPERY AND UPHOLSTERY ESTIMATOR, BREAST 08/10/2022 7:34 AM ENERGY PROJECTS LEAD Personal history of irradiation, presenting hazards to health Other specified aftercare following surgery Encounter for change or removal of drains Status post bilateral mastectomy Status post bilateral breast implants Encounter for breast reconstruction following mastectomy Special Needs RIGHT IMPLANT SCF 605 ORDER A FEW DIFFERENT SIZES [facility] CHECKLISTLEFT DRAPERY AND UPHOLSTERY ESTIMATOR FV 14 425CC LAB RESULT - HIM SCAN 07/24/2022 12:00 AM ENERGY PROJECTS LEAD documented in this encounter Results * LAB RESULT - HIM SCAN (07/24/2022 12:00 AM ENERGY PROJECTS LEAD) 07/24/2022 Provider Outside NON-BEAKER LAB TE STING [...] 4 gram, Pre-procedure $Given 08/10/2022 6:10 AM ENERGY PROJECTS LEAD 1,000 mg acetaminophen (TYLENOL) tablet 650 mg [...] Pharmacoprophylaxis, Pre-procedure $New Bag 08/10/2022 6:24 AM ENERGY PROJECTS LEAD 900 mg 100 mL/hr gabapentin (NEURONTIN) tablet 600 mg 600 mg, Oral, ONCE, On Katelyn 08/10/22 at 0600, For 1 dose, Pre-procedure $Given 08/10/2022 6:10 AM ENERGY PROJECTS LEAD 600 mg lactated ringers infusion at 10 mL/hr, Intravenous, CONTINUOUS, IF patient NOT on dialysis., Pre-procedure, Starting on Katelyn 08/10/22 at 0600, Until Katelyn 08/10/22 at 0955 $New Bag 08/10/2022 8:57 AM ENERGY PROJECTS LEAD $New Bag 08/10/2022 6:23 AM ENERGY PROJECTS LEAD 10 mL/hr ondansetron (ZOFRAN ODT) ODT tab [...] ordered]. Irritant., PACU $Given 08/10/2022 10:43 AM ENERGY PROJECTS LEAD 4 mg prochlorperazine (COMPAZINE) injection 5 mg 5 mg, Intravenous, ONCE, Administer over 1-2 Minutes, On Katelyn 08/10/22 at 1130, For 1 dose, PACU $Given 08/10/2022 11:28 AM ENERGY PROJECTS LEAD 5 mg traMADol (ULTRAM) tablet 50 mg 50 mg, Oral, EVERY 6 HOURS PRN, moderate pain, Starting on Katelyn 08/10/22 at 0955 traMADol (ULTRAM) tablet 50 mg 50 mg, Oral, ONCE, On Katelyn 08/10/22 at 1030, For 1 dose, PACU $Given 08/10/2022 10:28 AM ENERGY PROJECTS LEAD 50 mg documented in this encounter Active and Recently Administered Medications Times are shown in ENERGY PROJECTS LEAD. Scheduled Medication Order 08/08/2022 08/09/2022 08/10/2022 acetaminophen [...] ($New Bag - Provider: Nahomy Gomez APRN SCRAP METAL BURNER)0956 (Anesthesia Volume Adjustment - Provider: Nahomy Gomez [...] 0839, Intra-procedure 0839 ($Given - Provi joseph: aNi Cotto MD - Comment: TO SOAK IMPLANT) [...] PACU documented in this encounter Care Teams Flame Gouger Relationship Specialty Start Date End Date [facility], [address] [address] PCP - General 07/21/22 documented as of this encounter
--- OUTSIDE RECORDS SUMMARY | 2023-07-20 13:33 | XMS_ITS | Encounter Summary ---
Author Name Unknown Organization [place] Address [address] [place] [address] Care Team Providers Care Medical Insurance Claims Processor Name Role Phone Clinic, [facility] Primary Care Provider Reason for Visit [...] for breast reconstruction following mastectomy [Z42.1] Procedures RI REMOVE TISSUE STENOTYPE MACHINE OPERATOR(S) RI ENLARGE BREAST WITH IMPLANT RI REMOVAL OF BREAST IMPLANT RI REMOVAL OF IMPLANT MATERIAL RI DELAY BREAST PROS AFTER BREAST SURG RI GRAFTING OF AUTOLOGOUS SOFT TISS BY DIRECT EXC RI GRAFTING OF AUTOLOGOUS FAT BY LIPO 50 CC OR LESS RI GRAFTING OF AUTOLOGOUS FAT BY LIPO EA ADDL 50 CC LEFT REMOVAL OF TISSUE STENOTYPE MACHINE OPERATOR AND EXCHANGE FOR SILICONE BREAST IMPLANT BILATERAL BREAST FAT GRAFTING DONOR SITE ABDOMEN Sh Periop Services [facility] [address], [address] [place] [address] Referral ID Status Reason Start Date Expiration Date Visits Re quested Visits Authorized [id number] 1 1 Encounter Details Date Type Department Care Team (Late st Contact Info) Description 08/10/2022 7:34 AM PRINCIPAL LAW CLERK Anesthesia Event [facility] PeriOP Services [address] [place] [phone] Jaziel Schumacher MD [facility] [address] [place] [address] Anesthesia Record Procedure Summary Procedure Name Responsible Anesthesiologist Anesthesia Start Time Anesthesia Stop Time LEFT REMOVAL OF TISSUE STENOTYPE MACHINE OPERATOR (Left: Breast) Jaziel Schumacher MD 08/10/22 0734 [...] recorded are pre- induction. Nahomy Gomez APRN WEAPONS MECHANIC 0740 An Induction 0744 An Intubation 0745 MD Present 0800 AN INCISION 0835 MD Present 0947 AN Extubation All extubation criteria met prior to removal. 0948 MD Present 0954 an stop data 0957 An Stop Electronically signed by Naohmy Gomez APRN WEAPONS MECHANIC on August 10, 2022 9:57 AM Meds [...] Tube Size: 7 mm; VL Blade Size: Morgan scope 3; Grade View: 1; Adjucts: Stylet; Placement Person: WEAPONS MECHANIC Student; Attempts: 1; Depth: 21 cm 08/10/22 0744 by Nahomy Gomez APRN WEAPONS MECHANIC 08/10/22 0947 by Katy Javier documented in [...] Coronavirus/COVID-19? No / Unsure 08/10/2022 5:25 AM PRINCIPAL LAW CLERK documented as of this encounter OR Notes * Anesthesia Postprocedure Evaluation - Jaziel Schumacher MD - 08/10/2022 10:45 AM CST Patient: Danielle Saini Procedure: Procedure(s): LEFT REMOVAL OF TISSUE STENOTYPE MACHINE OPERATOR AND EXCHANGE FOR SILICONE BREAST IMPLANT BILATERAL [...] Schumacher MD August 10, 2022 10:45 AM CIPAL LAW CLERK * Anesthesia Procedure Notes - Nahomy Gomez APRN CRNA - 08/10/2022 7:57 AM CSTAssociated Order(s): Airway Airway Patient location during procedure: OR Procedure Start/Stop Times: 08/10/2022 7:44 AM Staff - Anesthesiologist: Jaziel Schumacher MD WEAPONS MECHANIC: Nahomy Gomez APRN CRNA Other Anesthesia Staff: Katy Javier Performed By: YARELIS and with CRNAs Procedure performed by resident/fellow/WEAPONS MECHANIC in presence of a teaching physician. Consent [...] Administered Medication Administration Time: 08/10/2022 7:44 AM CIPAL LAW CLERK * Anesthesia Preprocedure Evaluation - Jaziel Schumacher MD - 08/09/2022 2:35 PM CST Anesthesia Pre-Procedure Evaluation Patient: Danielle Saini : 1970 Procedure : Procedure(s): LEFT REMOVAL OF TISSUE STENOTYPE MACHINE OPERATOR AND EXCHANGE FOR SILICONE BREAST IMPLANT BILATERAL [...] Date ??? BREAST SURGERY Bilateral masectomy ??? HYBRID CORN BREEDER SURGERY Dilation & Curettage ??? Lymph node [...] and realistic alternatives discussed. Questions answered and patient/order entry representative(s) expressed understanding. - Discussed: - Discussed with: Patient Postoperative Care PONV prophylaxis: Ondansetron (or other 5HT-3), Dexamethasone or Solumedrol, Background Propofol Infusion Comments: Jaziel Schumacher MD CIPAL LAW CLERK documented in this encounter Miscellaneous Notes * Anesthesia Care Transfer Note - Nahomy Gomez APRN CRNA - 08/10/2022 9:57 AM CST Patient: Danielle Saini Procedure: Procedure(s): LEFT REMOVAL OF TISSUE STENOTYPE MACHINE OPERATOR AND EXCHANGE FOR SILICONE BREAST IMPLANT BILATERAL [...] APRN CRNA August 10, 2022 9:57 AM CIPAL LAW CLERK documented in this encounter Plan of Treatment Not on file documented as of this encounter Procedures Procedure Name Priority Date/Time Associated Diagnosis Comments ANE AIRWAY ETT PERFORMABLE Routine 08/10/2022 7:44 AM PRINCIPAL LAW CLERK documented in this encounter Results * ANE AIRWAY ETT PERFORMABLE (08/10/2022 7:44 AM PRINCIPAL LAW CLERK) Narrative Nahomy Gomez APRN WEAPONS MECHANIC - 08/10/2022 7:44 AM PRINCIPAL LAW CLERK Nahomy Gomez APRN WEAPONS MECHANIC ? 08/10/2022 ??8:00 AM Airway ? Patient location during procedure: OR ? Procedure Start/Stop Times: 08/10/2022 7:44 AM Staff - ? Anesthesiologist: ??Jaziel Schumacher MD ? WEAPONS MECHANIC: Nahomy Gomez APRN CRNA ? Other Anesthesia Staff: Katy Javier ? Performed By: SRNA and with CRNAs ? Procedure performed by resident/fellow/WEAPONS MECHANIC in presence of a teaching physician. Consent [...] Time: 08/10/2022 7:44 AM Jaziel Schumacher MD RI ANESTHESIA documented in this encounter Visit Diagnoses Not on filedocumented in this encounter Administered Medications Inactive Administered Medications - up to 3 most recent administrations Medication Order MAR Action Action Date Dose Rate Site dexamethasone (DECADRON) injection Intravenous, PRN, Administer over 1 Minutes, Starting on Katelyn 08/10/22 at 0753, Anesthesia Intra-op $Given 08/10/2022 7:53 AM PRINCIPAL LAW CLERK 4 mg fentaNYL (PF) (SUBLIMAZE) injection Intravenous, PRN, Administer over 3-5 Minutes, Starting on Katelyn 08/10/22 at 0740, Anesthesia Intra-op $Given 08/10/2022 8:00 AM PRINCIPAL LAW CLERK 50 mcg $Given 08/10/2022 7:40 AM PRINCIPAL LAW CLERK 50 mcg glycopyrrolate (ROBINUL) injection Intravenous, PRN, Administer over 1-2 Minutes, Starting on Katelyn 08/10/22 at 0740, Anesthesia Intra-op $Given 08/10/2022 9:29 AM PRINCIPAL LAW CLERK 0.4 mg $Given 08/10/2022 8:45 AM PRINCIPAL LAW CLERK 0.1 mg $Given 08/10/2022 8:37 AM PRINCIPAL LAW CLERK 0.1 mg ketorolac (TORADOL) injection Intravenous, PRN, Administer over 2 Minutes, Starting on Katelyn 08/10/22 at 0949, Anesthesia Intra-op $Given 08/10/2022 9:49 AM PRINCIPAL LAW CLERK 15 mg lactated ringers infusion at 10 mL/hr, Intravenous, CONTINUOUS, IF patient NOT on dialysis., Pre-procedure, Starting on Katelyn 08/10/22 at 0600, Until Katelyn 08/10/22 at 0955 $New Bag 08/10/2022 8:57 AM PRINCIPAL LAW CLERK $New Bag 08/10/2022 6:23 AM PRINCIPAL LAW CLERK 10 mL/hr lidocaine 2% injection (V) Other, PRN, Starting on Katelyn 08/10/22 at 0740, Anesthesia Intra-op $Given 08/10/2022 7:40 AM PRINCIPAL LAW CLERK 100 mg midazolam (VERSED) injection Intravenous, Administer over 2 Minutes, PRN, Starting on Katelyn 08/10/22 at 0740, Anesthesia Intra-op $Given 08/10/2022 7:53 AM PRINCIPAL LAW CLERK 1 mg $Given 08/10/2022 7:40 AM PRINCIPAL LAW CLERK 1 mg neostigmine (PROSTIGMINE) injection Intravenous, PRN, Starting on Katelyn 08/10/22 at 0930, Anesthesia Intra-op $Given 08/10/2022 9:30 AM PRINCIPAL LAW CLERK 3.5 mg ondansetron (ZOFRAN) injection Intravenous, PRN, Administer over 2-5 Minutes, Starting on Katelyn 08/10/22 at 0932, Anesthesia Intra-op $Given 08/10/2022 9:32 AM PRINCIPAL LAW CLERK 4 mg phenylephrine (NEVILLE-SYNEPHRINE) injection Intravenous, CONTINUOUS PRN, Starting on Katelyn 08/10/22 at 0812, Anesthesia Intra-op $Bolus 08/10/2022 9:36 AM PRINCIPAL LAW CLERK 100 mcg $Bolus 08/10/2022 9:28 AM PRINCIPAL LAW CLERK 100 mcg $Bolus 08/10/2022 9:11 AM PRINCIPAL LAW CLERK 100 mcg propofol (DIPRIVAN) injection 10 mg/mL vial Intravenous, PRN, Starting on Katelyn 08/10/22 at 0740, Anesthesia Intra-op $Given 08/10/2022 7:40 AM PRINCIPAL LAW CLERK 200 mg propofol (DIPRIVAN) injection 10 mg/mL vial Intravenous, CONTINUOUS PRN, Starting on Katelyn 08/10/22 at 0746, Anesthesia Intra-op Rate/Dose Change 08/10/2022 8:54 AM PRINCIPAL LAW CLERK 20 mcg/kg/min 8.664 mL/hr $New Bag 08/10/2022 7:46 AM PRINCIPAL LAW CLERK 30 mcg/kg/min 12.996 mL/ hr rocuronium injection Intravenous, PRN, Starting on Katelyn 08/10/22 at 0740, Anesthesia Intra-op $Given 08/10/2022 7:40 AM PRINCIPAL LAW CLERK 30 mg documented in this encounter Care Teams Medical Insurance Claims Processor Relationship Specialty Start Date End Date [facility], [place] [address] PCP - General 07/21/22 documented as of this encounter
--- OUTSIDE RECORDS SUMMARY | 2023-07-20 13:33 | XMS_ITS | Referral Summary ---
Author Name Unknown Organization [facility] Address [address] [place] [address] Care Team Providers Care Senior Mechanical Project Engineer Name Role Phone Unavailable Primary Care Provider Unavailabl e Source Comments Patient records contain information from all sites at [facility]. For routine questions regarding patient records, call [phone] during business hours, M-F 8:00 AM - 5:00 PM Central Time. Record requests for emergency care only can be directed to [phone] at any time.[facility] Encounters Date Type Department Care Team Description 04/25/2023 10:40 AM CDT Comprehensive Visit Department of Dermatology in [address] [phone] Naomi Shipman M.D. Dermatoheliosis (Primary Dx); Keratosis [...] from 03/31/2021:Stage IIA(cT2, cN0, cM0, G3, ER+, MD+, HER2-) - Unsigned Pathologic stage from 06/02/2021:Stage IIA(pT2, pN1a, cM0, G3, ER+, MD+, HER2-) - Unsigned Social History Tobacco Use [...] week 01/12/2022 How often do you attend [facility] or hoahaoism services? More than 4 times per year 01/12/2022 Do you belong to any clubs o r organizations such as samaritan groups, unions, fraternal or athletic groups, or [...] and heating? Not hard at all 01/12/2022 [facility] - Occupational Stress [...] place to sleep or slept in a halfway (including now)? No 01/12/2022 Nutrition Answer Date [...] (Latest Contact Info) Description 08/01/2023 9:30 AM CENTERLESS GRINDING MACHINE ADJUSTER Clinical Communication Virtual Review in [place], [place] [address] [place] [address] 08/02/2023 9:00 AM CENTERLESS GRINDING MACHINE ADJUSTER Comprehensive Visit Division of Plastic Surgery in [place], [place] [address] [place] [address] Malik Posadas M.D. [address] [place] [address] Procedures Procedure Name Priority Date/Time Associated Diagnosis Comments OUTSIDE US BREAST Routine 05/04/2023 10: 20 AM CENTERLESS GRINDING MACHINE ADJUSTER from Last 3 Months Results * US breast RT limited-Outside US Breast (05/04/2023 10:20 AM CENTERLESS GRINDING MACHINE ADJUSTER) 05/04/2023 10:1 8 AM CENTERLESS GRINDING MACHINE ADJUSTER Narrative [facility] - 05/04/2023 11:19 AM CENTERLESS GRINDING MACHINE ADJUSTER This order has been created and auto-finalized [...]
--- OUTSIDE RECORDS SUMMARY | 2023-07-20 13:34 | XMS_ITS | Encounter Summary ---
Author Name Unknown Organization [facility] Address [address] [place] [address] Care Team Providers Care Scowman Name Role Phone Unavailable Primary Care Provider Unavailabl e Reason for Visit * Appointment Request (Routine) - Closed Specialty Diagnoses / Procedures Referred By Contac t Referred To Contact Dermatology Diagnoses Screening Examination Skin Cancer Referral ID Status Reason Start Date Expiration Date Visits Re quested Visits Authorized [id number] Closed 04/24/2023 04/23/2024 1 1 Encounter Details Date Type Department Care Team (Latest Contact Info) Description 04/25/2023 10:40 AM CDT Comprehensive Visit Department of Dermatology in [place], [place] [address] [place] [phone] Naomi Shipman M.D. [address] [place] [phone] Dermatoheliosis (Primary Dx); Keratosis Seborrheic Discharge Disposition: [...] any clubs o r organizations such as jewish groups, unions, fraternal [...] and heating? Not hard at all 01/12/2022 [facility]at ional [facility] - Occupational [...] place to sleep or slept in a [facility] (including now)? No 01/12/2022 Nutrition Answer Date [...] concerning changes. Naomi Shipman MD PGY4 Dermatology L APPLIANCE ASSEMBLY SUPERVISOR Associated attestation - Margarita Mckeon M.D. - 05/08/2023 3:35 PM SMALL APPLIANCE ASSEMBLY SUPERVISOR I saw and evaluated the patient, participating in the bentley portions of the service. I reviewed the resident's note, and I agree with the findings and plan. documented in this encounter Plan of Treatment Upcoming Encounters Date Type Department Care Team (Latest Contact Info) Description 08/01/2023 9:30 AM SMALL APPLIANCE ASSEMBLY SUPERVISOR Clinical Communication Virtual Review in [place], [place] [address] [place] [address] 08/02/2023 9:00 AM SMALL APPLIANCE ASSEMBLY SUPERVISOR Comprehensive Visit Division of Plastic Surgery in [place], [place] [address] [place] [phone] Malik Posadas M.D. [address] [place] [phone] documented as of this encounter Visit Diagnoses Diagnosis Dermatoheliosis- Primary Keratosis Seborrheic documented in this encounter
--- OUTSIDE RECORDS SUMMARY | 2023-07-20 13:34 | XMS_ITS | Clinical Summary ---
Author Name Unknown Organization [facility] Address [address] [place] [address] Phone [email or web address] Care Team Providers Care Wrapping Machine Helper Name Role Phone Unavailable Primary Care Provider Unavailabl e Immunizations Name Administration Dates Next Due COVID-19 (Pfizer [place] 12 yrs+) ([id number]) 021,10/12/2020 Influenza PF Tri [...]
--- OUTSIDE RECORDS SUMMARY | 2023-07-20 13:34 | XMS_ITS ---
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 Past Plans No past plan information found. Radiation Treatments * Plan Last Treated On Elapsed Days Fractions Treated Prescribed Fraction Dose Prescribed Total Dose [id number] 02/24/2022 32 7 of 7 200 cGy 1,400 cGy [id number] 02/15/2022 23 18 of 18 200 cGy 3,600 cGy Reference Point Last Treated On Elapsed Days Session Dose Total Dose [id number] 02/24/2022 32 200 cGy 5,000 cGy ICRU 02/15/2022 23 205 cGy 3,681 cGy
== END 2023-07-20 13:30 | disposition home or self-care (01) ==
PROVIDERS: PCP Family Medicine; Visit Provider Family Medicine
DX: R73.03 Prediabetes (principal); Z79.899 Other long term (current) drug therapy; R79.89 Other specified abnormal findings of blood chemistry
CPT/HCPCS: 80053; 84443

== ENCOUNTER 2023-08-16 13:14 | Outpatient (CLI) | payer OTHER, SELFPAY ==
--- NOTE | 2023-08-16 13:30 | XR_ITS ---
Patient: KT FELDER Facility:?[facility] Patient ID:?[id number] Site Patient ID:?[id number]. Site :?[id number] Study:?DEXA-Bone Density -08/16/2023 2:25:12 PM Ordering Physician:JESUS CUEVAS Final Report: DXA BONE MINERAL DENSITY STUDY Reason for exam: Prophylactic aromatase inhibitor use. Current height (inches): 69.0 Weight (lbs.): 160.0 Menopause age: 49 Ethnicity: White 1. Have you had a previous hip or vertebral fracture? Yes. 2. Have you had any fractures during your adult life which did not result from significant trauma (e.g., auto accident)? Yes. 3. Did either of your parents have a hip fracture? No. 4. Do you smoke? No. 5. Have you ever taken Glucocorticoids? No. 6. Do you have rheumatoid arthritis? No. 7. Do you have secondary osteoporosis? No. 8. Do you drink 3 or more alcoholic drinks per day? No. 9. Are you being treated for osteoporosis? No. 10. Have you ever taken any of the following medications: Actonel, Evista, Fosamax, Miacalcin, Reclast, Boniva, Forteo, HRT (i.e., estrogen/hormone therapy), Protelos, Prolia, Vitamin D, Calcium, other ? please specify. ANSWER: Yes; vitamin D, HRT, calcium. 11. Do you have any of the following medical conditions: Anorexia or bulimia, asthma or emphysema, end stage renal disease, hyperparathyroidism, any seizure disorders, cancer, inflammatory bowel diseases, hysterectomy, other ? please specify. ANSWER: Yes; breast cancer. 12. What was your maximum height (inches)? 69.5. 13. Do you perform weightbearing exercise regularly? Yes. 14. Do you regularly consume dairy products? Yes. 15. Do you drink caffeinated beverages? Yes. 16. At what age did your period start? 10. 17. Are you premenopausal? No. 18. How many full-term pregnancies have you had? 3. 19. Have you ever missed your period for more than 6 months in a row (not including or menopause)? No. TECHNIQUE: Bone mineral density study was performed using the [employer]. FINDINGS: The results of the study expressed as bone mineral density (BMD) are as follows: Lumbar Spine L1 to L3: BMD: 0.829 g/cm2. T-score: -1.7. Z-score: -0.6. Neck Left: BMD: 0.674 g/cm2. T-score: -1.6. Z-score: -0.5. Right: BMD: 0.659 g/cm2. T-score: -1.7. Z-score: -0.6. Total Left: BMD: 0.776 g/cm2. T-score: -1.4. Z-score: -0.7. Right: BMD: 0.815 g/cm2. T-score: -1.0. Z-score: -0.3. IMPRESSION: Osteopenia. COMPARISON: Compared with scan of 06/23/2023, the bone mineral density has decreased by 8.6% at the spine and decreased by 5.9% at the hip. *Comparison exams done prior to 11/2019 were performed on different unit, [employer]. CONNOR NAVA M.D. Diagnostic Radiologist [email or web address] KEO/lam D& Transcribed: 2:[address]/Dictated by: Connor Nava MD @ 08/17/2023 11:57:00 AM Signed by:?Connor Nava MD @08/17/2023 3:03:54 PM (Electronic Signature)
== END 2023-08-16 13:15 | disposition home or self-care (01) ==
PROVIDERS: PCP Family Medicine; Visit Provider Physician Assistant
DX: Z79.811 Long term (current) use of aromatase inhibitors (principal); M85.88 Other specified disorders of bone density and structure, other site
CPT/HCPCS: 77080

== ENCOUNTER 2023-09-28 10:30 | Outpatient (RCR) | payer OTHER, SELFPAY | END 2023-09-28 12:56 | disposition home or self-care (01) | PROVIDERS: PCP Family Medicine; Visit Provider Family Medicine | DX: M79.89 Other specified soft tissue disorders (principal); R07.89 Other chest pain; M25.512 Pain in left shoulder; M25.511 Pain in right shoulder; M25.612 Stiffness of left shoulder, not elsewhere classified; M25.611 Stiffness of right shoulder, not elsewhere classified; Z98.890 Other specified postprocedural states; Z51.89 Encounter for other specified aftercare | CPT/HCPCS: 97110; 97140; 97166; X5282 ==

== ENCOUNTER 2023-10-01 09:02 | Outpatient (CLI) | payer OTHER, SELFPAY ==
--- OUTSIDE RECORDS SUMMARY | 2023-10-05 09:27 | XMS_ITS | Referral Summary ---
Author Name Unknown Organization [facility] Address [address] [place] [address]. [place] [address] Care Team Providers Care Cloth Colorer Name Role Phone Clinic, [facility] Primary Care Provider Allergies Active Allergy Reactions Criticality Noted Date Comments Adhesive Tape Rash Low 08/10/2022 Cephalexin Rash Low 07/19/2022 Codeine Nausea,Hives 07/19/2022 Mold 07/19/2022 Scopolamine 08/10/2022 insomnia Medications Medication Sig Dispensed Refills Start Date End Date Status B Complex-C (VITAMIN B COMPLEX W/VITAMIN C) TABS tablet Take 1 tablet by mouth daily Active Calcium Carbonate-Vitamin D 600-5 MG-MCG CAPS Take 1 tablet by mouth daily Active cetirizine (ZYRTEC) 10 MG tablet Take 10 mg by mouth daily Active gabapentin (NEURONTIN) 300 MG capsule Take 300 mg by mouth 3 times daily Active letrozole (FEMARA) 2.5 MG tablet Take 2.5 mg by mouth daily Active senna-docusate (SENOKOT-S/PERICOLACE) 8.6-50 MG tabletIndications:Statu s post breast reconstruction Take 1-2 tablets by mouth 2 times daily 20 tablet 08/10/2022 Active Active Problems Problem Noted Date Diagnosed Date Cervicalgia 03/23/2009 Lumbago 03/23/2009 Nonallopathic lesion of cervical region 03/23/20 Overview: Problem list name updated by automated [...] Comments Blood Pressure 115/83 08/10/2022 1:42 PM BROILER MANAGER Pulse 44 08/10/2022 11:45 AM BROILER MANAGER Temperature 35.8 ??C (96.5 ??F) 08/10/2022 1:42 PM CS T Respiratory Rate 14 08/10/2022 1:42 PM BROILER MANAGER Oxygen Saturation 99% 08/10/2022 1:42 PM BROILER MANAGER Inhaled Oxygen Concentration - - Weight 72.2 kg (159 lb 3.2 oz) 08/10/2022 5:48 A M BROILER MANAGER Height 175.3 cm (5' 9) 08/10/2022 5:48 AM BROILER MANAGER Body Mass Index 23.51 08/10/2022 5:48 AM BROILER MANAGER Plan of Treatment Not on file Medical Devices Implanted Type Area Frozen Pie Maker Device Identifier Shelf Expiration Date Model / Serial / Lot Natrelle Inspira Cohesive Breast Implant Smooth Round Full Profile Implanted:Qty : 1 on 08/10/2022 by Nai Cotto MD at [facility] Breast Implant/Tiss ue Chemical Machine Tender Left: Breast 06/27/2025 SCF-560 / [id number] / Explanted Type Area Frozen Pie Maker Device Identifier Shelf Expiration Date Model / Serial / Lot Breast Tissue Chemical Machine Tender Explanted:Qty: 1 on 08/10/2022 by Nai Cotto MD at [facility] Left: Breast Procedures Procedure Name Priority Date/Time Associated Diagnosis Comments GLUCOSE (EXTERNAL RESULT) Routine 07/24/2022 2:45 PM BROILER MANAGER from Last 3 Months or Most Recently Relevant to Health Maintenance Results * Glucose (External Result) (07/24/2022 2:45 PM BROILER MANAGER) Glucose (External) 94 60 - 115 mg/dL [facility] Blood 07/24/2022 2:45 PM BROILER MANAGER Narrative [facility] - 07/24/2022 2:45 PM BROILER MANAGER LAB RESULTS [facility] Provider Outside LAB - HIM EXTERNAL R ESULT [facility] [address] [place] [address], [facility] [phone] from Last 3 Months or Most Recently Relevant to Health Maintenance Care Teams Cloth Colorer Relationship Specialty Start Date End Date Clinic, [facility] [address] [place] [id number] PCP - General 07/21/22
--- OUTSIDE RECORDS SUMMARY | 2023-10-05 09:27 | XMS_ITS | Clinical Summary ---
Author Name Unknown Organization [email or web address] Address [place], [place] [address] Care Team Providers Care Manager Cosmetics Name Role Phone Pcp, No Primary Care Provider Unavailabl e Allergies Active Allergy Reactions Criticality Noted Date Comments Cephalexin Itching,Rash Medium 02/01/2022 Codeine Hives 03/20/2007 Mold Runny Nose 04/09/2017 dust Scopolamine Other - Describe In Comment Field High 0 02/01/2022 insomnia Medications Medication Sig Dispensed Refills Start Date End Date Status cetirizine (ZYRTEC) 10 mg tablet Take 10 mg by mouth once daily. Active letrozole (FEMARA) 2.5 mg tablet Take 2.5 mg by mouth once daily. 01/23/2022 Active medication order composer Member's Mario [...] at bedtime. 180 Capsule 3 07/10/2022 Active terbinafine HCL (LAMISIL) 250 mg tablet Take 1 Tablet by mouth once daily. 07/02/2023 Active FLUoxetine (PROZAC) 10 mg capsule Take 1 Capsule by mouth once daily. 07/11/2023 Active traZODone (DESYREL) 50 mg tablet at bedtime if needed. Active magnesium oxide (MAG-OX 400) 400 mg tablet Take by mouth once daily. Active famotidine (PEPCID) 20 mg tablet Take 20 mg by mouth once daily if needed. 05/21/2023 Active omeprazole (PRILOSEC) 20 mg Delayed-Release capsule Take 20 mg by mouth once daily if needed. 05/21/2023 Active Active Problems Problem Noted Date Diagnosed Date Malignant neoplasm of upper-outer quadrant of fe male breast 04/13/2021 Endometrial polyp 03/22/2017 Overview: Added automatically from request for surgery [id number] GSI (genuine stress incontinence), female 2011 Routine gynecological examination 11/30/2011 Encounters Date Type Department Care Team Description 09/21/2023 1:00 PM CDT Office Visit [facility] [place] [phone] Saurav Singh MD Consult from Last 3 Months Immunizations Name Administration Dates Next Due AMB INFLUENZA, IIV4 (AGE=>6M OS) MDZoila (Flu Clinic Only) 03/26/2020 COVID-19 vaccine (Must See [place] [facility] 30mcg/0.3mL) PF, MDV 11/09/2020,10/12/2020 Influenza Virus, Unspecified [...] 3 Alive Son 4 Julio Son 5 Lukarine Social History Tobacco Use Types Packs/Day Years [...] lb 10 oz) M VAGINAL KYLEIGH Amrita ng Jacks on 09/11 Term 40w 0d 3h 00m/ 4.34 kg (9 lb 9 oz) M VAGINAL KYLEIGH Jauregui ew 02/17 Term 39w 0d 4h 00m/ 3.86 kg (8 lb 8 oz) M VAGINAL KYLEIGH Gomez Last Filed Vital Signs Vital Sign Reading Time Taken Comments Blood Pressure 116/68 09/21/2023 1:24 PM CDT Pulse 53 09/21/2023 1:24 PM CDT Temperature 36.3 ??C (97.4 ??F) 05/14/2017 1:21 PM CS T Respiratory Rate 16 09/21/2023 1:24 PM CDT Oxygen Saturation 98% 07/10/2022 9:02 AM PUBLIC TRANSIT BUS DRIVER Inhaled Oxygen Concentration - - Weight 73 kg (161 lb) 09/21/2023 1:24 PM CDT Height 176.8 cm (5' 9.59) 04/24/2022 10:28 AM C DT Body Mass Index 23.38 04/24/2022 10:28 AM CDT Plan of Treatment Health Maintenance Due Date Last Done Comments HIV for age 15-65 01/17/1983 Hepatitis C screening for age 18-79 01/17/1986 Mammogram for age 45-75 03/31/2022 03/31/20, 03/31/2021, 03/24/2021, Additional history exists Depression screening for age 12+ 04/03/2023 04/03/2022, 03/27/2022, 04/01/2021, Additional history exists BMI (ht and wt on same day) for age 18+ 04/24/2023 04/24/2022, 03/27/2022, 04/06/2021, Additional history exists COVID-19 vaccine series (2022- season) 2023 05/21/2023, 05/16/2022, 07/20/2021, Additional history exists Influenza for age 50-64 02/24/2024 03/28/20 21, 03/26/2020, 03/26/2020, Additional history exists Lipids for age 45-75 [...] Procedure Name Priority Date/Time Associated Diagnosis Comments SCAN-MAMMOGRAPHY REPORT 03/31/2021 12:00 AM CDT HPV THIN PREP Routine 03/28/2021 4:50 PM CDT Screening for malignant neoplasm of cervix LIPID PANEL W REFLEX MEASURED LDL Routine 02/17/2020 9:01 AM CDT High serum low-density lipoprotein (LDL) SCAN-COLONOSCOPY 03/21/2019 9:30 AM CDT from Last 3 Months or Most Recently Relevant to Health Maintenance Results * SCAN-MAMMOGRAPHY REPORT (03/31/2021 12:00 AM CDT) Anatomical Region Laterality Modality Other Scanner OTHER * HPV HIGH RISK (03/28/2021 4:50 PM CDT) TYPE 16 Negative Negative 03/30/2021 11:42 AM CDT [facility] [employer] TYPE 18 Negative Negative 03/30/2021 11:42 AM CDT [facility] [employer] [facility] OTHER HIGH RISK TYPES Negative Negative 03/30/2021 11:42 AM CDT [facility] [employer] [facility] Other (Cervical) Non-Blood / Unknown 03/28/2021 4:50 PM CDT 03/29/2021 9:52 AM CDT Narrative [facility] - 03/30/2021 11:42 AM CDT HPV types 16, 18, 31, 33, 35, 39, 45, 51, 52, 56, 58, 59, 66 and 68 DNA were undetectable or below the pre-set threshold. Methodology: Aranza Davy 4800 HPV Test Patty Bajwa DO [facility] [address] [place] [address], [place] * (ABNORMAL) LIPID PANEL W REFLEX MEASURED LDL (02/17/2020 9:01 AM CDT) CHOLESTEROL,TOTAL 200(H) 100 - 199 mg/dL 02/17/2020 1:43 PM CDT [facility] TRIGLYCERIDES 96 <150 mg/dL 02/17/2020 1:43 PM CDT [facility] HDL CHOLESTEROL 58 >40 mg/dL 0 1:43 PM CDT [facility] NON-HDL CHOLESTEROL 142 <145 mg/dl 02/17/2020 1:43 PM CDT [facility] CHOL/HDL RATIO 3.45 <4.50 02/17/2020 1:43 PM CDT [facility] LDL CHOLESTEROL 123 <=130 mg/dL 02/17/2020 1:43 PM CDT [facility] PROVIDER ORDERED STATUS RANDOM 02/17/2020 1:43 PM CDT [facility] Blood BLOOD SPECIMEN / Unknown Venipuncture / Unknown 02/17/2020 9:01 AM CDT 02/17/2020 9:01 AM CDT Patty Bajwa DO CHEMISTRY [facility] [address] [place] [address], [place] * SCAN-COLONOSCOPY (03/21/2019 9:30 AM CDT) Narrative Procedure Note Daljit Chan MD - 03/21/2019 8:42 AM CDT [facility] [address], [address], [place] [address] Patient Name: Danielle Saini Gender: Female Exam Date: 03/21/2019 Visit Number: [id number] Age: 49 Years 2 Months Date of : 1970 Attending MD: Daljit Chan MD Medical Record#: [id number] ----- Procedure: Colonoscopy Indications: Colorectal cancer screening Referring MD: Patty Bajwa DO Primary MD: Patty Bajwa DO Medications: Admitting Medications: 0.9% Normal Saline 500cc/hour Intra Procedure Medications: Patient received monitored anesthesia care. Complications: No immediate complications Procedure: An examination of the heart and lungs was performed and found to be withinacceptable limits. The patient was therefore deemed a reasonablecandidate for endoscopy and monitored anesthesia care. The risks and benefits of the procedure were explained to the patient.After obtaining informed consent, the patient received monitoredanesthesia care and I passed the scope without difficulty via the rectum to the ileum. The appendiceal orificeand ic valve were identified. The scope was retroflexed during theexamination The quality of the prep was excellent (Miralax/Gatorade/2tablets Bisacodyl/Magnesium Citrate). This was a complete examination throughout the entire colon. Findings: The entire colon was normal. Impression: Screening Colonoscopy Normal colonoscopy Plan Repeat colonoscopy in 10 years. If you have signs or symptoms of lower GI illness or a new diagnosis ofcolon cancer in an immediate family member, you should contact your GIprovider or your primary provider to discuss whether your next examshould be repeated sooner. We will attempt to contact you at appropriate intervals via U.S. mail. Wemay not be able to find you or contact you at that time, therefore youshould know that the responsibility for following our recommendation restswith you. If you don't hear from us at the time your procedure is due,please contact our office to schedule an appointment. If your contactinformation should change, please contact our office so that we can updateyour records. Electronically signed by: Daljit Chan MD 03/21/2019 Medications: Medication Dose Sig Description PRN Status PRN Reason Comments cetirizine 10 mg tablet 10 mg take 1 tablet by ORAL route every day Ntaking as directed estradiol UNKNOWN apply 1 patch by transdermal route 2 times every week Ntaking as directed metformin 500 mg tablet 500 mg take 1 Tablet by ORAL route every day withmorning and evening meals N taking as directed progesterone micronized 200 mg capsule 200 mg take 1 Capsule by oral route2 times every day for 10 days N taking as directed Vitamin D3 UNKNOWN take 1 capsule by oral route every day N taking asdirected Allergies: Medication Name Ingredient Reaction Comment CODEMARRY Dai Vital Signs: Date Time Systolic Diastolic Height Weight BMI 03/21/2019 9:00 AM 130 76 70 in 174.00 25.00 Race: Ethnicity: Not or Preferred Language: Sinhala cc: Patty Bajwa DO cc: Patty Bajwa DO [facility] [phone] Daljit Chan MD OTHER from Last 3 Months or Most Recently Relevant to Health Maintenance Care Teams Manager Cosmetics Relationship Specialty Start Date End Date Pcp, No . PCP - General 04/26/22
--- OUTSIDE RECORDS SUMMARY | 2023-10-05 09:27 | XMS_ITS | Clinical Summary ---
Author Name Unknown Organization [facility] Address [address] [place] [id number] Care Team Providers Care Web Systems Developer Name Role Phone Unavailable Primary Care Provider Unavailabl e Source Comments Patient records contain information from all sites at [facility]. For routine questions regarding patient records, call [phone] during business hours, M-F 8:00 AM - 5:00 PM Central Time. Record requests for emergency care only can be directed to [phone] at any time.[facility] Allergies Active Allergy Reactions Criticality Noted Date Comments Adhesive Rash,Other (see comments) Low 07/27/2022 Cephalexin Itching,Rash High 02/01/2022 Codeine Hives (Reselect Reac tion),Nausea Only Medium 03/20/2007 Mold Other (see comments) Medium 04/09/2017 dust [...] trimethoprim by mouth daily. 0 03/12/2022 Active famotidine (PEPCID) 20 mg tablet Take 20 mg by mouth at bedtime. 0 05/21/2023 Active omeprazole (PriLOSEC) [address] capsule Take 20 mg by mouth daily as needed. For GERD. 0 05/21/2023 Active FLUoxetine (PROzac) 10 mg capsule Take 1 capsule by mouth daily. 0 07/11/2023 Active gabapentin (NEURONTIN) 300 mg capsule Take 300 mg by mouth 3 (three) times a day. 0 07/10/2022 Active ibuprofen (ADVIL,MOTRIN) 200 mg tablet 04/10/2017 Ibuprofen Oral Oral 04/10/2017 active 0 04/10/2017 Active terbinafine (LamISIL) 250 mg tablet Take 1 tablet by mouth daily. 0 07/02/2023 Active traZODone (DESYREL) 50 mg tablet Trazodone Oral Can take up to two tablets as needed. 1 tablet for sleep active 0 Active magnesium oxide (MAG-OX) 400 mg (241.3 mg magnesium) tablet Take by mouth every morning before breakfast. 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 Absence Of Breast Acquired Bilateral (Primary Dx) 08/02/2023 Ancillary Procedure Department of Plastic and Reconstructive Surgery 08/01/2023 9:30 AM 2ND PRESSMAN Clinical Communication Virtual Review in [place], [place] 200 [place] [address] Pre-visit Intake from Last 3 Months Family History Medical History Relation Name Comments Skin cancer Father Skin cancer Mother Relation Name Status Comments Father Mother Social History Tobacco Use Types Packs/Day Years Used Date Smoking Tobacco: Never Smokeless Tobacco: Never [facility] Utilities Answer Date Recorded In the past 12 months has th e electric, gas, oil, or water company threatened to shut off services in your home? No 07/30/2023 Humiliation, Afraid, Rape, and Kick questionnair e [...] How often do you attend chur or jew services? More than 4 times per year [...] and heating? Not hard at all 01/12/2022 [facility] [place] of Occupat ional Health - Occupational Stress [...] exercise (like a brisk walk)? 5 days 07/30/2023 On average, how many minutes do you engage in exercise at this level? 30 min 07/30/2023 Hunger Vital Sign Answer Date Recorded Within the past 12 months, y ou worried that your food would run out before you got the money to buy more. Never true 07/30/19 Within the past 12 months, t he food you bought just didn't last and you didn't have money to get more. Never true 07/30/2023 PRAPARE - Transportation Answer Date Re corded In the past 12 months, has l ack of transportation kept you from medical appointments or from getting medications? No 10/2023 In the past 12 months, has l ack of transportation kept you from meetings, work, or from getting things needed for daily living? No 07/30/2023 Nutrition Answer Date Recorded Nutrition: EVOO Fat Source No 07/30 On average, how many serving s of fruits and vegetables do you eat per day (serving size is equal to 1 cup or approximately the size of a tennis ball)? 5 or more 07/30/2023 Dental Answer Date Recorded Dental: Regular Dentist Yes 01/13/20 Employment Answer Date Recorded Employment status Employed and actively working without restrictions 07/30/2023 Housing Stability Answer Date Recorded What is your living situation today? I have a [address] to live 07/30/2023 Education Answer Date Recorded What is the [...] CDT Temperature 36.2 ??C (97.2 ??F) 03/24/2022 11:23 AM C DT Respiratory Rate - - Oxygen Saturation - - Inhaled Oxygen Concentration - - Weight 72 kg (158 lb 11.7 oz) 08/02/2023 9:00 AM 2ND PRESSMAN Height 176.5 cm (5' 9.49) 08/02/2023 9:00 AM CS T Body Mass Index 23.11 08/02/2023 9:00 AM 2ND PRESSMAN Plan of Treatment Health Maintenance Due Date Last Done Comments CT Colonography 1968 Cervical Cancer Screening 1968 Cologuard 1968 Colonoscopy 1968 Colorectal Cancer Screening 1968 FIT 1968 HIV Screening 1968 Hepatitis C Screening 1968 Pneumococcal vaccine (0-64 years) (1 of 2 - PCV) 01/17/1974 Hepatitis B Vaccines (1 of 3 - 19+ 3-dose series) 01/17/1987 Mammogram 03/31/2022 03/31/2021, 02/25, 03/16/2021, Additional history exists Depression Screening (Annual PHQ-2) 06/25/2023 Lipid (Cholesterol) Screening 02/16/2025 02/17/2020, 05/19/2019, 01/16/2019 Fasting Glucose for Diabetes Screening 07/24/2025 07/24/2022, 02/17/2020, 02/17/2020, Additional history exists DTaP,Tdap,and Td Vaccines (3 - Td or Tdap) 02/16/2030 02/17/2020, 06/30/2009 Zoster Vaccines Completed 06/19/2019, 11/0 06/2018, 02/11/2019 COVID-19 Vaccine Completed 05/21/2023, , 07/20/2021, Additional history exists Influenza Vaccine Completed 05/21/2023, , 03/28/2021, Additional history exists HPV Vaccines Aged Out No longer eligi ble based on patient's age to complete this topic Medical Devices Implanted Type Area Hoe Runner Device Identifier Shelf Expiration Date Model / Serial / Lot Breast Implant Breast Implant Left: Breast Breast Implant Breast Implant Right: Breast Procedures Procedure Name Priority Date/Time Associated Diagnosis Comments PLASTIC AND RECON SURGERY IMAGE EXAM Routine 08/02/2023 12:00 AM 2ND PRESSMAN from Last 3 Months Results * TRAM Implants-Plastic And Recon Surgery Image Exam (08/02/2023 12:00 AM 2ND PRESSMAN) Narrative IIMS - 08/02/2023 11:15 AM 2ND PRESSMAN This order has been created and auto-finalized to support the import of images acquired without order. The clinical documentation to support these images can be found on the encounter that produced images. Provider Not In System IMG NON RAD IMAGI NG PROCEDURES IIMS NA from Last 3 Months
--- OUTSIDE RECORDS SUMMARY | 2023-10-05 09:27 | XMS_ITS | Referral Summary ---
Author Name Unknown Organization [facility] Address [address] [place] [address] Care Team Providers Care Vp Product Marketing Name Role Phone Unavailable Primary Care Provider Unavailabl e Source Comments Patient records contain information from all sites at [facility]. For routine questions regarding patient records, call [phone] during business hours, M-F 8:00 AM - 5:00 PM Central Time. Record requests for emergency care only can be directed to [phone] at any time.[facility] Encounters Date Type Department Care Team Description 08/02/2023 Ancillary Procedure Department of Plastic and Reconstructive Surgery 08/02/2023 9:00 AM MARINA DRY DOCK MANAGER Comprehensive Visit Division of Plastic Surgery in [address] [phone] Malik Campoverde M.D. Absence Of Breast Acquired Bilateral (Primary Dx) 08/01/2023 9:30 AM MARINA DRY DOCK MANAGER Clinical Communication Virtual Review in [place], [place] 200 [place] [address] Pre-visit Intake from Last 3 Months Allergies Active Allergy [...] from 03/31/2021:Stage IIA(cT2, cN0, cM0, G3, ER+, [place]+, HER2-) - Unsigned Pathologic stage from 06/02/2021:Stage IIA(pT2, pN1a, cM0, G3, ER+, [place]+, HER2-) - Unsigned Social History Tobacco Use Types Packs/Day Years Used Date Smoking Tobacco: Never Smokeless Tobacco: Never [facility] Utilities Answer Date Recorded In the past [...] How often do you attend chur or scientology services? More than 4 times per year 01/12/2022 Do you belong to any clubs o r organizations such as latter day groups, unions, [...] and heating? Not hard at all 01/12/2022 [facility] [place] of Occupat ional Health - Occupational Stress [...] (158 lb 11.7 oz) 08/02/2023 9:00 AM MARINA DRY DOCK MANAGER Height 176.5 cm (5' 9.49) 08/02/2023 9:00 AM CS T Body Mass Index 23.11 08/02/2023 9:00 AM MARINA DRY DOCK MANAGER Plan of Treatment Not on file Medical Devices Implanted Type Area Director Of Solutions Architecture Device Identifier Shelf Expiration Date Model / Serial / Lot Breast Implant Breast Implant Left: Breast Breast Implant Breast Implant Right: Breast Procedures Procedure Name Priority Date/Time Associated Diagnosis Comments PLASTIC AND RECON SURGERY IMAGE EXAM Routine 08/02/2023 12:00 AM MARINA DRY DOCK MANAGER from Last 3 Months Results * TRAM Implants-Plastic And Recon Surgery Image Exam (08/02/2023 12:00 AM MARINA DRY DOCK MANAGER) Narrative IIMS - 08/02/2023 11:15 AM MARINA DRY DOCK MANAGER This order has been created and auto-finalized to support the import of images acquired without order. The clinical documentation to support these images can be found on the encounter that produced images. Provider Not In System IMG NON RAD IMAGI NG PROCEDURES IIMS NA from Last 3 Months
--- OUTSIDE RECORDS SUMMARY | 2023-10-05 09:27 | XMS_ITS | Clinical Summary ---
Author Name Unknown Organization [facility] Address [address] [place] [address]. [place] [address] Care Team Providers Care Fruit Or Nut Farmer Name Role Phone Clinic, [facility] Primary Care Provider Allergies Active [...] Comments Blood Pressure 115/83 08/10/2022 1:42 PM RN PROGRESSIVE CARE Pulse 44 08/10/2022 11:45 AM RN PROGRESSIVE CARE Temperature 35.8 ??C (96.5 ??F) 08/10/2022 1:42 PM CS T Respiratory Rate 14 08/10/2022 1:42 PM RN PROGRESSIVE CARE Oxygen Saturation 99% 08/10/2022 1:42 PM RN PROGRESSIVE CARE Inhaled Oxygen Concentration - - Weight 72.2 kg (159 lb 3.2 oz) 08/10/2022 5:48 A M RN PROGRESSIVE CARE Height 175.3 cm (5' 9) 08/10/2022 5:48 AM RN PROGRESSIVE CARE Body Mass Index 23.51 08/10/2022 5:48 AM RN PROGRESSIVE CARE Plan of Treatment Health Maintenance Due Date Last Done Comments ADVANCE CARE PLANNING 1968 ANNUAL REVIEW OF HM ORDERS 1968 CT COLONOGRAPHY 1968 FIT 1968 FLEX SIG 1968 sDNA (Cologuard) 1968 Pneumococcal Vaccine: Pediatrics (0 to 5 Years) and At-Risk Patients (6 to 64 Years) (1 of 2 - PCV) 01/17/1974 COLONOSCOPY 01/17/1978 COLORECTAL CANCER SCREENING 01/17/1978 HIV SCREENING 01/17/1983 HEPATITIS C SCREENING 01/17/1986 HEPATITIS B IMMUNIZATION (1 of 3 - 19+ 3-dose series) 01/17/1987 PAP 01/17/1989 LIPID 2008 LUNG CANCER SCREENING 01/17/2018 YEARLY PREVENTIVE VISIT 03/28/2022 03/28/2021, 02/16 COVID-19 Vaccine (2022- season) 2023 05/16/2022, 07/20/2021, 11/09/2020, Additional history exists INFLUENZA VACCINE (#1) 2023 , 03/28/2021, 03/26/2020, Additional history exists PHQ-2 (once per calendar year) 2023 GLUCOSE 07/24/2025 07/24/2022 DTAP/TDAP/TD IMMUNIZATION (3 - Td or Tdap) [...] this topic Medical Devices Implanted Type Area Hydraulic Controls Technician Device Identifier Shelf Expiration Date Model / Serial / Lot Natrelle Inspira Cohesive Breast Implant Smooth Round Full Profile Implanted:Qty : 1 on 08/10/2022 by Nai Cotto MD at [facility] Breast Implant/Tiss ue Stained Glass Painter Left: Breast 06/27/2025 SCF-[id number] / [id number] / Explanted Type Area Hydraulic Controls Technician Device Identifier Shelf Expiration Date Model / Serial / Lot Breast Tissue Stained Glass Painter Explanted:Qty: 1 on 08/10/2022 by Nia Cotto MD at [facility] Left: Breast Procedures Procedure Name Priority Date/Time Associated Diagnosis Comments GLUCOSE (EXTERNAL RESULT) Routine 07/24/2022 2:45 PM RN PROGRESSIVE CARE from Last 3 Months or Most Recently Relevant to Health Maintenance Results * Glucose (External Result) (07/24/2022 2:45 PM RN PROGRESSIVE CARE) Glucose (External) 94 60 - 115 mg/dL [facility] Blood 07/24/2022 2:45 PM RN PROGRESSIVE CARE Narrative [facility] - 07/24/2022 2:45 PM RN PROGRESSIVE CARE LAB RESULTS [facility] Provider Outside LAB - HIM EXTERNAL R ESULT [facility] [address] [phone] from Last 3 Months or Most Recently Relevant to Health Maintenance Care Teams Fruit Or Nut Farmer Relationship Specialty Start Date End Date Clinic, [address] [address] PCP - General 07/21/22
--- OUTSIDE RECORDS SUMMARY | 2023-10-05 09:27 | XMS_ITS ---
Author Name Unknown Organization [facility] Address [address] [place] [address] Care Team Providers Care Chocolate Molder Name Role Phone Unavailable Unavailable Unavailable Surgery Details Not on file Complications Check Surgery Details section. Procedure Estimated Blood Loss Check Surgery Details section. Procedure Findings Check Surgery Details section. Procedure Specimens Taken Check Surgery Details section.
--- OUTSIDE RECORDS SUMMARY | 2023-10-05 09:28 | XMS_ITS | Encounter Summary ---
Author Name Unknown Organization [facility] Address [address] [place] [address] Care Team Providers Care Telecommunications Equipment Installer Name Role Phone Unavailable Primary Care Provider Unavailabl e Reason for Referral * Outpatient (Routine) - Authorized Specialty Diagnoses / Procedures Referred By Reina gamboa Referred To Contact Plastic Surgery Laureen Coe P.A.-C., M.S. [address] [place] [phone] [facility] Referral ID Status Reason Start Date Expiration Date V isits Requested Visits Authorized [id number] Authorized 08/02/2023 01/31/2025 1 1 Scheduling Instructions Yisel/ Laureen URCE ENGINEER Reason for Visit * Appointment Request (Routine) - Closed Specialty Diagnoses / Procedures Referred By Reina gamboa Referred To Contact Plastic Surgery Diagnoses Aftercare Breast Reconstruction Status Post Mastectomy Implant Breast Status Post Aftercare Breast Cancer Surgery Referral ID Status Reason Start Date Expiration Date Visits Re quested Visits Authorized [id number] Closed 04/24/2023 04/23/2024 1 1 Encounter Details Date Type Department Care Team (Latest Contact Info) Description 08/02/2023 9:00 AM RESOURCE ENGINEER Comprehensive Visit Division of Plastic Surgery in [place], [place] [address] [place] [phone] Malik Posadas M.D. [address] [place] [phone] Absence Of Breast Acquired Bilateral (Primary Dx) Social History Tobacco Use Types Packs/Day Years Used Date Smoking Tobacco: Never Smokeless Tobacco: Never [facility] Utilities Answer Date Recorded In the past [...] How often do you attend chur or buddhist services? More than 4 times per year 01/12/2022 Do you belong to any clubs o r organizations such as christianity groups, unions, fraternal or athletic groups, or [...] and heating? Not hard at all 01/12/2022 [facility] [place] of Occupat ional Health - Occupational Stress [...] you have received? Professional school degree (e.g., , DDS, DVM, ORTIZ) 01/12/2022 Sex and Gender [...] (158 lb 11.7 oz) 08/02/2023 9:00 AM RESOURCE ENGINEER Height 176.5 cm (5' 9.49) 08/02/2023 9:00 AM CS T Body Mass Index 23.11 08/02/2023 9:00 AM RESOURCE ENGINEER documented in this encounter Consult Notes * Keo Bowers M.D. - 08/02/2023 9:00 AM CST SUBJECTIVE CHIEF COMPLAINT/REASON FOR VISIT Danielle Saini is a 53 y.o. female who presents for evaluation. HISTORY OF PRESENT ILLNESS 53F h/o Right breast cancer, s/p BL mastectomies (skin sparing) and right lymph node dissection on 06/02/21 and had immediate DTI reconstruction on the right breast and TE/Alloderm reconstruction on the left (Yadiel). Completed radiation therapy R breast 02/24/22. On August 10, 2022 Dr Cotto performed left exchanged for permanent implant and BL breast fat grafting. The operative notes are not available. Implants are pre- pectoral silicone but she doesn't the texturing or volume. . She is here to establish care as Dr. Cotto moved away. She reports she has discomfort on the right breast all the time on the lateral aspect of the breast and where it meets the chest wall. She had a CT and ultrasound end of 2022 on the right side and she reports that the areas of concernlooked like scar tissue. She also reports she is very asymmetric. She is not looking for more surgery. Only when necessary. PMHx: o/w healthy PSHx: No prior breast surgeries other than above ceramic saw tender hx: 3 delivered pregnancies, all vaginal deliveries Smoking hx: Non smoker H/o blood clot/DVT/PE: None H/o bleeding issues: None Anticoagulation use: None The following portions of the patient's history were reviewed and updated as appropriate: allergies, current medications, family history, medical history, social history, surgical history and problemlist. Social History Tobacco Use Smoking status: Never Smokeless tobacco: Never REVIEW OF SYSTEMS Negative except as noted in HPI OBJECTIVE PHYSICAL EXAM General: Awake, alert, no acute distress Breasts: BL breasts with well healed surgical incision. Double bubble on the right side. The right breast sits higher on the chest wall compared to the left and looks a little bigger. The face of thebreast on the right side is flatter than on the left. ASSESSMENT / PLAN It was a pleasure to see the patient in clinic today. We performed implant check today and there were no concerns on exam. We discussed that, on average, women with breast implants require a procedure/surgery secondary to their implants 10 years after implant placement, although some women need a procedure earlier, and some later. We discussed FDA recommendations for implant monitoring in details. We did discuss risks associated with implants which include but are not limited to implant rupture, implant infection, capsular contracture, KATARZYNA-ALCL, KATARZYNA-SCC, Breast implant illness. We discussed that risks of implant based surgery are significantly increased if the breasts receive radiation which the patient does have on the right side. If we were to offer anything for the patient for symmetry, it would be fat grafting on the right side and a lift on the left. At this point the patient is not looking for further surgery and there are no concerning signs so we will plan on no intervention for now. If the patient would like to discuss procedures further we are happy to discuss this with her again. We discussed prophylactic antibiotic use prior to dental procedures or colonoscopies. We will plan to see her back in clinic in about 1 year for implant check. All patient questions and concerns were answered to the best of our ability. The patient was seen and examined with Dr. Velazquez. URCE ENGINEER documented in this encounter Plan of Treatment Scheduled Referrals Name Type Priority Associated Diagnoses Orde r Schedule Plastic Surgery office visit (clinic) Outpatient Referral Routine Expected: 08/02/2024 (Approximate), Expires: 10/30/2024 documented as of this encounter Visit Diagnoses Diagnosis Absence Of Breast Acquired Bilateral- Primary documented in this encounter
--- OUTSIDE RECORDS SUMMARY | 2023-10-05 09:28 | XMS_ITS ---
Author Name Unknown Organization [facility] Address [address] [place] [address] Care Team Providers Care Glazier Artist Name Role Phone Unavailable Primary Care Provider Unavailabl e Active Problems Problem Noted Date Diagnosed Date Other Chest Pain 03/17/2022 Malignant Neoplasm Of Breast Upper Outer Quadrant Female Right 04/13/2021 Cancer Staging:Clinical stage from 03/31/2021:Stage IIA(cT2, cN0, cM0, G3, ER+, [place]+, HER2-) - Unsigned Pathologic stage from 06/02/2021:Stage IIA(pT2, pN1a, cM0, G3, ER+, SD+, HER2-) - Unsigned Current Oncology Plans No current plan information found. Past Plans No past plan information found. Radiation Treatments * Plan Last Treated On Elapsed Days Fractions Treated Prescribed Fraction Dose Prescribed Total Dose [id number] 02/24/2022 32 7 of 7 200 cGy 1,400 cGy [id number] 02/15/2022 23 18 of 18 200 cGy 3,600 cGy Reference Point Last Treated On Elapsed Days Session Dose Total Dose [id number] 02/24/2022 32 200 cGy 5,000 cGy ICRU 02/15/2022 23 205 cGy 3,681 cGy
--- OUTSIDE RECORDS SUMMARY | 2023-10-05 09:28 | XMS_ITS | Clinical Summary ---
Author Name Unknown Organization [facility] Address [address] [place] [id number] Phone [email or web address] Care Team Providers Care Business Objects Architect Name Role Phone Unavailable Primary Care Provider Unavailabl e Immunizations Name Administration Dates Next Due COVID-19 (Pfizer Esmeralda 12 yrs+) (CVX-208) 021,10/12/2020 Influenza PF Tri [...] Date Last Done Comments Dental Cleaning/Exam 1968 Cervical Cancer Screening 1984 Hepatitis B Immunization (1 of 3 - 19+ 3-dose series) 01/17/1987 Colorectal Cancer Screening 01/17/1998 Zoster Immunization (1 of 2) 01/17/2018 Breast Cancer Screening 02/24/2022 02/25/20, 03/25/2018 Covid-19 Immunization ( season) 2023 11/09/2020, 10/12/2020 Influenza Immunization (Season Ended) 2024 03/26/2020, 04/05/2017 Tetanus (Tdap or Td) Immunization 02/16/2030 02/17/2020, [...]
--- OUTSIDE RECORDS SUMMARY | 2023-10-05 09:28 | XMS_ITS | Encounter Summary ---
Author Name Unknown Organization [facility] Address [address] [place] [address] Care Team Providers Care Millwright Apprentice Name Role Phone Unavailable Primary Care Provider Unavailabl e Encounter Details Date Type Department Care Team (Late st Contact Info) Description 08/02/2023 Ancillary Procedure Department of Plastic and Reconstructive Surgery Social History Tobacco Use Types Packs/Day Years Used Date Smoking Tobacco: Never Smokeless Tobacco: Never [employer] Utilities Answer Date Recorded In the past 12 months has e electric, gas, oil, or water company [...] 01/12/2022 How often do you attend chur ch or catholic services? More than 4 times per year 01/12/2022 Do you belong to any clubs o r organizations such as methodist groups, unions, fraternal [...] and heating? Not hard at all 01/12/2022 [facility] of Occupat ional Health - Occupational [...] money to buy more. Never true 07/30/19 24 Within the past 12 months, t he [...] SURGERY IMAGE EXAM Routine 08/02/2023 12:00 AM BEATER MACHINE OPERATOR documented in this encounter Results * TRAM Implants-Plastic And Recon Surgery Image Exam (08/02/2023 12:00 AM BEATER MACHINE OPERATOR) Narrative IIMS - 08/02/2023 11:15 AM BEATER MACHINE OPERATOR This order has been created and auto-finalized to support the import of images acquired without order. The clinical documentation to support these images can be found on the encounter that produced images. Provider Not In System IMG NON RAD IMAGI NG PROCEDURES IIIN NA documented in this encounter Visit Diagnoses Not on filedocumented in this encounter
--- OUTSIDE RECORDS SUMMARY | 2023-10-05 09:28 | XMS_ITS | Encounter Summary ---
Author Name Unknown Organization [facility] Address [address] [place] [address] Care Team Providers Care Package Car Driver Name Role Phone Unavailable Primary Care Provider Unavailabl e Reason for Visit * Reason Onset Date Comments Pre-visit Intake 08/01/2023 Encounter Details Date Type Department Care Team (Latest Contact Info) Description 08/01/2023 9:30 AM PLAN EXAMINER Clinical Communication Virtual Review in [place], [place] 200 [place], [place] [id number] Pre-visit Intake Social History Tobacco Use Types Packs/Day Years Used Date Smoking Tobacco: Never Smokeless Tobacco: Never [facility] Utilities Answer Date Recorded In the past 12 months has [facility] electric, gas, oil, or water [employer] threatened to shut off services in your [...] often do you attend chur ch or pentecostalism services? More than 4 times per year 01/12/2022 Do you belong to any clubs o r organizations such as confucianist groups, unions, fraternal or athletic groups, or [...] and heating? Not hard at all 01/12/2022 [facility] of Occupat ional Health - Occupational [...] your living situation today? I have a [facility] place to live 07/30/2023 Education Answer Date [...]
== END 2023-10-01 09:03 | disposition home or self-care (01) ==
LOC: NFLDREF 10-05 09:26
PROVIDERS: PCP Family Medicine; Referring Provider Family Medicine; Visit Provider Family Medicine
DX: B35.1 Tinea unguium (principal); Z13.228 Encounter for screening for other metabolic disorders
CPT/HCPCS: 80053

== ENCOUNTER 2023-11-02 15:05 | Outpatient (CLI) | payer OTHER, SELFPAY ==
--- OUTSIDE RECORDS SUMMARY | 2023-11-07 08:45 | XMS_ITS | Clinical Summary ---
Author Name Unknown Organization [facility] Address [place], [place] [address] Care Team Providers Care Interstate Bus Driver Name Role Phone Pcp, No Primary Care [...] Member's Mario B-Complex once a day morning Percy D3 (125 mcg) once a day morning [...] Overview: Added automatically from request for surgery [id number] GSI (genuine stress incontinence), female 2011 Routine gynecological examination 11/30/2011 Encounters Date Type Department Care Team Description 10/29/[address] [place] [address] Saurav Singh MD Results (ZIO) 09/21/2023 4:00 PM CDT Office Visit [address] [place] [address] 09/21/2023 1:00 PM CDT [facility] & [address] [address] Saurav Singh MD Consult from Last 3 Months Immunizations Name Administration Dates Next Due AMB INFLUENZA, IIV4 (AGE=>6M OS) CARMEN (Flu Clinic Only) 03/26/2020 COVID-19 vaccine (Harperlabz 30mcg/0.3mL) PF, MDV 11/09/2020,10/12/2020 Influenza Virus, Unspecified 03/26/2020 Influenza, IIV4 03/28/2021,04/05/2016,04/24/2014 Influenza, IIV4 (Age 6-35 Mos) 04/05/2017 Tdap 02/17/2020,06/30/2009 Tuberculin (PPD) 04/24/2014 Zoster (Shingrix-RZV, recombinant) 06/19/2019,,02/11/2019 Family History Medical History Relation Name Comments Alcoholism Brother 2 Ankit Diabetes Brother 2 Ankit Drug Abuse Brother 2 Ankit Emphysema Father Nikos Hyperlipidemia Father Nkios Hypertension Father Nikos Cancer-breast Maternal Aunt Becca [...] 3 Alive Son 4 Julio Son 5 Luke Social History Tobacco Use Types Packs/Day Years [...] 10 oz) M VAGINAL KYLEIGH Amrita ng Julios on 09/11 Term 40w 0d 3h 00m/ 4.34 kg (9 lb 9 oz) M VAGINAL KYLEIGH Amrita ng Shania ew 02/17 Term 39w 0d 4h 00m/ 3.86 kg (8 lb 8 oz) M VAGINAL KYLEIGH Amrita ng Jason Last Filed Vital Signs Vital Sign Reading Time Taken Comments Blood Pressure 116/68 09/21/2023 1:24 PM CDT Pulse 53 09/21/2023 1:24 PM CDT Temperature 36.3 ??C (97.4 ??F) 05/14/2017 1:21 PM CS T Respiratory Rate 16 09/21/2023 1:24 PM CDT Oxygen Saturation 98% 07/10/2022 9:02 AM MEDICAL REIMBURSEMENT SPECIALIST Inhaled Oxygen Concentration - - Weight 73 kg (161 lb) 09/21/2023 1:24 PM CDT Height 176.8 cm (5' 9.59) 04/24/2022 10:28 AM C DT Body Mass Index 23.38 04/24/2022 10:28 AM CDT Plan of Treatment Health Maintenance Due Date Last Done Comments HIV for age 15-65 01/17/1983 Hepatitis C screening for age 18-79 01/17/1986 Mammogram for age 45-75 03/31/2022 03/31/20 21, 03/31/2021, 03/24/2021, Additional history exists Depression screening [...] Procedure Name Priority Date/Time Associated Diagnosis Comments EXTENDED HOLTER Routine 10/29/2023 Heart palpitations SCAN-MAMMOGRAPHY REPORT 03/31/2021 12:00 AM CDT HPV THIN PREP Routine 03/28/2021 4:50 PM CDT Screening for malignant neoplasm of cervix LIPID PANEL W REFLEX MEASURED LDL Routine 02/17/2020 9:01 AM CDT High serum low-density lipoprotein (LDL) SCAN-COLONOSCOPY 03/21/2019 9:30 AM CDT from Last 3 Months or Most Recently Relevant to Health Maintenance Results * Zio XT (10/29/2023) Saurav Singh MD CARDIAC SERVICES ORD * SCAN-MAMMOGRAPHY REPORT (03/31/2021 12:00 AM CDT) Anatomical Region Laterality Modality Other Scanner OTHER * HPV HIGH RISK (03/28/2021 4:50 PM CDT) TYPE 16 Negative Negative 03/30/2021 11:42 AM CDT [facility] TYPE 18 Negative Negative 03/30/2021 11:42 AM CDT [facility] OTHER HIGH RISK TYPES Negative Negative 03/30/2021 11:42 AM CDT [facility] Other (Cervical) Non-Blood / Unknown 03/28/2021 4:50 PM CDT 03/29/2021 9:52 AM CDT Narrative [facility] - 03/30/2021 11:42 AM CDT HPV types 16, 18, 31, 33, 35, 39, 45, 51, 52, 56, 58, 59, 66 and 68 DNA were undetectable or below the pre-set threshold. Methodology: [employer] 4800 HPV Test Patty Bajwa DO MICROBIOLOGY [facility] [address] [place] [address], * (ABNORMAL) LIPID PANEL W REFLEX MEASURED LDL (02/17/2020 9:01 AM CDT) CHOLESTEROL,TOTAL 200(H) 100 - 199 mg/dL 02/17/2020 1:43 PM CDT [facility] TRIGLYCERIDES 96 <150 mg/dL 02/17/2020 1:43 PM CDT [facility] HDL CHOLESTEROL 58 >40 mg/dL 0 1:43 PM CDT [facility] NON-HDL CHOLESTEROL 142 <145 mg/dl 02/17/2020 1:43 PM CDT [facility] CHOL/HDL RATIO 3.45 <4.50 02/17/2020 1:43 PM CDT [facility] LDL CHOLESTEROL 123 <=130 mg/dL 02/17/2020 1:43 PM CDT [facility] PROVIDER ORDERED STATUS RANDOM 02/17/2020 1:43 PM CDT [facility] Blood BLOOD SPECIMEN / Unknown Venipuncture / Unknown 02/17/2020 9:01 AM CDT 02/17/2020 9:01 AM CDT Patty Bajwa DO CHEMISTRY [facility] [address] [place] [address], [place] * SCAN-COLONOSCOPY (03/21/2019 9:30 AM CDT) Narrative Procedure Note Daljit Chan MD - 03/21/2019 8:42 AM CDT [facility] [address], [address], [place] [address] Patient Name: Danielle Saini Gender: Female Exam Date: 03/21/2019 Visit Number: [id number] Age: 49 Years 2 Months Date of : 1970 Attending MD: Daljit hCan MD Medical Record#: [id number] ----- Procedure: Colonoscopy Indications: Colorectal cancer screening [...] asdirected Allergies: Medication Name Ingredient Reaction Comment REGINA Dai Vital Signs: Date Time Systolic Diastolic Height Weight BMI 03/21/2019 9:00 AM 130 76 70 in 174.00 25.00 Race: Ethnicity: Not or Preferred Language: French cc: Patty Bajwa DO cc: Patty Bajwa DO [facility] [phone] Daljit Chan MD OTHER from Last 3 Months or Most Recently Relevant to Health Maintenance Care Teams Interstate Bus Driver Relationship Specialty Start Date End Date Pcp, No . PCP - General 04/26/22
--- OUTSIDE RECORDS SUMMARY | 2023-11-07 08:45 | XMS_ITS | Referral Summary ---
Author Name Unknown Organization [facility] Address [address] [place] [address]. [place] [address] Care Team Providers Care Torch Straightener And Heater Name Role Phone Clinic, [facility] Primary Care Provider Allergies Active Allergy [...] Comments Blood Pressure 115/83 08/10/2022 1:42 PM BLOCK OUT MACHINE OPERATOR Pulse 44 08/10/2022 11:45 AM BLOCK OUT MACHINE OPERATOR Temperature 35.8 ??C (96.5 ??F) 08/10/2022 1:42 PM CS T Respiratory Rate 14 08/10/2022 1:42 PM BLOCK OUT MACHINE OPERATOR Oxygen Saturation 99% 08/10/2022 1:42 PM BLOCK OUT MACHINE OPERATOR Inhaled Oxygen Concentration - - Weight 72.2 kg (159 lb 3.2 oz) 08/10/2022 5:48 A M BLOCK OUT MACHINE OPERATOR Height 175.3 cm (5' 9) 08/10/2022 5:48 AM BLOCK OUT MACHINE OPERATOR Body Mass Index 23.51 08/10/2022 5:48 AM BLOCK OUT MACHINE OPERATOR Plan of Treatment Not on file Medical Devices Implanted Type Area Speedboat Operator Device Identifier Shelf Expiration Date Model / Serial / Lot Natrelle Inspira Cohesive Breast Implant Smooth Round Full Profile Implanted:Qty : 1 on 08/10/2022 by Nai Cotto MD at [facility] Breast Implant/Tiss ue Screenplay Writer Left: Breast 06/27/2025 SCF-560 / [id number] / Explanted Type Area Speedboat Operator Device Identifier Shelf Expiration Date Model / Serial / Lot Breast Tissue Screenplay Writer Explanted:Qty: 1 on 08/10/2022 by Nai Cotto MD at [facility] Left: Breast Procedures Procedure Name Priority Date/Time Associated Diagnosis Comments GLUCOSE (EXTERNAL RESULT) Routine 07/24/2022 2:45 PM BLOCK OUT MACHINE OPERATOR from Last 3 Months or Most Recently Relevant to Health Maintenance Results * Glucose (External Result) (07/24/2022 2:45 PM BLOCK OUT MACHINE OPERATOR) Glucose (External) 94 60 - 115 mg/dL [facility] Blood 07/24/2022 2:45 PM BLOCK OUT MACHINE OPERATOR Narrative [facility] - 07/24/2022 2:45 PM BLOCK OUT MACHINE OPERATOR LAB RESULTS [facility] Provider Outside LAB - HIM EXTERNAL R ESULT [facility] [address] [place] [address], [facility] [phone] from Last 3 Months or Most Recently Relevant to Health Maintenance Care Teams Torch Straightener And Heater Relationship Specialty Start Date End Date Clinic, [facility] [address] [place] [address] PCP - General 07/21/22
--- OUTSIDE RECORDS SUMMARY | 2023-11-07 08:45 | XMS_ITS | Clinical Summary ---
Author Name Unknown Organization [facility] Address [address] [place] [address] Care Team Providers Care Television Journalist Name Role Phone Unavailable Primary Care Provider Unavailabl e Source Comments Patient records contain information from all sites at [facility]. For routine questions regarding patient records, call [phone] during business hours, M-F 8:00 AM - 5:00 PM Central Time. Record requests for emergency care only can be directed to [phone] at any time.[facility] Allergies Active Allergy Reactions Criticality Noted Date Comments Adhesive Rash,Other (see comments) Low 07/27/2022 Cephalexin Itching,Rash High 02/01/2022 Codeine Hives (Reselect Reac tion),Nausea Only Medium 03/20/2007 Mold Other (see comments) Medium 04/09/2017 dust Scopolamine Other (see comments) High 02/01/2022 insomnia Medications Medication Sig Dispensed Refills Start Date End Date Status ergocalciferol, vitamin D2, 10 mcg (400 unit) tablet 2 (two) times a day. Active cetirizine (ZyrTEC) 10 mg tablet Take 10 mg by mouth daily. Active pantoprazole (PROTONIX) 20 mg EC tablet TAKE 1 TABLET (20 MG) BY MOUTH DAILY 10/20/2021 Active letrozole (FEMARA) 2.5 mg tablet Take 2.5 mg by mouth daily. 01/23/2022 Active vitamin B complex (B COMPLEX-VITAMIN B12 ORAL) Take by mouth. Active calcium carbonate (CALCIUM 500 ORAL) Take by mouth. Ac tive sulfamethoxazole-tr imethoprim (BACTRIM DS) 800-160 mg per tablet Take 160 mg of trimethoprim by mouth daily. 03/12/2022 Active famotidine (PEPCID) 20 mg tablet Take 20 mg by mouth at bedtime. 05/21/2023 Active omeprazole (PriLOSEC) [address] capsule Take 20 mg by mouth daily as needed. For GERD. 05/21/2023 Active FLUoxetine (PROzac) 10 mg capsule Take 1 capsule by mouth daily. 07/11/2023 Active gabapentin (NEURONTIN) 300 mg capsule Take 300 mg by mouth 3 (three) times a day. 07/10/2022 Active ibuprofen (ADVIL,MOTRIN) 200 mg tablet 04/10/2017 Ibuprofen Oral Oral 04/10/2017 active 04/10/2017 Active terbinafine (LamISIL) 250 mg tablet Take 1 tablet by mouth daily. 07/02/2023 Active traZODone (DESYREL) 50 mg tablet Trazodone Oral Can take up to two tablets as needed. 1 tablet for sleep active Active magnesium oxide (MAG-OX) 400 mg (241.3 mg magnesium) tablet Take by mouth every morning before breakfast. Active Active Problems Problem Noted Date Diagnosed Date Other Chest Pain 03/17/2022 Malignant Neoplasm Of Breast Upper Outer Quadrant Female Right 04/13/2021 Cancer Staging:Clinical stage from 03/31/2021:Stage IIA(cT2, cN0, cM0, G3, ER+, AR+, HER2-) - Unsigned Pathologic stage from 06/02/2021:Stage IIA(pT2, pN1a, cM0, G3, ER+, AR+, HER2-) - Unsigned Family History Medical History Relation Name Comments Skin cancer Father Skin cancer Mother Relation Name Status Comments Father Mother Social History Tobacco Use Types Packs/Day Years Used Date Smoking Tobacco: Never Smokeless Tobacco: Never [facility] Utilities Answer Date Recorded In the past 12 months has e [employer], [employer], oil, or water [employer] threatened to shut off services in your [...] How often do you attend chur or sikhism services? More than 4 times per year 01/12/2022 Do you belong to any clubs o r organizations such as hoahaoism groups, unions, fraternal [...] and heating? Not hard at all 01/12/2022 [facility] of Occupat ional Health - Occupational Stress [...] your living situation today? I have a [facility] place to live 07/30/2023 Education Answer Date [...] (158 lb 11.7 oz) 08/02/2023 9:00 AM TOGGLE PRESS OPERATOR Height 176.5 cm (5' 9.49) 08/02/2023 9:00 AM CS T Body Mass Index 23.11 08/02/2023 9:00 AM TOGGLE PRESS OPERATOR Plan of Treatment Health Maintenance Due Date [...] this topic Medical Devices Implanted Type Area Supervisor Hand Workers Device Identifier Shelf Expiration Date Model / Serial / Lot Breast Implant Breast Implant Left: Breast Breast Implant Breast Implant Right: Breast Procedures Procedure Name Priority Date/Time Associated Diagnosis Comments EXTI GLUCOSE, RANDOM, S/P Routine 07/24/2022 2:45 PM TOGGLE PRESS OPERATOR OUTSIDE MG MAMMOGRAM Routine 03/31/2021 11:00 AM CDT EXTI LIPID PANEL W REFLEX MEASURED LDL Routine 02/17/2020 9:01 AM CDT from Last 3 Months or Most Recently Relevant to Health Maintenance Results * DIAGNOSTIC MAMMO, RIGHT, W/CAD-Outside Mammogram (03/31/2021 11:00 AM CDT) Narrative [facility] - 04/13/2021 11:33 AM CDT This order has been created and auto-finalized to support the import of outside images. If available, original interpretation can be found on the Media Tab in Chart Review, in Document Viewer, or as an image in QREADS. If a re-interpretation or overread is required please follow defined workflow. ?? Provider Not In System IMG BI PROCEDURES [facility] NA from Last 3 Months or Most Recently Relevant to Health Maintenance
--- OUTSIDE RECORDS SUMMARY | 2023-11-07 08:45 | XMS_ITS | Encounter Summary ---
Author Name Unknown Organization [facility] Address [address] [place] [address] Care Team Providers Care Rn Team Leader Name Role Phone Unavailable Primary Care Provider Unavailabl e Reason for Referral * Outpatient (Routine) - Authorized Specialty Diagnoses / Procedures Referred By Reina gamboa Referred To Contact Plastic Surgery Laureen Coe P.A.-C., M.S. [address] [place] [phone] [facility] Referral ID Status Reason Start Date Expiration Date V isits Requested Visits Authorized [id number] Authorized 08/02/2023 01/31/2025 1 1 Scheduling Instructions Yisel/ Laureen CE SYSTEM ANALYST Reason for Visit * Appointment Request (Routine) - Closed Specialty Diagnoses / Procedures Referred By Reina gamboa Referred To Contact Plastic Surgery Diagnoses Aftercare Breast Reconstruction Status Post Mastectomy Implant Breast Status Post Aftercare Breast Cancer Surgery Referral ID Status Reason Start Date Expiration Date Visits Re quested Visits Authorized [id number] Closed 04/24/2023 04/23/2024 1 1 Encounter Details Date Type Department Care Team (Latest Contact Info) Description 08/02/2023 9:00 AM OFFICE SYSTEM ANALYST Comprehensive Visit Division of Plastic Surgery in [place], [place] [address] [place] [phone] Malik Posadas M.D. [address] [place] [phone] Absence Of Breast Acquired Bilateral (Primary Dx) Social History Tobacco Use Types Packs/Day Years Used Date Smoking Tobacco: Never Smokeless Tobacco: Never [facility] Utilities Answer Date Recorded In the [...] How often do you attend chur or presybeterian services? More than 4 times per year 01/12/2022 Do you belong to any clubs o r organizations such as yazdanism groups, unions, fraternal [...] heating? Not hard at all 01/12/2022 [facility] of Occupat ional Health - Occupational Stress [...] (158 lb 11.7 oz) 08/02/2023 9:00 AM OFFICE SYSTEM ANALYST Height 176.5 cm (5' 9.49) 08/02/2023 9:00 AM CS T Body Mass Index 23.11 08/02/2023 9:00 AM OFFICE SYSTEM ANALYST documented in this encounter Consult Notes * [...] No prior breast surgeries other than above clinical laboratory aide hx: 3 delivered pregnancies, all vaginal deliveries [...] was seen and examined with Dr. Velazquez. CE SYSTEM ANALYST documented in this encounter Plan of Treatment Scheduled Referrals Name Type Priority Associated Diagnoses Orde r Schedule Plastic Surgery office visit (clinic) Outpatient Referral Routine Expected: 08/02/2024 (Approximate), Expires: 10/30/2024 documented as of this encounter Visit Diagnoses Diagnosis Absence Of Breast Acquired Bilateral- Primary documented in this encounter
--- OUTSIDE RECORDS SUMMARY | 2023-11-07 08:45 | XMS_ITS | Encounter Summary ---
Author Name Unknown Organization [facility] Address [address] [place] [address] Care Team Providers Care Hydroelectric Plant Mechanical Engineer Name Role Phone Unavailable Primary Care Provider Unavailabl e Encounter Details Date Type Department Care Team (Late st Contact Info) Description 08/02/2023 Ancillary Procedure Department of Plastic and Reconstructive Surgery Social History Tobacco Use Types Packs/Day Years Used Date Smoking Tobacco: Never Smokeless Tobacco: Never [employer] Utilities Answer Date Recorded In the past [...] often do you attend chur ch or faith services? More than 4 times per year 01/12/2022 Do you belong to any clubs o r organizations such as shinto groups, unions, fraternal or athletic groups, or [...] and heating? Not hard at all 01/12/2022 [facility] of Occupat ional Health - Occupational [...] SURGERY IMAGE EXAM Routine 08/02/2023 12:00 AM VP ANALYTICS documented in this encounter Results * TRAM Implants-Plastic And Recon Surgery Image Exam (08/02/2023 12:00 AM VP ANALYTICS) Narrative [facility] - 08/02/2023 11:15 AM VP ANALYTICS This order has been created and auto-finalized to support the import of images acquired without order. The clinical documentation to support these images can be found on the encounter that produced images. Provider Not In System IMG NON RAD IMAGI NG PROCEDURES [facility] NA documented in this encounter Visit Diagnoses Not on filedocumented in this encounter
--- OUTSIDE RECORDS SUMMARY | 2023-11-07 08:45 | XMS_ITS | Referral Summary ---
Author Name Unknown Organization [facility] Address [address] [place] [address] Care Team Providers Care Recruiter Manager Name Role Phone Unavailable Primary Care Provider Unavailabl e Source Comments Patient records contain information from all sites at [facility]. For routine questions regarding patient records, call [phone] during business hours, M-F 8:00 AM - 5:00 PM Central Time. Record requests for emergency care only can be directed to [phone] at any time.[facility] Allergies Active Allergy Reactions Criticality Noted [...] from 03/31/2021:Stage IIA(cT2, cN0, cM0, G3, ER+, ME+, HER2-) - Unsigned Pathologic stage from 06/02/2021:Stage IIA(pT2, pN1a, cM0, G3, ER+, ME+, HER2-) - Unsigned Social History Tobacco Use Types Packs/Day Years Used Date Smoking Tobacco: Never Smokeless Tobacco: Never [facility] Utilities Answer Date Recorded In the past 12 months has [facility] [email or web address], [employer], oil, or water [employer] threatened to shut off services in your [...] How often do you attend chur or confucianism services? More than 4 times per year 01/12/2022 Do you belong to any clubs o r organizations such as taoist groups, unions, fraternal or athletic groups, or [...] and heating? Not hard at all 01/12/2022 [facility] of Occupat ional Health - Occupational Stress [...] your living situation today? I have a [facility] place to live 07/30/2023 Education Answer Date [...] (158 lb 11.7 oz) 08/02/2023 9:00 AM BALL THREAD MACHINE TENDER Height 176.5 cm (5' 9.49) 08/02/2023 9:00 AM CS T Body Mass Index 23.11 08/02/2023 9:00 AM BALL THREAD MACHINE TENDER Plan of Treatment Not on file Medical Devices Implanted Type Area Product Support Rep Device Identifier Shelf Expiration Date Model / Serial / Lot Breast Implant Breast Implant Left: Breast Breast Implant Breast Implant Right: Breast Procedures Procedure Name Priority Date/Time Associated Diagnosis Comments EXTI GLUCOSE, RANDOM, S/P Routine 07/24/2022 2:45 PM BALL THREAD MACHINE TENDER OUTSIDE MG MAMMOGRAM Routine 03/31/2021 11:00 AM [...]
--- OUTSIDE RECORDS SUMMARY | 2023-11-07 08:45 | XMS_ITS | Clinical Summary ---
Author Name Unknown Organization [facility] Address [address] [place] [address]. [place] [address] Care Team Providers Care Automotive Parts Counter Person Name Role Phone Clinic, [facility] Primary Care Provider Allergies Active [...] Comments Blood Pressure 115/83 08/10/2022 1:42 PM SKATING RINK MANAGER Pulse 44 08/10/2022 11:45 AM SKATING RINK MANAGER Temperature 35.8 ??C (96.5 ??F) 08/10/2022 1:42 PM CS T Respiratory Rate 14 08/10/2022 1:42 PM SKATING RINK MANAGER Oxygen Saturation 99% 08/10/2022 1:42 PM SKATING RINK MANAGER Inhaled Oxygen Concentration - - Weight 72.2 kg (159 lb 3.2 oz) 08/10/2022 5:48 A M SKATING RINK MANAGER Height 175.3 cm (5' 9) 08/10/2022 5:48 AM SKATING RINK MANAGER Body Mass Index 23.51 08/10/2022 5:48 AM SKATING RINK MANAGER Plan of Treatment Health Maintenance Due Date [...] 2023 05/16/2022, 07/20/2021, 11/09/2020, Additional history exists PHQ-2 (once per calendar year) 2023 INFLUENZA VACCINE (Season Ended) 2024 05/16/2022, 03/28/2021, 03/26/2020, Additional history exists GLUCOSE 07/24/2025 07/24/2022 DTAP/TDAP/TD IMMUNIZATION (3 - [...] this topic Medical Devices Implanted Type Area Campaign Associate Device Identifier Shelf Expiration Date Model / Serial / Lot Natrelle Inspira Cohesive Breast Implant Smooth Round Full Profile Implanted:Qty : 1 on 08/10/2022 by Nai Cotto MD at [facility] Breast Implant/Tiss ue Track Moving Machine Operator Left: Breast 06/27/2025 SCF-560 / [id number] / Explanted Type Area Campaign Associate Device Identifier Shelf Expiration Date Model / Serial / Lot Breast Tissue Track Moving Machine Operator Explanted:Qty: 1 on 08/10/2022 by Nai Cotto MD at [facility] Left: Breast Procedures Procedure Name Priority Date/Time Associated Diagnosis Comments GLUCOSE (EXTERNAL RESULT) Routine 07/24/2022 2:45 PM SKATING RINK MANAGER from Last 3 Months or Most Recently Relevant to Health Maintenance Results * Glucose (External Result) (07/24/2022 2:45 PM SKATING RINK MANAGER) Glucose (External) 94 60 - 115 mg/dL [facility] Blood 07/24/2022 2:45 PM SKATING RINK MANAGER Narrative [facility] - 07/24/2022 2:45 PM SKATING RINK MANAGER LAB RESULTS [facility] AND [facility] Provider Outside LAB - HIM EXTERNAL R ESULT [facility] [address] [phone] from Last 3 Months or Most Recently Relevant to Health Maintenance Care Teams Automotive Parts Counter Person Relationship Specialty Start Date End Date Clinic, [address] [address] PCP - General 07/21/22
--- OUTSIDE RECORDS SUMMARY | 2023-11-07 08:45 | XMS_ITS ---
Author Name Unknown Organization [facility] Address [address] [place] [address] Care Team Providers Care Miniature Set Builder Name Role Phone Unavailable Unavailable Unavailable Surgery Details Not on file Complications Check Surgery Details section. Procedure Estimated Blood Loss Check Surgery Details section. Procedure Findings Check Surgery Details section. Procedure Specimens Taken Check Surgery Details section.
--- OUTSIDE RECORDS SUMMARY | 2023-11-07 08:45 | XMS_ITS ---
Author Name Unknown Organization [facility] Address [address] [place] [address] Care Team Providers Care Abstract Maker Name Role Phone Unavailable Primary Care Provider Unavailabl e Active Problems Problem Noted Date Diagnosed Date Other Chest Pain 03/17/2022 Malignant Neoplasm Of Breast Upper Outer Quadrant Female Right 04/13/2021 Cancer Staging:Clinical stage from 03/31/2021:Stage IIA(cT2, cN0, cM0, G3, ER+, [place]+, HER2-) - Unsigned Pathologic stage from 06/02/2021:Stage IIA(pT2, pN1a, cM0, G3, ER+, [place]+, HER2-) - Unsigned Current Oncology Plans No current plan information found. Past Plans No past plan information found. Radiation Treatments * Plan Last Treated On Elapsed Days Fractions Treated Prescribed Fraction Dose Prescribed Total Dose [id number] 02/24/2022 32 7 of 7 200 cGy 1,400 cGy [id number] 02/15/2022 23 18 of 18 200 cGy 3,600 cGy Reference Point Last Treated On Elapsed Days Session Dose Total Dose [id number] 02/24/2022 32 200 cGy 5,000 cGy ICRU 02/15/2022 23 205 cGy 3,681 cGy
--- OUTSIDE RECORDS SUMMARY | 2023-11-07 08:46 | XMS_ITS | Clinical Summary ---
Author Name Unknown Organization [facility] Address [address] [place] [address] Phone [email or web address] Care Team Providers Care Long Term Name Role Phone Unavailable Primary Care Provider Unavailabl e Immunizations Name Administration Dates Next Due COVID-19 (Pfizer Jack 12 yrs+) (CVX-208) 021,10/12/2020 Influenza PF Tri [...]
--- OUTSIDE RECORDS SUMMARY | 2023-11-07 08:46 | XMS_ITS | Encounter Summary ---
Author Name Unknown Organization [facility] Address [address] [place] [address] Care Team Providers Care Document Review Attorney Name Role Phone Unavailable Primary Care Provider Unavailabl e Reason for Visit * Reason Onset Date Comments Pre-visit Intake 08/01/2023 Encounter Details Date Type Department Care Team (Latest Contact Info) Description 08/01/2023 9:30 AM BELT LOOP CUTTER Clinical Communication Virtual Review in [place], [place] [address] [place] [address] Pre-visit Intake Social History Tobacco Use Types Packs/Day Years Used Date Smoking Tobacco: Never Smokeless Tobacco: Never [facility] Utilities Answer Date Recorded In the past 12 months has [facility] electric, gas, oil, or water [employer] threatened to shut off services in your [...] How often do you attend chur or muslim services? More than 4 times per year 01/12/2022 Do you belong to any clubs o r organizations such as jainism groups, unions, fraternal or athletic groups, or [...] and heating? Not hard at all 01/12/2022 [facility] [place] of Occupat ional Health - Occupational Stress [...] your living situation today? I have a [facility] place to live 07/30/2023 Education Answer [...]
== END 2023-11-02 15:06 | disposition home or self-care (01) ==
LOC: NFLDREF 11-07 08:43
PROVIDERS: PCP Family Medicine; Referring Provider Family Medicine; Visit Provider Family Medicine
DX: B35.1 Tinea unguium (principal); Z79.899 Other long term (current) drug therapy
CPT/HCPCS: 80053

== ENCOUNTER 2023-12-06 07:14 | Outpatient (CLI) | payer OTHER, SELFPAY ==
--- OUTSIDE RECORDS SUMMARY | 2023-12-06 07:16 | XMS_ITS | Clinical Summary ---
Author Organization [facility] Address [address] [place] [address] Phone [email or web address] Care Team Providers Care Bike Mechanic Name Role Phone Unavailable Primary Care Provider Unavailabl e Immunizations Name Administration Dates Next Due COVID-19 (Pfizer [place] 12 yrs+) (CVX-208) 021,10/12/2020 Influenza PF Tri [...] of 2) 01/17/2018 Breast Cancer Screening 02/24/2022 02/25/20 20, 03/25/2018 Covid-19 Immunization ( season) 2023 11/09/2020, [...]
--- OUTSIDE RECORDS SUMMARY | 2023-12-06 07:16 | XMS_ITS ---
Author Organization [facility] Address [address] [place] [address] Care Team Providers Care Lute Packer Or Applier Name Role Phone Unavailable Primary Care Provider Unavailabl e Active Problems Problem Noted Date Diagnosed Date Other Chest Pain 03/17/2022 Malignant Neoplasm Of Breast Upper Outer Quadrant Female Right 04/13/2021 Cancer Staging:Clinical stage from 03/31/2021:Stage IIA(cT2, cN0, cM0, G3, ER+, [place]+, HER2-) - Unsigned Pathologic stage from 06/02/2021:Stage IIA(pT2, pN1a, cM0, G3, ER+, [place]+, HER2-) - Unsigned Current Oncology Plans No current plan information found. Past Plans No past plan information found. Radiation Treatments * Plan Last Treated On Elapsed Days Fractions Treated Prescribed Fraction Dose Prescribed Total Dose [id number] 02/24/2022 32 7 of 7 200 cGy 1,400 cGy [id number] 02/15/2022 23 18 of 18 200 cGy 3,600 cGy Reference Point Last Treated On Elapsed Days Session Dose Total Dose [id number] 02/24/2022 32 200 cGy 5,000 cGy ICRU 02/15/2022 23 205 cGy 3,681 cGy
--- OUTSIDE RECORDS SUMMARY | 2023-12-06 07:16 | XMS_ITS | Clinical Summary ---
Author Organization [facility] Address [address] [place] [address]. [place] [address] Care Team Providers Care Secretary Of State Name Role Phone Clinic, [facility] Primary Care Provider Allergies Active Allergy Reactions [...] Comments Blood Pressure 115/83 08/10/2022 1:42 PM HIGH ENERGY FORMING EQUIPMENT OPERATOR Pulse 44 08/10/2022 11:45 AM HIGH ENERGY FORMING EQUIPMENT OPERATOR Temperature 35.8 ??C (96.5 ??F) 08/10/2022 1:42 PM CS T Respiratory Rate 14 08/10/2022 1:42 PM HIGH ENERGY FORMING EQUIPMENT OPERATOR Oxygen Saturation 99% 08/10/2022 1:42 PM HIGH ENERGY FORMING EQUIPMENT OPERATOR Inhaled Oxygen Concentration - - Weight 72.2 kg (159 lb 3.2 oz) 08/10/2022 5:48 A M HIGH ENERGY FORMING EQUIPMENT OPERATOR Height 175.3 cm (5' 9) 08/10/2022 5:48 AM HIGH ENERGY FORMING EQUIPMENT OPERATOR Body Mass Index 23.51 08/10/2022 5:48 AM HIGH ENERGY FORMING EQUIPMENT OPERATOR Plan of Treatment Health Maintenance Due [...] this topic Medical Devices Implanted Type Area Band Sawyer Device Identifier Shelf Expiration Date Model / Serial / Lot Natrelle Inspira Cohesive Breast Implant Smooth Round Full Profile Implanted:Qty : 1 on 08/10/2022 by Nai Cotto MD at [facility] Breast Implant/Tiss ue Sheetmetal Patternmaker Left: Breast 06/27/2025 SCF-560 / [id number] / Explanted Type Area Band Sawyer Device Identifier Shelf Expiration Date Model / Serial / Lot Breast Tissue Sheetmetal Patternmaker Explanted:Qty: 1 on 08/10/2022 by Nai Cotto MD at [facility] Left: Breast Procedures Procedure Name Priority Date/Time Associated Diagnosis Comments GLUCOSE (EXTERNAL RESULT) Routine 07/24/2022 2:45 PM HIGH ENERGY FORMING EQUIPMENT OPERATOR from Last 3 Months or Most Recently Relevant to Health Maintenance Results * Glucose (External Result) (07/24/2022 2:45 PM HIGH ENERGY FORMING EQUIPMENT OPERATOR) Glucose (External) 94 60 - 115 mg/dL [facility] Blood 07/24/2022 2:45 PM HIGH ENERGY FORMING EQUIPMENT OPERATOR Narrative [facility] - 07/24/2022 2:45 PM HIGH ENERGY FORMING EQUIPMENT OPERATOR LAB RESULTS [facility] Provider Outside LAB - HIM EXTERNAL R ESULT [facility] [address] [place] [address], [facility] [phone] from Last 3 Months or Most Recently Relevant to Health Maintenance Care Teams Secretary Of State Relationship Specialty Start Date End Date Clinic, [address] [address] PCP - General 07/21/22
--- OUTSIDE RECORDS SUMMARY | 2023-12-06 07:16 | XMS_ITS | Referral Summary ---
Author Organization [facility] Address [address] [place] [address]. [place] [address] Care Team Providers Care International Sourcing Manager Name Role Phone Clinic, [facility] Primary Care Provider Allergies Active Allergy Reactions [...] Comments Blood Pressure 115/83 08/10/2022 1:42 PM REEFER TRUCK DRIVER Pulse 44 08/10/2022 11:45 AM REEFER TRUCK DRIVER Temperature 35.8 ??C (96.5 ??F) 08/10/2022 1:42 PM CS T Respiratory Rate 14 08/10/2022 1:42 PM REEFER TRUCK DRIVER Oxygen Saturation 99% 08/10/2022 1:42 PM REEFER TRUCK DRIVER Inhaled Oxygen Concentration - - Weight 72.2 kg (159 lb 3.2 oz) 08/10/2022 5:48 A M REEFER TRUCK DRIVER Height 175.3 cm (5' 9) 08/10/2022 5:48 AM REEFER TRUCK DRIVER Body Mass Index 23.51 08/10/2022 5:48 AM REEFER TRUCK DRIVER Plan of Treatment Not on file Medical Devices Implanted Type Area Senior Integration Developer Device Identifier Shelf Expiration Date Model / Serial / Lot Natrelle Inspira Cohesive Breast Implant Smooth Round Full Profile Implanted:Qty : 1 on 08/10/2022 by Nai Cotto MD at [facility] Breast Implant/Tiss ue Automotive Teacher Left: Breast 06/27/2025 SCF-560 / [id number] / Explanted Type Area Senior Integration Developer Device Identifier Shelf Expiration Date Model / Serial / Lot Breast Tissue Automotive Teacher Explanted:Qty: 1 on 08/10/2022 by Nai Cotto MD at [facility] Left: Breast Procedures Procedure Name Priority Date/Time Associated Diagnosis Comments GLUCOSE (EXTERNAL RESULT) Routine 07/24/2022 2:45 PM REEFER TRUCK DRIVER from Last 3 Months or Most Recently Relevant to Health Maintenance Results * Glucose (External Result) (07/24/2022 2:45 PM REEFER TRUCK DRIVER) Glucose (External) 94 60 - 115 mg/dL [facility] Blood 07/24/2022 2:45 PM REEFER TRUCK DRIVER Narrative [facility] - 07/24/2022 2:45 PM REEFER TRUCK DRIVER LAB RESULTS [facility] AND [facility] Provider Outside LAB - HIM EXTERNAL R ESULT [facility] [address] [place] [address], [facility] [phone] from Last 3 Months or Most Recently Relevant to Health Maintenance Care Teams International Sourcing Manager Relationship Specialty Start Date End Date Clinic, [address] [address] PCP - General 07/21/22
--- OUTSIDE RECORDS SUMMARY | 2023-12-06 07:16 | XMS_ITS | Referral Summary ---
Author Organization [facility] Address [address] [place] [address] Care Team Providers Care Agriculture Mechanic Name Role Phone Unavailable Primary Care Provider Unavailabl e Source Comments Patient records contain information from all sites at [facility]. For routine questions regarding patient records, call [phone] during business hours, M-F 8:00 AM - 5:00 PM Central Time. Record requests for emergency care only can be directed to [phone] at any time.[facility] Allergies Active Allergy Reactions Criticality Noted Date [...] from 03/31/2021:Stage IIA(cT2, cN0, cM0, G3, ER+, [place]+, HER2-) - Unsigned Pathologic stage from 06/02/2021:Stage IIA(pT2, pN1a, cM0, G3, ER+, [place]+, HER2-) - Unsigned Social History Tobacco Use Types Packs/Day Years Used Date Smoking Tobacco: Never Smokeless Tobacco: Never [facility] Utilities Answer Date Recorded In the past 12 months has e [employer], [employer], oil, or water [employer] threatened to shut off services in your [...] How often do you attend chur or anabaptist services? More than 4 times per year 01/12/2022 Do you belong to any clubs o r organizations such as anabaptist groups, unions, fraternal [...] and heating? Not hard at all 01/12/2022 [facility] [place] of Occupat ional Health - Occupational Stress [...] your living situation today? I have a [facility] place to live 07/30/2023 Education Answer [...] (158 lb 11.7 oz) 08/02/2023 9:00 AM RECRUITER Height 176.5 cm (5' 9.49) 08/02/2023 9:00 AM CS T Body Mass Index 23.11 08/02/2023 9:00 AM RECRUITER Plan of Treatment Not on file Medical Devices Implanted Type Area Supervisor Statement Clerks Device Identifier Shelf Expiration Date Model / Serial / Lot Breast Implant Breast Implant Left: Breast Breast Implant Breast Implant Right: Breast Procedures Procedure Name Priority Date/Time Associated Diagnosis Comments EXTI GLUCOSE, RANDOM, S/P Routine 07/24/2022 2:45 PM RECRUITER OUTSIDE MG MAMMOGRAM Routine 03/31/2021 11:00 AM [...]
--- OUTSIDE RECORDS SUMMARY | 2023-12-06 07:16 | XMS_ITS ---
Author Organization [facility] Address [address] [place] [address] Care Team Providers Care Siderographist Name Role Phone Unavailable Unavailable Unavailable Surgery Details Not on file Complications Check Surgery Details section. Procedure Estimated Blood Loss Check Surgery Details section. Procedure Findings Check Surgery Details section. Procedure Specimens Taken Check Surgery Details section.
--- OUTSIDE RECORDS SUMMARY | 2023-12-06 07:16 | XMS_ITS | Clinical Summary ---
Author Organization [facility] Address [address] [place] [address] Care Team Providers Care Photograph Mounter Name Role Phone Unavailable Primary Care Provider Unavailabl e Source Comments Patient records contain information from all sites at [facility]. For routine questions regarding patient records, call [phone] during business hours, M-F 8:00 AM - 5:00 PM Central Time. Record requests for emergency care only can be directed to [phone] at any time.[facility] Allergies Active Allergy Reactions Criticality Noted [...] from 03/31/2021:Stage IIA(cT2, cN0, cM0, G3, ER+, [place]+, HER2-) - Unsigned Pathologic stage from 06/02/2021:Stage IIA(pT2, pN1a, cM0, G3, ER+, [place]+, HER2-) - Unsigned Family History Medical History Relation Name Comments Skin cancer Father Skin cancer Mother Relation Name Status Comments Father Mother Social History Tobacco Use Types Packs/Day Years Used Date Smoking Tobacco: Never Smokeless Tobacco: Never [facility] Utilities Answer Date Recorded In the past 12 months has [facility] [employer], [employer], oil, or water [employer] threatened to shut off services in your [...] How often do you attend chur or yazidi services? More than 4 times per year 01/12/2022 Do you belong to any clubs o r organizations such as presybeterian groups, unions, fraternal or athletic groups, or [...] and heating? Not hard at all 01/12/2022 [facility] [place] of Occupat ional Health - Occupational Stress [...] your living situation today? I have a [facility] place to live 07/30/2023 Education Answer [...] (158 lb 11.7 oz) 08/02/2023 9:00 AM [facility] Height 176.5 cm (5' 9.49) 08/02/2023 9:00 AM CS T Body Mass Index 23.11 08/02/2023 9:00 AM [facility] Plan of Treatment Health Maintenance Due Date [...] this topic Medical Devices Implanted Type Area Military Analyst Device Identifier Shelf Expiration Date Model / Serial / Lot Breast Implant Breast Implant Left: Breast Breast Implant Breast Implant Right: Breast Procedures Procedure Name Priority Date/Time Associated Diagnosis Comments EXTI GLUCOSE, RANDOM, S/P Routine 07/24/2022 2:45 PM [facility] OUTSIDE MG MAMMOGRAM Routine 03/31/2021 11:00 AM [...]
--- OUTSIDE RECORDS SUMMARY | 2023-12-06 07:16 | XMS_ITS | Clinical Summary ---
Author Organization [facility] Address [place], [place] [address] Care Team Providers Care Harness Inspector Name Role Phone Pcp, No Primary Care [...] Overview: Added automatically from request for surgery [id number] GSI (genuine stress incontinence), female 2011 Routine gynecological examination 11/30/2011 Encounters Date Type Department Care Team Description 10/29/[address] [place] [address] Saurav Singh MD Results (ZIO) 09/21/2023 4:00 PM CDT Office Visit [address] [place] [address] 09/21/2023 1:00 PM CDT Office Visit [facility] & [address] [address] Saurav Singh MD Consult from Last 3 Months Immunizations Name Administration Dates Next Due AMB INFLUENZA, IIV4 (AGE=>6M OS) [facility]MEN (Flu Clinic Only) 03/26/2020 COVID-19 vaccine (Infusionsoft 30mcg/0.3mL) PF, MDV 11/09/2020,10/12/2020 Influenza Virus, Unspecified [...] Outcome GA Total Labor Labor/2nd/3rd Weight Sex Type Anes PTL Tamanna A1 A5 Name Clin SAB SAB SAB 12/07 Term 38w 0d 7h 00m/ 3.46 kg (7 lb 10 oz) M VAGINAL [facility]YLE[facility] Livin g Olivia n 09/11 Term 40w 0d 3h 00m/ 4.34 kg (9 lb 9 oz) [facility] Livin g Ziggy w 02/17 Term 39w 0d 4h 00m/ 3.86 kg (8 lb 8 oz) M [facility] Livin g Shannankarine Last Filed Vital Signs Vital Sign Reading Time Taken Comments Blood Pressure 116/68 09/21/2023 1:24 PM CDT Pulse 53 09/21/2023 1:24 PM CDT Temperature 36.3 ??C (97.4 ??F) 05/14/2017 1:21 PM CS T Respiratory Rate 16 09/21/2023 1:24 PM CDT Oxygen Saturation 98% 07/10/2022 9:02 AM ORACLE APEX DEVELOPER Inhaled Oxygen Concentration - - Weight 73 [...] 04/06/2021, Additional history exists COVID-19 vaccine series ( season) 2023 05/21/2023, 05/16/2022, 07/20/2021, Additional history [...] 16 Negative Negative 03/30/2021 11:42 AM CDT [facility] TYPE 18 Negative Negative 03/30/2021 11:42 AM CDT [facility] OTHER HIGH RISK TYPES Negative Negative 03/30/2021 11:42 AM CDT [facility] Other (Cervical) Non-Blood / Unknown 03/28/2021 4:50 PM CDT 03/29/2021 9:52 AM CDT Narrative [facility] - 03/30/2021 11:42 AM CDT HPV types 16, 18, 31, 33, 35, 39, 45, 51, 52, 56, 58, 59, 66 and 68 DNA were undetectable or below the pre-set threshold. Methodology: Digiting Davy 4800 HPV Test Patty Bajwa DO MICROBIOLOGY [facility] [address] [place] [address], * (ABNORMAL) LIPID PANEL W REFLEX MEASURED LDL (02/17/2020 9:01 AM CDT) CHOLESTEROL,TOTAL 200(H) 100 - 199 mg/dL 02/17/2020 1:43 PM CDT [facility] TRIGLYCERIDES 96 <150 mg/dL 02/17/2020 1:43 PM CDT [facility] HDL CHOLESTEROL 58 >40 mg/dL 0 1:43 PM CDT [facility] NON-HDL CHOLESTEROL 142 <145 mg/dl 02/17/2020 1:43 PM CDT [facility] CHOL/HDL RATIO 3.45 <4.50 02/17/2020 1:43 PM CDT [facility] LDL CHOLESTEROL 123 <=130 mg/dL 02/17/2020 1:43 PM CDT [facility] PROVIDER ORDERED STATUS RANDOM 02/17/2020 1:43 PM CDT [facility] Blood BLOOD SPECIMEN / Unknown Venipuncture / Unknown 02/17/2020 9:01 AM CDT 02/17/2020 9:01 AM CDT Patty Bajwa DO CHEMISTRY [facility] [address] [place] [address], [place] * SCAN-COLONOSCOPY (03/21/2019 9:30 AM CDT) Narrative Procedure Note Daljit Chan MD - 03/21/2019 8:42 AM CDT [facility] [address], [address], [place] [address] Patient Name: Danielle Saini Gender: Female Exam Date: 03/21/2019 Visit Number: [id number] Age: 49 Years 2 Months Date of : 1970 Attending MD: Daljit Chan MD Medical Record#: [id number] ----- Procedure: Colonoscopy Indications: Colorectal cancer screening [...] asdirected Allergies: Medication Name Ingredient Reaction Comment CODEINE Hives Vital Signs: Date Time Systolic Diastolic Height Weight BMI 03/21/2019 9:00 AM 130 76 70 in 174.00 25.00 Race: Ethnicity: Not or Preferred Language: Kyrgyz cc: Patty Bajwa DO cc: Patty Bajwa DO [facility] [phone] Daljit Chan MD OTHER from Last 3 Months or Most Recently Relevant to Health Maintenance Care Teams Harness Inspector Relationship Specialty Start Date End Date Pcp, No . PCP - General 04/26/22
== END 2023-12-06 07:15 | disposition home or self-care (01) ==
LOC: FRMREF 07:14
PROVIDERS: PCP Family Medicine; Visit Provider Family Medicine
DX: R79.89 Other specified abnormal findings of blood chemistry (principal); Z79.899 Other long term (current) drug therapy
CPT/HCPCS: 80053; 84443

== ENCOUNTER 2024-01-14 15:30 | Outpatient (RCR) | payer OTHER, SELFPAY ==
--- NOTE | 2023-05-21 15:35 | ONC.NURNOTE ---
CT chest results reviewed by Marlyn Zelaya PA-C. Negative for malignancy per Marlyn Zelaya PA-C, plan for 4 mo follow up as previously planned. Pt notified.
[2023-08-27 10:15] LABS: Albumin* 4.7 g/dL (3.3-5.0); Chloride* 103 mmol/L (96-114); Potassium* 3.9 mmol/L (3.6-5.1); Sodium* 139 mmol/L (135-149)
[2023-08-27 10:17] LABS: Creatinine* 0.7 mg/dL (0.5-1.5); Estimated Glomerular Filt Rate 102 ml/min
[2023-08-27 10:18] LABS: Alkaline Phosphatase* 85 U/L (40-150); Anion Gap 8 mEq/L (7-15); Aspartate Amino Transferase* 23 U/L (12-35); Bilirubin Total* 0.5 mg/dL (0.1-1.5); Blood Urea Nitrogen* 15 mg/dL (7-30); Carbon Dioxide* 28 mmol/L (20-32); Glucose* 93 mg/dL (60-115); Total Protein* 7.5 g/dL (6.0-8.3)
[2023-08-27 10:47] LABS: Alanine Aminotransferase* 18 U/L (4-35)
--- NOTE | 2023-08-28 16:43 | ONC.NURNOTE ---
Pt called this morning noting area of redness on her right breast assessed by Marlyn has spread to left breast and lower right breast. Reviewed with Marlyn Zelaya PA-C. Recommend pt be seen by a provider today to r/o infectious process. Pt agreeable to this plan.
== END 2024-02-23 23:59 | disposition home or self-care (01) ==
LOC: CCIC 15:30
PROVIDERS: PCP Family Medicine; Visit Provider Physician Assistant
DX: C50.911 Malignant neoplasm of unspecified site of right female breast (principal); Z17.1 Estrogen receptor negative status [ER-]; Z90.13 Acquired absence of bilateral breasts and nipples; R07.89 Other chest pain; K21.9 Gastro-esophageal reflux disease without esophagitis; R53.83 Other fatigue; M85.80 Other specified disorders of bone density and structure, unspecified site; F41.9 Anxiety disorder, unspecified; F32.A Depression, unspecified; N95.2 Postmenopausal atrophic vaginitis; R25.2 Cramp and spasm
CPT/HCPCS: 36415; 80053; 99214; 99215; G0463

== ENCOUNTER 2024-05-21 09:32 | Outpatient (CLI) | payer OTHER, SELFPAY ==
--- OUTSIDE RECORDS SUMMARY | 2024-05-21 09:35 | XMS_ITS | Referral Summary ---
Author Organization [facility] Address [address] [place] [address]. [place] [address] Care Team Providers Care Chief Telephone Operator Name Role Phone Clinic, [facility] Primary Care Provider Allergies Active Allergy Reactions Criticality Noted Date Comments Adhesive Tape Rash Low 08/10/2022 Cephalexin Rash Low 07/19/2022 Codeine Nausea,Hives 07/19/2022 Mold 07/19/2022 Scopolamine 08/10/2022 insomnia Medications B Complex-C (VITAMIN B COMPLEX W/VITAMIN C) [...] 2.5 mg by mouth daily Active senna-docusate (SENOKOT-S/PERICOLA CE) 8.6-50 MG tabletIndications:S tatus post breast reconstruction Take 1-2 tablets by mouth 2 times daily 20 tablet 3 Active Active Problems Problem Noted Date Diagnosed Date Cervicalgia 03/23/2009 Lumbago 03/23/2009 Nonallopathic lesion of cervical region 03/23/20 09 Overview (03/26/2015): Problem list name updated by automated process. Provider to review Social History Tobacco Use Types Packs/Day Years Used Date Smoking Tobacco: Former Cigarettes Smokeless Tobacco: Never Tobacco Cessation:Counseling Given: Not Answered Alcohol Use Standard Drinks/Week Comments Yes 0 (1 standard drink = 0.6 oz pur e alcohol) rare Adolescent Education Answer Date Record ed Getting School Help Needed Not on file 04/11 Comments Unknown Sex and Gender Information Value Date Recorded Sex Assigned at Not on file Legal Sex Female 5:05 AM CURRICULUM AND INSTRUCTION SPECIALIST Gender Identity Not on file Sexual Orientation Not on file Last Filed Vital Signs Vital Sign Reading Time Taken Comments Blood Pressure 115/83 08/10/2022 1:42 PM CURRICULUM AND INSTRUCTION SPECIALIST Pulse 44 08/10/2022 11:45 AM CURRICULUM AND INSTRUCTION SPECIALIST Temperature 35.8 C (96.5 F) 08/10/2022 1:42 PM CURRICULUM AND INSTRUCTION SPECIALIST Respiratory Rate 14 08/10/2022 1:42 PM CURRICULUM AND INSTRUCTION SPECIALIST Oxygen Saturation 99% 08/10/2022 1:42 PM CURRICULUM AND INSTRUCTION SPECIALIST Inhaled Oxygen Concentration - - Weight 72.2 kg (159 lb 3.2 oz) 08/10/2022 5:48 A M CURRICULUM AND INSTRUCTION SPECIALIST Height 175.3 cm (5' 9) 08/10/2022 5:48 AM CURRICULUM AND INSTRUCTION SPECIALIST Body Mass Index 23.51 08/10/2022 5:48 AM CURRICULUM AND INSTRUCTION SPECIALIST Plan of Treatment Not on file Medical Devices Implanted Type Area Whipper Device Identifier Shelf Expiration Date Model / Serial / Lot Natrelle Inspira Cohesive Breast Implant Smooth Round Full Profile Implanted:Qty : 1 on 08/10/2022 by Nai Cotto MD at [facility] Breast Implant/Tiss ue Rug Sample Beveler Left: Breast 06/27/2025 [id number]-[id number] / [id number] / Explanted Type Area Whipper Device Identifier Shelf Expiration Date Model / Serial / Lot Breast Tissue Rug Sample Beveler Explanted:Qty: 1 on 08/10/2022 by Nai Cotto MD at [facility] Left: Breast Procedures Procedure Name Priority Date/Time Associated Diagnosis Comments GLUCOSE (EXTERNAL RESULT) Routine 07/24/2022 2:45 PM CURRICULUM AND INSTRUCTION SPECIALIST from Last 3 Months or Most Recently Relevant to Health Maintenance Results * Glucose (External Result) (07/24/2022 2:45 PM CURRICULUM AND INSTRUCTION SPECIALIST) Glucose (External) 94 60 - 115 mg/dL [facility] Blood 07/24/2022 2:45 PM CURRICULUM AND INSTRUCTION SPECIALIST Narrative [facility] - 07/24/2022 2:45 PM CURRICULUM AND INSTRUCTION SPECIALIST LAB RESULTS [facility] us Provider Outside LAB - HIM EXTERNAL RESULT Final Result [facility] [address] [place] [address], [facility] [phone] from Last 3 Months or Most Recently Relevant to Health Maintenance Insurance COUNT INCLUDES [facility] Care Teams Chief Telephone Operator Relationship Specialty Start Date End Date Clinic, [address] [address] PCP - General 07/21/22
--- OUTSIDE RECORDS SUMMARY | 2024-05-21 09:35 | XMS_ITS ---
Author Organization [facility] Address [address] [place] [address] Care Team Providers Care Business Economist Name Role Phone Unavailable Unavailable Unavailable Surgery Details Not on file Complications Check Surgery Details section. Procedure Estimated Blood Loss Check Surgery Details section. Procedure Findings Check Surgery Details section. Procedure Specimens Taken Check Surgery Details section.
--- OUTSIDE RECORDS SUMMARY | 2024-05-21 09:35 | XMS_ITS | Referral Summary ---
Author Organization [facility] Address [address] [place] [address] Care Team Providers Care Telemarketing Representative Name Role Phone Unavailable Primary Care Provider Unavailabl e Source Comments Patient records contain information from all sites at [facility]. For routine questions regarding patient records, call [phone] during business hours, M-F 8:00 AM - 5:00 PM Central Time. Record requests for emergency care only can be directed to [phone] at any time.[facility] Encounters Date Type Department Care Team Description 04/29/2024 4:13 PM LACE MENDER - 04/29/2024 11:59 PM LACE MENDER Hospital Encounter Department of Laboratory Medicine and Pathology, [facility] in [place], [place] [address] [place] [phone] Lupis Jones M.D. 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 Deficiency Vitamin D (Primary Dx); Malignant Neoplasm Of Breast Upper Outer Quadrant Female Right (HCC); Hot Flash; Atrophy Vagina Due To Estrogen Deficiency; Arthralgia; Anxiety; Neuropathy Peripheral; Abnormal Finding Of Blood Chemistry Unspecified from Last 3 Months Allergies Active Allergy Reactions Criticality Noted Date Comments Adhesive Rash,Other (see comments) Low 07/27/2022 Cephalexin Itching,Rash High 02/01/2022 Codeine Hives (Reselect Reac tion),Nausea Only Medium 03/20/2007 Mold Other (see comments) Medium 04/09/2017 dust Scopolamine Other (see comments) High 02/01/2022 insomnia Medications ergocalciferol , vitamin D2, 10 mcg (400 unit) tablet 2 (two) times a day. Active cetirizine (ZyrTEC) 10 mg tablet Take 10 mg by mouth daily. Active letrozole (FEMARA) 2.5 mg tablet Take 2.5 mg by mouth daily. 01/24/20 22 Active vitamin B complex (B COMPLEX-VITAMI N B12 ORAL) Take by mouth. Act dale calcium carbonate (CALCIUM 500 ORAL) Take by mouth. Activ e famotidine (PEPCID) 20 mg tablet Take 20 mg by mouth at bedtime. 05/21/20 23 Active omeprazole (PriLOSEC) [address] capsule Take 20 mg by mouth daily as needed. For GERD. 05/21/20 23 Active FLUoxetine (PROzac) 10 mg capsule Take 1 capsule by mouth daily. 07/11/19 24 Active ibuprofen (ADVIL,MOTRIN) 200 mg tablet 04/10/2017 Ibuprofen Oral Oral 04/10/2017 active 04/10/20 17 Active traZODone (DESYREL) 50 mg tablet Trazodone Oral Can take up to two tablets as needed. 1 tablet for sleep active Active magnesium oxide (MAG-OX) 400 mg (241.3 mg magnesium) tablet Take by mouth every morning before breakfast. Active minoxidiL (Loniten) 2.5 mg tablet Take 2.5 mg by mouth at bedtime. Active L.acidoph-L.bu lg-B.bif-S.the rm (Bacid) 1 billion cell- 250 mg per tablet Take 1 tablet by mouth daily. Active pantoprazole (PROTONIX) 20 mg EC tablet TAKE 1 TABLET (20 MG) BY MOUTH DAILY 10/21/19 22 024 Discontinued sulfamethoxazo le-trimethopri m (BACTRIM DS) 800-160 mg per tablet Take 160 mg of trimethoprim by mouth daily. 03/12/20 22 024 Discontinued gabapentin (NEURONTIN) 300 mg capsule Take 300 mg by mouth 3 (three) times a day. 07/10/19 23 024 Discontinued terbinafine (LamISIL) 250 mg tablet Take 1 tablet by mouth daily. 07/02/19 24 024 Discontinued Active Problems Problem Noted Date Diagnosed Date Other Chest Pain 03/17/2022 Malignant Neoplasm Of Breast Upper Outer Quadrant Female Right 04/13/2021 Cancer Staging:Clinical stage from 03/31/2021:Stage IIA(cT2, cN0, cM0, G3, ER+, AK+, HER2-) - Unsigned Pathologic stage from 06/02/2021:Stage IIA(pT2, pN1a, cM0, G3, ER+, AK+, HER2-) - Unsigned Social History Tobacco Use Types Packs/Day Years Used Date Smoking Tobacco: Never Smokeless Tobacco: Never [employer] Answer Date Recorded In the past 12 months has [facility] [employer], gas, oil, or water [employer] threatened to shut off services in your [...] week 01/12/2022 How often do you attend [facility] or faith services? More than 4 times per year 01/12/2022 Do you belong to any clubs o r organizations such as bahai groups, unions, fraternal or athletic groups, or [...] and heating? Not hard at all 01/12/2022 [facility] - Occupational Stress [...] your living situation today? I have a [facility] place to live 07/30/2023 Education Answer Date Recorded What is the highest level of school you have completed or the highest degree you have received? Professional school degree (e.g., MD, DDS, DVM, ORTIZ) 01/12/2022 Comments Unknown Sex and Gender Information Value Date Recorded Sex Assigned at Female 01/12/2022 4:28 PM CDT Legal Sex Female 10:30 PM LACE MENDER Gender Identity Female 01/12/2022 4:28 PM CDT Sexual Orientation Straight 01/12/2022 4: 28 PM CDT Last Filed Vital Signs Vital Sign Reading Time Taken Comments Blood Pressure 112/72 04/29/2024 2:53 PM LACE MENDER Pulse 51 04/29/2024 2:53 PM LACE MENDER Temperature 36.3 C (97.3 F) 04/29/2024 2:53 PM LACE MENDER Respiratory Rate 14 04/29/2024 2:53 PM LACE MENDER Oxygen Saturation 97% 04/29/2024 2:53 PM LACE MENDER Inhaled Oxygen Concentration - - Weight 73.2 kg (161 lb 6 oz) 04/29/2024 2:53 PM LACE MENDER Height 175.3 cm (5' 9.02) 04/29/2024 2:53 PM CS T Body Mass Index 23.82 04/29/2024 2:53 PM LACE MENDER Plan of Treatment Upcoming Encounters Date Type Department Care Team (Late st Contact Info) Description 07/07/2024 10:00 AM LACE MENDER Nurse Only Department of Oncology in [place], [place] [address] [place] [address] Lupis Jones M.D. 200 [place] [address] Maria Luz Gutierrez D.N.P., R.N., O.C.N. [address] [place] [address] 08/05/2024 1:00 PM LACE MENDER Office Visit Division of Plastic Surgery in [place], [place] [address] [place] [address] Adelaida Hayward APRN, C.N.P., D.N.P. [address] [place] [address] Medical Devices Implanted Type Area Tile Helper Device Identifier Shelf Expiration Date Model / Serial / Lot Breast Implant Breast Implant Left: Breast Breast Implant Breast Implant Right: Breast Procedures Procedure Name Priority Date/Time Associated Diagnosis Comments HEMOGLOBIN A1C, B Routine 04/29/2024 4:2 1 PM LACE MENDER Malignant Neoplasm Of Breast Upper Outer Quadrant Female Right (HCC) Abnormal Finding Of Blood Chemistry Unspecified FOLATE, S Routine 04/29/2024 4:21 PM LACE MENDER Malignant Neoplasm Of Breast Upper Outer Quadrant Female Right (HCC) Neuropathy Peripheral VITAMIN B12 ASSAY, S Routine 04/29/2024 4:21 PM LACE MENDER Malignant Neoplasm Of Breast Upper Outer Quadrant Female Right (HCC) Neuropathy Peripheral 25-HYDROXYVITAMIN D2 AND D3, S Routine 04/29/2024 4:21 PM LACE MENDER Malignant Neoplasm Of Breast Upper Outer Quadrant Female Right (HCC) Deficiency Vitamin D Neuropathy Peripheral THIAMIN (VITAMIN B1), B Routine 04/29/2024 4:20 PM LACE MENDER Malignant Neoplasm Of Breast Upper Outer Quadrant Female Right (HCC) Neuropathy Peripheral VITAMIN B6 PROF (PLP AND PA), P Routine 04/29/2024 4:20 PM LACE MENDER Malignant Neoplasm Of Breast Upper Outer Quadrant Female Right (HCC) Neuropathy Peripheral OUTSIDE MG MAMMOGRAM Routine 03/31/2021 11:00 AM CDT from Last 3 Months or Most Recently Relevant to Health Maintenance Results * 25-Hydroxyvitamin D2 and D3 (04/29/2024 4:21 PM LACE MENDER) [facility] 25-Hydroxy D2 <4.0 ng/mL 05/02/2024 3:42 PM LACE MENDER SDSC 25-Hydroxy D3 49 ng/mL 05/02/2024 3:42 PM LACE MENDER SDSC 25-Hydroxy D Total 49 ng/mL 2023 3:42 PM LACE MENDER SDS Comment: ----REFERENCE VALUE---- 25-HYDROXY D TOTAL (D2+D3) Optimum levels in the healthy population are 20-50. ----ADDITIONAL INFORMATION---- This test was developed and its performance characteristics determined by [facility] in a manner consistent with CLIA requirements. This test has not been cleared or approved by the U.S. Food and Drug Administration. Blood (Blood, Venous) 04/29/2024 4:21 PM LACE MENDER 04/30/2024 7:41 AM LACE MENDER Lupis Jones M.D. LAB BLOOD ADD-ON Final Resu lt Performing Organization Address City/[facility]/ZIP Co de Phone Number [facility] [address] [place] [address] [facility] [address] [place] [address] [place] [address] * Hemoglobin A1c (04/29/2024 4:21 PM LACE MENDER) [facility] Hemoglobin A1c, B 5.4 4.0 - 5.6 % 04/29/2024 5:20 PM LACE MENDER DTL Blood (Blood, Venous) 04/29/2024 4:21 PM LACE MENDER 04/29/2024 4:49 PM LACE MENDER Lupis Jones M.D. LAB BLOOD ADD-ON Final Resu lt Performing Organization Address City/[facility]/ZIP Co de Phone Number [facility] [address] [place] [address], [facility] [address] [place] [address] * Folate (04/29/2024 4:21 PM LACE MENDER) [facility] Folate, S 10.0 >=4.0 mcg/L 04/30/2024 8: 47 AM LACE MENDER DT Blood (Blood, Venous) 04/29/2024 4:21 PM LACE MENDER 04/29/2024 5:07 PM LACE MENDER Lupis Jones M.D. LAB BLOOD ADD-ON Final Resu lt Performing Organization Address [facility] de Phone Number [facility] [address] [place] [address], [facility] [address] [place] [address] * Vitamin B12 Assay (04/29/2024 4:21 PM LACE MENDER) Pathologist [facility] Vitamin B12 Assay, S 290 180 - 914 ng/L 04/30/2024 8:47 AM LACE MENDER [facility] Comment: ----ADDITIONAL INFORMATION---- In patients being evaluated for vitamin B12 deficiency who have intrinsic factor blocking antibodies (IFBA), false elevations of B12 may occur due to IFBA interference thus potentially obscuring a physiological deficiency of B12. If observed B12 concentrations are discordant with clinical presentation, measurement of methylmalonic acid (MMA) should be considered. Blood (Blood, Venous) 04/29/2024 4:21 PM LACE MENDER 04/29/2024 5:07 PM LACE MENDER Result [facility] Lupis Jones M.D. LAB BLOOD ADD-ON Final Resu lt Performing Organization Address [facility] de Phone Number [facility] [address] [place] [address], [facility] [address] [place] [address] * Thiamine (Vitamin B1), Whole Blood (04/29/2024 4:20 PM LACE MENDER) Pathologist [facility] Thiamine (Vitamin B1), WB 102 70 - 180 nmol/L 05/01/2024 12:17 PM LACE MENDER [facility] Comment: ----ADDITIONAL INFORMATION---- This test was developed and its performance characteristics determined by [facility] in a manner consistent with CLIA requirements. This test has not been cleared or approved by the U.S. Food and Drug Administration. Blood (Blood, Venous) 04/29/2024 4:20 PM LACE MENDER 04/30/2024 8:44 AM LACE MENDER Result [facility] Lupis Jones M.D. LAB BLOOD NON ADD-ON Final Result Performing Organization Address City/[facility]/ZIP Co de Phone Number [facility] [address] [place] [address] [facility] [address] [place] [address] [place] [address] * (ABNORMAL) Vitamin B6 Profile (PLP and PA) (04/29/2024 4:20 PM LACE MENDER) Pyridoxal 5-Phosphate (PLP), P 57(H) 5 - 50 mcg/L 05/02/2024 10:08 AM LACE MENDER [facility] Comment: In this sample, the elevated pyridoxal 5-phosphate is likely related to dietary supplementation. ----ADDITIONAL INFORMATION---- This test was developed and its performance characteristics determined by [facility] in a manner consistent with CLIA requirements. This test has not been cleared or approved by the U.S. Food and Drug Administration. Pyridoxic Acid (PA), P 25 3 - 30 mcg/L 05/02/2024 10:08 AM LACE MENDER [facility] Comment: ----ADDITIONAL INFORMATION---- This test was developed and its performance characteristics determined by [facility] in a manner consistent with CLIA requirements. This test has not been cleared or approved by the U.S. Food and Drug Administration. Blood (Blood, Venous) 04/29/2024 4:20 PM LACE MENDER 04/30/2024 3:50 PM LACE MENDER Result [facility] Lupis Jones M.D. LAB BLOOD NON ADD-ON Final Result Performing Organization Address City/[facility]/ZIP Co de Phone Number [facility] [address] [place] [address] [facility] [address] [place] [address] [place] [address] * DIAGNOSTIC MAMMO, RIGHT, W/CAD-Outside Mammogram (03/31/2021 [...] overread is required please follow defined workflow. us Provider Not In System IMG BI PROCEDURES Final R esult IIMS NA from Last 3 Months or Most Recently Relevant to Health Maintenance Insurance [facility]
--- OUTSIDE RECORDS SUMMARY | 2024-05-21 09:35 | XMS_ITS | Clinical Summary ---
Author Organization [facility] Address [place], [place] [address] Care Team Providers Care Slot Machine Mechanic Name Role Phone Pcp, No Primary Care [...] Member's Mario B-Complex once a day morning [place] D3 (125 mcg) once a day morning [...] fe male breast 04/13/2021 Endometrial polyp 03/22/2017 Overview (03/22/2017): Added automatically from request for surgery [id number] GSI (genuine stress incontinence), female 2011 Routine gynecological examination 11/30/2011 Immunizations Name Administration Dates Next Due AMB INFLUENZA, IIV4 (AGE=>6M OS) MDV (Flu Clinic Only) 03/26/2020 COVID-19 vaccine ([employer] 30mcg/0.3mL) PF, MDV 11/09/2020,10/12/2020 Influenza Virus, Unspecified [...] Son 4 Julio Anxiety disorder Son 5 Jason Cancer-ovarian No Family History Relation Name Status [...] 3 Alive Son 4 Julio Son 5 Jason Social History Tobacco Use Types Packs/Day Years [...] 10 oz) M VAGINAL KYLEIGH Livin g Julioso n 09/11 Term 40w 0d 3h 00m/ 4.34 kg (9 lb 9 oz) M VAGINAL KYLEIGH Livin g Shaniae w 02/17 Term 39w 0d 4h 00m/ 3.86 kg (8 lb 8 oz) M VAGINAL KYLEIGH Livin g Luke Last Filed Vital Signs Vital Sign Reading Time Taken Comments Blood Pressure 116/68 09/21/2023 1:24 PM CDT Pulse 53 09/21/2023 1:24 PM CDT Temperature 36.3 C (97.4 F) 05/14/2017 1:21 PM PROCESS PLANNER Respiratory Rate 16 09/21/2023 1:24 PM CDT Oxygen Saturation 98% 07/10/2022 9:02 AM PROCESS PLANNER Inhaled Oxygen Concentration - - Weight 73 [...] 04/06/2021, Additional history exists COVID-19 vaccine series (2023- season) 2024 05/21/2023, 05/16/2022, 07/20/2021, Additional history exists Influenza [...] SCAN-MAMMOGRAPHY REPORT 03/31/2021 12:00 AM CDT HPV HIGH RISK Routine 03/28/2021 4:50 PM CDT Screening for [...] 16 Negative Negative 03/30/2021 11:42 AM CDT [facility] TYPE 18 Negative Negative 03/30/2021 11:42 AM CDT [facility] OTHER HIGH RISK TYPES Negative Negative 03/30/2021 11:42 AM CDT [facility] Other (Cervical) Non-Blood / Unknown 03/28/2021 4:50 PM CDT 03/29/2021 9:52 AM CDT Narrative [facility] - 03/30/2021 11:42 AM CDT HPV types 16, 18, 31, 33, 35, 39, 45, 51, 52, 56, 58, 59, 66 and 68 DNA were undetectable or below the pre-set threshold. Methodology: [employer] 4800 HPV Test Patty Bajwa DO MICROBIOLOGY [facility] [address] [place] [address], [place] * (ABNORMAL) LIPID PANEL W REFLEX MEASURED LDL (02/17/2020 9:01 AM CDT) CHOLESTEROL,TOTAL 200(H) 100 - 199 mg/dL 02/17/2020 1:43 PM CDT [facility] TRIGLYCERIDES 96 <150 mg/dL 02/17/2020 1:43 PM CDT [facility] HDL CHOLESTEROL 58 >40 mg/dL 0 1:43 PM CDT [facility] NON-HDL CHOLESTEROL 142 <145 mg/dl 02/17/2020 1:43 PM CDT [facility] CHOL/HDL RATIO 3.45 <4.50 02/17/2020 1:43 PM CDT [facility] LDL CHOLESTEROL 123 <=130 mg/dL 02/17/2020 1:43 PM CDT [facility] PROVIDER ORDERED STATUS RANDOM 02/17/2020 1:43 PM CDT [facility] Blood BLOOD SPECIMEN / Unknown Venipuncture / Unknown 02/17/2020 9:01 AM CDT 02/17/2020 9:01 AM CDT Patty Bajwa DO CHEMISTRY [facility] [address] [place] [address], [place] * SCAN-COLONOSCOPY (03/21/2019 9:30 AM CDT) Narrative Procedure Note Daljit Chan MD - 03/21/2019 8:42 AM CDT [facility] [address], [address], [place] [address] Patient Name: Danielle Saini Gender: Female Exam Date: 03/21/2019 Visit Number: [id number] Age: 49 Years 2 Months Date of : 1970 Attending MD: Daljit Chan MD Medical Record#: [id number] ----- Procedure: Colonoscopy Indications: Colorectal cancer screening [...] 25.00 Race: Ethnicity: Not or Preferred Language: Andorran cc: Patty Bajwa DO cc: Patty Bajwa DO [facility] [phone] Daljit Chan MD OTHER from Last 3 Months or Most Recently Relevant to Health Maintenance Care Teams Slot Machine Mechanic Relationship Specialty Start Date End Date Pcp, No . PCP - General 04/26/22
--- OUTSIDE RECORDS SUMMARY | 2024-05-21 09:35 | XMS_ITS | Encounter Summary ---
Author Organization [facility] Address [address] [place] [address] Care Team Providers Care Sales Representative Aircraft Name Role Phone Unavailable Primary Care Provider Unavailabl e Encounter Details Date Type Department Care Team (Late st Contact Info) Description 01/28/2024 Clinical Communication Department of Oncology in [place], [place] [address] [place] [address] Marie Zelaya MPAS, P.A.-C., P.A. [address] [place] [address] Social History Tobacco Use Types Packs/Day Years Used Date Smoking Tobacco: Never Smokeless Tobacco: Never [facility] Utilities Answer Date Recorded In the past [address] [facility] [employer], gas, oil, or water [employer] threatened to shut off services in your [...] How often do you attend chur or methodist services? More than 4 times per year [...] and heating? Not hard at all 01/12/2022 [facility] - Occupational Stress [...] your living situation today? I have a [facility] place to live 07/30/2023 Education Answer Date Recorded What is the highest level of school you have completed or the highest degree you have received? Professional school degree (e.g., MD, DDS, DVM, ORTIZ) 01/12/2022 Comments Unknown Sex and Gender Information Value Date Recorded Sex Assigned at Female 01/12/2022 4:28 PM CDT Legal Sex Female 10:30 PM MEDICAL DERMATOLOGIST Gender Identity Female 01/12/2022 4:28 PM CDT Sexual Orientation Straight 01/12/2022 4: 28 PM CDT documented as of this encounter Plan of Treatment Upcoming Encounters Date Type Department Care Team (Late st Contact Info) Description 07/07/2024 10:00 AM MEDICAL DERMATOLOGIST Nurse Only Department of Oncology in [place], [place] [address] [place] [id number] Lupis Jones M.D. [address] [place] [phone] Maria Luz Gutierrez D.NShereeP., R.N., O.C.N. [address] [place] [phone] 08/05/2024 1:00 PM MEDICAL DERMATOLOGIST Office Visit Division of Plastic Surgery in [place], [place] [address] [place] [address] Adelaida Hayward, МАРИНА, C.N.P., D.N.P. [address] [place] [address] documented as of this encounter Visit Diagnoses Not on filedocumented in this encounter
--- OUTSIDE RECORDS SUMMARY | 2024-05-21 09:35 | XMS_ITS | Encounter Summary ---
Author Organization [facility] Address [address] [place] [address] Care Team Providers Care Rn Access Name Role Phone Unavailable Primary Care Provider Unavailabl e Reason for Referral * Outpatient (Routine) - Authorized Specialty Diagnoses / Procedures Referred By Reina gamboa Referred To Contact Oncology Lupis Jones M.D. 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 [address] [place] [address] Phone: tel: fax: [facility] Referral ID Status Reason Start Date Expiration Date Visits Re quested Visits Authorized [id number] Closed 01/14/2024 07/15/2025 1 1 Encounter Details Date Type Department Care Team (Latest Contact Info) Description 04/29/2024 3:00 PM RECOVERY AGENT Comprehensive Visit Department of Oncology in [place], [place] [address] [place] [address] Lupis Jones M.D. 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 More than 4 times per year 01/12/2022 Do you belong to any clubs o r organizations such as hinduism groups, unions, fraternal or athletic groups, or [...] and heating? Not hard at all 01/12/2022 [facility] of Occupat ional Health - Occupational Stress [...] PM CDT Legal Sex Female 10:30 PM RECOVERY AGENT Gender Identity Female 01/12/2022 4:28 PM CDT Sexual Orientation Straight 01/12/2022 4: 28 PM CDT documented as of this encounter Last Filed Vital Signs Vital Sign Reading Time Taken Comments Blood Pressure 112/72 04/29/2024 2:53 PM RECOVERY AGENT Pulse 51 04/29/2024 2:53 PM RECOVERY AGENT Temperature 36.3 C (97.3 F) 04/29/2024 2:53 PM RECOVERY AGENT Respiratory Rate 14 04/29/2024 2:53 PM RECOVERY AGENT Oxygen Saturation 97% 04/29/2024 2:53 PM RECOVERY AGENT Inhaled Oxygen Concentration - - Weight 73.2 kg (161 lb 6 oz) 04/29/2024 2:53 PM RECOVERY AGENT Height 175.3 cm (5' 9.02) 04/29/2024 2:53 PM CS T Body Mass Index 23.82 04/29/2024 2:53 PM RECOVERY AGENT documented in this encounter Consult Notes * Lupis Jones M.D. - 04/29/2024 3:00 PM CST Images from the original note were not included. Danielle Saini is seen in the [facility] Integrative Oncology clinic for consultation requested by Marie Zelaya MPAS, P.A.-C., P.A. [address] [place] [address] Primary Oncologist: No care environmental field team member to display PCP: No primary care provider on file. 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 No suspicious findings in the left breast. BI-RADS 0. 03/24/2021 Critical Imaging Right breast mammogram with tomosynthesis demonstrated a spiculated mass within the lateral right breast, 5 cm from the nipple, with pleomorphic branching microcalcifications present. Targeted right breast ultrasound at the 9 o'clock position, 5 cm from the nipple was performed. There was an irregularly marginated solid mass with distal acoustic shadowing and punctate microcalcifications measuring 1.3 x 0.9 cm. 03/28/2021 Other Simulation Software Engineer exam with Dr. Patty Bajwa where the [...] was performed. Pathology demonstrated invasive ductal carcinoma, Ventura grade 3. Angiolymphatic invasion was absent. Associated DCIS was present, solid and cribriform subtypes (necrosis present (grade 3). Estrogen receptor positive (96%). Progesterone receptor positive (62%). HER2 by IHC negative(0). 04/06/2021 Other Surgery consultation with Dr. Malia Bailey who discussed surgical treatment options including mastectomy alone, mastectomy with reconstruction, and lumpectomy. Indications for chemotherapy and radiation were discussed as well. Referral for genetic screening. Referral to Radiation Oncology prior to d etermining any treatment plans. Recommended proceeding with an MRI of the breasts. Referral for lymphedema education and evaluation prior to surgery. Referral to Plastic surgery to discuss reconstruction. 04/12/2021 Critical Imaging MRI of the bilateral breasts demonstrated [...] by Dr. Bailey. 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 Cotto. PATHOLOGY: A) RIGHT BREAST, MASTECTOMY: 1. Invasive ductal carcinoma, Ventura grade III of III a. Size: 2.2 cm b. Core biopsy site is associated with tumor 2. Ductal carcinoma in situ (DCIS), nuclear grade 3, Cribriform and comedo type 3. Margins: a. Invasive carcinoma involves the anterior/superior margin b. DCIS is 0.5 cm from the anterior/superior margin 4. Breast Ancillary Testing: Performed on prior case ([id number]) a. Hormone Receptors: Estrogen receptor: Positive (96%, [...] of Lymph Nodes Examined: 7 Number of [place] Nodes Examined: 1 PATHOLOGIC STAGE CLASSIFICATION (pTNM, [...] Breast Ancillary Testing: Performed on prior case ([id number]) a. Hormone Receptors: Estrogen receptor: Positive (96%, moderate staining) Progesterone receptor: Positive (62%, moderate staining) b. HER2 by IHC: Negative (0 by manual morphometry) c. Ki-67 (performed on [id number]): 18% by image analysis 07/14/2021 Critical Imaging PET-CT scan demonstrated postprocedural changes related to recent bilateral mastectomy and right axillary lymph node dissection with no suspicious uptake worrisome for residual or recurrent right breast carcinoma. No convincing evidence of tracer avid distant sites of metastatic disease. Focal milduptake central right lobe without definitive noncontrast CT abnormality, potentially artifact or related to background noise. 07/28/2021 - 09/08/2021 Chemotherapy Dose dense Adriamycin and Cytoxan chemotherapy x 4 cycles. 09/22/2021 - 12/15/2021 Chemotherapy Weekly paclitaxel x 12 weeks. 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 Last Dose Informant Start Date End Date LT calcium carbonate (CALCIUM 500 ORAL) -- -- -- -- Take by mouth. cetirizine (ZyrTEC) 10 mg tablet -- -- -- -- Take 10 mg by mouth daily. ergocalciferol, vitamin D2, 10 mcg (400 unit) tablet -- -- -- -- 2 (two) times a day. famotidine (PEPCID) 20 mg tablet -- -- 05/21/23 -- Take 20 mg by mouth at bedtime. FLUoxetine (PROzac) 10 mg capsule -- -- 07/11/23 -- Take 1 capsule by mouth daily. gabapentin (NEURONTIN) 300 mg capsule -- -- 07/10/22 -- Take 300 mg by mouth 3 (three) times a day. ibuprofen (ADVIL,MOTRIN) 200 mg tablet -- -- 04/10/17 -- 04/10/2017 Ibuprofen Oral Oral 04/10/2017 active letrozole (FEMARA) 2.5 mg tablet -- -- 01/23/22 -- Take 2.5 mg by mouth daily. magnesium oxide (MAG-OX) 400 mg (241.3 mg magnesium) tablet -- -- -- -- Take by mouth every morning before breakfast. omeprazole (PriLOSEC) [address] capsule -- -- 05/21/23 -- Take 20 mg by mouth daily as needed. For GERD. terbinafine (LamISIL) 250 mg tablet -- -- 07/02/23 -- Take 1 tablet by mouth daily. traZODone (DESYREL) 50 mg tablet -- -- -- -- Trazodone Oral Can take up to two tablets as needed. 1 tablet for sleep active vitamin B complex (B COMPLEX-VITAMIN B12 ORAL) -- -- -- -- Take by mouth. Flag for Review Taking? Last Dose Informant Start Date End Date LT pantoprazole (PROTONIX) 20 mg EC tablet -- -- 10/20/21 -- TAKE 1 TABLET (20 MG) BY MOUTH DAILY sulfamethoxazole-trimethoprim (BACTRIM DS) 800-160 mg per tablet -- -- 03/12/22 -- Take 160 mg of trimethoprim by mouth daily. Notes: NOT TAKING PMH: No past medical history on file. FAMILY HX: Family History Problem Relation Name Age of Onset Skin cancer Mother Skin cancer Father SH: Social History Socioeconomic History Marital status: Spouse name: Not on file Number of children: Not on file Years of education: Not on file Highest education level: Professional school degree (e.g., MD, DDS, DVM, ORTIZ) Occupational History Not on file Tobacco Use Smoking status: Never Smokeless tobacco: Never Substance and Sexual Activity Alcohol use: Not on file Drug use: Not on file Sexual activity: Not on file Other Topics Concern Not on file Social History Narrative Not on file Social Drivers of Health Food Insecurity: No Food Insecurity (07/30/2023) Hunger Vital Sign Worried About Running Out of Food in the Last Year: Never true Ran Out of Food in the Last Year: Never true Transportation Needs: No Transportation Needs (07/30/2023) PRAPARE - Transportation Lack of Transportation (Medical): No Lack of Transportation (Non-Medical): No Physical Activity: Sufficiently Active (07/30/2023) Exercise Vital Sign Days of Exercise per Week: 5 days Minutes of Exercise per Session: 30 min Intimate Partner Violence: Not At Risk (01/12/2022) Humiliation, Afraid, Rape, and Kick questionnaire Fear of Current or Ex-Partner: No Emotionally Abused: No Physically Abused: No Sexually Abused: No Housing Stability: Low Risk (07/30/2023) Housing Stability Housing: Living Situation: I have a steady place to live Social Drivers of Health Transportation Needs: No Transportation Needs (07/30/2023) PRAPARE - Transportation Lack of Transportation (Medical): No Lack of Transportation (Non-Medical): No Housing Stability: Low Risk (07/30/2023) Housing Stability Housing: Living Situation: I have a steady place to live Food Insecurity: No Food Insecurity (07/30/2023) Hunger Vital Sign Worried About Running Out of Food in the Last Year: Never true Ran Out of Food in the Last Year: Never true Utilities: Not At Risk (07/30/2023) [facility] Utilities Threatened with loss of utilities: No Intimate Partner Violence: Not At Risk (01/12/2022) Humiliation, Afraid, Rape, and Kick questionnaire Fear of Current or Ex-Partner: No Emotionally Abused: No Physically Abused: No Sexually Abused: No Physical Activity: Sufficiently Active (07/30/2023) Exercise Vital Sign Days of Exercise per Week: 5 days Minutes of Exercise per Session: 30 min Dental: Low Risk (01/12/2022) Dental Dental: Regular Dentist: Yes Nutrition: Low Risk (07/30/2023) Nutrition Nutrition: Servings of Fruits/Vegetables per Day: 5 or more Employment: Low Risk (07/30/2023) Employment Employment Status: Employed and actively working without restrictions CORE ASSESSMENTS: Diet (24-hour diet recall as follows): Trying to eat veggies/grains, whole foods; like sweets; fish; occasional ETOH; some red meat, nuts;has not been consistent with diet Supplements: calcium, VIT D, mag, was on B vitamins but not currently Exercise: likes to run/walk 1/wk; has done PT, yoga; signed up for strength training Weight: 73 kg Sleep: trazodone but would like to get off of this; has apnea but CPAP but can't use it; has cramps/RLS Stressors: dx, symptoms Immune/Inflammatory concerns: VMS, mild CIPN Other notable symptoms: some brain fog PHYSICAL EXAM: ECOG performance score: 1 - symptomatic but completely ambulatory There were no vitals taken for this visit. General: Well-developed female sitting comfortably in clinic room. Eyes: Extraocular movements intact. Musculoskeletal: Normal range of motion. Skin: No visible rashes. Neurological: Alert and oriented x 3. Psychiatry: No overt anxiety or depression. LABS: IMAGING: Reviewed. ASSESSMENT/PLAN: Danielle Saini is a 54 y.o. female with ER+ breast cancer, on AI with typical SE. She presents for integrative oncology consultation to discuss prevention, supplements, sx management. Cancer: Informed Danielle Saini that lifestyle changes may improve cancer outcomes and quality of life. She is having some AI related sx, such as joint pain, poor sleep, hot flashes. Recommend a trial of acupuncture. Local resources provided. She has tried some cannabis drinks, reviewed that OTC hemp products are not tested, would prefer trying edibles from medical dispensary. Cannabis may help with RLS/pain and insomnia. Reviewed products/dosing and SE in detail and she would like to try low dose at night. Would wean off trazodone and neurontin. Will check some labs as well to assessneuropathy- she has been off/on B vitamins. General resource list sent. Diet: Patient is currently on a whole food/SAD diet. I shared that the literature supports a plant-heavy, whole food diet incorporating fruits, vegetables, legumes, nuts/seeds, whole grains and healthy fats with a focus on minimizing red meat consumption, processed foods, and sugary beverages. The best sources of fat include oily cold-water fish (anchovies, garcia, mackerel, salmon, and sardines), nuts, and oils (specifically olive oil). I encouraged limited alcohol consumption and minimization of foods with added sugars. Specific dietary recommendations include: increase fiber, increase veggies, limit/avoid sugars and saturated fats; limit processed meats/foods. Check A1c. Supplements: Reviewed patient's current supplement usage. Recommended ok to add in melatonin; reviewed calcium requirements; check labs and will adjust others. Exercise: Reviewed the importance of exercise for cancer risk reduction. Current recommendations are to participate in 30 to 60 minutes of moderate intensity exercise 5 days per week or 15 to 30 minutes of high intensity exercise 5 days per week as well as whole body strength training 2x/week. Specific exercise recommendations include: increase to recs as tolerated. This helps with AI symptoms, as well as bone and CV health. Weight: Reviewed importance of keeping a lean/healthy weight. Specific weight goals include: fat loss/gain muscle. Sleep: Discussed sleep hygiene and the importance of adequate sleep for optimizing the immune system and quality of life. Recommended participating in morning exercise, limiting caffeine consumption after the noon hour, avoiding daytime naps longer than 20 minutes, setting routine sleep and waking intervals, and limiting electronic exposure 2 hours before bedtime. If unable to sleep within 30 minutes of getting into bed, get up and do something relaxing until feeling drowsy. If experiencing an anxious mind, consider writing a to-do list and remembering the list will be there upon waking thenext day. If snoring or experiencing excessive daytime sleepiness, consider sleep study. Specific sleep modifications include: will add in low dose medical cannabis as above, acupuncture. Stress: Shared the importance of stress reduction for overall health. Many modalities may be usefulsuch as meditation, mindfulness, breathing exercises, Harshal Chi/qi gong, hypnosis, support groups, and counseling. Specific stress modification goals include: will refer as needed. Gastrointestinal: Reviewed the importance of a healthy gut microbiome for optimized immune functionand overall health. Gut microbiome are positively impacted by plant-heavy, high fiber diet discussed earlier. Daily dietary fiber goal of 30 grams. Labs Ordered: will FU Follow-Up: Return to integrative medicine clinic in 2 mo Tiffanie check in. 70 minutes were spent (total time) which includes FTF time as well as chart review, review of labs and other tests and communication with other providers. VERY AGENT documented in this encounter Plan of Treatment Upcoming Encounters Date Type Department Care Team (Late st Contact Info) Description 07/07/2024 10:00 AM RECOVERY AGENT Nurse Only Department of Oncology in [place], [place] [address] [place] [phone] Lupis Jones M.D. [address] [place] [phone] Maria Luz Gutierrez D.N.P., R.N., O.C.N. [address] [place] [phone] 08/05/2024 1:00 PM RECOVERY AGENT Office Visit Division of Plastic Surgery in [place], [place] [address] [place] [phone] Adelaida Hayward APRN, C.N.P., D.N.P. [address] [place] [phone] Scheduled Referrals Name Type Priority Associated Diagnoses Orde r Schedule Oncology nurse visit (clinic) Outpatient Referral Routine Expected: 07/07/2024 (Approximate), Expires: 07/30/2025 documented as of this encounter Procedures Procedure Name Priority Date/Time Associated Diagnosis Comments 25-HYDROXYVITAMIN D2 AND D3, S Routine 04/29/2024 4:21 PM RECOVERY AGENT Malignant Neoplasm Of Breast Upper Outer Quadrant Female Right (HCC) Deficiency Vitamin D Neuropathy Peripheral documented in this encounter Results * Hemoglobin A1c (04/29/2024 4:21 PM RECOVERY AGENT) Hemoglobin A1c, B 5.4 4.0 - 5.6 % 04/29/2024 5:20 PM RECOVERY AGENT DTL Blood (Blood, Venous) 04/29/2024 4:21 PM RECOVERY AGENT 04/29/2024 4:49 PM RECOVERY AGENT us Lupis Jones M.D. LAB BLOOD ADD-ON Final Resu lt [facility] [address] [place], [place] [phone] [place] [address] [facility] [address] [place] [address] * Folate (04/29/2024 4:21 PM RECOVERY AGENT) [facility] Folate, S 10.0 >=4.0 mcg/L 04/30/2024 8: 47 AM RECOVERY AGENT DT Blood (Blood, Venous) 04/29/2024 4:21 PM RECOVERY AGENT 04/29/2024 5:07 PM RECOVERY AGENT Lupis Jones M.D. LAB BLOOD ADD-ON Final Resu lt [facility] [address] [place] [address] * Vitamin B12 Assay (04/29/2024 4:21 PM RECOVERY AGENT) [facility] Vitamin B12 Assay, S 290 180 - 914 ng/L 04/30/2024 8:47 AM RECOVERY AGENT DT Comment: ----ADDITIONAL INFORMATION---- In patients being evaluated for vitamin B12 deficiency who have intrinsic factor blocking antibodies (IFBA), false elevations of B12 may occur due to IFBA interference thus potentially obscuring a physiological deficiency of B12. If observed B12 concentrations are discordant with clinical presentation, measurement of methylmalonic acid (MMA) should be considered. Blood (Blood, Venous) 04/29/2024 4:21 PM RECOVERY AGENT 04/29/2024 5:07 PM RECOVERY AGENT Lupis Jones M.D. LAB BLOOD ADD-ON Final Resu lt [facility] [address] [place] [address], [facility] [address] [place] [address] * 25-Hydroxyvitamin D2 and D3 (04/29/2024 4:21 PM RECOVERY AGENT) [facility] 25-Hydroxy D2 <4.0 ng/mL 05/02/2024 3:42 PM RECOVERY AGENT [facility] 25-Hydroxy D3 49 ng/mL 05/02/2024 3:42 PM RECOVERY AGENT [facility] 25-Hydroxy D Total 49 ng/mL 2023 3:42 PM RECOVERY AGENT [facility] Comment: ----REFERENCE VALUE---- 25-HYDROXY D TOTAL (D2+D3) Optimum levels in the healthy population are 20-50. ----ADDITIONAL INFORMATION---- This test was developed and its performance characteristics determined by [facility] in a manner consistent with CLIA requirements. This test has not been cleared or approved by the U.S. Food and Drug Administration. Blood (Blood, Venous) 04/29/2024 4:21 PM RECOVERY AGENT 04/30/2024 7:41 AM RECOVERY AGENT Lupis Jones M.D. LAB BLOOD ADD-ON Final Resu lt Performing Organization Address [facility] de Phone Number [facility] [address] [place] [address] [facility] [address] [place] [address] [place] [address] * Thiamine (Vitamin B1), Whole Blood (04/29/2024 4:20 PM RECOVERY AGENT) [facility] Thiamine (Vitamin B1), WB 102 70 - 180 nmol/L 05/01/2024 12:17 PM RECOVERY AGENT [facility] Comment: ----ADDITIONAL INFORMATION---- This test was developed and its performance characteristics determined by [facility] in a manner consistent with CLIA requirements. This test has not been cleared or approved by the U.S. Food and Drug Administration. Blood (Blood, Venous) 04/29/2024 4:20 PM RECOVERY AGENT 04/30/2024 8:44 AM RECOVERY AGENT Lupis Jones M.D. LAB BLOOD NON ADD-ON Final Result Performing Organization Address [facility]/ZIP Co de Phone Number [facility] [address] [place] [phone] [facility] [address] [place] [address] [place] [address] * (ABNORMAL) Vitamin B6 Profile (PLP and PA) (04/29/2024 4:20 PM RECOVERY AGENT) Pyridoxal 5-Phosphate (PLP), P 57(H) 5 - 50 mcg/L 05/02/2024 10:08 AM RECOVERY AGENT [facility] Comment: In this sample, the elevated pyridoxal 5-phosphate is likely related to dietary supplementation. ----ADDITIONAL INFORMATION---- This test was developed and its performance characteristics determined by [facility] in a manner consistent with CLIA requirements. This test has not been cleared or approved by the U.S. Food and Drug Administration. Pyridoxic Acid (PA), P 25 3 - 30 mcg/L 05/02/2024 10:08 AM RECOVERY AGENT [facility] Comment: ----ADDITIONAL INFORMATION---- This test was developed and its performance characteristics determined by [facility] in a manner consistent with CLIA requirements. This test has not been cleared or approved by the U.S. Food and Drug Administration. Blood (Blood, Venous) 04/29/2024 4:20 PM RECOVERY AGENT 04/30/2024 3:50 PM RECOVERY AGENT us Lupis Jones M.D. LAB BLOOD NON ADD-ON Final Result [facility] [address] [place] [address] [facility] [address] [place] [address] 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
--- OUTSIDE RECORDS SUMMARY | 2024-05-21 09:35 | XMS_ITS | Encounter Summary ---
Author Organization [facility] Address [address] [place] [id number] Care Team Providers Care Spa Attendant Name Role Phone Unavailable Primary Care Provider Unavailabl e Encounter Details Date Type Department Care Team (Latest Contact Info) Description 04/29/2024 4:13 PM SUPERVISOR SLEEPING BAG DEPARTMENT - 04/29/2024 11:59 PM [facility] Hospital Encounter Department of Laboratory Medicine and Pathology, [facility] in [place], [place] [address] [place] [phone] Lupis Jones M.D. 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 More than 4 times per year [...] and heating? Not hard at all 01/12/2022 [facility] [place] of Occupat ional Health - Occupational Stress [...] your living situation today? I have a [facility] place to live 07/30/2023 Education Answer Date Recorded What is the highest level of school you have completed or the highest degree you have received? Professional school degree (e.g., MD, DDS, DVM, ORTIZ) 01/12/2022 Comments Unknown Sex and Gender Information Value Date Recorded Sex Assigned at Female 01/12/2022 4:28 PM CDT Legal Sex Female 10:30 PM SUPERVISOR SLEEPING BAG DEPARTMENT Gender Identity Female 01/12/2022 4:28 PM CDT Sexual Orientation Straight 01/12/2022 4: 28 PM CDT documented as of this encounter Medications at Time of Discharge calcium carbonate (CALCIUM 500 ORAL) Take by mouth. cetirizine (ZyrTEC) 10 mg tablet Take 10 mg by mouth daily. ergocalciferol, vitamin D2, 10 mcg (400 unit) tablet 2 (two) times a day. famotidine (PEPCID) 20 mg tablet Take 20 mg by mouth at bedtime. 05/21/2023 FLUoxetine (PROzac) 10 mg capsule Take 1 capsule by mouth daily. 07/11/2023 ibuprofen (ADVIL,MOTRIN) 200 mg tablet 04/10/2017 Ibuprofen Oral Oral 04/10/2017 active 04/10/2017 Ruth Whitetherm (Bacid) 1 billion cell- 250 mg per tablet Take 1 tablet by mouth daily. letrozole (FEMARA) 2.5 mg tablet Take 2.5 mg by mouth daily. 01/23/2022 magnesium oxide (MAG-OX) 400 mg (241.3 mg magnesium) tablet Take by mouth every morning before breakfast. minoxidiL (Loniten) 2.5 mg tablet Take 2.5 mg by mouth at bedtime. omeprazole (PriLOSEC) [address] capsule Take 20 mg by mouth daily as needed. For GERD. 05/21/2023 traZODone (DESYREL) 50 mg tablet Trazodone Oral Can take up to two tablets as needed. 1 tablet for sleep active vitamin B complex (B COMPLEX-VITAMIN B12 ORAL) Take by mouth. documented as of this encounter Plan of Treatment Upcoming Encounters Date Type Department Care Team (Late st Contact Info) Description 07/07/2024 10:00 AM SUPERVISOR SLEEPING BAG DEPARTMENT Nurse Only Department of Oncology in [place], [place] [address] [place] [phone] Lupis Jones M.D. [address] [place] [phone] Maria Luz Gutierrez D.N.P., R.N., O.C.N. [address] [place] [phone] 08/05/2024 1:00 PM SUPERVISOR SLEEPING [employer]AG DEPARTMENT Office Visit Division of Plastic Surgery in [place], [place] [address] [place] [phone] Adelaida Hayward APRN, C.N.P., D.N.P. 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 (HCC) Abnormal Finding Of Blood Chemistry Unspecified FOLATE, S Routine 04/29/2024 4:21 PM SUPERVISOR SLEEPING BAG DEPARTMENT Malignant Neoplasm Of Breast Upper Outer Quadrant Female Right (HCC) Neuropathy Peripheral VITAMIN B12 ASSAY, S Routine 04/29/2024 4:21 PM SUPERVISOR SLEEPING BAG DEPARTMENT Malignant Neoplasm Of Breast Upper Outer Quadrant Female Right (HCC) Neuropathy Peripheral THIAMIN (VITAMIN B1), B Routine 04/29/2024 4:20 PM SUPERVISOR SLEEPING BAG DEPARTMENT Malignant Neoplasm Of Breast Upper Outer Quadrant Female Right (HCC) Neuropathy Peripheral VITAMIN B6 PROF (PLP AND PA), P Routine 04/29/2024 4:20 PM SUPERVISOR SLEEPING BAG DEPARTMENT Malignant Neoplasm Of Breast Upper Outer 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 LAB BLOOD ADD-ON Final Resu lt [facility] [address] [place] [address], [facility] [address] [place] [address] * Folate (04/29/2024 4:21 PM SUPERVISOR SLEEPING BAG DEPARTMENT) Folate, S 10.0 >=4.0 mcg/L 04/30/2024 8: 47 AM SUPERVISOR SLEEPING BAG DEPARTMENT DTL Blood (Blood, Venous) 04/29/2024 4:21 PM SUPERVISOR SLEEPING [facility]AG DEPARTMENT 04/29/2024 5:07 PM SUPERVISOR SLEEPING BAG DEPARTMENT Lupis Jones M.D. LAB BLOOD ADD-ON Final Resu lt Performing Organization Address City/[facility] Co de Phone Number [facility] [address] [place] [address], [facility] [address] [place] [address] * Vitamin B12 Assay (04/29/2024 4:21 PM SUPERVISOR SLEEPING BAG DEPARTMENT) Pathologist [facility] Vitamin B12 Assay, S 290 180 - 914 ng/L 04/30/2024 8:47 AM SUPERVISOR SLEEPING BAG DEPARTMENT [facility] Comment: ----ADDITIONAL INFORMATION---- In patients being evaluated for vitamin B12 deficiency who have intrinsic factor blocking antibodies (IFBA), false elevations of B12 may occur due to IFBA interference thus potentially obscuring a physiological deficiency of B12. If observed B12 concentrations are discordant with clinical presentation, measurement of methylmalonic acid (MMA) should be considered. Blood (Blood, Venous) 04/29/2024 4:21 PM SUPERVISOR SLEEPING BAG DEPARTMENT 04/29/2024 5:07 PM SUPERVISOR SLEEPING BAG DEPARTMENT Lupis Jones M.D. LAB BLOOD ADD-ON Final Resu Performing Organization Address City/[facility] Co de Phone Number [facility] [address] [place] [address], [address] [address] * Thiamine (Vitamin B1), Whole Blood (04/29/2024 4:20 PM SUPERVISOR SLEEPING BAG DEPARTMENT) Pathologist [facility] Thiamine (Vitamin B1), WB 102 70 - 180 nmol/L 05/01/2024 12:17 PM SUPERVISOR SLEEPING BAG DEPARTMENT [place] Comment: ----ADDITIONAL INFORMATION---- This test was developed and its performance characteristics determined by [facility] in a manner consistent with CLIA requirements. This test has not been cleared or approved by the U.S. Food and Drug Administration. Blood (Blood, Venous) 04/29/2024 4:20 PM SUPERVISOR SLEEPING BAG DEPARTMENT 04/30/2024 8:44 AM SUPERVISOR SLEEPING BAG DEPARTMENT Lupis Jones M.D. LAB BLOOD NON ADD-ON Final Result Performing Organization Address City/[facility]/ZIP Co de Phone Number [facility] [address] [place] [phone] [place] [address] [place] [address] [place] [address] * (ABNORMAL) Vitamin B6 Profile (PLP and PA) (04/29/2024 4:20 PM SUPERVISOR SLEEPING BAG DEPARTMENT) Pyridoxal 5-Phosphate (PLP), P 57(H) 5 - 50 mcg/L 05/02/2024 10:08 AM SUPERVISOR SLEEPING BAG DEPARTMENT [place] Comment: In this sample, the elevated pyridoxal 5-phosphate is likely related to dietary supplementation. ----ADDITIONAL INFORMATION---- This test was developed and its performance characteristics determined by [facility] in a manner consistent with CLIA requirements. This test has not been cleared or approved by the U.S. Food and Drug Administration. Pyridoxic Acid (PA), P 25 3 - 30 mcg/L 05/02/2024 10:08 AM SUPERVISOR SLEEPING BAG DEPARTMENT [place] Comment: ----ADDITIONAL INFORMATION---- This test was developed and its performance characteristics determined by [facility] in a manner consistent with CLIA requirements. This test has not been cleared or approved by the U.S. Food and Drug Administration. Blood (Blood, Venous) 04/29/2024 4:20 PM SUPERVISOR SLEEPING BAG DEPARTMENT 04/30/2024 3:50 PM SUPERVISOR SLEEPING BAG DEPARTMENT Lupis Jones M.D. LAB BLOOD NON ADD-ON Final Result Performing Organization Address City/[facility]/ZIP Co de Phone Number [facility] [address] [place] [address] [place] [address] [place] [address] [place] [address] documented in this encounter Visit Diagnoses Diagnosis Malignant Neoplasm Of Breast Upper Outer Quadrant Female Right (HCC) Neuropathy Peripheral Abnormal Finding Of Blood Chemistry Unspecified documented in this encounter
--- OUTSIDE RECORDS SUMMARY | 2024-05-21 09:35 | XMS_ITS | Clinical Summary ---
Author Organization [facility] Address [address] [place] [address] Phone [email or web address] Care Team Providers Care Certified Dental Assistant Name Role Phone Unavailable Primary Care Provider Unavailabl e Immunizations Name Administration Dates Next Due COVID-19 (Pfizer [place] 12 yrs+) (CVX-208) 021,10/12/2020 Influenza (Afluria, Fluarix, Fluzone, Flulaval) PFS trivalent (CVX-140) 04/05/2016 Influenza, (Afluria Fluarix Flulaval Fluzone) quad, [...] Dealing with Stress Not on file 08/05/2020 Comments Unknown Sex and Gender Information Value Date Recorded Sex Assigned at Not on file Legal Sex Female 7:54 AM CDT Gender Identity Female 03/08/2021 9:15 AM CDT [...] 02/24/2022 02/25/20, 03/25/2018 Covid-19 Immunization ( season) 2024 11/09/2020, 10/12/2020 Influenza Immunization (#1) 02/24/202407/2019, 04/05/2017, 04/05/2016 Tetanus (Tdap or Td) Immunization [...]
--- OUTSIDE RECORDS SUMMARY | 2024-05-21 09:35 | XMS_ITS | Clinical Summary ---
Author Organization [facility] Address [address] [place] [address]. [place] [address] Care Team Providers Care Chief Cardiopulmonary Technologist Name Role Phone Clinic, [facility] Primary Care Provider Allergies Active Allergy [...] on file Legal Sex Female 5:05 AM MECHANICAL ENGINEERING PROFESSOR Gender Identity Not on file Sexual Orientation Not on file Last Filed Vital Signs Vital Sign Reading Time Taken Comments Blood Pressure 115/83 08/10/2022 1:42 PM MECHANICAL ENGINEERING PROFESSOR Pulse 44 08/10/2022 11:45 AM MECHANICAL ENGINEERING PROFESSOR Temperature 35.8 C (96.5 F) 08/10/2022 1:42 PM MECHANICAL ENGINEERING PROFESSOR Respiratory Rate 14 08/10/2022 1:42 PM MECHANICAL ENGINEERING PROFESSOR Oxygen Saturation 99% 08/10/2022 1:42 PM MECHANICAL ENGINEERING PROFESSOR Inhaled Oxygen Concentration - - Weight 72.2 kg (159 lb 3.2 oz) 08/10/2022 5:48 A M MECHANICAL ENGINEERING PROFESSOR Height 175.3 cm (5' 9) 08/10/2022 5:48 AM MECHANICAL ENGINEERING PROFESSOR Body Mass Index 23.51 08/10/2022 5:48 AM MECHANICAL ENGINEERING PROFESSOR Plan of Treatment Health Maintenance Due Date [...] 03/28/2021, 02/16 PHQ-2 (once per calendar year) 2023 COVID-19 Vaccine ( season) 2024 05/16/2022, 07/20/2021, 11/09/2020, Additional history exists INFLUENZA VACCINE (#1) 2024 2, 03/28/2021, 03/26/2020, Additional history exists GLUCOSE 07/24/2025 07/24/2022 DTAP/TDAP/TD IMMUNIZATION (3 - Td or Tdap) 02/16/2030 02/17/2020, 06/30/2009 RSV VACCINE (1 - 1-dose 75+ series) 01/17/2043 ZOSTER IMMUNIZATION Completed 06/19/2019, 04/25/2019, 02/11/2019 HPV IMMUNIZATION Aged Out No longer e ligible based on patient's age to complete this topic MENINGITIS IMMUNIZATION Aged Out No l onger eligible based on patient's age to complete this topic RSV MONOCLONAL ANTIBODY Aged Out No l onger eligible based on patient's age to complete this topic Medical Devices Implanted Type Area Judo Teacher Device Identifier Shelf Expiration Date Model / Serial / Lot Natrelle Inspira Cohesive Breast Implant Smooth Round Full Profile Implanted:Qty : 1 on 08/10/2022 by Nai Cotto MD at [facility] Breast Implant/Tiss ue Reporting Process Consultant Left: Breast 06/27/2025 [id number]-[id number] / [id number] / Explanted Type Area Judo Teacher Device Identifier Shelf Expiration Date Model / Serial / Lot Breast Tissue Reporting Process Consultant Explanted:Qty: 1 on 08/10/2022 by Nai Cotto MD at [facility] Left: Breast Procedures Procedure Name Priority Date/Time Associated Diagnosis Comments GLUCOSE (EXTERNAL RESULT) Routine 07/24/2022 2:45 PM MECHANICAL ENGINEERING PROFESSOR from Last 3 Months or Most Recently Relevant to Health Maintenance Results * Glucose (External Result) (07/24/2022 2:45 PM MECHANICAL ENGINEERING PROFESSOR) Glucose (External) 94 60 - 115 mg/dL [facility] Blood 07/24/2022 2:45 PM MECHANICAL ENGINEERING PROFESSOR Narrative [facility] - 07/24/2022 2:45 PM MECHANICAL ENGINEERING PROFESSOR LAB RESULTS [facility] us Provider Outside LAB - HIM EXTERNAL RESULT Final Result [facility] [address] [place] [address], [facility] [phone] from Last 3 Months or Most Recently Relevant to Health Maintenance Insurance [facility] Care Teams Chief Cardiopulmonary Technologist Relationship Specialty Start Date End Date Clinic, [address] [address] PCP - General 07/21/22
--- OUTSIDE RECORDS SUMMARY | 2024-05-21 09:35 | XMS_ITS ---
Author Organization [facility] Address [address] [place] [address] Care Team Providers Care Loss Prevention Manager Name Role Phone Unavailable Primary Care Provider Unavailabl e Active Problems Problem Noted Date Diagnosed Date Other Chest Pain 03/17/2022 Malignant Neoplasm Of Breast Upper Outer Quadrant Female Right 04/13/2021 Cancer Staging:Clinical stage from 03/31/2021:Stage IIA(cT2, cN0, cM0, G3, ER+, DC+, HER2-) - Unsigned Pathologic stage from 06/02/2021:Stage IIA(pT2, pN1a, cM0, G3, ER+, DC+, HER2-) - Unsigned Current Oncology Plans No current plan information found. Past Plans No past plan information found. Radiation Treatments * Plan Last Treated On Elapsed Days Fractions Treated Prescribed Fraction Dose Prescribed Total Dose [id number] 02/24/2022 32 7 of 7 200 cGy 1,400 cGy [id number] 02/15/2022 23 18 of 18 200 cGy 3,600 cGy Reference Point Last Treated On Elapsed Days Session Dose Total Dose [id number] 02/24/2022 32 200 cGy 5,000 cGy [id number] 02/15/2022 23 205 cGy 3,681 cGy
--- OUTSIDE RECORDS SUMMARY | 2024-05-21 09:35 | XMS_ITS | Clinical Summary ---
Author Organization [facility] Address [address] [place] [id number] Care Team Providers Care Commercial Account Manager Name Role Phone Unavailable Primary Care Provider Unavailabl e Source Comments Patient records contain information from all sites at [facility]. For routine questions regarding patient records, call [phone] during business hours, M-F 8:00 AM - 5:00 PM Central Time. Record requests for emergency care only can be directed to [phone] at any time.[facility] Allergies Active Allergy Reactions Criticality Noted Date [...] mouth daily as needed. For GERD. 05/21/20 Active FLUoxetine (PROzac) 10 mg capsule Take 1 capsule by mouth daily. 07/11/19 Active ibuprofen (ADVIL,MOTRIN) 200 mg tablet 04/10/2017 Ibuprofen Oral Oral 04/10/2017 active 04/10/20 Active traZODone (DESYREL) 50 mg tablet Trazodone [...] TABLET (20 MG) BY MOUTH DAILY 10/21/19 024 Discontinued sulfamethoxazo le-trimethopri m (BACTRIM DS) 800-160 mg per tablet Take 160 mg of trimethoprim by mouth daily. 03/12/20 Discontinued gabapentin (NEURONTIN) 300 mg capsule Take 300 mg by mouth 3 (three) times a day. 07/10/19 23 024 Discontinued terbinafine (LamISIL) 250 mg tablet Take 1 tablet by mouth daily. 07/02/19 Discontinued Active Problems Problem Noted Date Diagnosed Date Other Chest Pain 03/17/2022 Malignant Neoplasm Of Breast Upper Outer Quadrant Female Right 04/13/2021 Cancer Staging:Clinical stage from 03/31/2021:Stage IIA(cT2, cN0, cM0, G3, ER+, NY+, HER2-) - Unsigned Pathologic stage from 06/02/2021:Stage IIA(pT2, pN1a, cM0, G3, ER+, NY+, HER2-) - Unsigned Encounters Date Type Department Care Team Description 04/29/2024 4:13 PM HOG PUSHER - 04/29/2024 11:59 PM HOG PUSHER Hospital Encounter Department of Laboratory Medicine and Pathology, [facility], in [place] [address] [place] [address] Lupis Jones M.D. Malignant Neoplasm Of Breast Upper Outer Quadrant Female Right (HCC); Neuropathy Peripheral; Abnormal Finding Of Blood Chemistry Unspecified Discharge Disposition: Home or Self Care 04/29/2024 3:00 PM HOG PUSHER Comprehensive Visit Department of Oncology in [place], [place] [address] [place] [address] Lupis Jones M.D. Deficiency Vitamin D (Primary Dx); Malignant Neoplasm Of Breast Upper Outer Quadrant Female Right (HCC); Hot Flash; Atrophy Vagina Due To Estrogen Deficiency; Arthralgia; Anxiety; Neuropathy Peripheral; Abnormal Finding Of Blood Chemistry Unspecified from Last 3 Months Family History Medical History Relation Name Comments Skin cancer Father Skin cancer Mother Relation Name Status Comments Father Mother Social History Tobacco Use Types Packs/Day Years Used Date Smoking Tobacco: Never Smokeless Tobacco: Never People Publishingities Answer Date Recorded In the past 12 months has [facility] [employer], [employer], oil, or water [employer] threatened to shut off services in your [...] attend [facility] or [employer] services? More than 4 times per year 01/12/2022 Do you belong to any clubs o r organizations such as christian groups, unions, fraternal or athletic groups, or [...] and heating? Not hard at all 01/12/2022 [facility] - Occupational Stress [...] your living situation today? I [facility] 07/30/2023 Education Answer Date Recorded What is the highest level of school you have completed or the highest degree you have received? Professional school degree (e.g., MD, DDS, DVM, ORTIZ) 01/12/2022 Comments Unknown Sex and Gender Information Value Date Recorded Sex Assigned at Female 01/12/2022 4:28 PM CDT Legal Sex Female 10:30 PM HOG PUSHER Gender Identity Female 01/12/2022 4:28 PM CDT Sexual Orientation Straight 01/12/2022 4: 28 PM CDT Last Filed Vital Signs Vital Sign Reading Time Taken Comments Blood Pressure 112/72 04/29/2024 2:53 PM HOG PUSHER Pulse 51 04/29/2024 2:53 PM HOG PUSHER Temperature 36.3 C (97.3 F) 04/29/2024 2:53 PM HOG PUSHER Respiratory Rate 14 04/29/2024 2:53 PM HOG PUSHER Oxygen Saturation 97% 04/29/2024 2:53 PM HOG PUSHER Inhaled Oxygen Concentration - - Weight 73.2 kg (161 lb 6 oz) 04/29/2024 2:53 PM HOG PUSHER Height 175.3 cm (5' 9.02) 04/29/2024 2:53 PM CS T Body Mass Index 23.82 04/29/2024 2:53 PM HOG PUSHER Plan of Treatment Upcoming Encounters Date Type Department Care Team (Late st Contact Info) Description 07/07/2024 10:00 AM HOG PUSHER Nurse Only Department of Oncology in [place], [place] [address] [place] [address] Lupis Jones M.D. [address] [place] [address] Maria Luz Gutierrez D.N.P., R.N., O.C.N. [address] [place] [phone] 08/05/2024 1:00 PM HOG PUSHER Office Visit Division of Plastic Surgery in [place], [place] [address] [place] [phone] Adelaida Hayward APRN, Cadence.N.P., D.N.P. [address] [place] [phone] Health Maintenance Due Date Last Done Comments CT Colonography 1968 Cervical/Vaginal Cancer Screening 1968 Cologuard 1968 FIT 1968 HIV Screening 1968 Hepatitis C Screening 1968 Pneumococcal vaccine (0-64 years) (1 of 2 - PCV) 01/17/1974 Hepatitis B Vaccines (1 of 3 - 19+ 3-dose series) 01/17/1987 Mammogram 03/31/2022 03/31/2021, 02/25, 03/16/2021, Additional history exists Depression Screening (Annual PHQ-2) 06/25/2023 COVID-19 Vaccine ( season) 2024 05/21/2023, 05/16/2022, 07/20/2021, Additional history exists Influenza Vaccine (#1) 2024 , 05/16/2022, 03/28/2021, Additional history exists Lipid (Cholesterol) Screening 02/16/2025 02/17/2020, 05/19/2019, 01/16/2019 Fasting Glucose for Diabetes Screening 04/29/2027 04/29/2024, 07/24/2022, 02/17/2020, Additional history exists Colonoscopy 03/21/2029 03/21/2019 Colorectal Cancer Screening 03/21/2029 DTaP,Tdap,and Td Vaccines (3 - Td or Tdap) 02/16/2030 02/17/2020, 06/30/2009 Zoster Vaccines Completed 06/19/2019, 11/0 06/2018, 02/11/2019 HPV Vaccines Aged Out No longer eligi ble based on patient's age to complete this topic IPV Vaccines Aged Out No longer eligi ble based on patient's age to complete this topic Medical Devices Implanted Type Area Trip Motor Operator Device Identifier Shelf Expiration Date Model / Serial / Lot Breast Implant Breast Implant Left: Breast Breast Implant Breast Implant Right: Breast Procedures Procedure Name Priority Date/Time Associated Diagnosis Comments HEMOGLOBIN A1C, B Routine 04/29/2024 4:2 1 PM HOG PUSHER Malignant Neoplasm Of Breast Upper Outer Quadrant Female Right (HCC) Abnormal Finding Of Blood Chemistry Unspecified FOLATE, S Routine 04/29/2024 4:21 PM HOG PUSHER Malignant Neoplasm Of Breast Upper Outer Quadrant Female Right (HCC) Neuropathy Peripheral VITAMIN B12 ASSAY, S Routine 04/29/2024 4:21 PM HOG PUSHER Malignant Neoplasm Of Breast Upper Outer Quadrant Female Right (HCC) Neuropathy Peripheral 25-HYDROXYVITAMIN D2 AND D3, S Routine 04/29/2024 4:21 PM HOG PUSHER Malignant Neoplasm Of Breast Upper Outer Quadrant Female Right (HCC) Deficiency Vitamin D Neuropathy Peripheral THIAMIN (VITAMIN B1), B Routine 04/29/2024 4:20 PM HOG PUSHER Malignant Neoplasm Of Breast Upper Outer Quadrant Female Right (HCC) Neuropathy Peripheral VITAMIN B6 PROF (PLP AND PA), P Routine 04/29/2024 4:20 PM HOG PUSHER Malignant Neoplasm Of Breast Upper Outer Quadrant Female Right (HCC) Neuropathy Peripheral OUTSIDE MG MAMMOGRAM Routine 03/31/2021 11:00 AM CDT from Last 3 Months or Most Recently Relevant to Health Maintenance Results * 25-Hydroxyvitamin D2 and D3 (04/29/2024 4:21 PM HOG PUSHER) 25-Hydroxy D2 <4.0 ng/mL 05/02/2024 3:42 PM HOG PUSHER [facility] 25-Hydroxy D3 49 ng/mL 05/02/2024 3:42 PM HOG PUSHER [facility]SC 25-Hydroxy D Total 49 ng/mL 2023 3:42 PM HOG PUSHER [facility] Comment: ----REFERENCE VALUE---- 25-HYDROXY D TOTAL (D2+D3) Optimum levels in the healthy population are 20-50. ----ADDITIONAL INFORMATION---- This test was developed and its performance characteristics determined by [facility] in a manner consistent with CLIA requirements. This test has not been cleared or approved by the U.S. Food and Drug Administration. Blood (Blood, Venous) 04/29/2024 4:21 PM HOG PUSHER 04/30/2024 7:41 AM HOG PUSHER Lupis Jones M.D. LAB BLOOD ADD-ON Final Resu lt Performing Organization Address City/[facility]/ZIP Co de Phone Number [facility] [address] [place] [address] [facility] [address] [place] [address] [place] [address] * Hemoglobin A1c (04/29/2024 4:21 PM HOG PUSHER) Hemoglobin A1c, B 5.4 4.0 - 5.6 % 04/29/2024 5:20 PM HOG PUSHER DTL Blood (Blood, Venous) 04/29/2024 4:21 PM HOG PUSHER 04/29/2024 4:49 PM HOG PUSHER Result [facility] Lupis Jones M.D. LAB BLOOD ADD-ON Final Resu lt Performing Organization Address City/[facility]/ZIP Co de Phone Number [facility] [address] [place] [address], [facility] [email or web address]] [facility] [address] [place] [address] * Folate (04/29/2024 4:21 PM HOG PUSHER) Folate, S 10.0 >=4.0 mcg/L 04/30/2024 8: 47 AM HOG PUSHER DTL Blood (Blood, Venous) 04/29/2024 4:21 PM HOG PUSHER 04/29/2024 5:07 PM HOG PUSHER us Lupis Jones M.D. LAB BLOOD ADD-ON Final Resu lt Performing Organization Address [facility] de Phone Number [facility] [address] [place] [address], [facility] [address] [place] [address] * Vitamin B12 Assay (04/29/2024 4:21 PM HOG PUSHER) Vitamin B12 Assay, S 290 180 - 914 ng/L 04/30/2024 8:47 AM HOG PUSHER [facility] Comment: ----ADDITIONAL INFORMATION---- In patients being evaluated for vitamin B12 deficiency who have intrinsic factor blocking antibodies (IFBA), false elevations of B12 may occur due to IFBA interference thus potentially obscuring a physiological deficiency of B12. If observed B12 concentrations are discordant with clinical presentation, measurement of methylmalonic acid (MMA) should be considered. Blood (Blood, Venous) 04/29/2024 4:21 PM HOG PUSHER 04/29/2024 5:07 PM HOG PUSHER Lupis Jones M.D. LAB BLOOD ADD-ON Final Resu lt Performing Organization Address [facility] de Phone Number [facility] [address] [place], [place] [address] [address] [place] [address] * Thiamine (Vitamin B1), Whole Blood (04/29/2024 4:20 PM HOG PUSHER) Thiamine (Vitamin B1), WB 102 70 - 180 nmol/L 05/01/2024 12:17 PM HOG PUSHER [facility] Comment: ----ADDITIONAL INFORMATION---- This test was developed and its performance characteristics determined by [facility] in a manner consistent with CLIA requirements. This test has not been cleared or approved by the U.S. Food and Drug Administration. Blood (Blood, Venous) 04/29/2024 4:20 PM HOG PUSHER 04/30/2024 8:44 AM HOG PUSHER Lupis Jones M.D. LAB BLOOD NON ADD-ON Final Result Performing Organization Address [facility] Co de Phone Number [facility] [address] [place] [address] [facility] [address] [place] [address] [place] [address] * (ABNORMAL) Vitamin B6 Profile (PLP and PA) (04/29/2024 4:20 PM HOG PUSHER) Pyridoxal 5-Phosphate (PLP), P 57(H) 5 - 50 mcg/L 05/02/2024 10:08 AM HOG PUSHER [facility] Comment: In this sample, the elevated pyridoxal 5-phosphate is likely related to dietary supplementation. ----ADDITIONAL INFORMATION---- This test was developed and its performance characteristics determined by [facility] in a manner consistent with CLIA requirements. This test has not been cleared or approved by the U.S. Food and Drug Administration. Pyridoxic Acid (PA), P 25 3 - 30 mcg/L 05/02/2024 10:08 AM HOG PUSHER [facility] Comment: ----ADDITIONAL INFORMATION---- This test was developed and its performance characteristics determined by [facility] in a manner consistent with CLIA requirements. This test has not been cleared or approved by the U.S. Food and Drug Administration. Blood (Blood, Venous) 04/29/2024 4:20 PM HOG PUSHER 04/30/2024 3:50 PM HOG PUSHER Lupis Jones M.D. LAB BLOOD NON ADD-ON Final Result Performing Organization Address [facility] Co de Phone Number [facility] [address] [place] [address] [facility] [address] [facility] [place] [address] * DIAGNOSTIC MAMMO, RIGHT, W/CAD-Outside Mammogram (03/31/2021 [...] Most Recently Relevant to Health Maintenance Insurance [facility]
--- NOTE | 2024-05-21 10:00 | CRLHL7_ITS ---
For Patients: As a result of the Century Cures Act, medical imaging exams and procedure reports are released immediately into your electronic medical record. You may view this report before your referring provider. If you have questions, please contact your health care provider. Indication: UPPER ABD PAIN. HX OF BREAST CANCER Technique: CT Abdomen/Pelvis 78CC ISOVUE 370 AND WATER PREP Please note that all CT scans at this facility use dose modulation, iterative reconstruction, and/or weight-based dosing when appropriate to reduce radiation dose to as low as reasonably achievable. Comparison: CT chest 03/16/2022, CT-PET 07/14/2021 Findings: Postop changes of bilateral mastectomy with implant reconstruction. Stable cyst within the right hepatic lobe. No suspicious intrahepatic mass. The spleen is within normal limits. Normal adrenal glands. Kidneys are normal. The stomach is distended with food and fluid. Normal bladder. Uterus unremarkable. No adnexal mass. No bowel obstruction, free air, free fluid or abscess. Normal appendix. No adenopathy. Mild prominence of the intrahepatic bile ducts. The common bile duct appears normal. The gallbladder is incompletely distended. No calcified gallstones. Pancreatic parenchyma appears normal. There is no fracture or suspicious osseous lesion. Impression: Mild prominence of the intrahepatic bile ducts. Ultrasound of the gallbladder is recommended for further evaluation. The stomach is distended, likely related to recent meal ingestion, recommend clinical correlation. No adenopathy or suspicious intrahepatic lesion. Please note that all CT scans at this facility use dose modulation, iterative reconstruction, and/or weight-based dosing when appropriate to reduce radiation dose to as low as reasonably achievable. Dictated by Saurav Marcano MD @ 05/21/2024 12:50:46 PM (Electronically Signed)
== END 2024-05-21 09:33 | disposition home or self-care (01) ==
LOC: CT 09:33
PROVIDERS: PCP Family Medicine; Visit Provider Internal Medicine Hematology & Oncology
DX: R10.9 Unspecified abdominal pain (principal); C50.919 Malignant neoplasm of unspecified site of unspecified female breast; Z17.0 Estrogen receptor positive status [ER+]
CPT/HCPCS: 74177; Q9967

== ENCOUNTER 2024-06-05 15:19 | Outpatient (CLI) | payer OTHER, SELFPAY | END 2024-06-05 15:20 | disposition home or self-care (01) | PROVIDERS: PCP Family Medicine; Visit Provider Family Medicine | DX: R79.89 Other specified abnormal findings of blood chemistry (principal); Z79.899 Other long term (current) drug therapy; Z13.228 Encounter for screening for other metabolic disorders; Z13.220 Encounter for screening for lipoid disorders | CPT/HCPCS: 80053; 80061; 84439; 84443 ==

== ENCOUNTER 2024-06-16 10:31 | Outpatient (CLI) | payer OTHER, SELFPAY ==
--- NOTE | 2024-06-16 10:45 | CRLHL7_ITS ---
For Patients: As a result of the Century Cures Act, medical imaging exams and procedure reports are released immediately into your electronic medical record. You may view this report before your referring provider. If you have questions, please contact your health care provider. INDICATION: RUQ pain when twisting/bending COMPARISON: CT 05/21/2024 TECHNIQUE: Real time tellez scale imaging and color Doppler analysis was performed of the right upper quadrant. FINDINGS: The patient`s liver is of normal size and has uniform echogenicity. There is a normal appearance of the hepatic IVC and proximal abdominal aorta. There is no evidence of ascites. The gallbladder is of normal size and there are mild echogenic foci associated with the gallbladder wall. The gallbladder wall measures 2.5 mm in thickness. The common bile duct is of normal size and measures 4.5 mm in diameter at the level of the bill hepatis. The pancreas appears normal. There is no evidence of a stone or hydronephrosis within the right kidney. The right kidney measures 9.9 cm in length. Main portal vein measures 1.2 cm. IMPRESSION: Mild gallbladder adenomyomatosis. No gallstones. Common bile duct is normal. No biliary obstruction. Dictated by Saurav Marcano MD @ 06/16/2024 12:45:47 PM (Electronically Signed)
== END 2024-06-16 10:32 | disposition home or self-care (01) ==
LOC: US 10:31
PROVIDERS: PCP Family Medicine; Visit Provider Family Medicine
DX: R10.11 Right upper quadrant pain (principal)
CPT/HCPCS: 76705

== ENCOUNTER 2024-07-31 16:30 | Outpatient (RCR) | payer OTHER, SELFPAY ==
--- NOTE | 2024-06-20 13:54 | PT.OPE ---
PT [place] Outpatient Eval PT [facility] Eval Start: 06/17/24 09:34 Freq: Status: Active Protocol: Document 06/17/24 09:38 BMS (Rec: 06/17/24 12:02 BMS [id number]) E-signed By Milla Burch PT Physical Therapy Outpatient Evaluation Insurance Information Recert Due Date 09/13/24 Insurance Name [employer],Other; See Comments Insurance Information/Comments cigna Provider Fax Number internal Medical Diagnosis Pain in right shoulder M25.511 Treating Diagnosis Right shoulder pain M25.511 thoracic and rib pain M54.6 Referring MD Lei Montiel MD Subjective Preferred Name Christina Subjective have hx of B frozen shoulder, breast cancer, B mastectomy, worked with Sunita for a long time last year. R ribs hurt sometimes sharp pain in ribs cant even take deep breath. also in front under my ribs, have done different scans, including gall bladder, sometimes feels bulgy, I am concerned bc hx fo cancer. did labs but no results yet and are working on referral to [facility]. Had radiation 3 yrs ago and wonder if that is what is going on there. is really tight and cant move right. neck is tight. had numb and tingle in LE, had bein ablation B LE which fixed my RLS. saw integrative oncologist at [place] who told me to stop trazadone and gabapentin, tried THC cream but saw no difference and is expensive so not continue. Get random leg cramps, am a sort of runner, do some intervals. Work at computer. Hvae done [employer] to strength program and was working with a systems trainer but I need the accountability. had to reduce my lifting weight to 10# bc of shoulder pain (top of shoulder points to AC joint ). sometimes sharp and stops from what am doing, is always uncomfortable when moving. 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 Precautions Treatment Precautions/Contraindications hx B frozen shoulder breast cancer and + lymphnodes with radiation to R, hx cording and poss neuropathy Therapy Limitations/Systems Review Other Medical Problem Objective Range of Motion AROM R shoulder flex 140 with pain, abduct 60 w pain, ER 75, IR T12 with pain L dominant flex 155, abduct WNL, ER 70, IR T10 PROM same with significant guarding, will reassess next session, Pain endrange also maybe impingement cervical rotation R = 40 LIMITED; L = 83 Strength MMT seated all shoulder groups B 5/5, minimal pain with elbow at side except with ER mod pain. Palpation tender at R AC joint, mod+ tender axilla, supraspinatus, lat, and tissue surrounding implant, into ribs and thoracic region. also to RC mm . atrophy of biceps, triceps Balance & Gait not assessed this date Posture head forward, intermittent slumping, R scapula drawn forward Sensation/Reflexes not assessed Other/Pertinent Objective protrusion of clavicular end and edema over same, laxity with AC compression compared to contralateral side. pain endrange flexion and abduction as well as active flex, abduct and IR. + neers impingement but also through painful arc Assessment Assessment/Impression Patient is very pleasant 54 yo female referred for right shoulder pain. She actually has 2 complaints with some interconnectedness. 1st is pain located superior to anterior shoulder above AC joint that is worse with overhead movement and occurred with weight lifting exercises - appears to be sprain with impingement, complicated by impaired scapulohumeral rhythm , tightness vs cording through inferior and post axilla into thoracic lateral wall and ribs, myofascial restrictions and thickening of tissue through rib cage, shoulder complex, tightness restrictions - fullness - edema vs lymphedema. She has history of breast cancer, radiation and B mastectomy followed by implants. She is having pain limiting deep breath through R torso into shoulder as well. She responded well to MT this date to move tissue and reduce pain. Will add in more strengthening and ROM for home but time was limited in this first visit. Patient is appropriate for skilled physical therapy to improve shoulder mechanics, pain and mobility that will include thoracic and rib mobilizations as well as neck mobility to restore prior level of function and return to exercise for fitness and health management. Past medical hx + for: B frozen shoulder, breast cancer with B mastectomy, implants and radiation to R side. New onset of R abdominal pain that may be visceral, may have diaphragmatic component. Cause has not been identified. Plan to see 1-2x/ week 12 visits prn may request lymphedema consult if does not improve with our treatment in clinic. Patient has seen Sunita Mendes OT in [place] in past. Primary Functional Limitations overhead motion, reach, lift, weightbearing through UE Plan of Care Rehabilitation Potential Good Rehabilitation Potential Comments medical hx + for radiation, mastectomy, implant, myofascial restrictions through R upper quarter, undiagnosed abdominal/rib pain in addition to overlying rib dysfunction. Physical Therapy Goals 1) Pt demo independence with HEP and self care/home management techniques for shoulder/elbow pain, increased ROM and strength for return to previous level of function. 2) Pt report pain <= 2/10 with reaching into cupboard without substitution. 1)Pt demo ability to don/doff clothes including shirts and coats without increased pain. 2) Pt demonstrate ability to lift 10# without contortion or substitution patterns of UE or trunk for carrying gallon of milk etc. 3) Pt demo ROM WNL combined flex, abduct and ER to perform grooming and hair brushing. 4) Pt report ability to sleep without waking from pain >2 nights per week in preferred position using appropriate positioning. Coordination/Communication With Referral Source Treatment Plan/Direct Interventions Dry Needling,Electrical Stimulation,Heat,Ice/Cold/ Vasopneumatic,Joint Mobilization,Manual Therapy, Neuromuscular Re-ed,Self-Care/ Home Management,Therapeutic Activities,Therapeutic Exercises,Ultrasound Frequency/Duration 1-2x/ week x 6-12 weeks pending improvement. Patient Will Be Discharged From Therapy Completion of LTG(s),Skills Plateau,Independent w/HEP, Independently Progressing Evaluation Billing Untimed Code Treatment Minutes 40 Complexity Low Certification Information Initial Certification Date 06/17/24 Ending Certification Date 09/14/24 Provider Signature Required Communication Only-No Signature Required
--- OUTSIDE RECORDS SUMMARY | 2024-06-26 16:32 | XMS_ITS | Clinical Summary ---
Author Organization [facility] Address [address] [place] [address] Phone CareEverywhereSuppor Care Team Providers Care Supervisor Ordnance Truck Installation Name Role Phone Unavailable Primary Care Provider Unavailabl e Immunizations Name Administration Dates Next Due COVID-19 (Pfizer Stanislaus 12 yrs+) (CVX-208) 021,10/12/2020 Influenza single-dose SYRING E (Afluria, Fluarix, Fluzone, Flulaval) trivalent (CVX-140) 04/05/2016 Influenza, (Afluria Fluarix Flulaval [...] Screening 02/24/2022 02/25/20, 03/25/2018 Covid-19 Immunization ( - season) 2024 11/09/2020, 10/12/2020 Influenza Immunization (#1) 02/24/202407/2019, 04/05/2017, 04/05/2016 Tetanus (Tdap or Td) Immunization 02/16/2030 02/17/2020, 06/30/2009 Tetanus Diphtheria and Pertussis Immunization (3 - Td or Tdap) 02/16/2030 02/17/2020, 06/30/2009 HIB Immunization Aged Out [...]
--- OUTSIDE RECORDS SUMMARY | 2024-06-26 16:32 | XMS_ITS | Clinical Summary ---
Author Organization [facility] Address [place], [place] [address] Care Team Providers Care Veterinarian Laboratory Animal Care Name Role Phone Pcp, No Primary Care Provider Unavailabl e Allergies Active Allergy Reactions Criticality Noted Date Comments Cephalexin Itching,Rash Medium 02/01/2022 Codeine Hives 03/20/2007 Mold Runny Nose 04/09/2017 dust Scopolamine Other - Describe In Comment Field High 0 02/01/2022 insomnia Medications cetirizine (ZYRTEC) 10 mg tablet Take 10 mg by mouth once daily. Active letrozole (FEMARA) 2.5 mg tablet Take 2.5 mg by mouth once daily. 2 Active medication order composer Member[facility] Mario Calcium (600 mg) with Vitamin D (20mcg) twice a day, morning and evening [facility] Biotin (10,000 mcg) with Keratin (100 mg), Vitamin C (60 mg) and Zinc (9mg) once daily morning Member[facility] Mario B-Complex once a day morning Leoma D3 (125 mcg) once a day morning spring Vitamin E (180 mg) once a day morning Best Naturals Acetyl L-Carnitine Alpha Lipoic Acid (750 mg) once a day morning 0 2 Active CPAPIndications :SHAQ (obstructive sleep apnea) CPAP machine for home use at pressure 4-15cmw, full face mask x1/3month with a full face cushion x1/mo 1 Each 11 2 Active hydroquinone 4 % creamIndication s:Lentigo Apply topically to affected area(s) two times daily. 28 g 1 2 Active gabapentin (NEURONTIN) 300 mg capsuleIndicati ons:Restless legs syndrome (RLS) Take 1-2 Capsules (300-600 mg) by mouth at bedtime. 180 Capsule 3 3 Active terbinafine HCL (LAMISIL) 250 mg tablet Take 1 Tablet by mouth once daily. 4 Active FLUoxetine (PROZAC) 10 mg capsule Take 1 Capsule by mouth once daily. 4 Active traZODone (DESYREL) 50 mg tablet at bedtime if needed. Active magnesium oxide (MAG-OX 400) 400 mg tablet Take by mouth once daily. Active famotidine (PEPCID) 20 mg tablet Take 20 mg by mouth once daily if needed. 3 Active omeprazole (PRILOSEC) 20 mg Delayed-Release capsule Take 20 mg by mouth once daily if needed. 3 Active Active Problems Problem Noted Date Diagnosed Date Malignant neoplasm of upper-outer quadrant of fe male breast 04/13/2021 Endometrial polyp 03/22/2017 Overview (03/22/2017): Added automatically from request for surgery [id number] GSI (genuine stress incontinence), female 2011 Routine gynecological examination 11/30/2011 Immunizations Name Administration Dates Next Due AMB INFLUENZA, IIV4 (AGE=>6M OS) MDV (Flu Clinic Only) 03/26/2020 COVID-19 vaccine ([employer] 30mcg/0.3mL) PF, MDV 11/09/2020,10/12/2020 Influenza Virus, Unspecified [...] Paying Living Expenses Not on file 06/16/2021 Comments No Sex and Gender Information Value Date Recorded Sex Assigned at Not on file Legal Sex Female 7:24 AM SHAPER SET UP OPERATOR Gender Identity Not on file Sexual Orientation Not on file 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 Not on file Not on file Not on annmarie e Not on file Not on file Not on file Not on file Obstetrics History Para Term AB IAB SAB Ectopic Multiple Livin g Live Births 6 3 3 0 3 0 3 0 0 3 3 Date Outcome GA Total Labor Labor/2nd/3rd Weight Sex Type Anes PTL Tamanna A1 A5 Name Clin SAB SAB SAB 12/07 Term 38w 0d 7h 00m/ 3.46 kg (7 lb 10 oz) M VAGINAL KYLEIGH Livin g Jackso n 09/11 Term 40w 0d 3h 00m/ 4.34 kg (9 lb 9 oz) M VAGINAL KYLEIGH Nabila Trinh w 02/17 Term 39w 0d 4h 00m/ 3.86 kg (8 lb 8 oz) M VAGINAL KYLEIGH Nabila Gomez Last Filed Vital Signs Vital Sign Reading Time Taken Comments Blood Pressure 116/68 09/21/2023 1:24 PM CDT Pulse 53 09/21/2023 1:24 PM CDT Temperature 36.3 C (97.4 F) 05/14/2017 1:21 PM SHAPER SET UP OPERATOR Respiratory Rate 16 09/21/2023 1:24 PM CDT Oxygen Saturation 98% 07/10/2022 9:02 AM SHAPER SET UP OPERATOR Inhaled Oxygen Concentration - - Weight 73 kg (161 lb) 09/21/2023 1:24 PM CDT Height 176.8 cm (5' 9.59) 04/24/2022 10:28 AM C DT Body Mass Index 23.38 04/24/2022 10:28 AM CDT Plan of Treatment Health Maintenance Due Date Last Done Comments HIV for age 15-65 01/17/1983 Hepatitis C screening for ag e 18-79 01/17/1986 Pneumococcal series for age 50+ (1 of 1 - PCV) 01/17/2018 Mammogram for age 45-75 03/31/2022 03/31/20 21, 03/31/2021, 03/24/2021, Additional history exists Depression screening for age 12+ 04/03/2023 04/03/2022, 03/27/2022, 04/01/2021, Additional history exists BMI (ht and wt on same day) for age 18+ 04/24/2023 04/24/2022, 03/27/2022, 04/06/2021, Additional history exists COVID-19 vaccine series ( season) 2024 05/21/2023, 05/16/2022, 07/20/2021, Additional [...] 06/19/2019, 04/25/2019, 02/11/2019 Tdap Completed 02/17/2020, 06/30/2009 Procedures Procedure Name Priority Date/Time Associated Diagnosis [...] AM CDT) Anatomical Region Laterality Modality Other us Scanner OTHER Final Result * HPV HIGH RISK (03/28/2021 4:50 PM CDT) TYPE 16 Negative Negative 03/30/2021 11:42 AM CDT [facility] TYPE 18 Negative Negative 03/30/2021 11:42 AM CDT [facility] [employer] [facility] OTHER HIGH RISK TYPES Negative Negative 03/30/2021 11:42 AM CDT [facility] Other (Cervical) Non-Blood / Unknown 03/28/2021 4:50 PM CDT 03/29/2021 9:52 AM CDT Narrative [facility] - 03/30/2021 11:42 AM CDT HPV types 16, 18, 31, 33, 35, 39, 45, 51, 52, 56, 58, 59, 66 and 68 DNA were undetectable or below the pre-set threshold. Methodology: Aranza Davy 4800 HPV Test Patty Bajwa DO MICROBIOLOGY Final Resu lt [facility] One Block Off the Grid (1BOG)[facility] [address] [place] [address], [place] * (ABNORMAL) LIPID PANEL W REFLEX MEASURED LDL (02/17/2020 9:01 AM CDT) CHOLESTEROL,TOTAL 200(H) 100 - 199 mg/dL 02/17/2020 1:43 PM CDT [facility] TRIGLYCERIDES 96 <150 mg/dL 02/17/2020 1:43 PM CDT [facility] HDL CHOLESTEROL 58 >40 mg/dL 0 1:43 PM CDT [facility] NON-HDL CHOLESTEROL 142 <145 mg/dl 02/17/2020 1:43 PM CDT [facility] CHOL/HDL RATIO 3.45 <4.50 02/17/2020 1:43 PM CDT [facility] LDL CHOLESTEROL 123 <=130 mg/dL 02/17/2020 1:43 PM CDT [facility] PROVIDER ORDERED STATUS RANDOM 02/17/2020 1:43 PM CDT [facility] Blood BLOOD SPECIMEN / Unknown Venipuncture / Unknown 02/17/2020 9:01 AM CDT 02/17/2020 9:01 AM CDT Patty Bajwa DO CHEMISTRY Final Resu lt [facility] One Block Off the Grid (1BOG)[facility] [address] [place] [address], [place] * SCAN-COLONOSCOPY (03/21/2019 9:30 AM CDT) Narrative Procedure Note Daljit Chan MD - 03/21/2019 8:42 AM CDT [facility] [address], [address], [place] [address] Patient Name: Danielle Parveen Gender: Female Exam Date: 03/21/2019 Visit Number: [id number] Age: 49 Years 2 Months Date of : 1970 Attending MD: Daljit Chan MD Medical Record#: [id number] ----- Procedure: Colonoscopy Indications: Colorectal cancer screening [...] 25.00 Race: Ethnicity: Not or Preferred Language: Australian cc: Patty Bajwa DO cc: Patty Bajwa DO [facility] [phone] Daljit Chan MD OTHER Final R esult from Last 3 Months or Most Recently Relevant to Health Maintenance Insurance [facility] Care Teams Veterinarian Laboratory Animal Care Relationship Specialty Start Date End Date Pcp, No . PCP - General 04/26/22
--- OUTSIDE RECORDS SUMMARY | 2024-06-26 16:32 | XMS_ITS | Referral Summary ---
Author Organization [facility] Address [address] [place] [address]. [place] [address] Care Team Providers Care Privacy Analyst Name Role Phone Clinic, [facility] Primary Care Provider Allergies [...] on file Legal Sex Female 5:05 AM CAN REPAIRER Gender Identity Not on file Sexual Orientation Not on file Last Filed Vital Signs Vital Sign Reading Time Taken Comments Blood Pressure 115/83 08/10/2022 1:42 PM CAN REPAIRER Pulse 44 08/10/2022 11:45 AM CAN REPAIRER Temperature 35.8 C (96.5 F) 08/10/2022 1:42 PM CAN REPAIRER Respiratory Rate 14 08/10/2022 1:42 PM CAN REPAIRER Oxygen Saturation 99% 08/10/2022 1:42 PM CAN REPAIRER Inhaled Oxygen Concentration - - Weight 72.2 kg (159 lb 3.2 oz) 08/10/2022 5:48 A M CAN REPAIRER Height 175.3 cm (5' 9) 08/10/2022 5:48 AM CAN REPAIRER Body Mass Index 23.51 08/10/2022 5:48 AM CAN REPAIRER Plan of Treatment Not on file Medical Devices Implanted Type Area Gas Utility Worker Device Identifier Shelf Expiration Date Model / Serial / Lot Natrelle Inspira Cohesive Breast Implant Smooth Round Full Profile Implanted:Qty : 1 on 08/10/2022 by Nai Cotto MD at [facility] Breast Implant/Tiss ue Director Patient Accounting Left: Breast 06/27/2025 SCF-560 / [id number] / Explanted Type Area Gas Utility Worker Device Identifier Shelf Expiration Date Model / Serial / Lot Breast Tissue Director Patient Accounting Explanted:Qty: 1 on 08/10/2022 by Nai Cotto MD at [facility] Left: Breast Procedures Procedure Name Priority Date/Time Associated Diagnosis Comments GLUCOSE (EXTERNAL RESULT) Routine 07/24/2022 2:45 PM CAN REPAIRER from Last 3 Months or Most Recently Relevant to Health Maintenance Results * Glucose (External Result) (07/24/2022 2:45 PM CAN REPAIRER) Glucose (External) 94 60 - 115 mg/dL [facility] Blood 07/24/2022 2:45 PM CAN REPAIRER Narrative [facility] - 07/24/2022 2:45 PM CAN REPAIRER LAB RESULTS [facility] us Provider Outside LAB - HIM EXTERNAL RESULT Final Result [facility] [address] [place] [address], [facility] [phone] from Last 3 Months or Most Recently Relevant to Health Maintenance Insurance [facility] Care Teams Privacy Analyst Relationship Specialty Start Date End Date Clinic, [address] [address] PCP - General 07/21/22
--- OUTSIDE RECORDS SUMMARY | 2024-06-26 16:32 | XMS_ITS | Clinical Summary ---
Author Organization [facility] Address [address] [place] [address]. [place] [address] Care Team Providers Care Screen Printer Name Role Phone Clinic, [facility] Primary Care Provider Allergies Active Allergy Reactions [...] on file Legal Sex Female 5:05 AM MANUFACTURING INTERN Gender Identity Not on file Sexual Orientation Not on file Last Filed Vital Signs Vital Sign Reading Time Taken Comments Blood Pressure 115/83 08/10/2022 1:42 PM MANUFACTURING INTERN Pulse 44 08/10/2022 11:45 AM MANUFACTURING INTERN Temperature 35.8 C (96.5 F) 08/10/2022 1:42 PM MANUFACTURING INTERN Respiratory Rate 14 08/10/2022 1:42 PM MANUFACTURING INTERN Oxygen Saturation 99% 08/10/2022 1:42 PM MANUFACTURING INTERN Inhaled Oxygen Concentration - - Weight 72.2 kg (159 lb 3.2 oz) 08/10/2022 5:48 A M MANUFACTURING INTERN Height 175.3 cm (5' 9) 08/10/2022 5:48 AM MANUFACTURING INTERN Body Mass Index 23.51 08/10/2022 5:48 AM MANUFACTURING INTERN Plan of Treatment Health Maintenance Due Date Last Done Comments ADVANCE CARE PLANNING 1970 ANNUAL REVIEW OF HM ORDERS 1970 CT COLONOGRAPHY 1970 FIT 1970 FLEX SIG 1970 sDNA (Cologuard) 1970 COLONOSCOPY 01/17/1978 COLORECTAL CANCER SCREENING 01/17/1978 HIV SCREENING 01/17/1983 HEPATITIS C SCREENING 01/17/1986 HEPATITIS B IMMUNIZATION (1 of 3 - 19+ 3-dose series) 01/17/1987 PAP 01/17/1989 LIPID 2008 LUNG CANCER SCREENING 01/17/2018 Pneumococcal Vaccine: 50+ Years (1 of 1 - PCV) 01/17/2018 YEARLY PREVENTIVE VISIT 03/28/2022 03/28/2021, 02/16 PHQ-2 (once per calendar year) 2023 COVID-19 Vaccine ( - season) 2024 05/16/2022, 07/20/2021, 11/09/2020, Additional history [...] this topic Medical Devices Implanted Type Area Owner Operator Device Identifier Shelf Expiration Date Model / Serial / Lot Natrelle Inspira Cohesive Breast Implant Smooth Round Full Profile Implanted:Qty : 1 on 08/10/2022 by Nai Cotto MD at [facility] Breast Implant/Tiss ue Head Coach Left: Breast 06/27/2025 SCF-560 / [id number] / Explanted Type Area Owner Operator Device Identifier Shelf Expiration Date Model / Serial / Lot Breast Tissue Head Coach Explanted:Qty: 1 on 08/10/2022 by Nai Cotto MD at [facility] Left: Breast Procedures Procedure Name Priority Date/Time Associated Diagnosis Comments GLUCOSE (EXTERNAL RESULT) Routine 07/24/2022 2:45 PM MANUFACTURING INTERN from Last 3 Months or Most Recently Relevant to Health Maintenance Results * Glucose (External Result) (07/24/2022 2:45 PM MANUFACTURING INTERN) Glucose (External) 94 60 - 115 mg/dL [facility] Blood 07/24/2022 2:45 PM MANUFACTURING INTERN Narrative [facility] - 07/24/2022 2:45 PM MANUFACTURING INTERN LAB RESULTS [facility] us Provider Outside LAB - HIM EXTERNAL RESULT Final Result [facility] [address] [place] [address], [facility] [phone] from Last 3 Months or Most Recently Relevant to Health Maintenance Insurance [facility] Care Teams Screen Printer Relationship Specialty Start Date End Date [facility], [address] [address] PCP - General 07/21/22
--- OUTSIDE RECORDS SUMMARY | 2024-06-26 16:33 | XMS_ITS ---
Author Organization [facility] Address [address] [place] [address] Care Team Providers Care Cane Weigher Helper Name Role Phone Unavailable Primary Care Provider Unavailabl e Active Problems Problem Noted Date Diagnosed Date Other Chest Pain 03/17/2022 Malignant Neoplasm Of Breast Upper Outer Quadrant Female Right 04/13/2021 Cancer Staging:Clinical stage from 03/31/2021:Stage IIA(cT2, cN0, cM0, G3, ER+, NM+, HER2-) - Unsigned Pathologic stage from 06/02/2021:Stage IIA(pT2, pN1a, cM0, G3, ER+, NM+, HER2-) - Unsigned Current Oncology Plans No current plan information found. Past Plans No past plan information found. Radiation Treatments * Plan Last Treated On Elapsed Days Fractions Treated Prescribed Fraction Dose Prescribed Total Dose [id number] 02/24/2022 32 7 of 7 200 cGy 1,400 cGy [id number] 02/15/2022 23 18 of 18 200 cGy 3,600 cGy Reference Point Last Treated On Elapsed Days Session Dose Total Dose [id number] 02/24/2022 32 200 cGy 5,000 cGy ICRU 02/15/2022 23 205 cGy 3,681 cGy
--- OUTSIDE RECORDS SUMMARY | 2024-06-26 16:33 | XMS_ITS | Encounter Summary ---
Author Organization [facility] Address [address] [place] [address] Care Team Providers Care Airconditioning Engineer Name Role Phone Unavailable Primary Care Provider Unavailabl e Reason for Visit * Reason Onset Date Comments Appointment 06/12/2024 Encounter Details Date Type Department Care Team (Late st Contact Info) Description 06/12/2024 Clinical Communication Department of Oncology in [place], [place] [address] [place] [phone] Maria Luz Gutierrez D.N.P., R.N., O.C.N. [address] [place] [phone] Appointment Social History Tobacco Use Types Packs/Day Years Used Date Smoking Tobacco: Never Smokeless Tobacco: Never [facility] Utilities Answer Date Recorded In the past 12 months has [facility] [employer], gas, oil, or water [employer] threatened to shut off services in your [...] How often do you attend chur or orthodoxy services? More than 4 times per year 01/12/2022 Do you belong to any clubs o r organizations such as jain groups, unions, fraternal or athletic groups, or [...] all 01/12/2022 [facility] - Occupational Stress Questionnaire Answer Date [...] living? No 07/30/2023 Nutrition Answer Date Recorded On average, how many serving s of [...] your living situation today? I have a [facility] place to live 07/30/2023 Education Answer Date Recorded What is the highest level of school you have completed or the highest degree you have received? Professional school degree (e.g., MD, DDS, DVM, ORTIZ) 01/12/2022 Comments Unknown Sex and Gender Information Value Date Recorded Sex Assigned at Female 01/12/2022 4:28 PM CDT Legal Sex Female 10:30 PM CLEAN OUT DRILLER Gender Identity Female 01/12/2022 4:28 PM CDT Sexual Orientation Straight 01/12/2022 4: 28 PM CDT documented as of this encounter Plan of Treatment Upcoming Encounters Date Type Department Care Team (Late st Contact Info) Description 07/07/2024 10:00 AM CLEAN OUT DRILLER Telemedicine Department of Oncology in [place], [place] [address] [place] [phone] Lupis Jones M.D. [address] [place] [phone] Maria Luz Gutierrez D.N.P., R.N., O.C.N. [address] [place] [phone] 08/05/2024 1:00 PM CLEAN OUT DRILLER Office Visit Division of Plastic Surgery in [place], [place] [address] [place] [phone] Adelaida Hayward APRN, C.N.P., D.N.P. [address] [place] [phone] documented as of this encounter Visit Diagnoses Not on filedocumented in this encounter
--- OUTSIDE RECORDS SUMMARY | 2024-06-26 16:33 | XMS_ITS | Clinical Summary ---
Author Organization [facility] Address [address] [place] [address] Care Team Providers Care Apron Trimmer Name Role Phone Unavailable Primary Care Provider Unavailabl e Source Comments Patient records contain information from all sites at [facility]. For routine questions regarding patient records, call [phone] during business hours, M-F 8:00 AM - 5:00 PM Central Time. Record requests for emergency care only can be directed to [phone] at any time.[facility] Allergies Active Allergy Reactions Criticality Noted Date Comments Adhesive Rash,Other (see comments) Low 07/27/2022 Cephalexin Itching,Rash High 02/01/2022 Codeine Hives (Reselect Reac tion),Nausea Only Medium 03/20/2007 Mold Other (see comments) Medium 04/09/2017 dust Scopolamine Other (see comments) High 02/01/2022 insomnia Medications ergocalciferol, vitamin D2, 10 mcg (400 unit) tablet 2 (two) times a day. Active cetirizine (ZyrTEC) 10 mg tablet Take 10 mg by mouth daily. Active letrozole (FEMARA) 2.5 mg tablet Take 2.5 mg by mouth daily. 2 Active vitamin B complex (B COMPLEX-VITAMIN B12 ORAL) Take by mouth. Activ e calcium carbonate (CALCIUM 500 ORAL) Take by mouth. Activ e famotidine (PEPCID) 20 mg tablet Take 20 mg by mouth at bedtime. 3 Active omeprazole (PriLOSEC) [address] capsule Take 20 mg by mouth daily as needed. For GERD. 3 Active FLUoxetine (PROzac) 10 mg capsule Take 1 capsule by mouth daily. 4 Active ibuprofen (ADVIL,MOTRIN) 200 mg tablet 04/10/2017 Ibuprofen Oral Oral 04/10/2017 active 7 Active traZODone (DESYREL) 50 mg tablet Trazodone Oral Can take up to two tablets as needed. 1 tablet for sleep active Active magnesium oxide (MAG-OX) 400 mg (241.3 mg magnesium) tablet Take by mouth every morning before breakfast. Active minoxidiL (Loniten) 2.5 mg tablet Take 2.5 mg by mouth at bedtime. Active L.acidoph-L.bul g-B.bif-S.therm (Bacid) 1 billion cell- 250 mg per tablet Take 1 tablet by mouth daily. Active Active Problems Problem Noted Date Diagnosed Date Other Chest Pain 03/17/2022 Malignant Neoplasm Of Breast Upper Outer Quadrant Female Right 04/13/2021 Cancer Staging:Clinical stage from 03/31/2021:Stage IIA(cT2, cN0, cM0, G3, ER+, NE+, HER2-) - Unsigned Pathologic stage from 06/02/2021:Stage IIA(pT2, pN1a, cM0, G3, ER+, NE+, HER2-) - Unsigned Encounters Date Type Department Care Team Description 06/12/2024 Clinical Communication Department of Oncology in [place], [place] [address] [place] [address] Maria Luz Gutierrez D.N.P., R.N., O.C.N. Appointment 04/29/2024 4:13 PM SENIOR OPERATIONS ANALYST - 04/29/2024 11:59 PM SENIOR OPERATIONS ANALYST Hospital Encounter Department of Laboratory Medicine and Pathology, [facility], in [place], [place] [address] [place] [address] Lupis Jones M.D. Malignant Neoplasm Of Breast Upper Outer Quadrant Female Right (HCC); Neuropathy Peripheral; Abnormal Finding Of Blood Chemistry Unspecified Discharge Disposition: Home or Self Care 04/29/2024 3:00 PM SENIOR OPERATIONS ANALYST Comprehensive Visit Department of Oncology in [place], [place] [address] [place] [address] Lupis Jones M.D. Deficiency Vitamin D (Primary [...] Date Smoking Tobacco: Never Smokeless Tobacco: Never [employer] Answer Date Recorded In the past 12 months has e [employer], gas, oil, or water [email or web address] threatened to shut off services in your [...] often do you attend chur ch or cheondoism services? More than 4 times per year 01/12/2022 Do you belong to any clubs o r organizations such as tenriism groups, unions, fraternal or athletic groups, or [...] and heating? Not hard at all 01/12/2022 [facility] [place] of Occupat ional Health - Occupational Stress [...] degree (e.g., , DDS, DVM, ORTIZ) 01/12/2022 Comments Unknown Sex and Gender Information Value Date Recorded Sex Assigned at Female 01/12/2022 4:28 PM CDT Legal Sex Female 10:30 PM SENIOR OPERATIONS ANALYST Gender Identity Female 01/12/2022 4:28 PM CDT Sexual Orientation Straight 01/12/2022 4: 28 PM CDT Last Filed Vital Signs Vital Sign Reading Time Taken Comments Blood Pressure 112/72 04/29/2024 2:53 PM SENIOR OPERATIONS ANALYST Pulse 51 04/29/2024 2:53 PM SENIOR OPERATIONS ANALYST Temperature 36.3 C (97.3 F) 04/29/2024 2:53 PM SENIOR OPERATIONS ANALYST Respiratory Rate 14 04/29/2024 2:53 PM SENIOR OPERATIONS ANALYST Oxygen Saturation 97% 04/29/2024 2:53 PM SENIOR OPERATIONS ANALYST Inhaled Oxygen Concentration - - Weight 73.2 kg (161 lb 6 oz) 04/29/2024 2:53 PM SENIOR OPERATIONS ANALYST Height 175.3 cm (5' 9.02) 04/29/2024 2:53 PM CS T Body Mass Index 23.82 04/29/2024 2:53 PM SENIOR OPERATIONS ANALYST Plan of Treatment Upcoming Encounters Date Type Department Care Team (Late st Contact Info) Description 07/07/2024 10:00 AM SENIOR OPERATIONS ANALYST Telemedicine Department of Oncology in [place], [place] [address] [place] [phone] Lupis Jones M.D. [address] [place] [phone] Maria Luz Gutierrez D.N.P., R.N., O.C.N. [address] [place] [phone] 08/05/2024 1:00 PM SENIOR OPERATIONS ANALYST Office Visit Division of Plastic Surgery in [place], [place] [address] [place] [phone] Adelaida Hayward APRN, C.N.P., D.N.P. 200 [place] [address] Health Maintenance Due Date Last Done Comments CT Colonography 1968 Cervical/Vaginal Cancer Screening 1968 Cologuard 1968 FIT 1968 HIV Screening 1968 Hepatitis C Screening 1968 Hepatitis B Vaccines (1 of 3 - 19+ 3-dose series) 01/17/1987 Pneumococcal vaccine (50+ years) (1 of 2 - PCV) 01/17/1987 Mammogram 03/31/2022 03/31/2021, 02/25, 03/16/2021, Additional [...] 02/16/2030 02/17/2020, 06/30/2009 Zoster Vaccines Completed 06/19/2019, 06/2018, 02/11/2019 HPV Vaccines Aged Out No longer eligi ble based on patient's age to complete this topic IPV Vaccines Aged Out No longer eligi ble based on patient's age to complete this topic Medical Devices Implanted Type Area Railroad Cook Device Identifier Shelf Expiration Date Model / Serial / Lot Breast Implant Breast Implant Left: Breast Breast Implant Breast Implant Right: Breast Procedures Procedure Name Priority Date/Time Associated Diagnosis Comments HEMOGLOBIN A1C, B Routine 04/29/2024 4:2 1 PM SENIOR OPERATIONS ANALYST Malignant Neoplasm Of Breast Upper Outer Quadrant Female Right (HCC) Abnormal Finding Of Blood Chemistry Unspecified FOLATE, S Routine 04/29/2024 4:21 PM SENIOR OPERATIONS ANALYST Malignant Neoplasm Of Breast Upper Outer Quadrant Female Right (HCC) Neuropathy Peripheral VITAMIN B12 ASSAY, S Routine 04/29/2024 4:21 PM SENIOR OPERATIONS ANALYST Malignant Neoplasm Of Breast Upper Outer Quadrant Female Right (HCC) Neuropathy Peripheral 25-HYDROXYVITAMIN D2 AND D3, S Routine 04/29/2024 4:21 PM SENIOR OPERATIONS ANALYST Malignant Neoplasm Of Breast Upper Outer Quadrant Female Right (HCC) Deficiency Vitamin D Neuropathy Peripheral THIAMIN (VITAMIN B1), B Routine 04/29/2024 4:20 PM SENIOR OPERATIONS ANALYST Malignant Neoplasm Of Breast Upper Outer Quadrant Female Right (HCC) Neuropathy Peripheral VITAMIN B6 PROF (PLP AND PA), P Routine 04/29/2024 4:20 PM SENIOR OPERATIONS ANALYST Malignant Neoplasm Of Breast Upper Outer Quadrant Female Right (HCC) Neuropathy Peripheral OUTSIDE MG MAMMOGRAM Routine 03/31/2021 11:00 AM CDT from Last 3 Months or Most Recently Relevant to Health Maintenance Results * 25-Hydroxyvitamin D2 and D3 (04/29/2024 4:21 PM SENIOR OPERATIONS ANALYST) Pathologist [facility] 25-Hydroxy D2 <4.0 ng/mL 05/02/2024 3:42 PM SENIOR OPERATIONS ANALYST [facility] 25-Hydroxy D3 49 ng/mL 05/02/2024 3:42 PM SENIOR OPERATIONS ANALYST [facility] 25-Hydroxy D Total 49 ng/mL 2023 3:42 PM SENIOR OPERATIONS ANALYST [facility] Comment: ----REFERENCE VALUE---- 25-HYDROXY D TOTAL (D2+D3) Optimum levels in the healthy population are 20-50. ----ADDITIONAL INFORMATION---- This test was developed and its performance characteristics determined by [facility] in a manner consistent with CLIA requirements. This test has not been cleared or approved by the U.S. Food and Drug Administration. Blood (Blood, Venous) 04/29/2024 4:21 PM SENIOR OPERATIONS ANALYST 04/30/2024 7:41 AM SENIOR OPERATIONS ANALYST us Lupis Jones M.D. LAB BLOOD ADD-ON Final Resu lt [facility] [address] [place] [address] [facility] [address] [place] [address] [place] [address] * Hemoglobin A1c (04/29/2024 4:21 PM SENIOR OPERATIONS ANALYST) Pathologist [facility] Hemoglobin A1c, B 5.4 4.0 - 5.6 % 04/29/2024 5:20 PM SENIOR OPERATIONS ANALYST DTL Blood (Blood, Venous) 04/29/2024 4:21 PM SENIOR OPERATIONS ANALYST 04/29/2024 4:49 PM SENIOR OPERATIONS ANALYST us Lupis Jones M.D. LAB BLOOD ADD-ON Final Resu lt Performing Organization Address City/[facility]/ZIP Co de Phone Number [facility] [address] [place] [address], [facility] [address] [place] [address] * Folate (04/29/2024 4:21 PM SENIOR OPERATIONS ANALYST) [facility] Folate, S 10.0 >=4.0 mcg/L 04/30/2024 8: 47 AM SENIOR OPERATIONS ANALYST DTL Blood (Blood, Venous) 04/29/2024 4:21 PM SENIOR OPERATIONS ANALYST 04/29/2024 5:07 PM SENIOR OPERATIONS ANALYST Lupis Jones M.D. LAB BLOOD ADD-ON Final Resu lt Performing Organization Address City/[facility]/ZIP Co de Phone Number [facility] [address] [place] [address], [facility] [address] [place] [address] * Vitamin B12 Assay (04/29/2024 4:21 PM SENIOR OPERATIONS ANALYST) [facility] Vitamin B12 Assay, S 290 180 - 914 ng/L 04/30/2024 8:47 AM SENIOR OPERATIONS ANALYST [facility] Comment: ----ADDITIONAL INFORMATION---- In patients being evaluated for vitamin B12 deficiency who have intrinsic factor blocking antibodies (IFBA), false elevations of B12 may occur due to IFBA interference thus potentially obscuring a physiological deficiency of B12. If observed B12 concentrations are discordant with clinical presentation, measurement of methylmalonic acid (MMA) should be considered. Blood (Blood, Venous) 04/29/2024 4:21 PM SENIOR OPERATIONS ANALYST 04/29/2024 5:07 PM SENIOR OPERATIONS ANALYST Lupis Jones M.D. LAB BLOOD ADD-ON Final Resu lt Performing Organization Address [facility] Co de Phone Number [place] [address] [place] [address], [place] [address] [place] [address] * Thiamine (Vitamin B1), Whole Blood (04/29/2024 4:20 PM SENIOR OPERATIONS ANALYST) Pathologist [facility] Thiamine (Vitamin B1), WB 102 70 - 180 nmol/L 05/01/2024 12:17 PM SENIOR OPERATIONS ANALYST [facility] Comment: ----ADDITIONAL INFORMATION---- This test was developed and its performance characteristics determined by [facility] in a manner consistent with CLIA requirements. This test has not been cleared or approved by the U.S. Food and Drug Administration. Blood (Blood, Venous) 04/29/2024 4:20 PM SENIOR OPERATIONS ANALYST 04/30/2024 8:44 AM SENIOR OPERATIONS ANALYST Lupis Jones M.D. LAB BLOOD NON ADD-ON Final Result Performing Organization Address City/[facility]/ZIP Co de Phone Number [facility] [address] [place] [address] [facility] [address] [place] [address] [place] [address] * (ABNORMAL) Vitamin B6 Profile (PLP and PA) (04/29/2024 4:20 PM SENIOR OPERATIONS ANALYST) Pyridoxal 5-Phosphate (PLP), P 57(H) 5 - 50 mcg/L 05/02/2024 10:08 AM [facility] Comment: In this sample, the elevated pyridoxal 5-phosphate is likely related to dietary supplementation. ----ADDITIONAL INFORMATION---- This test was developed and its performance characteristics determined by [facility] in a manner consistent with CLIA requirements. This test has not been cleared or approved by the U.S. Food and Drug Administration. Pyridoxic Acid (PA), P 25 3 - 30 mcg/L 05/02/2024 10:08 AM [facility] Comment: ----ADDITIONAL INFORMATION---- This test was developed and its performance characteristics determined by [facility] in a manner consistent with CLIA requirements. This test has not been cleared or approved by the U.S. Food and Drug Administration. Blood (Blood, Venous) 04/29/2024 4:20 PM SENIOR OPERATIONS ANALYST 04/30/2024 3:50 PM SENIOR OPERATIONS ANALYST Lupis Jones M.D. LAB BLOOD NON ADD-ON Final Result [facility] [address] [place] [address] [facility] [address] [place] [address] [place] [address] * DIAGNOSTIC MAMMO, RIGHT, W/CAD-Outside Mammogram (03/31/2021 [...] Most Recently Relevant to Health Maintenance Insurance [facility]
--- OUTSIDE RECORDS SUMMARY | 2024-06-26 16:33 | XMS_ITS | Referral Summary ---
Author Organization [facility] Address [address] [place] [address] Care Team Providers Care Security Technician Name Role Phone Unavailable Primary Care Provider Unavailabl e Source Comments Patient records contain information from all sites at [facility]. For routine questions regarding patient records, call [phone] during business hours, M-F 8:00 AM - 5:00 PM Central Time. Record requests for emergency care only can be directed to [phone] at any time.[facility] Encounters Date Type Department Care Team Description 06/12/2024 Clinical Communication Department of Oncology in [place], [place] [address] [place] [phone] Maria Luz Gutierrez D.N.P., R.N., O.C.N. Appointment 04/29/2024 4:13 PM GAS APPLIANCE ADJUSTER - 04/29/2024 11:59 PM GAS APPLIANCE ADJUSTER Hospital Encounter Department of Laboratory Medicine and Pathology, [facility] in [place], [place] [address] [place] [phone] Lupis Jones M.D. Malignant Neoplasm Of Breast Upper Outer Quadrant Female Right (HCC); Neuropathy Peripheral; Abnormal Finding Of Blood Chemistry Unspecified Discharge Disposition: Home or Self Care 04/29/2024 3:00 PM GAS APPLIANCE ADJUSTER Comprehensive Visit Department of Oncology in [place], [place] [address] [place] [phone] Lupis Jones M.D. Deficiency Vitamin D (Primary [...] from 03/31/2021:Stage IIA(cT2, cN0, cM0, G3, ER+, WA+, HER2-) - Unsigned Pathologic stage from 06/02/2021:Stage IIA(pT2, pN1a, cM0, G3, ER+, WA+, HER2-) - Unsigned Social History Tobacco Use Types Packs/Day Years Used Date Smoking Tobacco: Never Smokeless Tobacco: Never [employer] Answer Date Recorded In the past 12 months has [facility] [employer], [employer], or water [employer] threatened to shut off services in your [...] How often do you attend chur or denominational services? More than 4 times per year [...] and heating? Not hard at all 01/12/2022 [facility] of Occupat ional Health - Occupational Stress [...] PM CDT Legal Sex Female 10:30 PM GAS APPLIANCE ADJUSTER Gender Identity Female 01/12/2022 4:28 PM CDT Sexual Orientation Straight 01/12/2022 4: 28 PM CDT Last Filed Vital Signs Vital Sign Reading Time Taken Comments Blood Pressure 112/72 04/29/2024 2:53 PM GAS APPLIANCE ADJUSTER Pulse 51 04/29/2024 2:53 PM GAS APPLIANCE ADJUSTER Temperature 36.3 C (97.3 F) 04/29/2024 2:53 PM GAS APPLIANCE ADJUSTER Respiratory Rate 14 04/29/2024 2:53 PM GAS APPLIANCE ADJUSTER Oxygen Saturation 97% 04/29/2024 2:53 PM GAS APPLIANCE ADJUSTER Inhaled Oxygen Concentration - - Weight 73.2 kg (161 lb 6 oz) 04/29/2024 2:53 PM GAS APPLIANCE ADJUSTER Height 175.3 cm (5' 9.02) 04/29/2024 2:53 PM CS T Body Mass Index 23.82 04/29/2024 2:53 PM GAS APPLIANCE ADJUSTER Plan of Treatment Upcoming Encounters Date Type Department Care Team (Late st Contact Info) Description 07/07/2024 10:00 AM GAS APPLIANCE ADJUSTER Telemedicine Department of Oncology in [place], [place] [address] [place] [phone] Lupis Jones M.D. [address] [place] [phone] Maria Luz Gutierrez D.N.P., R.N., O.C.N. [address] [place] [phone] 08/05/2024 1:00 PM GAS APPLIANCE ADJUSTER Office Visit Division of Plastic Surgery in [place], [place] [address] [place] [phone] Adelaida Hayward APRN, C.N.P., D.N.P. [address] [place] [phone] Medical Devices Implanted Type Area Embosser Apprentice Device Identifier Shelf Expiration Date Model / Serial / Lot Breast Implant Breast Implant Left: Breast Breast Implant Breast Implant Right: Breast Procedures Procedure Name Priority Date/Time Associated Diagnosis Comments HEMOGLOBIN A1C, B Routine 04/29/2024 4:2 1 PM GAS APPLIANCE ADJUSTER Malignant Neoplasm Of Breast Upper Outer Quadrant Female Right (HCC) Abnormal Finding Of Blood Chemistry Unspecified FOLATE, S Routine 04/29/2024 4:21 PM GAS APPLIANCE ADJUSTER Malignant Neoplasm Of Breast Upper Outer Quadrant Female Right (HCC) Neuropathy Peripheral VITAMIN B12 ASSAY, S Routine 04/29/2024 4:21 PM GAS APPLIANCE ADJUSTER Malignant Neoplasm Of Breast Upper Outer Quadrant Female Right (HCC) Neuropathy Peripheral 25-HYDROXYVITAMIN D2 AND D3, S Routine 04/29/2024 4:21 PM GAS APPLIANCE ADJUSTER Malignant Neoplasm Of Breast Upper Outer Quadrant Female Right (HCC) Deficiency Vitamin D Neuropathy Peripheral THIAMIN (VITAMIN B1), B Routine 04/29/2024 4:20 PM GAS APPLIANCE ADJUSTER Malignant Neoplasm Of Breast Upper Outer Quadrant Female Right (HCC) Neuropathy Peripheral VITAMIN B6 PROF (PLP AND PA), P Routine 04/29/2024 4:20 PM GAS APPLIANCE ADJUSTER Malignant Neoplasm Of Breast Upper Outer Quadrant Female Right (HCC) Neuropathy Peripheral OUTSIDE MG MAMMOGRAM Routine 03/31/2021 11:00 AM CDT from Last 3 Months or Most Recently Relevant to Health Maintenance Results * 25-Hydroxyvitamin D2 and D3 (04/29/2024 4:21 PM GAS APPLIANCE ADJUSTER) 25-Hydroxy D2 <4.0 ng/mL 05/02/2024 3:42 PM GAS APPLIANCE ADJUSTER [facility] 25-Hydroxy D3 49 ng/mL 05/02/2024 3:42 PM GAS APPLIANCE ADJUSTER [facility] 25-Hydroxy D Total 49 ng/mL 2023 3:42 PM GAS APPLIANCE ADJUSTER [facility] Comment: ----REFERENCE VALUE---- 25-HYDROXY D TOTAL (D2+D3) Optimum levels in the healthy population are 20-50. ----ADDITIONAL INFORMATION---- This test was developed and its performance characteristics determined by [facility] in a manner consistent with CLIA requirements. This test has not been cleared or approved by the U.S. Food and Drug Administration. Blood (Blood, Venous) 04/29/2024 4:21 PM GAS APPLIANCE ADJUSTER 04/30/2024 7:41 AM GAS APPLIANCE ADJUSTER us Lupis Jones M.D. LAB BLOOD ADD-ON Final Resu lt Performing Organization Address City/[facility]/ZIP Co de Phone Number [facility] [address] [place] [address] [facility] [address] [place] [address] [place] [address] * Hemoglobin A1c (04/29/2024 4:21 PM GAS APPLIANCE ADJUSTER) Hemoglobin A1c, B 5.4 4.0 - 5.6 % 04/29/2024 5:20 PM GAS APPLIANCE ADJUSTER DTL Blood (Blood, Venous) 04/29/2024 4:21 PM GAS APPLIANCE ADJUSTER 04/29/2024 4:49 PM GAS APPLIANCE ADJUSTER Lupis Jones M.D. LAB BLOOD ADD-ON Final Resu lt Performing Organization Address [facility]/ZIP Co de Phone Number [address] [address], [facility] [address] [place] [address] * Folate (04/29/2024 4:21 PM GAS APPLIANCE ADJUSTER) Folate, S 10.0 >=4.0 mcg/L 04/30/2024 8: 47 AM GAS APPLIANCE ADJUSTER DTL Blood (Blood, Venous) 04/29/2024 4:21 PM GAS APPLIANCE ADJUSTER 04/29/2024 5:07 PM GAS APPLIANCE ADJUSTER us Lupis Jones M.D. LAB BLOOD ADD-ON Final Resu lt Performing Organization Address City/[facility]/ZIP Co de Phone Number [facility] [address] [place] [address], [facility] [address] [place] [address] * Vitamin B12 Assay (04/29/2024 4:21 PM GAS APPLIANCE ADJUSTER) [facility] Vitamin B12 Assay, S 290 180 - 914 ng/L 04/30/2024 8:47 AM GAS APPLIANCE ADJUSTER [facility] Comment: ----ADDITIONAL INFORMATION---- In patients being evaluated for vitamin B12 deficiency who have intrinsic factor blocking antibodies (IFBA), false elevations of B12 may occur due to IFBA interference thus potentially obscuring a physiological deficiency of B12. If observed B12 concentrations are discordant with clinical presentation, measurement of methylmalonic acid (MMA) should be considered. Blood (Blood, Venous) 04/29/2024 4:21 PM GAS APPLIANCE ADJUSTER 04/29/2024 5:07 PM GAS APPLIANCE ADJUSTER Lupis Jones M.D. LAB BLOOD ADD-ON Final Resu lt Performing Organization Address City/[facility] Co de Phone Number [facility] [address] [place], [place] [address] [address] [place] [address] * Thiamine (Vitamin B1), Whole Blood (04/29/2024 4:20 PM GAS APPLIANCE ADJUSTER) [facility] Thiamine (Vitamin B1), WB 102 70 - 180 nmol/L 05/01/2024 12:17 PM GAS APPLIANCE ADJUSTER [facility] Comment: ----ADDITIONAL INFORMATION---- This test was developed and its performance characteristics determined by [facility] in a manner consistent with CLIA requirements. This test has not been cleared or approved by the U.S. Food and Drug Administration. Blood (Blood, Venous) 04/29/2024 4:20 PM GAS APPLIANCE ADJUSTER 04/30/2024 8:44 AM GAS APPLIANCE ADJUSTER us Lupis Jones M.D. LAB BLOOD NON ADD-ON Final Result Performing Organization Address City/[facility]/ZIP Co de Phone Number [facility] [address] [place] [phone] [facility] [address] [place] [address] [place] [address] * (ABNORMAL) Vitamin B6 Profile (PLP and PA) (04/29/2024 4:20 PM GAS APPLIANCE ADJUSTER) Pyridoxal 5-Phosphate (PLP), P 57(H) 5 - 50 mcg/L 05/02/2024 10:08 AM GAS APPLIANCE ADJUSTER [facility] Comment: In this sample, the elevated pyridoxal 5-phosphate is likely related to dietary supplementation. ----ADDITIONAL INFORMATION---- This test was developed and its performance characteristics determined by [facility] in a manner consistent with CLIA requirements. This test has not been cleared or approved by the U.S. Food and Drug Administration. Pyridoxic Acid (PA), P 25 3 - 30 mcg/L 05/02/2024 10:08 AM GAS APPLIANCE ADJUSTER [facility] Comment: ----ADDITIONAL INFORMATION---- This test was developed and its performance characteristics determined by [facility] in a manner consistent with CLIA requirements. This test has not been cleared or approved by the U.S. Food and Drug Administration. Blood (Blood, Venous) 04/29/2024 4:20 PM GAS APPLIANCE ADJUSTER 04/30/2024 3:50 PM GAS APPLIANCE ADJUSTER Lupis Jones M.D. LAB BLOOD NON ADD-ON Final Result [facility] [address] [place] [address] [facility] [address] [place] [address] [address] [place] [address] * DIAGNOSTIC MAMMO, RIGHT, W/CAD-Outside Mammogram (03/31/2021 [...] defined workflow. us Provider Not In System IM BI PROCEDURES Final R esult IIMS NA from Last 3 Months or Most Recently Relevant to Health Maintenance Insurance [facility]
--- OUTSIDE RECORDS SUMMARY | 2024-06-26 16:33 | XMS_ITS ---
Author Organization [facility] Address [address] [place] [address] Care Team Providers Care Dredge Pumper Name Role Phone Unavailable Unavailable Unavailable Surgery Details Not on file Complications Check Surgery Details section. Procedure Estimated Blood Loss Check Surgery Details section. Procedure Findings Check Surgery Details section. Procedure Specimens Taken Check Surgery Details section.
== END 2024-11-28 23:59 | disposition home or self-care (01) ==
PROVIDERS: PCP Family Medicine; Visit Provider Family Medicine
DX: M25.511 Pain in right shoulder (principal); M54.6 Pain in thoracic spine; Z51.89 Encounter for other specified aftercare
CPT/HCPCS: 97110; 97140; 97161

== ENCOUNTER 2024-09-08 08:30 | Outpatient (RCR) | payer OTHER, SELFPAY | END 2024-11-08 23:59 | disposition home or self-care (01) | LOC: CCIC 08:30 | PROVIDERS: PCP Family Medicine; Visit Provider Physician Assistant | DX: C50.911 Malignant neoplasm of unspecified site of right female breast (principal); Z17.0 Estrogen receptor positive status [ER+]; C77.3 Secondary and unspecified malignant neoplasm of axilla and upper limb lymph nodes; R07.89 Other chest pain; Z90.13 Acquired absence of bilateral breasts and nipples; Z79.811 Long term (current) use of aromatase inhibitors | CPT/HCPCS: 99214; G0463 ==

== ENCOUNTER 2025-06-15 16:27 | Outpatient (CLI) | payer OTHER, SELFPAY ==
--- NOTE | 2025-06-15 16:45 | CRLHL7_ITS ---
For Patients: As a result of the Century Cures Act, medical imaging exams and procedure reports are released immediately into your electronic medical record. You may view this report before your referring provider. If you have questions, please contact your health care provider. Indication: left lateral to the anus/perineum, px feeling small lump, more noticeable after running Technique: Grayscale and color Doppler ultrasound of the left perianal soft tissues performed. Comparison: CT 05/21/2024 Findings: No fluid collection, mass or abnormal vascularity. Impression: No suspicious findings are present. Dictated by Saurav Marcano MD @ 06/16/2025 2:35:21 PM (Electronically Signed)
== END 2025-06-15 16:28 | disposition home or self-care (01) ==
LOC: US 16:28
PROVIDERS: PCP Family Medicine; Visit Provider Family Medicine
DX: R22.2 Localized swelling, mass and lump, trunk (principal); Z12.89 Encounter for screening for malignant neoplasm of other sites; Z09 Encounter for follow-up examination after completed treatment for conditions other than malignant neoplasm
CPT/HCPCS: 76857